=== PATIENT | male | born 1945 | race Hispanic/Latino ===

== ENCOUNTER 2017-01-17 13:43 | Outpatient (CLI) | payer MEDICARE, OTHER ==
--- NOTE | 2017-01-17 16:40 | HP ---
DATE OF SERVICE: 01/17/2017 HISTORY OF PRESENT ILLNESS: Mr. Tab Burdick is a very pleasant 71-year-old gentleman accomp anied by his daughter who presents to the [facility] Center for evaluation of a coccygeal pressure ulcerat ion. The patient's daughter states that the coccygeal wound was noted at the end of September of this y ear, but has decreased in its dimensions with dressing changes. The patient also has ulcerations of the right lateral foot and of the right great toe. The patient's daughter states that the ulceration of the right lateral foot was noted at the beginning of October of this year. She states that the wound of the right great toe was first noted in early December of this year. The patient's daughter states that Mr. Burdick suffered a hemorrhagic stroke in 08/2016. She states that the patient was di scharged from [facility] to [facility] and eventually to [facility]. e states that after admission to [facility], the coccygeal wound developed. She states that the patient was noted to have an infectious process associated with a coccygeal wound and was seen at [facility]. She states that the patient was discharged to [facility] after his evaluatio n. She states that the following day, the patient was noted to have fever and elevated blood glucose s. The patient was seen in the Emergency Department at [facility] and [facility] for treatment of a Staphylococcal infection associated with the coccygeal wound. The patient's poonam ghter states that Mr. Burdick has remained in the hospital for 4 days before discharge to [facility]. The patient's daughter states that Mr. Burdick has received dressing changes for his c occygeal wound consisting of various dressings containing silver. He has also received a trial of Nm dihoney. PAST MEDICAL HISTORY: 1. Diabetes mellitus. 2. Hypertension. 3. Coronary artery disease. 4. Chronic obstructive pulmonary disease. 5. Obstructive sleep apnea. 6. History of transient ischemic attack. 7. Hemorrhagic cerebrovascular accident. PAST SURGICAL HISTORY: 1. Back surgery. 2. Coronary artery bypass grafting. 3. ORIF for femur fracture. 4. Laparoscopic cholecystectomy. 5. Redo coronary artery bypass grafting x3. MEDICATIONS: 1. Omeprazole. 2. Thera-M. 3. Vitamin C. 4. Zinc. 5. Arginaid. 6. Flomax. 7. Humalog. 8. Claritin. 9. Norvasc. 10. Simvastatin. 11. Aricept. 12. Coreg. 13. Levemir. 14. Brovana. 15. Budesonide suspension. 16. Ipratropium bromide solution. ALLERGIES: CODEINE. SOCIAL HISTORY: Significant for tobacco use in the past. The patient's daughter states that Mr. Ronald guzman stopped smoking over 20 years ago. She states that the patient has a history of heavy alcohol us e in the past. FAMILY HISTORY: Significant for diabetes mellitus. The patient's mother and father were both diagno sed with diabetes mellitus. Family history is also significant for coronary artery disease. The pat paty's daughter states that some of the patient's brothers were diagnosed with coronary artery diseas e. PHYSICAL EXAMINATION: VITAL SIGNS: Temperature 97.2, pulse 64, respirations 17, blood pressure 126/54. Accu-Chek 184. GENERAL: A 71-year-old gentleman lying on stretcher in examination room, in no acute distress. HEENT: Normocephalic, atraumatic. NECK: No nuchal rigidity. CHEST: Clear to auscultation. CARDIAC: Regular rate and rhythm. ABDOMEN: Soft. BACK: A coccygeal ulceration is present, which measures approximately 2.4 x 2.9 cm. Granulation tis nic is present within the wound margins. Nonviable tissue present within the wound margins was debri ded with an excisional full-thickness debridement. No purulent drainage is associated with the wound . No cellulitis of the presacral region is appreciated. No maceration of the skin of the periwound is noted. EXTREMITIES: No clubbing or cyanosis. A dorsalis pedis or posterior tibial pulse is not palpable on the right. No edema of the right lower extremity is present on exam today. ASSESSMENT AND PLAN: 1. Coccygeal pressure ulceration as described above. Dressing changes of Santyl and gauze will be i nitiated today. These dressing changes are to be performed on a daily basis after cleansing and irri gation at [facility]. The ulcerations of the right great toe and right lateral foot a re completely covered by dry stable eschar and the present dressing changes of Cavilon will be contin ued. No antibiotics will be prescribed today based upon the appearance of the coccygeal wound. I wi ll see Mr. Burdick again in 2 weeks. Orders will be transmitted to [facility] for albu min and prealbumin levels. Orders will also be transmitted to [facility] for offloadi ng of the coccygeal ulceration with position changes q.2 hours. The patient's daughter understands a nd is in agreement with the preceding treatment plan. 2. Diabetes mellitus. The patient's Accu-Chek in clinic today is 184. The patient's daughter has christopher gutierrez told that for optimal wound healing, the patient's blood glucoses should remain below 150. 2. Hypertension. 3. Coronary artery disease. 4. Chronic obstructive pulmonary disease. 5. Obstructive sleep apnea. 6. History of transient ischemic attack. 7. Hemorrhagic cerebrovascular accident.
[2017-01-17] MEDS ORDERED: Sodium Chloride 0.9% 15 ML NEB ONE (17:29)
[2017-01-17] MEDS ORDERED: Lidocaine 2% Jelly 5 ML TUBE ONE (17:29)
== END 2017-01-17 13:44 | disposition home or self-care (01) ==
LOC: WCC 13:43
PROVIDERS: ATTEND Family Medicine
DX: L89.159 Pressure ulcer of sacral region, unspecified stage (principal); E11.622 Type 2 diabetes mellitus with other skin ulcer; I10 Essential (primary) hypertension; I25.10 Atherosclerotic heart disease of native coronary artery without angina pectoris; J44.9 Chronic obstructive pulmonary disease, unspecified; G47.33 Obstructive sleep apnea (adult) (pediatric)
CPT/HCPCS: 11042; 97139; G0463; 99204; A4218

== ENCOUNTER 2017-01-31 13:57 | Outpatient (CLI) | payer MEDICARE, OTHER ==
--- NOTE | 2017-01-31 16:34 | PRG ---
DATE OF SERVICE: 01/31/2017 HISTORY: Mr. Tab Burdick is a very pleasant 71-year-old gentleman accompanied by his daughter who presents to the Wound Center for evaluation of a coccygeal pressure ulceration. The pa tawana's daughter previously stated that the coccygeal wound was noted at the end of September of this ye ar, but decreased in its dimensions with dressing changes. The patient also has ulcerations of the r ight lateral foot and of the right great toe. The patient's daughter previously stated that the ulce ration of the right lateral foot was noted at the beginning of October of this year. She stated th at the wound of the right great toe was first noted in early December of this year, the patient's poonam ghter stated that Mr. Burdick suffered a hemorrhagic stroke in 08/2016. She stated that the patient w as discharged from [facility] to [facility] and eventually to [facility] . She stated that after admission to [facility] the coccygeal wound developed. She stated jamaal t the patient was noted to have an infectious process associated with the coccygeal wound and was see n at [facility]. She stated that the patient was discharged to [facility] after his ev aluation. She stated that the following day, the patient was noted to have fever and elevated blood glucoses. The patient was seen in the Emergency Department at [facility] and admitted for treatment of Staphylococcal infection associated with the coccygeal wound. The patient' s daughter stated that Mr. Burdick had remained in the hospital for 4 days before discharged to [facility]. The patient's daughter stated that Mr. Burdick had received dressing changes for his coccygeal wound consisting of various dressings containing silver. He had also received a trial of Medihoney. After being seen in the Wound Center, dressing changes of Santyl was initiated. PHYSICAL EXAMINATION: VITAL SIGNS: Temperature 97.9, pulse 67, respirations 18, blood pressure 140/60. Accu-Chek 167. BACK: A coccygeal ulceration is present which measures approximately 2.0 x 2.0 cm. The dimensions o f the wound at the time of the patient's last visit were approximately 2.4 x 2.9 cm. Granulation tis nic is present within the wound margins. Nonviable tissue present within the wound margins was debri ded with an excisional full-thickness debridement. No purulent drainage is associated with the wound . No cellulitis of the presacral region is appreciated. No maceration of the skin of the periwound is noted. ASSESSMENT AND PLAN: 1. Coccygeal pressure ulceration as described above. Dressing changes of Santyl and gauze will be c ontinued on a daily basis after cleansing and irrigation at [facility]. The coccygeal pressure ulceration has improved in its appearance since the patient's last visit. The ulcerations of the right great toe and right lateral foot are healing without complications or any signs of infec tion. I will see Mr. Burdick again in 3-4 weeks. Orders will be transmitted to [facility] for albumin and prealbumin levels. Orders will also be transmitted to [facility] for offloading of the coccygeal ulceration with position changes q.2 hours. The patient's daughter understands and is in agreement with the preceding treatment plan. 2. Diabetes mellitus. The patient's Accu-Chek in clinic today is 167. The patient's daughter has christopher gutierrez told that for optimal wound healing, the patient's blood glucoses should remain below 150. 3. Hypertension. 4. Coronary artery disease. 5. Chronic obstructive pulmonary disease. 6. Obstructive sleep apnea. 7. History of transient ischemic attack. 8. Hemorrhagic cerebrovascular accident.
[2017-01-31] MEDS ORDERED: Sodium Chloride 0.9% 15 ML NEB ONE (17:05)
== END 2017-01-31 13:58 | disposition home or self-care (01) ==
LOC: WCC 13:57
PROVIDERS: ATTEND Family Medicine
DX: L89.159 Pressure ulcer of sacral region, unspecified stage (principal); E11.621 Type 2 diabetes mellitus with foot ulcer; L97.519 Non-pressure chronic ulcer of other part of right foot with unspecified severity; I10 Essential (primary) hypertension; I25.10 Atherosclerotic heart disease of native coronary artery without angina pectoris; G47.33 Obstructive sleep apnea (adult) (pediatric); J44.9 Chronic obstructive pulmonary disease, unspecified; I61.9 Nontraumatic intracerebral hemorrhage, unspecified
CPT/HCPCS: 11042; 36416; A4218

== ENCOUNTER 2017-03-02 13:13 | Outpatient (CLI) | payer MEDICARE, OTHER ==
--- NOTE | 2017-03-02 15:58 | PRG ---
DATE OF SERVICE: 03/02/2017 HISTORY: Mr. Tab Burdick is a very pleasant 71-year-old gentleman accompanied by his daught er who presents to the Wound Center for evaluation of coccygeal pressure ulceration. The patient's d aughter previously stated that the coccygeal wound was noted at the end of 09/2016, but decreased in its dimensions with dressing changes. The patient also has an ulceration of the right lateral foot a nd of the right great toe. The patient's daughter previously stated that the ulceration of the right lateral foot was noted at the beginning of 10/2016. She stated that the wound of the right great to e was first noted in early 12/2016. The patient's daughter stated that the patient was discharged fr [facility] to [facility] and eventually to [facility]. She stated th at after admission to [facility], the coccygeal wound developed. She stated that the patient wa s noted to have an infectious process associated with a coccygeal wound and was seen at [facility]. She stated that the patient was discharged to [facility] after his evaluation. She sta chu that the following day, the patient was noted to have fever and elevated blood glucoses. The pat paty was seen in the Emergency Department at [facility] and admitted for treat ment of a Staphylococcal infection associated with the coccygeal wound. The patient's daughter state d that Mr. Burdick had remained in the hospital for 4 days before discharge to [facility]. The patient's daughter stated that Mr. Burdick had received dressing changes for his coccygeal wo und consisting of various dressings containing silver. He had also received a trial of Medihoney. A fter being seen in the Wound Center, dressing changes of Santyl were initiated. PHYSICAL EXAMINATION: VITAL SIGNS: Temperature 97.6, pulse 68, respirations 16, blood pressure 122/60. Accu-Chek 112. BACK: A coccygeal ulceration is present which measures approximately 2.4 x 1.2 cm. The dimensions o f the wound at the time of the patient's last visit were approximately 2.0 x 2.0 cm. Granulation tis nic was present within the wound margins. Nonviable tissue present within the wound margins was debr ided with an excisional full-thickness debridement. No purulent drainage is associated with the woun d. No cellulitis of the presacral region is appreciated. No maceration of the skin of the periwound is noted. EXTREMITIES: An ulceration of the right lateral foot is present, which measures approximately 1.0 x 1.5 cm. The ulceration of the right great toe has healed completely. Cellulitis of the right second toe is, however, noted on exam today. ASSESSMENT AND PLAN: 1. Coccygeal pressure ulceration as described above. Dressing changes of Santyl will be discontinue d. Dressing changes of Medihoney and gauze will be resumed on a daily basis after cleansing and irri gation at [facility]. The patient is experiencing discomfort with the dressing change s of Santyl. For the ulceration of the right lateral foot, dressing changes of Medihoney and gauze a re to be performed also on a daily basis after cleansing and irrigation. Orders will be transmitted to [facility] for offloading of the coccygeal and right lateral foot ulcerations at al l times. Dorsalis pedis or posterior tibial pulses are not palpable on the right or the left and arr angements will be made for the patient to be seen in consultation by Dr. Les Roblero for right lower ex tremity arterial insufficiency. Orders will again be transmitted to [facility] for al bumin and prealbumin levels. Apparently, the patient has been seen by Nutrition and is now consuming a supplement in liquid form 3 times per day. I will see Mr. Burdick after evaluation by Dr. Roblero and any necessary treatment is complete. The patient's daughter understands and is in agreement with [facility] preceding treatment plan. For cellulitis of the right second toe, the patient has been placed on A ugmentin 875/125, #28, 1 p.o. b.i.d. x14 days. 2. Diabetes mellitus. The patient's Accu-Chek in clinic today is 112. The patient's daughter has b brenda reminded that for optimal wound healing, the patient's blood glucoses should remain below 150. 3. Hypertension. 4. Coronary artery disease. 5. Chronic obstructive pulmonary disease. 6. Obstructive sleep apnea. 7. History of transient ischemic attack. 8. Hemorrhagic cerebrovascular accident.
[2017-03-02] MEDS ORDERED: Lidocaine 2% Jelly 5 ML TUBE ONE (17:08)
[2017-03-02] MEDS ORDERED: Sodium Chloride 0.9% 15 ML NEB ONE (17:08)
== END 2017-03-02 13:14 | disposition home or self-care (01) ==
LOC: WCC 13:13
PROVIDERS: ATTEND Family Medicine
DX: E11.621 Type 2 diabetes mellitus with foot ulcer (principal); E11.622 Type 2 diabetes mellitus with other skin ulcer; L89.159 Pressure ulcer of sacral region, unspecified stage; L98.499 Non-pressure chronic ulcer of skin of other sites with unspecified severity; I10 Essential (primary) hypertension; I25.10 Atherosclerotic heart disease of native coronary artery without angina pectoris; J44.9 Chronic obstructive pulmonary disease, unspecified; G47.33 Obstructive sleep apnea (adult) (pediatric); I62.9 Nontraumatic intracranial hemorrhage, unspecified; Z86.73 Personal history of transient ischemic attack (TIA), and cerebral infarction without residual deficits
CPT/HCPCS: 11042; A4218

== ENCOUNTER 2017-03-07 15:13 | Inpatient (IN) | payer MEDICARE, OTHER ==
[2017-03-07 16:17] LABS: #Eosinphils 0.5 thou/uL (0.0-0.7); #Lymphocytes 1.1 thou/uL (1.20-3.40); #Monocytes 0.5 thou/uL (0.11-0.59); #Neutrophils 4.6 thou/uL (1.40-6.50); %Basophils 0.1 % (0.0-1.0); %Eosinophils 6.8 % (0.0-10.0); %Lymphocytes 17.1 % (21.0-51.0); %Monocytes 7.8 % (0.0-10.0); %Neutrophils 68.2 % (42.0-75.0); Mean Corpuscular HGB CONC 31.3 g/dL (32.0-36.0); Mean Corpuscular Volume 92.6 fl (80.0-94.0); Mean Platelet Volume 7.4 fL (7.4-10.4); Platelet Count 218 thou/uL (130-400); RBC Distribution Width 13.3 % (11.5-14.5); Red Blood Cell (RBC) Count 4.15 mill/uL (4.70-6.10); White Blood Cell (WBC) Count 6.7 thou/uL (4.8-10.8)
[2017-03-07 16:23] LABS: PTT 34.4 SEC (22.9-36.1)
[2017-03-07 16:27] LABS: Prothrombin Time 13.6 SEC (12.0-14.7)
[2017-03-07 16:36] LABS: ALT (SGPT) 27 U/L (8-55); AST (SGOT) 18 U/L (5-34); Albumin 3.3 g/dL (3.4-4.8); Alkaline Phosphatase 103 U/L (40-150); Anion Gap 11 mmol/L (10-20); BUN (Urea Nitrogen) 24 mg/dL (8.4-25.7); Bilirubin, Total 0.2 mg/dL (0.2-1.2); CRP (Inflammatory) 2.24 mg/dL (= or < 0.5); Calc. Creatinine Clearance 0 mL/min (70-130); Calcium 9.2 mg/dL (7.8-10.44); Carbon Dioxide 28 mmol/L (23-31); Chloride 102 mmol/L (98-107); Estimated GFR-MDRD Greater than 90; Globulin 3.4 g/dL (2.4-3.5); Glucose 305 mg/dL (83-110); Potassium 4.7 mmol/L (3.5-5.1); Protein, Total 6.7 g/dL (5.8-8.1); Sodium 136 mmol/L (136-145)
[2017-03-07 16:40] LABS: CKMB 0.9 ng/mL (0-6.6)
--- NOTE | 2017-03-07 16:51 | RAD ---
2 VIEWS RIGHT FOOT: Date: 03/07/17 HISTORY: Right toe infection. Gangrenous right second toe. COMPARISON: 03/03/17. FINDINGS: Limited evaluation due to patient positioning. The second toe could not be adequately assessed. Based on the images provided, no obvious osteomyelitis. Soft tissue swelling of the second digit is suspec chu. Additionally, there may be mild soft tissue swelling involving the first and third digit. Vascul ar calcifications are identified. There is diffuse mild bone demineralization. Degenerative changes in the mid foot are noted. IMPRESSION: 1. Limited evaluation. No radiographic evidence of osteomyelitis. 2. Soft tissue swelling, worrisome for cellulitis involving the second and possibly the first and th ird digits. When compared to the previous radiograph, no change. POS: SCHUYLER
--- NOTE | 2017-03-07 16:53 | ULT ---
ULTRASOUND WITH DOPPLER DUPLEX VENOUS LOWER EXTREMITY RIGHT: HISTORY: 71-year-old male with gangrenous right toe. TECHNIQUE: Color flow Doppler, spectral waveform analysis of pulsed Doppler, and villegas-scale imaging with chayo emily and augmentation, were used to evaluate the right common femoral, femoral, popliteal, posterior tibial, and superficial femoral, veins; and the proximal portions of the profunda femoral and greater saphenous, veins. FINDINGS: There is normal compressibility, demonstration of blood flow by color Doppler and pulsed Doppler, and response to augmentation, in all interrogated veins. There is mild edema in the soft tissues. IMPRESSION: 1. No deep vein thrombosis in the right lower extremity. 2. Mild edema of the soft tissues of the right lower extremity. allyssa staton POS: ОЛЕГ
--- NOTE | 2017-03-07 18:35 | PDOC.EVN ---
Event Note - Event Note Event Note: [id number] H&P Dictated 1. Rt foot/toe cellulitis. 2. Pain 3. HTN 4. DM type 2 plan: see orders
[2017-03-07] MEDS ORDERED: Ondansetron HCl/PF 4 MG/2 ML Vial IVP PRN ×2 (19:15)
[2017-03-07] MEDS ORDERED: Ondansetron ODT 4 MG TAB SL PRN (19:15)
[2017-03-07] MEDS ORDERED: Acetaminophen 325 MG TAB PO PRN (19:15)
[2017-03-07] MEDS ORDERED: Dextrose 5% in Water 1,000 ML IV PRN (19:20)
[2017-03-07] MEDS ORDERED: HumaLOG 300 UNITS/3 ML VIAL SC PRN ×2 (19:20)
[2017-03-07] MEDS ORDERED: Dextrose 50% Abboject 50 ML SYRINGE SLOW IVP PRN (19:20)
[2017-03-07] MEDS: Sodium Chloride 0.9% 1,000 ML IV SCH (20:36)
[2017-03-07] MEDS: Cefepime 2 GM, Syringe 2.5 ML in Sterile Water 10 ML SLOW IVP SCH (20:36)
[2017-03-07] MEDS: Carvedilol 6.25 MG TAB PO SCH (20:43)
[2017-03-07] MEDS: Simvastatin 40 MG TAB PO SCH (20:43)
[2017-03-07] MEDS: Heparin 5,000 UNITS/ML VIAL SC SCH (20:43)
[2017-03-07] MEDS: Tamsulosin HCl 0.4 MG CAP PO SCH (20:44)
[2017-03-07] MEDS: Donepezil HCl 5 MG TAB PO SCH (20:44)
[2017-03-07] MEDS: Famotidine/PF 20 mg/2ml Vial SLOW IVP SCH (20:45)
[2017-03-07] MEDS: Insulin Detemir 100 UNITS/ML 12 UNITS in Pre-Filled Syringe SC SCH (20:56)
[2017-03-07] MEDS ORDERED: Cefepime 2 GM in Sodium Chloride 0.9% 100 ML IVPB SCH (21:00)
[2017-03-08 04:44] LABS: #Eosinphils 0.4 thou/uL (0.0-0.7); #Lymphocytes 1.3 thou/uL (1.20-3.40); #Monocytes 0.6 thou/uL (0.11-0.59); #Neutrophils 4.9 thou/uL (1.40-6.50); %Basophils 0.3 % (0.0-1.0); %Lymphocytes 17.5 % (21.0-51.0); %Monocytes 8.7 % (0.0-10.0); %Neutrophils 68.5 % (42.0-75.0); Hemoglobin 10.9 g/dL (14.0-18.0); Mean Corpuscular HGB CONC 31.3 g/dL (32.0-36.0); Mean Corpuscular Hemoglobin 28.9 pg (27.0-31.0); Mean Corpuscular Volume 92.4 fl (80.0-94.0); Mean Platelet Volume 7.4 fL (7.4-10.4); Platelet Count 215 thou/uL (130-400); RBC Distribution Width 13.4 % (11.5-14.5); Red Blood Cell (RBC) Count 3.78 mill/uL (4.70-6.10); White Blood Cell (WBC) Count 7.2 thou/uL (4.8-10.8)
[2017-03-08 05:08] LABS: Anion Gap 10 mmol/L (10-20); BUN (Urea Nitrogen) 21 mg/dL (8.4-25.7); Calc. Creatinine Clearance 0 mL/min (70-130); Calcium 8.8 mg/dL (7.8-10.44); Carbon Dioxide 24 mmol/L (23-31); Chloride 106 mmol/L (98-107); Estimated GFR-MDRD Greater than 90; Glucose 140 mg/dL (83-110); Sodium 136 mmol/L (136-145)
[2017-03-08] MEDS: Vancomycin HCl 1.5 GM in Sodium Chloride 0.9% 250 ML 300 ML IVPB SCH ×2 (05:58→17:26)
--- NOTE | 2017-03-08 06:10 | HP ---
DATE OF ADMISSION: 03/07/2017 CHIEF COMPLAINT: Right second toe infection. HISTORY OF PRESENT ILLNESS: The patient is a 71 years old male with the past medical history of diab etes type 2, hypertension, COPD, coronary artery disease, dementia, now came to ER for second right t oe swelling and black discoloration. According to the daughter, the patient has started having right toe black discoloration 1 week back since then it persisted associated with some right foot pain. P ain is constant 10/10, initially 5/10, currently none. Denies any radiation. Denies any fever, sunni es any chills, denies any nausea, denies any vomiting, denies any chest pain, denies any trouble natalya thing, denies any dizziness. PAST MEDICAL HISTORY: As per HPI. PAST SURGICAL HISTORY: CABG x2, right hip surgery. SOCIAL HISTORY: Denies smoking, denies alcohol, denies any drugs. MEDICATIONS: Reviewed. FAMILY HISTORY: Denies any heart problems. REVIEW OF SYSTEMS: Constitutional: Denies any fever, denies any chills. Eyes: No vision problems. Ears: Denies any hearing loss. Neck: Denies any neck pain. Cardiovascular system: Denies any c hest pain. Respiratory system: Denies any cough, denies sputum production. Gastrointestinal: Sunni es nausea, vomiting. Integumentary: Denies any rash. Genitourinary: Denies dysuria. Musculoskele dayan: Right second toe pain. Cranial nerve system: Positive for right foot erythema and right secon d toe erythema. Psychiatric: Denies anxiety. All other review of systems are reviewed and are nega tive. PHYSICAL EXAMINATION: CONSTITUTIONAL/VITAL SIGNS: At the time of H and P performed, blood pressure is 115/57, heart rate 6 9, pulse ox 93%. GENERAL: The patient appears comfortable. HEENT: Pupils equal, round, and reactive to light. Anterior nares patent. Nose normal. Ears edwina l. Teeth intact. Tongue is moist. NECK: Supple. No JVD. CARDIOVASCULAR SYSTEM: S1, S2 present. Regular rate and rhythm. No murmurs, no rubs, no gallops. RESPIRATORY SYSTEM: No wheezing, no rhonchi. Breath sounds bilaterally. GASTROINTESTINAL: Abdomen is soft, nontender, no guarding, no organomegaly, no masses felt. MUSCULOSKELETAL: Right second toe swelling present. Erythema present. Black discoloration seen up to the mid of the toe. PSYCHIATRIC: Mood is appropriate at this time. GENITOURINARY: No suprapubic tenderness. LABORATORY DATA: At the time of H and P performed, white count 6.7, hemoglobin 12, platelet count is 218. BMP: Sodium 136, potassium 4.7, chloride 102, CO2 28, BUN of 24, creatinine 0.78, glucose 305 , troponin 0.010. PT 13.6. INR 1. Vascular ultrasound, no DVT, mild edema, and soft tissue. Foot x-ray, limited evaluation of soft tissue swelling, worsening foot cellulitis. ASSESSMENT AND PLAN: The patient is a 71 years old male: 1. Right second toe foot cellulitis plus second toe possible gangrene. Plan to consult Podiatry to evaluate the patient. Plan to start patient on broad-spectrum antibiotics and monitor patient. 2. Hypertension. Monitor blood pressures. Continue home blood pressure meds. 3. History of chronic obstructive pulmonary disease. Continue breathing treatments. 4. History of diabetes type 2, monitor blood sugars. We will do insulin sliding scale. 5. History of coronary artery disease. Continue aspirin. The case was discussed in detail with the patient.
[2017-03-08 06:59] VITALS: BMI 21.5
[2017-03-08] MEDS: Arformoterol 15 MCG/2 ML NEB NEB SCH ×2 (07:49→19:08)
[2017-03-08] MEDS: Budesonide 0.25 MG/2 ML NEB NEB SCH ×2 (07:52→19:09)
[2017-03-08] MEDS ORDERED: FLU VACC TS2017-18 (>65YR) 0.5 ML SYRINGE IM ONE (08:00)
[2017-03-08] MEDS: Sodium Chloride 0.9% 1,000 ML IV SCH ×2 (08:23→20:57)
[2017-03-08] MEDS: Carvedilol 6.25 MG TAB PO SCH ×2 (08:23→21:05)
[2017-03-08] MEDS: Famotidine/PF 20 mg/2ml Vial SLOW IVP SCH ×2 (08:23→20:57)
[2017-03-08] MEDS: Heparin 5,000 UNITS/ML VIAL SC SCH ×3 (08:24→20:52)
[2017-03-08] MEDS: Insulin Detemir 100 UNITS/ML 12 UNITS in Pre-Filled Syringe SC SCH ×2 (08:24→21:49)
[2017-03-08] MEDS: Cefepime 2 GM, Syringe 2.5 ML in Sterile Water 10 ML SLOW IVP SCH ×2 (09:52→20:51)
[2017-03-08] MEDS: Acetaminophen 325 MG TAB PO PRN ×2 (09:56→14:20)
--- NOTE | 2017-03-08 15:10 | PDOC.PN ---
- Subjective Encounter Start Date: 03/08/17 Encounter Start Time: 11:00 Regulot is seen today, alert and oriented. Discussed with , pt has Severe PVD and Will need Arterial Doppler for evalaution. - Objective MAR Reviewed: Yes Vital Signs & Weight: Vital Signs (12 hours) Temp Pulse Resp BP Pulse Ox 03/08/17 12:09 97.9 F 66 16 119/69 94 L 03/08/17 08:00 97.8 F 60 16 97 03/08/17 07:49 60 16 97 03/08/17 07:26 97.8 F 69 16 112/64 94 L 03/08/17 04:00 98.5 F 67 20 123/70 94 L Weight Admit Weight 146 lb Weight 146 lb Result Diagrams: 03/08/17 04:08 03/08/17 04:08 Additional Labs: Accuchecks 03/08/17 03/08/17 03/07/17 12:08 04:52 20:36 POC Glucose 124 H 127 H 233 H Radiology Reviewed by me: Yes Phys Exam - Physical Examination HEENT: PERRLA, moist MMs Neck: no nodes, no JVD Respiratory: no rales, wheezing present Cardiovascular: RRR, no significant murmur Gastrointestinal: soft, non-tender Musculoskeletal: pulses present (reduced on right Lower Extremity Dorsalis pedis , gangrene of the second toe) Neurological: non-focal, normal sensation Dx/Plan (1) Gram-negative bacteremia Code(s): R78.81 - BACTEREMIA Status: Acute Comment: Pt has gram Neg Bacteremia, Will continue with Cefepime and Vancomycin, culture sensitivitis pending., (2) Gangrene of toe of right foot Code(s): I96 - GANGRENE, NOT ELSEWHERE CLASSIFIED Status: Acute Comment: Will cotninue with above Abx, Pending podiatry consult, Will get NILESH to r/o PVD. (3) CAD (coronary artery disease) Code(s): I25.10 - ATHSCL HEART DISEASE OF [place] CORONARY ARTERY W/O ANG PCTRS Status: Chronic Qualifiers: Coronary Disease-Associated Artery/Lesion type: bypass graft [place] vs. transplanted heart: [place] heart Associated angina: without angina Qualified Code(s): I25.810 - Atherosclerosis of coronary artery bypass graft(s) without angina pectoris Comment: H/o CABG, no chest pain, continue Aspirin, BB (4) COPD (chronic obstructive pulmonary disease) Status: Chronic Qualifiers: COPD type: unspecified COPD Qualified Code(s): J44.9 - Chronic obstructive pulmonary disease, unspecified Comment: No exacerbation noted. mild Wheezing, continue PRN NEbs. 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 (6) HTN (hypertension) Code(s): I10 - ESSENTIAL (PRIMARY) HYPERTENSION Status: Chronic Qualifiers: Hypertension type: essential hypertension Qualified Code(s): I10 - Essential (primary) hypertension Comment: BP at Goal, continue Home Meds. - Plan cont current plan of care, plan discussed w/ family, continue antibiotics, PT/OT , DVT proph w/lovenox * . - Discharge Day Encounter end time: 11:45 Review of Systems - Review of Systems Constitutional: fever Eyes: negative: Pain, Vision Change, Conjunctivae Inflammation, Eyelid Inflammation, Redness, Other ENT: negative: Ear Pain, Ear Discharge, Nose Pain, Nose Discharge, Nose Congestion, Mouth Pain, Mouth Swelling, Throat Pain, Throat Swelling, Other Respiratory: negative: Cough, Dry, Shortness of Breath, Hemoptysis, SOB with Excertion, Pleuritic Pain, Sputum, Wheezing Cardiovascular: negative: chest pain, palpitations, orthopnea, paroxysmal nocturnal dyspnea, edema, light headedness, other Gastrointestinal: negative: Nausea, Vomiting, Abdominal Pain, Diarrhea, Constipation, Melena, Hematochezia, Other Genitourinary: negative: Dysuria, Frequency, Incontinence, Hematuria, Retention , Other Musculoskeletal: Foot Pain Skin: Bruising (Erythme and black colored toe), Other Neurological: negative: Weakness, Numbness, Incoordination, Change in Speech, Confusion, Seizures, Other - Medications/Allergies Allergies/Adverse Reactions: Allergies Allergy/AdvReac Type Severity Reaction Status Date / Time codeine Allergy "MAKES ME Verified 03/08/17 07:42 JITTERY" Medications: Current Medications Acetaminophen (Tylenol) 650 mg PO Q4H PRN PRN Reason: Headache/Fever or Pain Last Admin: 03/08/17 14:20 Dose: 650 mg Arformoterol Tartrate (Brovana) 15 mcg NEB BID-RT [facility] Last Admin: 03/08/17 07:49 Dose: 15 mcg Budesonide (Pulmicort Neb Solution) 0.25 mg NEB BID-RT [facility] Last Admin: 03/08/17 07:52 Dose: 0.25 mg Carvedilol (Coreg) 6.25 mg PO BID [facility] Last Admin: 03/08/17 08:23 Dose: 6.25 mg Dextrose/Water (Dextrose 50%) 25 gm SLOW IVP PRN PRN PRN Reason: Hypoglycemia Donepezil HCl (Aricept) 5 mg PO HS [facility] Last Admin: 03/07/17 20:44 Dose: 5 mg Famotidine (Pepcid) 20 mg SLOW IVP Q12HR [facility] Last Admin: 03/08/17 08:23 Dose: 20 mg Glucagon (Glucagon) 1 mg IM PRN PRN PRN Reason: Hypoglycemia Heparin Sodium (Porcine) (Heparin) 5,000 units SC TID [facility] Last Admin: 03/08/17 14:20 Dose: 5,000 units Dextrose/Water (D5w) 1,000 mls @ 0 mls/hr IV .Q0M PRN; As Directed PRN Reason: Hypoglycemia Sodium Chloride (Normal Saline 0.9%) 1,000 mls @ 75 mls/hr IV .[id number] [facility] Last Admin: 03/08/17 08:23 Dose: Not Given Vancomycin HCl 1.5 gm/ Sodium (Chloride) 300 mls @ 200 mls/hr IVPB 0500,1700 [facility] Last Admin: 03/08/17 05:58 Dose: 300 mls Cefepime HCl 2 gm/ Syringe 2.5 (ml/ Sterile Water) 12.5 mls @ 150 mls/hr SLOW IVP 0800,2000 [facility] Last Admin: 03/08/17 09:52 Dose: 12.5 mls Insulin Detemir 12 units/ (Miscellaneous Medication) 0.12 mls @ 0 mls/hr SC BID [facility] Last Admin: 03/08/17 08:24 Dose: 0.12 mls Insulin Human Lispro (Humalog) 0 units SC .MODERATE SLIDING SC PRN PRN Reason: Moderate Correctional Scale Insulin Human Lispro (Humalog) 0 units SC .BEDTIME SLIDING SC PRN PRN Reason: Bedtime Correctional Scale Last Admin: 03/07/17 20:45 Dose: 2 unit Ondansetron HCl (Zofran) 4 mg IVP Q6H PRN PRN Reason: Nausea/Vomiting Simvastatin (Zocor) 40 mg PO HS [facility] Last Admin: 03/07/17 20:43 Dose: 40 mg Tamsulosin HCl (Flomax) 0.4 mg PO [facility] Last Admin: 03/07/17 20:44 Dose: 0.4 mg
[2017-03-08] MEDS: Tamsulosin HCl 0.4 MG CAP PO SCH (20:52)
[2017-03-08] MEDS: Donepezil HCl 5 MG TAB PO SCH (20:52)
[2017-03-08] MEDS: Simvastatin 40 MG TAB PO SCH (20:57)
--- NOTE | 2017-03-08 22:56 | CON ---
DATE OF CONSULTATION: 03/08/2017 INITIAL INPATIENT CONSULT VISIT REASON FOR CONSULTATION: Right second toe gangrene. HISTORY OF PRESENT ILLNESS: This is a 71-year-old male patient whom I was consulted on for a right s econd toe infection. The patient with history of dementia and therefore a poor historian and history was obtained from his daughter over the telephone. She relates that approximately 10 days ago, they noticed some discoloration of the right second toe. It started as a pus pocket at the base of the t oenail, then became bruised in appearance, then red and black. It has been very painful to the touch . He does not let anyone touch the toe itself. He also has a history of a pressure wound on the rig ht fifth metatarsal base, which has been present for several months. He was brought to the hospital and put on IV antibiotics, is currently admitted, on vancomycin and cefepime. PAST MEDICAL HISTORY: 1. Type 2 diabetes. 2. Hypertension. 3. Chronic obstructive pulmonary disease. 4. Coronary artery disease. 5. Dementia. PAST SURGICAL HISTORY: Coronary artery bypass graft x2 and right hip surgery. SOCIAL HISTORY: Denies smoking, denies alcohol, denies any drugs. MEDICATIONS: Reviewed from the admission notes. ALLERGIES: CODEINE. FAMILY HISTORY: Noncontributory. REVIEW OF SYSTEMS: Constitutional: Denies nausea, vomiting, fevers, or chills. Integumentary: Rel ates color changes and pain to the right second toe. PHYSICAL EXAMINATION: VITAL SIGNS: Afebrile for 24 hours. Last temperature 98.4, pulse 61, blood pressure 97/60, respirat ions 16. CONSTITUTIONAL: The patient was seen at bedside. He is in no acute distress. He is sleeping soundl y. VASCULAR: Dorsalis pedis and posterior tibial pulses nonpalpable to the right foot. The cap refill time to toes 1, 3, 4, and 5 is immediate. Second toe has no capillary refill time due to the necroti c changes to the tip of the toe. NEUROLOGIC: Light touch sensation is intact. DERMATOLOGIC: There is blackening and desiccation of the right second toe up to the intermediate pha lanx. There are some erythema on the dorsal aspect of this toe up to the metatarsophalangeal joint. Some localized edema to the right second toe. There is an ulceration to the right lateral aspect of the fifth metatarsal base, measures 1.2 cm in diameter. Granular fibrotic mixed wound base. No per iwound erythema, edema, or warmth. No fluctuance noted anywhere on the foot. No ascending lymphangi tis. DIAGNOSTIC DATA: X-rays reviewed. Two views taken in the ER yesterday showed no acute osseous erosi ons or cortical irregularity. There is no sign of fractures. There is calcification of the vasculat ure in the foot and lower leg. I reviewed noninvasive vascular exams, which showed a decreased ankle brachial index on the right by the posterior tibial artery, although it is normal at the level of the ankle on the dorsalis pedis ar shaun. This could be indicating good blood flow or could be falsely elevated due to the calcification of his vessels. Toe brachial index is severely reduced on the left side and was not done on the rig ht. ASSESSMENT: 1. Dry gangrenous changes to the right second toe up to the intermediate phalanx without signs of un derlying bone infection radiographically. 2. Diabetes with peripheral vascular disease. 3. Pressure ulceration to the right lateral mid foot without signs of bacterial infection. PLAN: 1. I have discussed with the daughter the different treatment options. At this time, I am recommend ing that at the very least, we have further vascular workup to determine the extent of his peripheral vascular disease and whether or not any intervention is possible. 2. I am recommending an amputation of the right second digit at the intermediate phalanx level. I t hink this would help to reduce his pain level as well as reduce the possibility of worsening infectio n. I believe based off the exam and the demarcation of the necrosis that he would be able to heal an amputation at this site, although getting further vascular workup preoperatively would be preferable . 3. Continue with IV antibiotics as ordered. 4. The patient's family wishes to discuss other options. I am going to follow up tomorrow early aft manuel with him and determine our next step in treatment. Thank you to the Hospitalist team for medically managing this patient and thank you for the consultat ion.
[2017-03-09] MEDS: Vancomycin HCl 1.5 GM in Sodium Chloride 0.9% 250 ML 300 ML IVPB SCH ×2 (04:27→16:42)
[2017-03-09] MEDS: Acetaminophen 325 MG TAB PO PRN ×2 (04:30→12:51)
[2017-03-09] MEDS: Arformoterol 15 MCG/2 ML NEB NEB SCH ×2 (06:57→18:58)
[2017-03-09] MEDS: Budesonide 0.25 MG/2 ML NEB NEB SCH ×2 (07:00→18:55)
[2017-03-09] MEDS: Famotidine/PF 20 mg/2ml Vial SLOW IVP SCH (08:58)
[2017-03-09] MEDS: Insulin Detemir 100 UNITS/ML 12 UNITS in Pre-Filled Syringe SC SCH ×2 (08:58→20:19)
[2017-03-09] MEDS: Carvedilol 6.25 MG TAB PO SCH ×2 (08:58→20:17)
[2017-03-09] MEDS: Heparin 5,000 UNITS/ML VIAL SC SCH ×3 (08:58→20:16)
[2017-03-09] MEDS: Cefepime 2 GM, Syringe 2.5 ML in Sterile Water 10 ML SLOW IVP SCH ×2 (08:58→20:17)
--- NOTE | 2017-03-09 13:25 | PDOC.PN ---
- Subjective Encounter Start Date: 03/09/17 Encounter Start Time: 12:00 Patient is seen today, adiscussed with Family, Plan for Evaluation by vascular surgery. Pt is Alert and oriented pain is controlled. - Objective MAR Reviewed: Yes Vital Signs & Weight: Vital Signs (12 hours) Temp Pulse Resp BP Pulse Ox 03/09/17 08:00 98.4 F 63 16 96 03/09/17 07:30 98.4 F 63 16 134/68 96 03/09/17 07:00 65 16 97 03/09/17 06:57 65 16 97 03/09/17 06:42 98.3 F 61 18 114/71 92 L Weight Admit Weight 146 lb Weight 146 lb I&O: 03/08/17 03/09/17 03/10/17 06:59 06:59 06:59 Intake Total 1275 Balance 1275 Result Diagrams: 03/08/17 04:08 03/08/17 04:08 Additional Labs: Accuchecks 03/09/17 03/09/17 03/08/17 11:41 04:14 20:15 POC Glucose 94 126 H 164 H 03/08/17 16:32 POC Glucose 129 H Radiology Reviewed by me: Yes Phys Exam - Physical Examination HEENT: PERRLA, moist MMs Neck: no nodes, no JVD Respiratory: no wheezing, no rales Cardiovascular: RRR, no significant murmur Gastrointestinal: soft, non-tender Musculoskeletal: no edema (Diminished pulses DP and popliteal right leg) Neurological: non-focal, normal sensation Psychiatric: normal affect, A&O x 3 Skin: no rash, normal turgor Dx/Plan (1) Gram-negative bacteremia Code(s): R78.81 - BACTEREMIA Status: Acute Comment: Pt has gram Neg Bacteremia, Will continue with Cefepime and Vancomycin, culture sensitivitis pending., (2) Gangrene of toe of right foot Code(s): I96 - GANGRENE, NOT ELSEWHERE CLASSIFIED Status: Acute Comment: Will cotninue with above Abx, Pending podiatry consulted, planned Amputation, Pt has abnormal NILESH right popliteal, Will consult Vascular surgery/CV for CTA/ stenting if needed. (3) CAD (coronary artery disease) Code(s): I25.10 - ATHSCL HEART DISEASE OF [place] CORONARY ARTERY W/O ANG PCTRS Status: Chronic Qualifiers: Coronary Disease-Associated Artery/Lesion type: bypass graft [place] vs. transplanted heart: [place] heart Associated angina: without angina Qualified Code(s): I25.810 - Atherosclerosis of coronary artery bypass graft(s) without angina pectoris Comment: H/o CABG, no chest pain, continue Aspirin, BB (4) COPD (chronic obstructive pulmonary disease) Status: Chronic Qualifiers: COPD type: unspecified COPD Qualified Code(s): J44.9 - Chronic obstructive pulmonary disease, unspecified Comment: No exacerbation noted. mild Wheezing, continue PRN NEbs. 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 (6) HTN (hypertension) Code(s): I10 - ESSENTIAL (PRIMARY) HYPERTENSION Status: Chronic Qualifiers: Hypertension type: essential hypertension Qualified Code(s): I10 - Essential (primary) hypertension Comment: BP at Goal, continue Home Meds. - Plan cont current plan of care, plan discussed w/ family, continue antibiotics, PT/OT , rn social work, DVT proph w/lovenox * . - Discharge Day Encounter end time: 12:35 Review of Systems - Review of Systems Eyes: negative: Pain, Vision Change, Conjunctivae Inflammation, Eyelid Inflammation, Redness, Other ENT: negative: Ear Pain, Ear Discharge, Nose Pain, Nose Discharge, Nose Congestion, Mouth Pain, Mouth Swelling, Throat Pain, Throat Swelling, Other Respiratory: negative: Cough, Dry, Shortness of Breath, Hemoptysis, SOB with Excertion, Pleuritic Pain, Sputum, Wheezing Cardiovascular: negative: chest pain, palpitations, orthopnea, paroxysmal nocturnal dyspnea, edema, light headedness, other Gastrointestinal: negative: Nausea, Vomiting, Abdominal Pain, Diarrhea, Constipation, Melena, Hematochezia, Other Genitourinary: negative: Dysuria, Frequency, Incontinence, Hematuria, Retention , Other Musculoskeletal: negative: Neck Pain, Shoulder Pain, Arm Pain, Back Pain, Hand Pain, Leg Pain, Foot Pain, Other Skin: Bruising, Other (discoloration of 2nd and 1st toe now.) - Medications/Allergies Allergies/Adverse Reactions: Allergies Allergy/AdvReac Type Severity Reaction Status Date / Time codeine Allergy "MAKES ME Verified 03/08/17 07:42 JITTERY" Medications: Current Medications Acetaminophen (Tylenol) 650 mg PO Q4H PRN PRN Reason: Headache/Fever or Pain Last Admin: 03/09/17 12:51 Dose: 650 mg Arformoterol Tartrate (Brovana) 15 mcg NEB BID-RT [facility] Last Admin: 03/09/17 06:57 Dose: 15 mcg Budesonide (Pulmicort Neb Solution) 0.25 mg NEB BID-RT [facility] Last Admin: 03/09/17 07:00 Dose: 0.25 mg Carvedilol (Coreg) 6.25 mg PO BID [facility] Last Admin: 03/09/17 08:58 Dose: 6.25 mg Dextrose/Water (Dextrose 50%) 25 gm SLOW IVP PRN PRN PRN Reason: Hypoglycemia Donepezil HCl (Aricept) 5 mg PO HS [facility] Last Admin: 03/08/17 20:52 Dose: 5 mg Famotidine (Pepcid) 20 mg SLOW IVP Q12HR [facility] Last Admin: 03/09/17 08:58 Dose: 20 mg Glucagon (Glucagon) 1 mg IM PRN PRN PRN Reason: Hypoglycemia Heparin Sodium (Porcine) (Heparin) 5,000 units SC TID [facility] Last Admin: 03/09/17 08:58 Dose: 5,000 units Dextrose/Water (D5w) 1,000 mls @ 0 mls/hr IV .Q0M PRN; As Directed PRN Reason: Hypoglycemia Sodium Chloride (Normal Saline 0.9%) 1,000 mls @ 75 mls/hr IV .[id number] [facility] Last Admin: 03/08/17 20:57 Dose: 1,000 mls Vancomycin HCl 1.5 gm/ Sodium (Chloride) 300 mls @ 200 mls/hr IVPB 0500,1700 [facility] Last Admin: 03/09/17 04:27 Dose: 300 mls Cefepime HCl 2 gm/ Syringe 2.5 (ml/ Sterile Water) 12.5 mls @ 150 mls/hr SLOW IVP 0800,2000 [facility] Last Admin: 03/09/17 08:58 Dose: 12.5 mls Insulin Detemir 12 units/ (Miscellaneous Medication) 0.12 mls @ 0 mls/hr SC BID [facility] Last Admin: 03/09/17 08:58 Dose: 0.12 mls Insulin Human Lispro (Humalog) 0 units SC .MODERATE SLIDING SC PRN PRN Reason: Moderate Correctional Scale Insulin Human Lispro (Humalog) 0 units SC .BEDTIME SLIDING SC PRN PRN Reason: Bedtime Correctional Scale Last Admin: 03/07/17 20:45 Dose: 2 unit Ondansetron HCl (Zofran) 4 mg IVP Q6H PRN PRN Reason: Nausea/Vomiting Simvastatin (Zocor) 40 mg PO HS [facility] Last Admin: 03/08/17 20:57 Dose: 40 mg Tamsulosin HCl (Flomax) 0.4 mg PO HS [facility] Last Admin: 03/08/17 20:52 Dose: 0.4 mg
--- NOTE | 2017-03-09 14:02 | OP ---
DATE OF PROCEDURE: 03/08/2017 SURGEON: Dr. Zan Kunz PROCEDURE: Arterial Doppler ultrasound Bilateral ultrasound Doppler examination was performed on 03/08/2016 on the right femoral, popliteal, posterior tibial and dorsalis. Femoral and popliteal waveforms are triphasic with good peaks. The posterior tibial and dorsalis pedis waveforms or mildly depressed. They are triphasic. Ankle brachi al index is 1.07. ASSESSMENT: Normal arterial Doppler examination on the right, probable mild tibial disease on the le ft with a normal ankle brachial index bilaterally.
[2017-03-09] MEDS: Sodium Chloride 0.9% 1,000 ML IV SCH (14:25)
--- NOTE | 2017-03-09 14:58 | CON ---
DATE OF CONSULTATION: 03/09/2017 REASON FOR CONSULTATION: Evaluate patient with right toe dry gangrene. HISTORY OF PRESENT ILLNESS: Mr. Burdick is a 69-year-old gentleman, who has an extensive past medical history. He came to the emergency department with right toe gangrene. He has had this for approximately 10 days. He has had some painful episodes in his toe. He has been placed on IV antibiotics since admission. He has had an arterial Doppler examination, which shows on the right triphasic femoral-popliteal waveforms. His dorsalis pedis and posterior tibial waveforms are triphasic, but slightly diminished from the more proximal waveforms. Ankle brachial index is 1.07. I have been asked to see him to see if any further vascular evaluation is in order. PAST MEDICAL HISTORY: 1. Coronary artery disease, status post coronary bypass grafting and redo coronary artery bypass grafting. 2. Type 2 diabetes mellitus. 3. Hypertension. 4. Chronic obstructive pulmonary disease. 5. Dementia. 6. Status post cerebrovascular accident. PAST SURGICAL HISTORY: 1. Prior CABG. 2. Redo CABG. 3. Right hip surgery. SOCIAL HISTORY: He does not use tobacco, alcohol, or other drugs. He currently is not ambulatory. CURRENT MEDICATIONS: Noted. ALLERGIES: CODEINE. REVIEW OF SYSTEMS: Not performed due to the patient's mental status. PHYSICAL EXAMINATION: GENERAL: This is a diminutive, elderly gentleman resting comfortably on the medical floor. VITAL SIGNS: His temperature is 98.4, pulse is 63 and regular, blood pressure is 134/68. NECK: Supple, without bruit. LUNGS: Clear bilaterally. Sternum has healed nicely. ABDOMEN: Soft and nontender. EXTREMITIES: No cyanosis, clubbing, or edema. His right second toe has dry gangrene affecting the dorsal surface of the toe to the first and mid portion of the second phalanx. VASCULAR: He has palpable carotid, radial, femoral, and popliteal pulses bilaterally. On the left, dorsalis pedis pulse is palpable; on the right, there is a triphasic Doppler signal. 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 We would recommend 81 mg aspirin and Plavix chronically. I do not think any further workup is indicated for him. He does not have an urgent need for toe amputation, but Podiatry has been consulted and if they wish to do this, I see no vascular reason keeping them from proceeding as they see fit. MTDD
[2017-03-09 16:26] LABS: Vancomycin, Trough 25.6 ug/mL
[2017-03-09] MEDS: Tamsulosin HCl 0.4 MG CAP PO SCH (20:18)
[2017-03-09] MEDS: Simvastatin 40 MG TAB PO SCH (20:18)
[2017-03-09] MEDS: Famotidine 20 MG TAB PO SCH (20:19)
[2017-03-09] MEDS: Donepezil HCl 5 MG TAB PO SCH (20:19)
[2017-03-10] MEDS: Sodium Chloride 0.9% 1,000 ML IV SCH ×2 (03:30→17:42)
[2017-03-10] MEDS: Vancomycin HCl 1.5 GM in Sodium Chloride 0.9% 250 ML 300 ML IVPB SCH (05:25)
--- NOTE | 2017-03-10 07:00 | PRG ---
DATE OF SERVICE: 03/09/2017 SUBJECTIVE: A 71-year-old man who was seen at bedside today for followup on the right second toe leandro grene with cellulitis and has continued to get IV antibiotics in house. No new complaints at this ti me. PHYSICAL EXAMINATION: VITAL SIGNS: The patient is afebrile. Vital signs are stable. EXTREMITIES: Unchanged appearance of the right second toe, continues to be a black eschar with some cyanosis to the tip of the toe up to the intermediate phalanx. Minimal periwound erythema with no as cending lymphangitis. Continued ulceration on the lateral aspect of the 5th metatarsal base. No sig ns of bacterial infection at this wound. ASSESSMENT: 1. Non-pressure chronic ulceration to the right lateral foot. 2. Dry gangrene of the second digit with cellulitis. 3. Diabetes with peripheral vascular disease. PLAN: 1. Inpatient Hospital team has put in a consultation for Cardiovascular Surgery to evaluate and poss ibly treat to increase blood flow to the right lower extremity. 2. Toe is stable at this moment, we will wait for the cardiovascular consultation once they determin e whether any intervention is warranted and perform that intervention if necessary, we can proceed wi th the amputation of the right second toe. I discussed these options with the patient's family and billie brooks are in agreeance. I will follow up with the patient tomorrow and wait for the results of the vas cular consultation.
[2017-03-10] MEDS: Arformoterol 15 MCG/2 ML NEB NEB SCH ×2 (07:10→18:59)
[2017-03-10] MEDS: Budesonide 0.25 MG/2 ML NEB NEB SCH ×2 (07:11→19:01)
[2017-03-10] MEDS: Clopidogrel Bisulfate 75 MG TAB PO SCH (07:50)
[2017-03-10] MEDS: Heparin 5,000 UNITS/ML VIAL SC SCH ×3 (07:50→21:12)
[2017-03-10] MEDS: Carvedilol 6.25 MG TAB PO SCH ×2 (07:50→21:12)
[2017-03-10] MEDS: Famotidine 20 MG TAB PO SCH ×2 (07:51→21:12)
[2017-03-10] MEDS: Aspirin 81 mg Enteric Coated Tablet PO SCH (07:51)
[2017-03-10] MEDS: Insulin Detemir 100 UNITS/ML 12 UNITS in Pre-Filled Syringe SC SCH ×2 (07:51→21:19)
[2017-03-10] MEDS: Cefepime 2 GM, Syringe 2.5 ML in Sterile Water 10 ML SLOW IVP SCH (07:51)
--- NOTE | 2017-03-10 12:18 | PDOC.PN ---
- Subjective Encounter Start Date: 03/10/17 Encounter Start Time: 11:00 Patient is seen today, alert and oriented. Pt is unable to Communicate well, either it is beacuase of pain or he doesnt talk much, daughter is not in room today. No number on board to call. - Objective MAR Reviewed: Yes Vital Signs & Weight: Vital Signs (12 hours) Temp Pulse Resp BP Pulse Ox 03/10/17 08:00 97.7 F 65 20 150/70 H 97 03/10/17 07:11 62 16 95 03/10/17 07:10 62 16 95 03/10/17 04:28 99.0 F 62 16 138/74 96 Weight Admit Weight 146 lb Weight 146 lb I&O: 03/09/17 03/10/17 03/11/17 06:59 06:59 06:59 Intake Total 1275 1050 Balance 1275 1050 Result Diagrams: 03/08/17 04:08 03/08/17 04:08 Additional Labs: Accuchecks 03/10/17 03/09/17 03/09/17 04:24 20:23 16:41 POC Glucose 73 151 H 159 H 03/09/17 11:41 POC Glucose 94 Radiology Reviewed by me: Yes Phys Exam - Physical Examination HEENT: PERRLA, moist MMs Neck: no nodes, no JVD Respiratory: no wheezing, no rales Cardiovascular: RRR, no significant murmur Gastrointestinal: soft, non-tender Musculoskeletal: no edema, pulses present (Persitant gangrenous changes on right foot and toes.) Dx/Plan (1) Gram-negative bacteremia Code(s): R78.81 - BACTEREMIA Status: Acute Comment: Pt has gram Neg Bacteremia growing a rare bug Sphingomonas Paucibicillus resistant 3rd and 4th generation Cefl, will change to levofloxacin which it is sentive to, D/c vancomcyin to evidence of MRSA. Will repeat blood cultures today. (2) Gangrene of toe of right foot Code(s): I96 - GANGRENE, NOT ELSEWHERE CLASSIFIED Status: Acute Comment: Will cotninue with above Abx, Pending podiatry consulted, planned Amputation, Pt has abnormal NILESH right popliteal, Will consult Vascular surgery/CV for CTA/ stenting if needed. (3) CAD (coronary artery disease) Code(s): I25.10 - ATHSCL HEART DISEASE OF [place] CORONARY ARTERY W/O ANG PCTRS Status: Chronic Qualifiers: Coronary Disease-Associated Artery/Lesion type: bypass graft [place] vs. transplanted heart: [place] heart Associated angina: without angina Qualified Code(s): I25.810 - Atherosclerosis of coronary artery bypass graft(s) without angina pectoris Comment: H/o CABG, no chest pain, continue Aspirin, BB (4) COPD (chronic obstructive pulmonary disease) Status: Chronic Qualifiers: COPD type: unspecified COPD Qualified Code(s): J44.9 - Chronic obstructive pulmonary disease, unspecified Comment: No exacerbation noted. mild Wheezing, continue PRN NEbs. 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 (6) HTN (hypertension) Code(s): I10 - ESSENTIAL (PRIMARY) HYPERTENSION Status: Chronic Qualifiers: Hypertension type: essential hypertension Qualified Code(s): I10 - Essential (primary) hypertension Comment: BP at Goal, continue Home Meds. (7) PVD (peripheral vascular disease) Code(s): I73.9 - PERIPHERAL VASCULAR DISEASE, UNSPECIFIED Status: Acute Comment: No evidnece of Stenosis and with Normal NILESH in right leg, so Dr. Kunz recomemded Aspirin only at this time. - Plan cont current plan of care, continue antibiotics, PT/OT, respiratory therapy, DVT proph w/lovenox * . - Discharge Day Encounter end time: 11:35 Review of Systems - Review of Systems Eyes: negative: Pain, Vision Change, Conjunctivae Inflammation, Eyelid Inflammation, Redness, Other ENT: negative: Ear Pain, Ear Discharge, Nose Pain, Nose Discharge, Nose Congestion, Mouth Pain, Mouth Swelling, Throat Pain, Throat Swelling, Other Respiratory: negative: Cough, Dry, Shortness of Breath, Hemoptysis, SOB with Excertion, Pleuritic Pain, Sputum, Wheezing Cardiovascular: negative: chest pain, palpitations, orthopnea, paroxysmal nocturnal dyspnea, edema, light headedness, other Gastrointestinal: negative: Nausea, Vomiting, Abdominal Pain, Diarrhea, Constipation, Melena, Hematochezia, Other Genitourinary: negative: Dysuria, Frequency, Incontinence, Hematuria, Retention , Other Musculoskeletal: Foot Pain. negative: Neck Pain, Shoulder Pain, Arm Pain, Back Pain, Hand Pain, Leg Pain, Other Skin: negative: Rash, Lesions, Johnny, Bruising, Other - Medications/Allergies Allergies/Adverse Reactions: Allergies Allergy/AdvReac Type Severity Reaction Status Date / Time codeine Allergy "MAKES ME Verified 03/08/17 07:42 JITTERY" Medications: Current Medications Acetaminophen (Tylenol) 650 mg PO Q4H PRN PRN Reason: Headache/Fever or Pain Last Admin: 03/09/17 12:51 Dose: 650 mg Arformoterol Tartrate (Brovana) 15 mcg NEB BID-RT [facility] Last Admin: 03/10/17 07:10 Dose: 15 mcg Aspirin (Ecotrin) 81 mg PO DAILY [facility] Last Admin: 03/10/17 07:51 Dose: 81 mg Budesonide (Pulmicort Neb Solution) 0.25 mg NEB BID-RT [facility] Last Admin: 03/10/17 07:11 Dose: 0.25 mg Carvedilol (Coreg) 6.25 mg PO BID [facility] Last Admin: 03/10/17 07:50 Dose: 6.25 mg Clopidogrel Bisulfate (Plavix) 75 mg PO DAILY [facility] Last Admin: 03/10/17 07:50 Dose: 75 mg Dextrose/Water (Dextrose 50%) 25 gm SLOW IVP PRN PRN PRN Reason: Hypoglycemia Donepezil HCl (Aricept) 5 mg PO HS [facility] Last Admin: 03/09/17 20:19 Dose: 5 mg Famotidine (Pepcid) 20 mg PO BID [facility] Last Admin: 03/10/17 07:51 Dose: 20 mg Glucagon (Glucagon) 1 mg IM PRN PRN PRN Reason: Hypoglycemia Heparin Sodium (Porcine) (Heparin) 5,000 units SC TID [facility] Last Admin: 03/10/17 07:50 Dose: 5,000 units Dextrose/Water (D5w) 1,000 mls @ 0 mls/hr IV .Q0M PRN; As Directed PRN Reason: Hypoglycemia Sodium Chloride (Normal Saline 0.9%) 1,000 mls @ 75 mls/hr IV .[id number] [facility] Last Admin: 03/10/17 03:30 Dose: 1,000 mls Insulin Detemir 12 units/ (Miscellaneous Medication) 0.12 mls @ 0 mls/hr SC BID [facility] Last Admin: 03/10/17 07:51 Dose: Not Given Levofloxacin 500 mg/ Device 100 mls @ 100 mls/hr IVPB Q24HR [facility] Last Admin: 03/10/17 10:13 Dose: 100 mls Insulin Human Lispro (Humalog) 0 units SC .MODERATE SLIDING SC PRN PRN Reason: Moderate Correctional Scale Insulin Human Lispro (Humalog) 0 units SC .BEDTIME SLIDING SC PRN PRN Reason: Bedtime Correctional Scale Last Admin: 03/07/17 20:45 Dose: 2 unit Ondansetron HCl (Zofran) 4 mg IVP Q6H PRN PRN Reason: Nausea/Vomiting Simvastatin (Zocor) 40 mg PO [facility] Last Admin: 03/09/17 20:18 Dose: 40 mg Tamsulosin HCl (Flomax) 0.4 mg PO [facility] Last Admin: 03/09/17 20:18 Dose: 0.4 mg
[2017-03-10] MEDS ORDERED: PROPOFOL 200 MG/20 ML VIAL ONE (16:07)
[2017-03-10] MEDS ORDERED: Bupivacaine PF 0.5% 30 ML VIAL ONE (16:23)
[2017-03-10] MEDS ORDERED: Neomycin-Polymyxin 1 ML AMP ONE (16:24)
[2017-03-10] MEDS ORDERED: Fentanyl 100 MCG/2 ML VIAL ONE (16:48)
[2017-03-10] MEDS ORDERED: Promethazine HCl 25 MG/ML VIAL SLOW IVP PRN (17:54)
[2017-03-10] MEDS ORDERED: Promethazine HCl 25 MG/ML VIAL IM PRN (17:54)
[2017-03-10] MEDS ORDERED: Ondansetron HCl/PF 4 MG/2 ML Vial IVP PRN (17:54)
[2017-03-10] MEDS: Acetaminophen 325 MG TAB PO PRN ×2 (18:10→21:19)
--- NOTE | 2017-03-10 20:28 | OP ---
DATE OF PROCEDURE: 03/10/2017 SURGEON: Phillip Watts DPM. PREOPERATIVE DIAGNOSIS: Gangrene to the right second toe. POSTOPERATIVE DIAGNOSIS: Gangrene to the right second toe. PROCEDURE PERFORMED: Amputation, right second toe. ANESTHESIA: Total IV anesthesia with local infiltrative block. HEMOSTASIS: None. ESTIMATED BLOOD LOSS: None. MATERIALS: 1. 4-0 Vicryl. 2. 3-0 nylon. INJECTABLES: 10 mL of 0.5% Marcaine plain preoperatively. COMPLICATIONS: None. SUMMARY OF PROCEDURE: Patient was brought into the operative suite and placed supine on the operativ e table. Time out performed identifying correct patient, procedure and operative site. A well-padde d tourniquet was placed about the right ankle which ultimately was not used. The foot was prepped an d draped in aseptic manner. Attention directed to the second digit, eschar was debrided from the chloe eleni surface of the toe. It was noted that the necrosis to the distal aspect of the toe with full thi ckness down to the bone. Final decision for amputation was made at this time. [place] incision ma de over the proximal interphalangeal joint, amputated toe at the proximal interphalangeal joint. The head of the proximal phalanx was resected with bone cutter. The distal toe was sent to pathology fo r gross and microscopic evaluation. The wound was irrigated with sterile saline mixed with one unit of . Subcutaneous reapproximated with 4-0 Vicryl and the skin with 3-0 nylon. Bandages applied in cluding Xeroform gauze, rolled gauze, and Sebas bandage for compression. The patient tolerated the pro cedure and anesthesia well and was transferred out of the operative suite with vital signs stable and neurovascular status intact to the right lower extremity. He will be kept for a short period of mon itoring, then transferred back to the room once things stable.
[2017-03-10] MEDS: Tamsulosin HCl 0.4 MG CAP PO SCH (21:12)
[2017-03-10] MEDS: Simvastatin 40 MG TAB PO SCH (21:12)
[2017-03-10] MEDS: Donepezil HCl 5 MG TAB PO SCH (21:12)
[2017-03-11 05:27] LABS: Vancomycin, Trough 14.9 ug/mL
[2017-03-11] MEDS: Arformoterol 15 MCG/2 ML NEB NEB SCH ×2 (06:18→18:58)
[2017-03-11] MEDS: Budesonide 0.25 MG/2 ML NEB NEB SCH ×2 (06:18→19:02)
[2017-03-11] MEDS: Sodium Chloride 0.9% 1,000 ML IV SCH ×2 (06:21→17:51)
--- NOTE | 2017-03-11 08:03 | RAD ---
RIGHT FOOT 2 VIEWS: Date: 03/11/17 HISTORY: 71-year-old male with history of prior second toe infection with removal. COMPARISON: 03/07/17. FINDINGS: There has been amputation of the right second toe at the level of the distal aspect of the proximal p halanx. Very heterogeneous bone demineralization. Marked vascular calcifications. IMPRESSION: Amputation changes of the second toe. Atherosclerosis with extensive vascular calcifications. Degener ative changes of the foot with bone demineralization. POS: ОЛЕГ
[2017-03-11] MEDS: Aspirin 81 mg Enteric Coated Tablet PO SCH (09:38)
[2017-03-11] MEDS: Carvedilol 6.25 MG TAB PO SCH ×2 (09:38→20:47)
[2017-03-11] MEDS: Clopidogrel Bisulfate 75 MG TAB PO SCH (09:38)
[2017-03-11] MEDS: Famotidine 20 MG TAB PO SCH ×2 (09:38→20:47)
[2017-03-11] MEDS: Heparin 5,000 UNITS/ML VIAL SC SCH ×3 (09:46→20:49)
[2017-03-11] MEDS: Insulin Detemir 100 UNITS/ML 12 UNITS in Pre-Filled Syringe SC SCH ×2 (09:51→20:48)
--- NOTE | 2017-03-11 15:29 | PDOC.PN ---
- Subjective Encounter Start Date: 03/11/17 Encounter Start Time: 11:00 patient is seen today, alert and oriented. Discussed with Zaid at bedside. No other concerns noted. - Objective MAR Reviewed: Yes Vital Signs & Weight: Vital Signs (12 hours) Temp Pulse Pulse Pulse Resp BP BP 03/11/17 11:33 97.8 F 61 18 03/11/17 09:27 61 61 142/71 H 138/67 03/11/17 08:00 97.8 F 66 16 03/11/17 07:23 97.8 F 66 16 03/11/17 04:00 97.7 F 53 L 18 BP BP Pulse Ox Pulse Ox Pulse Ox 03/11/17 11:33 130/74 94 L 03/11/17 09:27 94 L 96 03/11/17 08:00 95 03/11/17 07:23 135/72 95 03/11/17 04:00 142/74 H 95 Weight Admit Weight 146 lb Weight 146 lb I&O: 03/10/17 03/11/17 03/12/17 06:59 06:59 06:59 Intake Total 1050 1140 Balance 1050 1140 Result Diagrams: 03/08/17 04:08 03/08/17 04:08 Additional Labs: Accuchecks 03/11/17 03/11/17 03/10/17 11:32 04:24 20:13 POC Glucose 135 H 117 H 118 H 03/10/17 03/10/17 15:02 11:46 POC Glucose 117 H 143 H Radiology Reviewed by me: Yes Phys Exam - Physical Examination HEENT: PERRLA, moist MMs Neck: no nodes, no JVD Respiratory: no wheezing, no rales Cardiovascular: RRR, no significant murmur Gastrointestinal: soft, non-tender Musculoskeletal: no edema, pulses present Dx/Plan (1) Gram-negative bacteremia Code(s): R78.81 - BACTEREMIA Status: Acute Comment: Pt has gram Neg Bacteremia growing a rare bug Sphingomonas Paucibicillus resistant 3rd and 4th generation Cefl, will change to levofloxacin which it is sentive to, D/c vancomcyin to evidence of MRSA. Will repeat blood cultures today. (2) Gangrene of toe of right foot Code(s): I96 - GANGRENE, NOT ELSEWHERE CLASSIFIED Status: Acute Comment: s/ p Amputation 2nd toe, pain is well controlled. Wound care by podiatry clinic. (3) CAD (coronary artery disease) Code(s): I25.10 - ATHSCL HEART DISEASE OF [place] CORONARY ARTERY W/O ANG PCTRS Status: Chronic Qualifiers: Coronary Disease-Associated Artery/Lesion type: bypass graft [place] vs. transplanted heart: [place] heart Associated angina: without angina Qualified Code(s): I25.810 - Atherosclerosis of coronary artery bypass graft(s) without angina pectoris Comment: H/o CABG, no chest pain, continue Aspirin, BB (4) COPD (chronic obstructive pulmonary disease) Status: Chronic Qualifiers: COPD type: unspecified COPD Qualified Code(s): J44.9 - Chronic obstructive pulmonary disease, unspecified Comment: No exacerbation noted. mild Wheezing, continue PRN NEbs. (5) DM2 (diabetes mellitus, type 2) Status: Chronic Qualifiers: Diabetes mellitus complication status: with unspecified complications Diabetes mellitus longterm insulin use: with longterm use Qualified Code(s) : E11.8 - Type 2 diabetes mellitus with unspecified complications; Z79.4 - USP (current) use of insulin Comment: Plan to COntrol BG, 140-180, SSI. (6) HTN (hypertension) Code(s): I10 - ESSENTIAL (PRIMARY) HYPERTENSION Status: Chronic Qualifiers: Hypertension type: essential hypertension Qualified Code(s): I10 - Essential (primary) hypertension Comment: BP at Goal, continue Home Meds. (7) PVD (peripheral vascular disease) Code(s): I73.9 - PERIPHERAL VASCULAR DISEASE, UNSPECIFIED Status: Acute Comment: No evidnece of Stenosis and with Normal NILESH in right leg, so Dr. Kunz recomemded Aspirin only at this time. 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 - Discharge Day Encounter end time: 11:35 Review of Systems - Review of Systems Constitutional: negative: fever, chills, sweats, weakness, malaise, other Eyes: negative: Pain, Vision Change, Conjunctivae Inflammation, Eyelid Inflammation, Redness, Other ENT: negative: Ear Pain, Ear Discharge, Nose Pain, Nose Discharge, Nose Congestion, Mouth Pain, Mouth Swelling, Throat Pain, Throat Swelling, Other Respiratory: negative: Cough, Dry, Shortness of Breath, Hemoptysis, SOB with Excertion, Pleuritic Pain, Sputum, Wheezing Cardiovascular: negative: chest pain, palpitations, orthopnea, paroxysmal nocturnal dyspnea, edema, light headedness, other Gastrointestinal: negative: Nausea, Vomiting, Abdominal Pain, Diarrhea, Constipation, Melena, Hematochezia, Other Genitourinary: negative: Dysuria, Frequency, Incontinence, Hematuria, Retention , Other Musculoskeletal: negative: Neck Pain, Shoulder Pain, Arm Pain, Back Pain, Hand Pain, Leg Pain, Foot Pain, Other Skin: negative: Rash, Lesions, Johnny, Bruising, Other - Medications/Allergies Allergies/Adverse Reactions: Allergies Allergy/AdvReac Type Severity Reaction Status Date / Time codeine Allergy "MAKES ME Verified 03/08/17 07:42 JITTERY" Medications: Current Medications Acetaminophen (Tylenol) 650 mg PO Q4H PRN PRN Reason: Headache/Fever or Pain Last Admin: 03/10/17 21:19 Dose: 650 mg Arformoterol Tartrate (Brovana) 15 mcg NEB BID-RT [facility] Last Admin: 03/11/17 06:18 Dose: 15 mcg Aspirin (Ecotrin) 81 mg PO DAILY [facility] Last Admin: 03/11/17 09:38 Dose: 81 mg Budesonide (Pulmicort Neb Solution) 0.25 mg NEB BID-RT [facility] Last Admin: 03/11/17 06:18 Dose: 0.25 mg Carvedilol (Coreg) 6.25 mg PO BID [facility] Last Admin: 03/11/17 09:38 Dose: 6.25 mg Clopidogrel Bisulfate (Plavix) 75 mg PO DAILY [facility] Last Admin: 03/11/17 09:38 Dose: 75 mg Dextrose/Water (Dextrose 50%) 25 gm SLOW IVP PRN PRN PRN Reason: Hypoglycemia Donepezil HCl (Aricept) 5 mg PO HS [facility] Last Admin: 03/10/17 21:12 Dose: 5 mg Famotidine (Pepcid) 20 mg PO BID [facility] Last Admin: 03/11/17 09:38 Dose: 20 mg Glucagon (Glucagon) 1 mg IM PRN PRN PRN Reason: Hypoglycemia Heparin Sodium (Porcine) (Heparin) 5,000 units SC TID [facility] Last Admin: 03/11/17 09:46 Dose: 5,000 units Dextrose/Water (D5w) 1,000 mls @ 0 mls/hr IV .Q0M PRN; As Directed PRN Reason: Hypoglycemia Sodium Chloride (Normal Saline 0.9%) 1,000 mls @ 75 mls/hr IV .[id number] [facility] Last Admin: 03/11/17 06:21 Dose: 1,000 mls Insulin Detemir 12 units/ (Miscellaneous Medication) 0.12 mls @ 0 mls/hr SC BID [facility] Last Admin: 03/11/17 09:51 Dose: 0.12 mls Levofloxacin 500 mg/ Device 100 mls @ 100 mls/hr IVPB Q24HR [facility] Last Admin: 03/11/17 09:42 Dose: 100 mls Insulin Human Lispro (Humalog) 0 units SC .MODERATE SLIDING SC PRN PRN Reason: Moderate Correctional Scale Insulin Human Lispro (Humalog) 0 units SC .BEDTIME SLIDING SC PRN PRN Reason: Bedtime Correctional Scale Last Admin: 03/07/17 20:45 Dose: 2 unit Ondansetron HCl (Zofran) 4 mg IVP Q6H PRN PRN Reason: Nausea/Vomiting Simvastatin (Zocor) 40 mg PO HS [facility] Last Admin: 03/10/17 21:12 Dose: 40 mg Tamsulosin HCl (Flomax) 0.4 mg PO [facility] Last Admin: 03/10/17 21:12 Dose: 0.4 mg
[2017-03-11] MEDS: Simvastatin 40 MG TAB PO SCH (20:47)
[2017-03-11] MEDS: Donepezil HCl 5 MG TAB PO SCH (20:47)
[2017-03-11] MEDS: Acetaminophen 325 MG TAB PO PRN (20:48)
[2017-03-11] MEDS: Tamsulosin HCl 0.4 MG CAP PO SCH (20:48)
[2017-03-12] MEDS: Sodium Chloride 0.9% 1,000 ML IV SCH (05:36)
[2017-03-12] MEDS: Budesonide 0.25 MG/2 ML NEB NEB SCH (07:47)
[2017-03-12] MEDS: Arformoterol 15 MCG/2 ML NEB NEB SCH (07:49)
[2017-03-12] MEDS: Aspirin 81 mg Enteric Coated Tablet PO SCH (08:45)
[2017-03-12] MEDS: Heparin 5,000 UNITS/ML VIAL SC SCH (08:45)
[2017-03-12] MEDS: Carvedilol 6.25 MG TAB PO SCH (08:45)
[2017-03-12] MEDS: Clopidogrel Bisulfate 75 MG TAB PO SCH (08:45)
[2017-03-12] MEDS: Insulin Detemir 100 UNITS/ML 12 UNITS in Pre-Filled Syringe SC SCH (08:45)
[2017-03-12] MEDS: Famotidine 20 MG TAB PO SCH (08:45)
[2017-03-12 11:43] VITALS: BP 125/60; TEMP 98.8
--- NOTE | 2017-03-12 14:11 | DIS ---
DATE OF ADMISSION: 03/07/2017 DATE OF DISCHARGE: 03/12/2017 ADMITTING DIAGNOSIS: Sepsis with acute right foot gangrene, second toe gangrene. DISCHARGE DIAGNOSIS: Sepsis with acute right second toe gangrene with status post amputation. SECONDARY DIAGNOSES: 1. Gram reactive negative bacteremia. 2. Severe dehydration. 3. Protein calorie malnutrition, moderate. 4. Peripheral vascular disease. 5. Hypertension. 6. Hyperlipidemia. CONSULTANTS INVOLVED IN THE CARE: Dr. Kunz from Cardiovascular and Dr. Stefanie Limon from Podiatry . INVESTIGATIONS DONE DURING THIS ADMISSION: 1. NILESH which was normal with narrowing of the popliteal on the right leg. 2. Amputation of the right second toe. HISTORY OF PRESENT ILLNESS AND HOSPITAL COURSE: In brief, this is a 71-year-old white male who is a resident of [facility], came in with a complaint of worsening pain on his right leg associated wi th gangrenous changes and cellulitis. The patient was started on IV antibiotics initially with vanco mycin and Zosyn. The patient had arterial Doppler which showed a normal NILESH, so Dr. Watts has requ ested Dr. Kunz to clear the patient for surgery and Dr. Watts suggested the patient to be started on Plavix after the surgery and reassured the patient that does not need any stent placement. The luther gilliam underwent surgery with second toe amputation and patient had blood cultures positive for gram n egative bacteria, very rare bacteria which was sensitive to levofloxacin only and was resistant to ot her cephalosporins. The patient was continued on levofloxacin. The patient showed good improvement following surgery and patient was advised to follow up with Podiatry. The patient was discharged [facility] in stable condition. PHYSICAL EXAMINATION: VITAL SIGNS: Blood pressure 125/60, heart rate 65, respiratory rate 16, saturation 95%. GENERAL: The patient is moderately built, moderately nourished, does not appears to be in acute dist ress at this time. Alert and oriented x3. HEENT: Atraumatic, normocephalic. PERRLA. Extraocular movements were intact. CARDIOVASCULAR: S1, S2 normal. No murmurs, rubs or gallops. LUNGS: Bilateral air entry was equal. No wheezing, no crackles. Right leg, lower extremity second toe amputation and no evidence of any bleeding was noted at wound site. NEW MEDICATIONS: Plavix and levofloxacin 500 mg, continue for 7 more days. HOME MEDICATIONS: 1. Amlodipine 5 mg p.o. daily. 2. Budesonide 0.25 mg. 3. Calcium carbonate 500 mg p.o. daily. 4. Carvedilol 6.25 mg p.o. daily. 5. Plavix 75 mg p.o. daily. 6. Donepezil 5 mg p.o. at bedtime. 7. Insulin detemir 12 units subcu daily, insulin regular 8. Loratadine 10 mg daily. 9. Methylphenidate 5 mg p.o. b.i.d. 10. Omeprazole 20 mg p.o. daily. 11. Simvastatin 40 mg daily. 12. Tamsulosin 0.4 mg p.o. at bedtime. DISCHARGE INSTRUCTIONS: Continue activity as tolerated. Advised to follow up with primary care phys ician in 1-2 weeks. Advised to follow up with Podiatry as per his recommendations. Advised wound ca re as per Podiatry recommendations. Continue antibiotic to complete the 14-day days of antibiotic [facility] for bacteremia gram negative. I spent 35 minutes of patient on day of discharge.
--- NOTE | 2017-03-19 13:42 | EKG ---
Test Reason : Blood Pressure : / mmHG Vent. Rate : 068 BPM Atrial Rate : 068 BPM P-R Int : 182 ms QRS Dur : 126 ms QT Int : 420 ms P-R-T Axes : 013 004 068 degrees QTc Int : 446 ms Normal sinus rhythm Right bundle branch block Abnormal ECG Confirmed by KANU MORIN ([id number]), telegraph editor DARIUSZ ASKEW ([id number]) on 03/19/2017 1:42:08 PM Referred By: Confirmed By:KANU MORIN
== END 2017-03-12 13:33 | DRG 854 ==
LOC: ERS 15:13 → T4-A 17:12
PROVIDERS: ADMIT Internal Medicine; ATTEND Internal Medicine
PROC: 0Y6R0Z1 Detachment at Right 2nd Toe, High, Open Approach (ICD-10-PCS; principal; 2017-03-10)
DX: A41.9 Sepsis, unspecified organism (principal); E11.52 Type 2 diabetes mellitus with diabetic peripheral angiopathy with gangrene; E44.0 Moderate protein-calorie malnutrition; I96 Gangrene, not elsewhere classified; L89.152 Pressure ulcer of sacral region, stage 2; L89.612 Pressure ulcer of right heel, stage 2; Z99.81 Dependence on supplemental oxygen; L03.031 Cellulitis of right toe; J44.9 Chronic obstructive pulmonary disease, unspecified; I25.2 Old myocardial infarction; Z86.73 Personal history of transient ischemic attack (TIA), and cerebral infarction without residual deficits; G47.30 Sleep apnea, unspecified; I25.10 Atherosclerotic heart disease of native coronary artery without angina pectoris; E78.5 Hyperlipidemia, unspecified; I10 Essential (primary) hypertension; Z79.4 Long term (current) use of insulin; Z95.1 Presence of aortocoronary bypass graft; Z87.891 Personal history of nicotine dependence; F03.90 Unspecified dementia, unspecified severity, without behavioral disturbance, psychotic disturbance, mood disturbance, and anxiety
CPT/HCPCS: 36415; 36416; 80048; 80053; 80202; 82553; 83605; 84484; 85025; 85610; 85652; 85730; 86140; 87040; 87077; 87149; 87186; 88305; 88311; 93005; 93922; 94640; 96365; 96366; A4216; G8978-GP-CM; G8978-GP-CN; G8979-GP-CK; G8979-GP-CN; G8980-GP-CN; G8987-GO-CM; G8988-GO-CM; G8989-GO-CM; J0692; J1644; J1815; J1956; J2704; J3010; J3370; J7050; J7626; S0020; S0028

== ENCOUNTER 2017-03-28 13:13 | Outpatient (CLI) | payer MEDICARE, OTHER ==
--- NOTE | 2017-03-28 16:44 | PRG ---
DATE OF SERVICE: 03/28/2017 HISTORY: Mr. Tab Burdick is a very pleasant 71-year-old gentleman accompanied by his daught er who presents to the Wound Center for evaluation of coccygeal pressure ulceration. The patient's d aughter previously stated that the coccygeal wound was noted at the end of September of this year, but d ecreased in its dimensions with dressing changes. The patient's daughter previously stated that Mr. Burdick suffered a hemorrhagic stroke in 08/2016. She stated that the patient was discharged from [facility] to [facility] and eventually to [facility]. She stated that aft er admission to [facility], the coccygeal wound developed. She stated that the patient was note d to have an infectious process associated with the coccygeal wound and was seen at [facility]. She stated that the patient was discharged to [facility] after his evaluation. She stated that the following day, the patient was noted to have fever and elevated blood glucoses. The patient was seen in the Emergency Department at [facility] and admitted for treatment of a Staphylococcal infection associated with the coccygeal wound. The patient's daughter stated th at Mr. Burdick had remained in the hospital for 4 days before discharge to [facility]. The patient's daughter stated that Mr. Burdick had received dressing changes for his coccygeal wound consisting of various dressings containing silver. He also received a trial of Medihoney. After alyce ng seen in the Wound Center, dressing changes of Santyl were initiated. The patient, however, was un able to tolerate the application of Santyl to the wound bed and dressing changes of Medihoney and gau ze will be resumed on a daily basis after cleansing and irrigation at [facility]. The patient's prealbumin level on 03/22/2017 returned 14.0. PHYSICAL EXAMINATION: VITAL SIGNS: Temperature 97.4, pulse 72, respirations 17, blood pressure 120/60. Accu-Chek 113. BACK: A coccygeal ulceration is present, which is approximately 2 cm in length. The dimensions of t he wound at the time of the patient's visit on 03/02/2017 were approximately 2.4 x 1.2 cm. At this [facility], the length of the coccygeal ulceration was approximately 2.4 cm. Granulation tissue is present within the wound margins. Nonviable tissue present within the wound margins was debrided with an exc isional full-thickness debridement. No purulent drainage is associated with the wound. No erythema of the skin surrounding the wound is present. No maceration of the skin of the periwound is noted. ASSESSMENT AND PLAN: 1. Coccygeal pressure ulceration as described above. Dressing changes of Medihoney gauze followed b y Mepilex sacral will be continued on a daily basis after cleansing and irrigation at [facility]. Orders will again be transmitted to [facility] for albumin and prealbumin levels. Orders will also be transmitted to [facility] for offloading of the coccygea l ulceration at all times. The patient apparently has been seen by Nutrition and is consuming a supp lement in liquid form 3 times per day. I will see Mr. Burdick again in four weeks. 2. Diabetes mellitus. The patient's Accu-Chek in clinic today is 113. The patient has been reminde d that for optimal wound healing, his blood glucoses should remain below 150. 3. Hypertension. 4. Coronary artery disease. 5. Chronic obstructive pulmonary disease. 6. Obstructive sleep apnea. 7. History of transient ischemic attack. 8. Hemorrhagic cerebrovascular accident.
== END 2017-03-28 13:14 | disposition home or self-care (01) ==
LOC: WCC 13:13
PROVIDERS: ATTEND Family Medicine
DX: E11.622 Type 2 diabetes mellitus with other skin ulcer (principal); L89.159 Pressure ulcer of sacral region, unspecified stage; I10 Essential (primary) hypertension; I25.10 Atherosclerotic heart disease of native coronary artery without angina pectoris; J44.9 Chronic obstructive pulmonary disease, unspecified; G47.33 Obstructive sleep apnea (adult) (pediatric); I61.8 Other nontraumatic intracerebral hemorrhage; Z86.73 Personal history of transient ischemic attack (TIA), and cerebral infarction without residual deficits

== ENCOUNTER 2017-04-15 07:37 | Outpatient (CLI) | payer MEDICARE, OTHER ==
--- NOTE | 2017-04-15 10:26 | RAD ---
THREE VIEWS RIGHT FOOT: Date: 04-15-17 Comparison: Two views right foot, 03-11-17 History: Ulcer at the fifth metatarsal base. FINDINGS: The patient is status post amputation of the second toe at the distal aspect of the proximal phalanx and the third toe at the proximal aspect of the middle phalanx. There is atherosclerotic calcificatio n in the region of the foot and ankle. There is enthesophyte formation at the insertion of the tricep tendon. No displaced fracture or evidence of dislocation. No obvious bone destruction. If there is clinical c oncern for osteomyelitis, MRI is advised. IMPRESSION: Chronic findings as detailed above. POS: [facility]
--- NOTE | 2017-04-15 12:14 | PRG ---
DATE OF SERVICE: 04/15/2017 SUBJECTIVE: This is a 71-year-old male who presents today for followup on right lateral foot ulcerat ion. I have seen him in my main clinic in [place] for this same wound. He also had amputation of t he second digit due to vascular compromise, which has healed without incident. The right lateral marquis t wound continues to be an issue, he has been having wet to dry dressing changes. Continues to be pa inful. PHYSICAL EXAMINATION: Ulcer to the right lateral fifth met base measures 0.6 cm x 0.8 cm x 0.4 cm of depth. On debridement today noted that the wound does probe to the fifth metatarsal base styloid pr ocess. The rest of the wound is approximately 50% granulation tissue, 50% slough. No periwound eryt yamila, edema or warmth. The wound is very tender to the touch. ASSESSMENT: 1. Non-pressure chronic ulceration to the right lateral fifth metatarsal base. There may be some lawrence ne involvement in this wound. 2. Diabetes with peripheral vascular disease. PLAN: 1. Full thickness debridement of the wound down to a bleeding granular wound base, removing all nonv iable tissue and biofilm from the wound base. 2. I am sending for x-rays to further evaluate any bony destruction in the area and see if there is necessity for surgical debridement of the bone and tendon in this area. 3. Going to switch to Santyl dressings to help clean the wound without him having as much significan t pain due to the debridements. This was ordered. They will be able to apply the Santyl and an raheel nd dressing to the fifth metatarsal base. I also order that they stopped wrapping the entire foot as that is not necessary. He will follow up with me in 2 weeks.
[2017-04-15] MEDS ORDERED: Sodium Chloride 0.9% 15 ML NEB ONE (14:31)
== END 2017-04-15 07:38 | disposition home or self-care (01) ==
LOC: WCC 07:37
PROVIDERS: ATTEND Podiatrist Foot & Ankle Surgery
DX: E11.621 Type 2 diabetes mellitus with foot ulcer (principal); L97.519 Non-pressure chronic ulcer of other part of right foot with unspecified severity; E11.51 Type 2 diabetes mellitus with diabetic peripheral angiopathy without gangrene
CPT/HCPCS: 36416; A4218

== ENCOUNTER 2017-04-25 18:13 | Emergency (ER) | payer MEDICARE, OTHER ==
[~2017-04-25 18:13] MED LIST: ISOVUE-370 76%-LOCM 1 ML ONE
[2017-04-25 19:28] LABS: #Basophils 0.1 thou/uL (0.0-0.2); #Lymphocytes 1.1 thou/uL (1.20-3.40); #Monocytes 0.5 thou/uL (0.11-0.59); #Neutrophils 3.4 thou/uL (1.40-6.50); %Basophils 0.9 % (0.0-1.0); %Eosinophils 16.2 % (0.0-10.0); %Lymphocytes 18.7 % (21.0-51.0); %Monocytes 8.6 % (0.0-10.0); %Neutrophils 55.6 % (42.0-75.0); Hemoglobin 12.6 g/dL (14.0-18.0); Mean Corpuscular HGB CONC 32.4 g/dL (32.0-36.0); Mean Corpuscular Hemoglobin 30.5 pg (27.0-31.0); Mean Corpuscular Volume 94.2 fl (80.0-94.0); Mean Platelet Volume 7.6 fL (7.4-10.4); Platelet Count 171 thou/uL (130-400); RBC Distribution Width 13.7 % (11.5-14.5); Red Blood Cell (RBC) Count 4.12 mill/uL (4.70-6.10); White Blood Cell (WBC) Count 6.1 thou/uL (4.8-10.8)
--- NOTE | 2017-04-25 19:47 | RAD ---
PORTABLE CHEST: History: Poor circulation. Chest pain. Comparison: 10-29-16 FINDINGS: Lungs appear clear. No infiltrate or vascular congestion identified. Heart size is within normal rang e. Post op sternotomy change is noted. IMPRESSION: No acute abnormality or interval change. POS: [facility]
[2017-04-25 19:49] LABS: ALT (SGPT) 129 U/L (8-55); AST (SGOT) 91 U/L (5-34); Albumin 3.6 g/dL (3.4-4.8); Alkaline Phosphatase 120 U/L (40-150); Anion Gap 12 mmol/L (10-20); BUN (Urea Nitrogen) 23 mg/dL (8.4-25.7); Bilirubin, Total 0.3 mg/dL (0.2-1.2); Calc. Creatinine Clearance 0 mL/min (70-130); Calcium 9.3 mg/dL (7.8-10.44); Carbon Dioxide 26 mmol/L (23-31); Chloride 104 mmol/L (98-107); Estimated GFR-MDRD Greater than 90; Globulin 3.2 g/dL (2.4-3.5); Glucose 196 mg/dL (83-110); Potassium 4.2 mmol/L (3.5-5.1); Protein, Total 6.8 g/dL (5.8-8.1); Sodium 138 mmol/L (136-145)
--- NOTE | 2017-04-25 19:49 | RAD ---
RIGHT FOOT THREE VIEWS: History: Foot pain. Comparison: Right foot films, 04-15-17. FINDINGS: A portion of the second phalanx has been removed. Bones are very osteopenia and exhibits a mottled de nsity throughout the visualized bones, unchanged from the recent exam. Degenerative changes. No focal acute fracture. No significant change from the recent study of 04-15-17. POS: [facility]
--- NOTE | 2017-04-25 23:49 | CT ---
CT ANGIO ABDOMEN AND PELVIS AND BILATERAL LOWER EXTREMITIES: Technique: Multiple axial tomograms were obtained through the abdomen and pelvis and lower extremitie s following angio protocol with multiplanar reconstruction and 3D post processing. History: Peripheral vascular disease. Right foot ulcer. FINDINGS: Abdominal aorta shows moderate atherosclerotic changes. Aorta is mildly ectatic measuring 2.0 cm dist ally. There is peripheral thrombus and peripheral calcification in the distal abdominal aorta. There is plaque at the bifurcation and plaque in both common iliac arteries. Irregular lumen of the left co mmon iliac due to this plaque. There is evidence of significant stenosis in the distal left common il iac at its bifurcation. Osseous at the origin of the left internal and external iliacs. Stenosis at b oth of these locations appear significant, greater than 50% diameter. Review of the aortic vessels reveals atherosclerotic change at the origin of the celiac artery with m ild stenosis. There is calcification at the origin of the superior mesenteric and this appears to res ult in significant stenosis of probable 50% diameter. There are sclerotic calcifications at the origin of both renal arteries and this appears to result in significant stenosis of at least 50% diameter in both proximal renal arteries. Right lower extremity: Diffuse disease in the right internal iliac. The right external iliac and right common femoral show n o significant stenosis. There is diffuse disease in the profunda. The right superficial femoral arter y shows diffuse disease throughout its course with multiple areas of mild stenosis. A focal area of s ignificant stenosis at the Boyd's canal appears to result in loss of 50% diameter stenosis. There is diffuse disease in the right popliteal with at least one focal area of significant stenosis of greater than 50% diameter. Popliteal trifurcates below the knee space. Diffuse disease is seen below the knee. The anterior tibi al and posterior tibial arteries to occlude midcalf. Peroneal is patent to the foot. Dorsal pedis rec onstitutes. Posterior tibia appears to reconstitute at the ankle. Left lower extremity: The left internal and external iliacs beyond the bifurcation show mild disease without stenosis. The left common femoral are unremarkable. Profunda is patent. The left superficial femoral shows diff use disease with moderate stenosis at Boyd's canal. Moderate disease in the left popliteal with moderate stenosis. Popliteal trifurcates below the knee. Diffuse disease throughout all three vessels below the knee. An terior tibial artery occludes midcalf. Multiple area of high grade stenosis in the posterior tibial a rtery and the peroneal although both are patent to the ankle. Soft tissues: Liver, spleen, pancreas unremarkable. Kidneys unremarkable. Bowel loops unremarkable. A large amount of stool in the rectum suggests fecal impaction. The rectum is measured at up to 10 cm diameter. IMPRESSION: 1. Moderate disease throughout the abdominal aorta with stenosis at the origin of the superior mesent jeremiah artery and both renal arteries. 2. Stenosis at the origin of the left internal and external iliacs as described above. 3. Diffuse disease throughout the right superficial femoral artery with focal stenosis at Boyd's ca nal and there is stenosis in the right popliteal. 4. Diffuse disease below the knees bilaterally as described. 5. A large amount of stool in the rectum suggests fecal impaction with rectum measuring up to 10 cm. POS: [facility]
== END 2017-04-25 23:06 | disposition home or self-care (01) ==
LOC: ERS 18:13
DX: I70.202 Unspecified atherosclerosis of native arteries of extremities, left leg (principal); I70.201 Unspecified atherosclerosis of native arteries of extremities, right leg; G47.30 Sleep apnea, unspecified; E78.5 Hyperlipidemia, unspecified; I10 Essential (primary) hypertension; F03.90 Unspecified dementia, unspecified severity, without behavioral disturbance, psychotic disturbance, mood disturbance, and anxiety; J44.9 Chronic obstructive pulmonary disease, unspecified; K21.9 Gastro-esophageal reflux disease without esophagitis; E11.9 Type 2 diabetes mellitus without complications; Z79.4 Long term (current) use of insulin; Z86.73 Personal history of transient ischemic attack (TIA), and cerebral infarction without residual deficits; Z87.891 Personal history of nicotine dependence; Z79.899 Other long term (current) drug therapy
CPT/HCPCS: 36415; 36416; 71045; 75635; 80053; 83605; 85025; 87040

== ENCOUNTER 2017-04-29 10:19 | Outpatient (CLI) | payer MEDICARE, OTHER ==
--- NOTE | 2017-04-29 12:20 | PRG ---
DATE OF SERVICE: 04/29/2017 SUBJECTIVE: This is a 71-year-old male returns today for follow up of right lateral fifth metatarsal base ulceration. He did have some new concern over the right great toe and went to the emergency de partment a few days ago to have this evaluated. They said there was no concern of infection. He was discharged from the emergency department without admission. He continues to have pain in that right lower extremity. He did have a CTA while in the emergency room, which again showed diffuse peripher al vascular disease in the right lower extremity. Denies any nausea, vomiting, fevers or chills. PHYSICAL EXAMINATION: Ulceration, right lateral fifth metatarsal base measuring 0.5 cm x 0.7 cm x 0. 2 cm. There is a 95% granulation tissue still bone present within the wound base. No periwound eryt yamila, edema or warmth. The wound is extremely tender to the touch. X-rays which were ordered at la st visit and also again 2 days ago in the emergency department reviewed. Three views of the right fo ot which showed no acute osseous destruction, cortical irregularities or signs of osteomyelitis to th e fifth metatarsal base. ASSESSMENT: 1. Non-pressure chronic ulceration to the right lateral midfoot. 2. Moderate peripheral vascular disease, diffuse in nature. PLAN: The right lateral foot wound will be continued to be dressed with Santyl on a daily basis. char orders will be clarified with the senior living. The other areas of concern on the great toe is n ot an open wound. There is new epithelium and no dressing is necessary as well as a stable eschar on the second toe amputation site, no dressing necessary. The patient will follow up with me in 3 week s.
== END 2017-04-29 10:20 | disposition home or self-care (01) ==
LOC: WCC 10:19
PROVIDERS: ATTEND Podiatrist Foot & Ankle Surgery
DX: L97.519 Non-pressure chronic ulcer of other part of right foot with unspecified severity (principal); I73.9 Peripheral vascular disease, unspecified
CPT/HCPCS: 36416

== ENCOUNTER 2017-05-12 10:18 | Outpatient (CLI) | payer MEDICARE, OTHER ==
--- NOTE | 2017-05-12 12:47 | PRG ---
DATE OF SERVICE: 05/12/2017 HISTORY: Mr. Tab Burdick is a very pleasant 71-year-old gentleman, accompanied by his daughter, who presents to the [facility] for evaluation of a coccygeal pressure ulceration. The patient has been receiving dressing changes for the coccygeal wound at [facility]. Mr. Burdick has no complaints today. The patient's daughter reports no concerns. She reports no fever or chills. PHYSICAL EXAMINATION: VITAL SIGNS: Temperature 98.2, pulse 70, respirations 18, blood pressure 105/ 69. Accu-Chek 149. BACK: A coccygeal ulceration is present, which measures approximately 1.5 x 0.8 cm. Granulation tissue is present within the wound margins. No purulent drainage is associated with the wound. No erythema of the skin surrounding the wound is present. No maceration of the skin of the periwound is noted. ASSESSMENT AND PLAN: 1. Coccygeal pressure ulceration as described above. The ulceration is healing without complications or any signs of infection. The present dressing changes at [facility] will be continued. Orders will be transmitted to [facility] for offloading of the coccygeal ulceration at all times. I will see Mr. Burdick again in 6 weeks. 2. Diabetes mellitus. The patient's Accu-Chek in clinic today is 149. The patient has been reminded that for optimal wound healing, his blood glucoses should remain below 150. 3. Hypertension. 4. Coronary artery disease. 5. Chronic obstructive pulmonary disease. 6. Obstructive sleep apnea. 7. History of transient ischemic attack. 8. Hemorrhagic cerebrovascular accident. [facility]
[2017-05-12] MEDS ORDERED: Sodium Chloride 0.9% 15 ML NEB ONE (17:15)
== END 2017-05-12 10:19 | disposition home or self-care (01) ==
LOC: WCC 10:18
PROVIDERS: ATTEND Family Medicine
DX: L89.159 Pressure ulcer of sacral region, unspecified stage (principal); E11.9 Type 2 diabetes mellitus without complications; I10 Essential (primary) hypertension; I25.10 Atherosclerotic heart disease of native coronary artery without angina pectoris; G47.33 Obstructive sleep apnea (adult) (pediatric); J44.9 Chronic obstructive pulmonary disease, unspecified; I62.9 Nontraumatic intracranial hemorrhage, unspecified; Z86.73 Personal history of transient ischemic attack (TIA), and cerebral infarction without residual deficits
CPT/HCPCS: 36416; 97602; A4218

== ENCOUNTER 2017-05-20 09:56 | Outpatient (CLI) | payer MEDICARE, OTHER ==
--- NOTE | 2017-05-20 12:23 | PRG ---
DATE OF SERVICE: 05/20/2017 SUBJECTIVE: A 71-year-old male, returns today for followup right foot ulcerations. We received a ca ll last week that the second toe amputation site had reopened. The patient states today he is feelin g well with no pain. They have been doing Santyl on the right lateral foot wound with a MediPort Plu s Pad and leaving the second digit open to air. Denies nausea, vomiting, fevers, or chills. PHYSICAL EXAMINATION: Ulcer to the right lateral fifth metatarsal base has healed over. There is no wound or hyperkeratotic buildup nor preulcerative lesion noted. The right second digit, although it may have been open at this point in time and it is covered in a dry stable eschar measuring 0.5 x 1 cm. No periwound erythema, edema, or warmth. No tenderness to palpation. No fluctuance or noted de eper lesions. ASSESSMENT: 1. Status post right second toe amputation with some dehiscence, but it is now a dry stable eschar. 2. The patient with severe peripheral vascular disease to the right lower extremity. PLAN: No debridement was necessary at this time. We are going to keep the eschar dry and stable and hopefully he will heal from the inside out. The Betadine to the periwound area with gauze covering. No dressing necessary for the lateral fifth metatarsal base, as this has healed. Continue to use o ffloading techniques such as heel cushions and alike to prevent further ulceration. He will follow u p with me in 3 weeks.
[2017-05-23] MEDS ORDERED: Sodium Chloride 0.9% 15 ML NEB ONE (18:53)
== END 2017-05-20 09:57 | disposition home or self-care (01) ==
LOC: WCC 09:56
PROVIDERS: ATTEND Podiatrist Foot & Ankle Surgery
DX: T81.89XD Other complications of procedures, not elsewhere classified, subsequent encounter (principal); I73.9 Peripheral vascular disease, unspecified; Z89.421 Acquired absence of other right toe(s)
CPT/HCPCS: 36416; 97602

== ENCOUNTER 2017-06-10 09:56 | Outpatient (CLI) | payer MEDICARE, OTHER ==
--- NOTE | 2017-06-10 12:22 | PRG ---
DATE OF SERVICE: 06/10/2017 SUBJECTIVE: A 71-year-old male returns today for followup right foot wounds. Last visit, these had stable eschar on the second toe and great toe. He is status post amputation on the right second toe and he has poor circulation, which has prevented complete healing of this wound. Denies nausea, vomi ting, fevers, or chills. Does have minimal pain to the area. OBJECTIVE: Eschar covered wound measuring 1 cm x 1 cm on the right second toe amputation site. This eschar stable. There is no periwound erythema, edema, or warmth. On the hallux distal tip, there i s a 0.7 x 0.9 cm Eschar, which is stable and no periwound erythema, edema, or warmth, or signs of inf ection. ASSESSMENT: 1. Patient status post second digit amputation with two ischemic wounds to the amputation site on th e right great toe, stable in nature. 2. Severe peripheral vascular disease. PLAN: 1. Going to continue to keep these areas stable with daily Betadine paint and dressing that can be l eft open to the air. 2. Patient's nails were trimmed as a courtesy today. 3. The patient will follow up with me in 3 weeks for close monitoring or sooner should he have any p roblems before that time.
== END 2017-06-10 09:57 | disposition home or self-care (01) ==
LOC: WCC 09:56
PROVIDERS: ATTEND Podiatrist Foot & Ankle Surgery
DX: L97.519 Non-pressure chronic ulcer of other part of right foot with unspecified severity (principal); I73.9 Peripheral vascular disease, unspecified; Z89.411 Acquired absence of right great toe; Z89.421 Acquired absence of other right toe(s)
CPT/HCPCS: 36416

== ENCOUNTER 2017-06-23 10:33 | Outpatient (CLI) | payer MEDICARE, OTHER ==
--- NOTE | 2017-06-23 12:30 | PRG ---
DATE OF SERVICE: 06/23/2017 HISTORY: Mr. Tab Burdick is a very pleasant 71-year-old gentleman accompanied by his daught er who presents to the Wound Center for evaluation of a coccygeal pressure ulceration. The patient h as been receiving dressing changes for the coccygeal wound at [facility]. The patient has no complaints today. The patient's daughter reports no concerns. She also reports no fever or chills. PHYSICAL EXAMINATION: VITAL SIGNS: Temperature 97.7, pulse 89, respirations 16, blood pressure 125/71, Accu-Chek 96. BACK: A coccygeal ulceration is present which measures approximately 0.5 x 0.5 cm. Granulation tiss ue is present within the wound margins. No purulent drainage is associated with the wound. No eryth esthela of the skin surrounding the wound is present. No maceration of the skin of the periwound is note d. ASSESSMENT AND PLAN: 1. Coccygeal pressure ulceration as described above. The ulceration is healing without complication s or any signs of infection. Again, the present dressing changes at [facility] will b e continued. Orders will be transmitted to [facility] for offloading of the coccygeal ulceration at all times. The patient, however, may be up in a chair for meals. I will see Mr. Landen koch again in 6 weeks. 2. Diabetes mellitus. The patient's Accu-Chek in clinic today is 96. The patient has been reminded that for optimal wound healing, his blood glucoses should remain below 150. 3. Hypertension. 4. Coronary artery disease. 5. Chronic obstructive pulmonary disease. 6. Obstructive sleep apnea. 7. History of transient ischemic attack. 8. Hemorrhagic cerebrovascular accident.
== END 2017-06-23 10:34 | disposition home or self-care (01) ==
LOC: WCC 10:33
PROVIDERS: ATTEND Family Medicine
DX: L89.159 Pressure ulcer of sacral region, unspecified stage (principal); E11.9 Type 2 diabetes mellitus without complications; I25.10 Atherosclerotic heart disease of native coronary artery without angina pectoris; J44.9 Chronic obstructive pulmonary disease, unspecified; G47.33 Obstructive sleep apnea (adult) (pediatric); I10 Essential (primary) hypertension; I62.9 Nontraumatic intracranial hemorrhage, unspecified; Z86.73 Personal history of transient ischemic attack (TIA), and cerebral infarction without residual deficits
CPT/HCPCS: 36416; 97602

== ENCOUNTER 2017-07-01 17:14 | Emergency (ER) | payer MEDICARE, OTHER ==
[2017-07-01 18:19] LABS: #Eosinphils 1.6 thou/uL (0.0-0.7); #Lymphocytes 1.3 thou/uL (1.20-3.40); #Monocytes 0.5 thou/uL (0.11-0.59); #Neutrophils 3.4 thou/uL (1.40-6.50); %Basophils 0.4 % (0.0-1.0); %Eosinophils 23.6 % (0.0-10.0); %Lymphocytes 19.4 % (21.0-51.0); %Monocytes 6.8 % (0.0-10.0); %Neutrophils 49.8 % (42.0-75.0); Hemoglobin 13.5 g/dL (14.0-18.0); Mean Corpuscular HGB CONC 31.9 g/dL (32.0-36.0); Mean Corpuscular Hemoglobin 29.5 pg (27.0-31.0); Mean Corpuscular Volume 92.3 fl (80.0-94.0); Mean Platelet Volume 7.6 fL (7.4-10.4); Platelet Count 229 thou/uL (130-400); RBC Distribution Width 13.1 % (11.5-14.5); Red Blood Cell (RBC) Count 4.56 mill/uL (4.70-6.10); White Blood Cell (WBC) Count 6.7 thou/uL (4.8-10.8)
[2017-07-01 18:42] LABS: ALT (SGPT) 71 U/L (8-55); AST (SGOT) 76 U/L (5-34); Albumin 3.5 g/dL (3.4-4.8); Alkaline Phosphatase 107 U/L (40-150); Anion Gap 7 mmol/L (10-20); BUN (Urea Nitrogen) 39 mg/dL (8.4-25.7); Bilirubin, Total 0.3 mg/dL (0.2-1.2); CRP (Inflammatory) Less than 0.50 mg/dL (= or < 0.5); Calc. Creatinine Clearance 0 mL/min (70-130); Calcium 9.1 mg/dL (7.8-10.44); Carbon Dioxide 30 mmol/L (23-31); Chloride 108 mmol/L (98-107); Estimated GFR-MDRD Greater than 90; Globulin 3.5 g/dL (2.4-3.5); Glucose 154 mg/dL (83-110); Potassium 4.2 mmol/L (3.5-5.1); Sodium 141 mmol/L (136-145)
--- NOTE | 2017-07-01 21:34 | RAD ---
THREE VIEWS RIGHT FOOT 07/01/17 HISTORY: Patient with previous chronic wound infections. History of previous toe amputation. AP, lateral and oblique views right foot is obtained. Comparison made to a previous exam from 04/14/17. Images demonstrate amputation of the distal aspect second digit right foot. Vascular calcifications seen. There is an area of lucency in the proximal shaft of the fifth right metatarsal possibly due to old h ealed injury or hardware. No acute right foot abnormality seen. There does appear to be some heteroge neous mineralization of the right foot. This may be due to some disuse osteoporosis. Overall, radiographic appearance of the right foot is stable. IMPRESSION: Stable three views right foot. POS: [facility]
== END 2017-07-01 20:16 | disposition home or self-care (01) ==
LOC: EEVIPCON 17:14 → ERS 17:14
DX: E11.621 Type 2 diabetes mellitus with foot ulcer (principal); L97.516 Non-pressure chronic ulcer of other part of right foot with bone involvement without evidence of necrosis; F03.90 Unspecified dementia, unspecified severity, without behavioral disturbance, psychotic disturbance, mood disturbance, and anxiety; Z86.73 Personal history of transient ischemic attack (TIA), and cerebral infarction without residual deficits; G47.30 Sleep apnea, unspecified; E78.5 Hyperlipidemia, unspecified; J44.9 Chronic obstructive pulmonary disease, unspecified; Z87.891 Personal history of nicotine dependence; I10 Essential (primary) hypertension; K21.9 Gastro-esophageal reflux disease without esophagitis; Z79.899 Other long term (current) drug therapy; Z79.4 Long term (current) use of insulin
CPT/HCPCS: 36415; 36416; 80053; 85025; 86140

== ENCOUNTER 2017-07-08 09:49 | Outpatient (CLI) | payer MEDICARE, OTHER ==
--- NOTE | 2017-07-08 17:02 | PRG ---
DATE OF SERVICE: 07/08/2017 SUBJECTIVE: A 71-year-old male returns today for followup of multiple ischemic wounds to the right f oot and status post right second toe amputation he states last Tuesday. He went to the emergency depa rtment just to have the wound checked, it was x-rayed, did not notice any signs of continuing bone in fection. Patient denies nausea, vomiting, fevers or chills and presents with his daughter today, who is answering most of the questions. He does relate still having significant pain with the wound. PHYSICAL EXAMINATION: Multiple ischemic eschar sites on the great toe, third toe, and fourth toe. T he second toe amputation site also has a scab covering. There is a hard substance within the central portion of the wound which appears to be bone. Portion of it was debrided and a small amount of pur ulence came from underneath which was cultured difficult to ascertain exactly what this tissue was, i t could also just be hard and scabbed. No periwound erythema, edema, or warmth or other signs of inf ection. ASSESSMENT: 1. Status post left second toe amputation with failure to fully heal and multiple ischemic wounds ab out the right foot. 2. Severe peripheral vascular disease. PLAN: 1. Culture was sent of one drop of purulence that was noted underneath the hard material on the righ t second toe amputation site. 2. We are going to continue with keeping these eschar stable with Betadine paint on a daily basis. 3. Discussed with patient and his daughter. Other possibilities of bleed with peripheral vascular d isease, he continues to have pain and it is debilitating more than likely the next option would be a below knee amputation. At this time, we can continue to keep these wounds stable, though he is not acutely infected and he will follow up with me in 3 weeks or sooner should they are any problems arise before that time. 4. Because of the small amount of purulence, I also put him on one week's worth of Augmentin 875 mg 1 by mouth twice a day.
== END 2017-07-08 09:50 | disposition home or self-care (01) ==
LOC: WCC 09:49
PROVIDERS: ATTEND Podiatrist Foot & Ankle Surgery
DX: T81.89XD Other complications of procedures, not elsewhere classified, subsequent encounter (principal); I73.9 Peripheral vascular disease, unspecified
CPT/HCPCS: 36416; 87070; 87077; 87186; 87205

== ENCOUNTER 2017-07-16 20:48 | Inpatient (IN) | payer MEDICARE, OTHER ==
[2017-07-16] MEDS ORDERED: Albuterol Sulfate 2.5 mg/3 ml Neb ONE ×2 (21:06)
[2017-07-16] MEDS ORDERED: Magnesium Sulfate 2 GM/100 ML BAG ONE (21:07)
[2017-07-16] MEDS ORDERED: Dexamethasone 4 mg/ml Vial ONE (21:07)
[2017-07-16 21:13] LABS: Bilirubin Negative (Negative); Blood, Urine Negative (Negative); Clarity CLEAR (Clear); Glucose, Urine (Dipstick) Negative (Negative); Leukocyte Negative (Negative); Nitrite Negative (Negative); Protein, Urine (Dipstick) Negative (Neg-Trace); Specific Gravity, Urine 1.028 (1.002-1.036)
--- NOTE | 2017-07-16 21:22 | RAD ---
PORTABLE CHEST: 07/16/17 HISTORY: Dyspnea. COMPARISON: 04/25/17. Lung quinn show no evidence of focal infiltrate or vascular congestion. Heart size within normal range. Postop sternotomy changes noted. IMPRESSION: No acute process. POS: [facility]
[2017-07-16 21:23] LABS: pH, Arterial 7.43 (7.35-7.45)
[2017-07-16 21:24] LABS: Actual Bicarbonate (HCO3a) 27.9 mEq/L (22-26); Base Excess (BEa) 3.1 mEq/L (0 (+/-) 2.5); CO2 Tension 43.1 mmHg (35.0-45.0); Hematocrit-ABG 40.9 % (42.0-52.0); Hemoglobin (Hb) 12.6 g/dL (14.0-18.0); O2 Tension (PaO2) 81.3 mmHg (80.0-100.0)
[2017-07-16 21:25] LABS: ALV-art Gradient 264.105 (0-20); Analyzer IN Cardio ER; Calcium, Ionized 1.2 mmol/L (1.12-1.30); Puncture Site RRA
[2017-07-16 21:41] LABS: #Eosinphils 1.3 thou/uL (0.0-0.7); #Monocytes 0.4 thou/uL (0.11-0.59); #Neutrophils 3.5 thou/uL (1.40-6.50); %Basophils 0.4 % (0.0-1.0); %Lymphocytes 27.6 % (21.0-51.0); %Monocytes 5.6 % (0.0-10.0); %Neutrophils 48.4 % (42.0-75.0); Mean Corpuscular HGB CONC 31.8 g/dL (32.0-36.0); Mean Corpuscular Hemoglobin 28.9 pg (27.0-31.0); Mean Platelet Volume 7.9 fL (7.4-10.4); Platelet Count 175 thou/uL (130-400); RBC Distribution Width 12.9 % (11.5-14.5); Red Blood Cell (RBC) Count 4.49 mill/uL (4.70-6.10); White Blood Cell (WBC) Count 7.3 thou/uL (4.8-10.8)
[2017-07-16 21:54] LABS: ALT (SGPT) 40 U/L (8-55); AST (SGOT) 29 U/L (5-34); Albumin 3.5 g/dL (3.4-4.8); Alkaline Phosphatase 105 U/L (40-150); Anion Gap 12 mmol/L (10-20); BUN (Urea Nitrogen) 31 mg/dL (8.4-25.7); Bilirubin, Total 0.3 mg/dL (0.2-1.2); CK (CPK) 28 U/L (30-200); Calc. Creatinine Clearance 0 mL/min (70-130); Calcium 9.2 mg/dL (7.8-10.44); Carbon Dioxide 27 mmol/L (23-31); Chloride 105 mmol/L (98-107); Estimated GFR-MDRD Greater than 90; Globulin 3.7 g/dL (2.4-3.5); Glucose 271 mg/dL (83-110); Lipase 20 U/L (8-78); Potassium 4.6 mmol/L (3.5-5.1); Protein, Total 7.2 g/dL (5.8-8.1); Sodium 139 mmol/L (136-145)
[2017-07-16 21:59] LABS: CKMB 0.6 ng/mL (0-6.6); Troponin I Less than 0.010 ng/mL (< 0.028)
--- NOTE | 2017-07-16 23:37 | ULT ---
RIGHT LOWER EXTREMITY VENOUS DUPLEX EXAM: 07/16/17 Deep veins of the right lower extremity evaluated with color doppler and spectral analysis and compre ssion. INDICATIONS; Right lower extremity pain and edema. Assess for DVT. Deep veins of the right lower extremity show normal blood flow and compression. No evidence of DVT. IMPRESSION: No evidence of right lower extremity DVT. POS: [facility]
[2017-07-17] MEDS ORDERED: Dextrose 5% in Water 1,000 ML IV PRN (00:03)
[2017-07-17] MEDS ORDERED: Dextrose 50% Abboject 50 ML SYRINGE SLOW IVP PRN (00:03)
--- NOTE | 2017-07-17 00:36 | HP ---
PRIMARY CARE PROVIDER: Ja Mendoza MD CHIEF COMPLAINT: Shortness of breath. HISTORY OF PRESENT ILLNESS: Mr. Burdick is a pleasant 71-year-old gentleman who was seen at [facility] on 07/16/2017. He is a resident at [facility]. He is able to provide some history. His daughter, Jaja, is by the bedside and is able to provide collateral history. Additional history was obtained from review of medical records as well as discussion with the emergency room physician. Mr. Burdick has reportedly had a cough for the last 1 month. Over the last 4 days, he had increase in the cough. He has been feeling short of breath and wheezing over the last one week. Today morning, his cough was productive of light-green sputum. He denies any chest pain. He denies any fevers or chills. He denies any nausea, vomiting, diarrhea, or abdominal pain. Shortness of breath appears to be mainly exertional. He was reportedly saturating in the 70s on room air and was therefore sent to the emergency room. He also had a swab done on the right second toe recently and swab is growing MRSA. REVIEW OF SYSTEMS: All other systems reviewed and found to be negative. PAST MEDICAL HISTORY: Significant for diabetes mellitus type 2, hypertension, COPD, coronary artery disease, dementia, right second toe infection, chronic obstructive pulmonary disease, obstructive sleep apnea syndrome, TIA, and hemorrhagic cerebrovascular accident. PAST SURGICAL HISTORY: Significant for right second toe amputation, cholecystectomy, coronary artery bypass graft surgery 3 times, right femoral surgery and lumbar fusion. SOCIAL HISTORY: The patient is a former smoker. No history of current tobacco use, alcohol use, or recreational drug use. ALLERGIES: CODEINE. FAMILY HISTORY: No family history of premature coronary artery disease. CODE STATUS: I discussed his code status. He is FULL CODE. His daughter, Jaja, is the surrogate decision maker. CURRENT MEDICATIONS: Include Arginaid one packet 2 times a day, albuterol p.r.n., Aricept 5 mg at bedtime, Plavix 75 mg daily, Diabetic Tussin 10 mL every 8 hours as needed, Levemir 12 units in the morning and 7 units in the evening, NovoLog mix 70/30 by sliding scale, omeprazole 20 mg daily, loperamide p.r.n., Flomax 0.4 mg daily, vitamin C 500 mg daily, zinc 50 mg daily, Thera-M once daily, Norvasc 5 mg daily, Claritin 10 mg daily, simvastatin 40 mg daily, Coreg 6.25 mg 2 times a day, Brovana inhalation 2 times a day, budesonide inhalation 2 times a day, ipratropium inhalation 2 times a day, milk of magnesia p.r.n., and Augmentin 875/125 mg 2 times a day. PHYSICAL EXAMINATION: GENERAL: Mr. Burdick is sleepy, but arousable, not in acute distress. VITAL SIGNS: Blood pressure is 134/88, pulse is 81, his breathing at rate of 23 , and saturating 96% on 3 liters of oxygen. He is afebrile. EYES: Puffiness of eyelids: No scleral icterus. No conjunctival pallor. ENT: Moist mucosal membranes. No oropharyngeal erythema or exudates. NECK: Supple, nontender, trachea is midline. RESPIRATORY: Accessory muscles of breathing are mildly active. Chest wall movements symmetric bilaterally. He has expiratory wheezes, overall the lung zones. CARDIOVASCULAR: S1 and S2 are heard, regular. Peripheral pulses feeble in the lower extremities. No pericardial rub, no carotid bruit. ABDOMEN: Soft, nontender, bowel sounds are heard. No hepatomegaly, no splenomegaly. LYMPHATIC: No cervical lymphadenopathy. NEUROLOGIC: The patient is moving all four extremities. No facial droop. Full neurologic examination was not possible secondary to the patient's noncooperation. MUSCULOSKELETAL: The patient is moving all four extremities. He is status post partial amputation of the right second toe. SKIN: Discoloration over all toes suspicious for ischemia. Skin is shiny and devoid of hair over the shins. He also has a sacral wound VAC. He has ulcers over the toes. PSYCHIATRIC: The patient is sleepy, but arousable, has normal mood and normal affect, knows that he is at [place], [place], oriented to person, but not to time. LABORATORY AND DIAGNOSTIC DATA: Mr. Burdick's labs and investigations were reviewed. I reviewed his electrocardiogram, which shows normal sinus rhythm, no ST changes to suggest an acute coronary syndrome. I also reviewed his chest x-ray, which does not show any pulmonary infiltrates. He also had ultrasound of right lower extremity, which did not show any DVT. He has normal white count , normocytic anemia with hemoglobin 13, normal platelet count, normal ESR, normal electrolytes, elevated blood urea nitrogen of 31, normal creatinine, unremarkable liver profile, normal lipase, normal troponin I, normal C-reactive protein, and negative urinalysis. Arterial blood gases show pH 7.43, pCO2 of 43.1 and pO2 of 81.3. ASSESSMENT AND PLAN: Mr. Burdick is a pleasant 71-year-old gentleman who was seen at [facility] on 07/16/2017. His problem list includes: 1. Acute on chronic respiratory failure: Most likely secondary to chronic obstructive pulmonary disease exacerbation. He has received oxygen, steroids, bronchodilators, and antibiotics in the emergency room, which I will continue. Pulmonology Service will be consulted for opinion and help with management. 2. Methicillin-resistant Staphylococcus aureus infection of skin: He has received vancomycin in the emergency room. I will continue him on vancomycin. Wound care service will also be consulted, given his wounds. 3. Diabetes mellitus type 2. Continue home medications, start patient on Accu- Cheks and insulin sliding scale. 4. Hypertension: Monitor vital signs, titrate antihypertensives as needed, continue home medications. 5. Coronary artery disease: Appears to be stable. Many thanks for allowing me to participate in your patient's care. Please feel free to contact me with any questions or concerns. LEVEL OF RISK: High. LEVEL OF COMPLEXITY: High. MTDD
[2017-07-17 01:24] VITALS: BMI 20.1
[2017-07-17 05:34] LABS: #Lymphocytes 0.6 thou/uL (1.20-3.40); #Monocytes 0.1 thou/uL (0.11-0.59); #Neutrophils 5.2 thou/uL (1.40-6.50); %Basophils 0.3 % (0.0-1.0); %Eosinophils 0.7 % (0.0-10.0); %Lymphocytes 10.1 % (21.0-51.0); Hemoglobin 12.3 g/dL (14.0-18.0); Mean Corpuscular HGB CONC 31.9 g/dL (32.0-36.0); Mean Corpuscular Hemoglobin 29.2 pg (27.0-31.0); Mean Corpuscular Volume 91.6 fl (80.0-94.0); Mean Platelet Volume 8.2 fL (7.4-10.4); Platelet Count 147 thou/uL (130-400); RBC Distribution Width 12.8 % (11.5-14.5); Red Blood Cell (RBC) Count 4.22 mill/uL (4.70-6.10); White Blood Cell (WBC) Count 5.9 thou/uL (4.8-10.8)
[2017-07-17 05:38] LABS: Anion Gap 11 mmol/L (10-20); BUN (Urea Nitrogen) 30 mg/dL (8.4-25.7); Calc. Creatinine Clearance 68 mL/min (70-130); Calcium 8.9 mg/dL (7.8-10.44); Carbon Dioxide 26 mmol/L (23-31); Chloride 104 mmol/L (98-107); Estimated GFR-MDRD 85; Glucose 415 mg/dL (83-110); Potassium 4.8 mmol/L (3.5-5.1); Sodium 136 mmol/L (136-145)
[2017-07-17] MEDS: HumaLOG 300 UNITS/3 ML VIAL SC PRN ×4 (06:49→22:32)
[2017-07-17] MEDS: Enoxaparin Sodium 40 MG/0.4 ML SYRINGE SC SCH (08:37)
[2017-07-17] MEDS: Vancomycin HCl 1 GM in Premix Bag 1 BAG IVPB SCH ×2 (08:37→21:28)
--- NOTE | 2017-07-17 17:20 | CON ---
DATE OF CONSULTATION: 07/17/2017 HISTORY OF PRESENT ILLNESS: Mr. Burdick is a 71-year-old male who is a resident of the [facility] in [place]. His daughter was in the room with him. She provided much of the history. He was told 10 years ago he had COPD by Dr. Lin, but does not see him regularly. He presents with a cough and chest congestion with shortness of breath and subsequently was admitted. PAST MEDICAL HISTORY: Remarkable for diabetes, hypertension, COPD, coronary artery disease, hemorrhagic stroke, which led to his placement in the skilled nursing, sleep apnea. PAST SURGICAL HISTORY: Second toe amputation that is partial on the right, cholecystectomy, coronary bypass grafting and lumbar spinal fusion. SOCIAL HISTORY: He is a former smoker. Not a drinker. Does not use drugs. ALLERGIES: Reports allergies to CODEINE. MEDICATIONS: Extensive and have been reviewed. REVIEW OF SYSTEMS: Ten points otherwise negative. He says he is feeling better. PHYSICAL EXAMINATION: GENERAL: Pleasant 71 y/o male from skilled nursing. VITAL SIGNS: He is afebrile, heart rate 66, respiratory rate 16, oximetry is 95 , blood pressure 112/61. HEENT: Pupils are equal. Sclerae are anicteric. LUNGS: Clear. HEART: Regular rhythm. S1 and S2 are normal. There is a grade 2/6 systolic murmur. ABDOMEN: Soft and nontender. No masses are palpated. He has a sacral decubitus. EXTREMITIES: Without edema. LABORATORY DATA: White count 5.9, hemoglobin 12.3, platelets 147,000. Sodium 136, potassium 4.8, chloride 104, bicarbonate 26, BUN 30, creatinine 0.88 , glucose 415 this morning, 271 yesterday. IMPRESSION: 1. Chronic obstructive pulmonary disease exacerbation. 2. Peripheral vascular disease. 3. History of hemorrhagic cerebrovascular accident. 4. Extreme deconditioning. 5. Sacral decubitus. 6. Status post toe amputation. I examined the wound. It looks like it has been healing by secondary intention. It does not appear to be infected. I do not see anything that would justify treating him with vancomycin at this point. Today I cultured his toe, which has methicillin-resistant staphylococcus aureus in it, but it does not appear to be infected. The treatment for this would be debridement. Given his frail state and history of vascular disease, I would be hesitant to keep him on vancomycin. I would treat his chronic obstructive pulmonary disease and get him back into his care environment. Dr. Ng added doxycycline today. I really do not think he needs 3 antibiotics. I reviewed his chest radiograph and he has no infiltrates. He also can decrease his steroid dosing. This is a 50 minute consult and greater than 50% of the time was spent on the unit coordinating care. EROS
[2017-07-17] MEDS: Doxycycline 100 MG CAP PO SCH (21:28)
[2017-07-18] MEDS: HumaLOG 300 UNITS/3 ML VIAL SC PRN ×3 (06:57→17:14)
--- NOTE | 2017-07-18 07:47 | PDOC.PN ---
- Subjective Encounter Start Date: 07/17/17 Encounter Start Time: 15:25 -: old records requested/rev Pt seen and examined, chart reviewed in its entirety, this is my first visit with this patient follow up for AECOPD, bronchitis Breathing much better, no wheezing, kaila cough, nonproductive. No F/C, no n/V/dC , no CP or SOB all systems reviewed and neg x as above - Objective Resuscitation Status: Resuscitation Status FULL:Full Resuscitation MAR Reviewed: Yes Vital Signs & Weight: Vital Signs (12 hours) Temp Pulse Resp BP Pulse Ox 07/18/17 07:38 98.4 F 64 16 106/43 L 99 07/18/17 06:04 75 14 936 H 07/18/17 00:29 66 18 95 07/18/17 00:09 64 20 94 L 07/17/17 20:07 98.4 F 71 20 133/66 94 L 07/17/17 20:00 98.4 F 71 20 94 L Weight Weight 140 lb 3.2 oz Result Diagrams: 07/17/17 04:16 07/17/17 04:16 Additional Labs: Accuchecks 07/18/17 07/17/17 07/17/17 04:44 20:07 16:55 POC Glucose 277 H 255 H 313 H 07/17/17 11:11 POC Glucose 382 H Radiology Reviewed by me: Yes EKG Reviewed by me: Yes Phys Exam - Physical Examination Constitutional: NAD HEENT: PERRLA, moist MMs, sclera anicteric, oral pharynx no lesions Neck: no nodes, no JVD, supple, full ROM Respiratory: no rales end exp low pitch wheezing, no prolonged exp, occasional rhonchi Cardiovascular: RRR, no significant murmur, no rub Gastrointestinal: soft, non-tender, no distention, positive bowel sounds Musculoskeletal: no edema Neurological: non-focal, normal sensation, moves all 4 limbs Lymphatic: no nodes Psychiatric: normal affect Skin: no rash, cap refill <2 seconds Deviation from normal: left 2nd toe amp open, no bleeding, no pus, no erythema, painted with iodin Dx/Plan (1) Acute bronchitis Code(s): J20.9 - ACUTE BRONCHITIS, UNSPECIFIED Status: Acute Qualifiers: Bronchitis organism: unspecified organism Qualified Code(s): J20.9 - Acute bronchitis, unspecified (2) Acute exacerbation of chronic obstructive pulmonary disease (COPD) Code(s): J44.1 - CHRONIC OBSTRUCTIVE PULMONARY DISEASE W (ACUTE) EXACERBATION Status: Acute (3) H/O: CVA (cerebrovascular accident) Code(s): Z86.73 - PRSNL HX OF TIA (TIA), AND CEREB INFRC W/O RESID DEFICITS Status: Chronic Comment: with left hemiplegia (4) CAD (coronary artery disease) Code(s): I25.10 - ATHSCL HEART DISEASE OF [place] CORONARY ARTERY W/O ANG PCTRS Status: Chronic Qualifiers: Coronary Disease-Associated Artery/Lesion type: bypass graft [place] vs. transplanted heart: [place] heart Associated angina: without angina Qualified Code(s): I25.810 - Atherosclerosis of coronary artery bypass graft(s) without angina pectoris Comment: H/o CABG, no chest pain, continue Aspirin, BB (5) DM2 (diabetes mellitus, type 2) Status: Chronic Qualifiers: Diabetes mellitus intermediate designer insulin use: with intermediate designer use Diabetes mellitus complication status: with unspecified complications Qualified Code(s) : E11.8 - Type 2 diabetes mellitus with unspecified complications; Z79.4 - exterminator termite (current) use of insulin Comment: Plan to COntrol BG, 140-180, SSI. (6) HTN (hypertension) Code(s): I10 - ESSENTIAL (PRIMARY) HYPERTENSION Status: Chronic Qualifiers: Hypertension type: essential hypertension Qualified Code(s): I10 - Essential (primary) hypertension Comment: BP at Goal, continue Home Meds. (7) Swallowing dysfunction Code(s): R13.10 - DYSPHAGIA, UNSPECIFIED Status: Chronic Comment: on modified diet - Plan cont current plan of care, plan discussed w/ family, continue antibiotics, PT/OT , respiratory therapy, incentive spirometry, out of bed/ambulate * .
[2017-07-18] MEDS: Doxycycline 100 MG CAP PO SCH ×2 (08:30→21:06)
[2017-07-18] MEDS: Vancomycin HCl 1 GM in Premix Bag 1 BAG IVPB SCH (08:30)
[2017-07-18] MEDS: Enoxaparin Sodium 40 MG/0.4 ML SYRINGE SC SCH (08:30)
[2017-07-18 08:34] LABS: Vancomycin, Trough 14.2 ug/mL
[2017-07-18] MEDS ORDERED: Ondansetron HCl/PF 4 MG/2 ML Vial IVP PRN (11:17)
--- NOTE | 2017-07-18 11:36 | PRG ---
DATE OF SERVICE: 07/18/2017 SUBJECTIVE: Mr. Burdick feels much better. OBJECTIVE: VITAL SIGNS: He is afebrile, heart rate 64, respiratory rate 16, oximetry is 99, blood pressure 106/ 43. LUNGS: Clear when I examined him this morning. HEART: Regular rhythm. ABDOMEN: Soft. LABORATORY DATA: White count 5.9, hemoglobin 12.3, platelets 147. IMPRESSION: 1. Asthmatic bronchitis with underlying chronic obstructive pulmonary disease. 2. Deconditioning after stroke. 3. Diabetes. 4. Hypertension. 5. History of coronary disease. 6. History of coronary artery bypass grafting. 7. CODEINE allergy. PLAN: Convert him to p.o. steroids, probably a candidate to go back to his care environment 24-48 ho urs. We will sign off.
[2017-07-18] MEDS: Budesonide 0.5 MG/2 ML NEB INH SCH (19:43)
[2017-07-19] MEDS: Budesonide 0.5 MG/2 ML NEB INH SCH (06:50)
[2017-07-19] MEDS ORDERED: predniSONE 20 MG TAB PO SCH (08:00)
[2017-07-19] MEDS: Doxycycline 100 MG CAP PO SCH (08:03)
[2017-07-19] MEDS: Enoxaparin Sodium 40 MG/0.4 ML SYRINGE SC SCH (08:03)
[2017-07-19 09:00] LABS: #Eosinphils 0.1 thou/uL (0.0-0.7); #Lymphocytes 1.5 thou/uL (1.20-3.40); #Monocytes 0.6 thou/uL (0.11-0.59); #Neutrophils 5.1 thou/uL (1.40-6.50); %Basophils 0.1 % (0.0-1.0); %Eosinophils 0.9 % (0.0-10.0); %Lymphocytes 20.3 % (21.0-51.0); %Monocytes 7.9 % (0.0-10.0); %Neutrophils 70.8 % (42.0-75.0); Hemoglobin 13.2 g/dL (14.0-18.0); Mean Corpuscular HGB CONC 32.6 g/dL (32.0-36.0); Mean Corpuscular Hemoglobin 29.7 pg (27.0-31.0); Mean Corpuscular Volume 91.1 fl (80.0-94.0); Platelet Count 148 thou/uL (130-400); Red Blood Cell (RBC) Count 4.45 mill/uL (4.70-6.10); White Blood Cell (WBC) Count 7.2 thou/uL (4.8-10.8)
[2017-07-19 09:21] LABS: Anion Gap 9 mmol/L (10-20); BUN (Urea Nitrogen) 21 mg/dL (8.4-25.7); Calc. Creatinine Clearance 75 mL/min (70-130); Calcium 8.9 mg/dL (7.8-10.44); Carbon Dioxide 28 mmol/L (23-31); Chloride 102 mmol/L (98-107); Estimated GFR-MDRD Greater than 90; Glucose 284 mg/dL (83-110); Magnesium 1.7 mg/dL (1.6-2.6); Potassium 3.7 mmol/L (3.5-5.1); Sodium 135 mmol/L (136-145)
[2017-07-19] MEDS: HumaLOG 300 UNITS/3 ML VIAL SC PRN ×2 (12:12→17:16)
--- NOTE | 2017-07-19 15:04 | PDOC.PN ---
- Subjective Encounter Start Date: 07/18/17 Encounter Start Time: 11:30 Pt look better, more awake and alert, breathing better. didnt eat breakfast - doesn tlike eggs No f/C, less cough, no F/C, no N/V/D/C, no new complaints all systems reviewed and neg x as per HPI - Objective Resuscitation Status: Resuscitation Status FULL:Full Resuscitation MAR Reviewed: Yes Vital Signs & Weight: Vital Signs (12 hours) Temp Pulse Resp BP BP Pulse Ox 07/19/17 11:30 64 14 95 07/19/17 11:19 98.1 F 61 20 130/64 10 L 07/19/17 08:00 97.5 F L 59 L 16 97 07/19/17 07:41 97.5 F L 59 L 16 127/63 97 07/19/17 06:50 52 L 14 96 07/19/17 05:00 97.6 F 52 L 18 109/67 95 Weight Admit Weight 140 lb 3.2 oz Weight 140 lb 3.2 oz I&O: 07/18/17 07/19/17 07/20/17 06:59 06:59 06:59 Intake Total 1070 Output Total 2 Balance 1068 Result Diagrams: 07/19/17 08:52 07/19/17 08:52 Additional Labs: Accuchecks 07/19/17 07/19/17 07/19/17 14:26 11:22 04:59 POC Glucose 317 H 380 H 218 H 07/18/17 07/18/17 20:20 16:42 POC Glucose 225 H 282 H Phys Exam - Physical Examination Constitutional: NAD HEENT: PERRLA, moist MMs, sclera anicteric, oral pharynx no lesions Neck: no nodes, no JVD, supple, full ROM Respiratory: no wheezing, no rales, no rhonchi, clear to auscultation bilateral still on 3L NC Cardiovascular: RRR, no significant murmur, no rub Gastrointestinal: soft, non-tender, no distention, positive bowel sounds Musculoskeletal: no edema cool. L second toe open to air global weakness, no focal deficits Lymphatic: no nodes Psychiatric: normal affect, A&O x 3 Skin: no rash, normal turgor, cap refill <2 seconds Dx/Plan (1) Acute bronchitis Code(s): J20.9 - ACUTE BRONCHITIS, UNSPECIFIED Status: Acute Qualifiers: Bronchitis organism: unspecified organism Qualified Code(s): J20.9 - Acute bronchitis, unspecified Comment: levoflox (2) Acute exacerbation of chronic obstructive pulmonary disease (COPD) Code(s): J44.1 - CHRONIC OBSTRUCTIVE PULMONARY DISEASE W (ACUTE) EXACERBATION Status: Acute Comment: prednisone, nebs, abx. wean o2 as tolerated (3) H/O: CVA (cerebrovascular accident) Code(s): Z86.73 - PRSNL HX OF TIA (TIA), AND CEREB INFRC W/O RESID DEFICITS Status: Chronic Comment: with left hemiplegia (4) CAD (coronary artery disease) Code(s): I25.10 - ATHSCL HEART DISEASE OF [place] CORONARY ARTERY W/O ANG PCTRS Status: Chronic Qualifiers: Coronary Disease-Associated Artery/Lesion type: bypass graft [place] vs. transplanted heart: [place] heart Associated angina: without angina Qualified Code(s): I25.810 - Atherosclerosis of coronary artery bypass graft(s) without angina pectoris Comment: H/o CABG, no chest pain, continue Aspirin, BB (5) DM2 (diabetes mellitus, type 2) Status: Chronic Qualifiers: Diabetes mellitus correction insulin use: with supervisor engraving use Diabetes mellitus complication status: with unspecified complications Qualified Code(s) : E11.8 - Type 2 diabetes mellitus with unspecified complications; Z79.4 - awning hanger (current) use of insulin Comment: Plan to COntrol BG, 140-180, SSI. (6) HTN (hypertension) Code(s): I10 - ESSENTIAL (PRIMARY) HYPERTENSION Status: Chronic Qualifiers: Hypertension type: essential hypertension Qualified Code(s): I10 - Essential (primary) hypertension Comment: BP at Goal, continue Home Meds. (7) Swallowing dysfunction Code(s): R13.10 - DYSPHAGIA, UNSPECIFIED Status: Chronic Comment: on modified diet - Plan cont current plan of care, plan discussed w/ family, continue antibiotics, PT/OT , social worker assistant, respiratory therapy * .
--- NOTE | 2017-07-19 15:35 | DIS ---
PRIMARY CARE PHYSICIAN: Dr. Ja Mendoza. PRIMARY INSIDE SALES ACCOUNT MANAGER: Dr. Joe Lin. DATE OF ADMISSION: 07/16/2017 DATE OF DISCHARGE: 07/19/2017 DISCHARGE DIAGNOSES: 1. Acute exacerbation of chronic obstructive pulmonary disease. 2. Acute bronchitis. 3. Acute hypoxemic respiratory failure. 4. Peripheral vascular disease. 5. Methicillin-resistant Staphylococcus aureus cellulitis of the left second toe probable osteomyeli tis. 6. Dementia. 7. Metabolic encephalopathy, resolved. 8. Essential hypertension. 9. Diabetes mellitus type 2. 10. Coronary artery disease, without angina. 11. History of cerebrovascular accident. 12. History of oropharyngeal dysphagia after stroke. CONSULTATIONS: None. PROCEDURES: None. HISTORY AND PHYSICAL: Mr. Burdick is a 71-year-old [place] male who is a resident of [facility] who was seen and evaluated in the Emergency Department with shortness of breath. His daughter provided the initial history because he was fairly confused and basically had a cough for about a mon . Four days prior to admission, he started having increasing cough and the morning of admission wa s found to have some production light green sputum. He denied any other complaints. He was satting in the 70s on room air, was sent to the emergency department. Of note, the patient also had a recent amputation of his toe for peripheral arterial disease and gang heide. Subsequent eschar was removed in wound care and culture of a small amount of purulence grew MR PEÑA. He was seen and evaluated in the ER there and transferred to our emergency department for further rosey luation. On arrival here, initial findings were confirmed and we were called for admission. HOSPITAL COURSE: The patient was seen and examined by Dr. Vignesh Fuchs. The patient was placed on In patient Service for acute on chronic respiratory failure. He was started on nebs, steroids, bronchod ilators and continued on antibiotics. Pulmonary was consulted. Patient received vancomycin in the emergency department for the MRSA into the eschar, he was continue d on vancomycin by Dr. Fuchs. Overnight 07/16 to 07/17, the patient improved. He was awake and alert and talking to me, answering questions appropriately. He was requiring 3 liters nasal cannula. He had some low pitched and expir atory rhonchi. Wounds were examined. The patient's antibiotics were adjusted and he continued to im prove. Labs were normal. On 07/18, he was almost back to his baseline mental status and breathing. He is being weaned off oxy gen as tolerated and continued on neb treatments. He is tolerating the Solu-Medrol well. He was not eating well as he did not like his breakfast, so we did not start his Lantus right away. Today 07/19, he was eating extremely well. His liaison engineer, Dr. Lin, and I spoke and he will s ee the patient in followup. The patient was weaned off oxygen fairly quickly and was satting 96% on room air, was stable for discharge with outpatient followup. PHYSICAL EXAMINATION: The patient was seen and examined on the day of discharge. Discharge plan and disposition was discussed with the patient face to face at the bedside. DISCHARGE MEDICATIONS: 1. DuoNeb 3 mL q.6 hours scheduled and q.2 hours p.r.n. 2. Albuterol ProAir HFA 2 puffs inhaled q.6 hours p.r.n. shortness of breath. 3. Tylenol 500 mg p.o. q.4 hours p.r.n. 4. Norvasc 5 mg daily. 5. Brovana 15 mcg inhaled b.i.d. 6. Doxycycline 100 mg p.o. b.i.d. 7. Levofloxacin 750 mg p.o. daily for 5 more days. 8. Prednisone 40 mg p.o. q.a.m., to decrease by 10 mg every third day until tapered off. 9. Albuterol sulfate 2.5 mg nebulized every 2 hours p.r.n. 10. Arginaid powder 1 packet b.i.d. 11. Budesonide 0.25 mg nebulized b.i.d. 12. Calcium carbonate 500 mg p.o. q.6 hours p.r.n. indigestion. 13. Artificial tear drops 1-2 each eye as needed. 14. Carvedilol 6.25 mg p.o. b.i.d. 15. Plavix 75 mg daily. 16. Diabetic Tussin DM 10 mL p.o. q.8 hours p.r.n. cough. 17. Diclofenac 100 gram gel topical application q.12 hours. 18. Aricept 5 mg p.o. at bedtime, which we are discontinuing. 19. Guaifenesin 600 mg p.o. q.12 hours. 20. NovoLog as preadmission. 21. Levemir 12 units subcu q.a.m. and 7 units subcu at bedtime. 22. Omeprazole 20 mg daily. 23. Polyethylene glycol 17 grams p.o. daily. 24. Multivitamin with minerals daily. 25. Magnesium hydroxide 30 mL p.o. daily p.r.n. constipation. 26. Claritin 10 mg daily. 27. Imodium as needed. 28. Zocor 40 mg p.o. at bedtime. 29. Flomax 0.4 mg p.o. at bedtime. 30. Zinc 50 mg p.o. daily. FOLLOWUP APPOINTMENTS: 1. Primary care physician within a week. 2. Dr. Lin as scheduled. DISCHARGE CONDITION: Stable to guarded. DISPOSITION: The patient will be discharged back to [facility] in [place]. He will be getting physical therapy and occupational therapy on arrival. DISCHARGE CONDITION: Stable, but poor prognosis.
[2017-07-19 16:46] VITALS: BP 112/65; TEMP 97.8
== END 2017-07-19 17:35 | DRG 189 ==
LOC: ERS 20:48 → EEVIPCON 20:48 → T4-A 22:36
PROVIDERS: ADMIT Internal Medicine; ATTEND Internal Medicine
DX: J96.21 Acute and chronic respiratory failure with hypoxia (principal); L89.153 Pressure ulcer of sacral region, stage 3; G93.41 Metabolic encephalopathy; J44.0 Chronic obstructive pulmonary disease with (acute) lower respiratory infection; M86.9 Osteomyelitis, unspecified; J44.1 Chronic obstructive pulmonary disease with (acute) exacerbation; J20.9 Acute bronchitis, unspecified; I10 Essential (primary) hypertension; J44.9 Chronic obstructive pulmonary disease, unspecified; I25.10 Atherosclerotic heart disease of native coronary artery without angina pectoris; F03.90 Unspecified dementia, unspecified severity, without behavioral disturbance, psychotic disturbance, mood disturbance, and anxiety; L08.9 Local infection of the skin and subcutaneous tissue, unspecified; B95.7 Other staphylococcus as the cause of diseases classified elsewhere; G47.33 Obstructive sleep apnea (adult) (pediatric); Z95.1 Presence of aortocoronary bypass graft; Z98.1 Arthrodesis status; Z89.421 Acquired absence of other right toe(s); Z87.891 Personal history of nicotine dependence; Z79.4 Long term (current) use of insulin; Z79.01 Long term (current) use of anticoagulants; Z88.5 Allergy status to narcotic agent; E11.42 Type 2 diabetes mellitus with diabetic polyneuropathy; R13.12 Dysphagia, oropharyngeal phase; I69.191 Dysphagia following nontraumatic intracerebral hemorrhage
CPT/HCPCS: 36415; 36416; 51701; 71045; 80048; 80053; 80202; 81003; 82550; 82553; 82805; 83605; 83690; 83735; 83880; 84484; 85025; 85652; 86140; 87040; 87086; 93005; 94640; 94660; 96365; 96366; 96367; 96368; 96375; A4216; G8996-GN-CI; G8997-GN-CH; J1100; J1650; J1956; J2405; J2920; J3370; J3475; J7506; J7611; J7620; J7626

== ENCOUNTER 2017-07-29 09:47 | Outpatient (CLI) | payer MEDICARE, OTHER ==
--- NOTE | 2017-07-29 11:26 | PRG ---
DATE OF SERVICE: 07/29/2017 SUBJECTIVE: A 71-year-old male returns today for followup right foot ischemic wound secondary to rig ht second toe amputation. Patient just got out of the hospital for a bout of bronchitis, has had no issues with the foot. He relates that he is not having any pain currently with the sores on the foot . PHYSICAL EXAMINATION: Right second toe wound has 100% eschar at this point, measures 1 cm x 1 cm wit h no depth. No drainage, no periwound erythema, edema, or warmth noted. He has 2 other areas of the right great toe and right third toe of eschar covered with wounds as well. No signs of acute infect ion in any of these wounds. ASSESSMENT: 1. Status post right second toe amputation with continued stable eschar covering. 2. Peripheral vascular disease. PLAN: 1. We are going to continue to keep these wounds stable with Betadine and gauze covering. 2. We did have a culture, which showed MRSA. There is no acute infection at this time. More than robert chamberlain, it is just a colonization and can direct future treatment if he does develop any infection. 3. The patient will follow up with me in 1 month.
[2017-07-29] MEDS ORDERED: Sodium Chloride 0.9% 15 ML NEB ONE (14:47)
== END 2017-07-29 09:48 | disposition home or self-care (01) ==
LOC: WCC 09:47
PROVIDERS: ATTEND Podiatrist Foot & Ankle Surgery
DX: T81.89XD Other complications of procedures, not elsewhere classified, subsequent encounter (principal); I73.9 Peripheral vascular disease, unspecified; Z89.421 Acquired absence of other right toe(s)
CPT/HCPCS: A4218

== ENCOUNTER 2017-08-03 10:24 | Outpatient (CLI) | payer MEDICARE, OTHER ==
[2017-08-03 12:35] LABS: Glucose Accucheck Confirmation 58 mg/dl (83-110)
--- NOTE | 2017-08-03 13:14 | PRG ---
DATE OF SERVICE: 08/03/2017 HISTORY: Mr. Tab Burdick is a very pleasant 71-year-old gentleman accompanied by his daught er who presents to the [facility] for evaluation of coccygeal pressure ulceration. The patient has been receiving dressing changes for the coccygeal wound of [place] followed by bordered gauze at [facility]. The patient's daughter states that Mr. Burdick was recently placed on hospice and placed on a new bed. PHYSICAL EXAMINATION: VITAL SIGNS: Temperature 97.7, pulse 59, respirations 15, blood pressure 126/66. BACK: A coccygeal ulceration is present which measures approximately 0.5 x 0.9 cm. The dimensions o f the wound at the time of the patient's visit on 06/23/2017 were approximately 0.5 x 0.5 cm. Granul ation tissue is present within the wound margins. No purulent drainage is associated with the wound. No erythema of the skin surrounding the wound is present. No maceration of the skin of the periwou nd is noted. ASSESSMENT AND PLAN: 1. Coccygeal pressure ulceration as described above. Dressing changes of Fibracol and bordered gauz e will be initiated today. These dressing changes are to be performed on a daily basis after cleansi ng and irrigation at [facility]. Orders will again be transmitted to [facility] for offloading of the coccygeal ulceration with position changes q.2 hours. Orders will al so be transmitted to [facility] for the patient to be up in a chair for meals, not to exceed 2 hours at mealtime. I will see Mr. Burdick again in 4-6 weeks. The patient is receiving Pro- Stat at [facility]. 2. Diabetes mellitus. Accu-Cheks will be obtained at the time of the patient's clinic visits. The patient has been reminded that for optimal wound healing, his blood glucoses should remain below 150. 3. Hypertension. 4. Coronary artery disease. 5. Chronic obstructive pulmonary disease. 6. Obstructive sleep apnea. 7. History of transient ischemic attack. 8. Hemorrhagic cerebrovascular accident.
[2017-08-04] MEDS ORDERED: Sodium Chloride 0.9% 15 ML NEB ONE (18:50)
== END 2017-08-03 10:25 | disposition home or self-care (01) ==
LOC: WCC 10:24
PROVIDERS: ATTEND Family Medicine
DX: L89.159 Pressure ulcer of sacral region, unspecified stage (principal); E11.9 Type 2 diabetes mellitus without complications; I10 Essential (primary) hypertension; I25.10 Atherosclerotic heart disease of native coronary artery without angina pectoris; J44.9 Chronic obstructive pulmonary disease, unspecified; G47.33 Obstructive sleep apnea (adult) (pediatric); Z86.73 Personal history of transient ischemic attack (TIA), and cerebral infarction without residual deficits
CPT/HCPCS: 36416; 82947; A4218

== ENCOUNTER 2017-08-26 10:29 | Outpatient (CLI) | payer MEDICARE, OTHER ==
--- NOTE | 2017-08-26 11:45 | PRG ---
DATE OF SERVICE: 08/26/2017 SUBJECTIVE: A 71-year-old male returns today with followup multiple eschars to the right foot with h istory of severe PVD which is inoperable. The patient states his pain level has been decreased. The y have been starting to get him out of the chair and start some physical therapy. They did notice a little drainage from the second toe amputation site last week when they started this. They have been applying Triple Antibiotic ointment. They have also noticed some patchy red discoloration to bilate ral feet on the dorsal aspect of the feet in a moccasin distribution. Denies any itching. PHYSICAL EXAMINATION: DERMATOLOGICAL EXAM: There is a dry stable eschars to the right great toe, right second amputation s ite and right third toe. Right great toe measures 0.8 cm x 1.2 cm. A second amputation site measure s 2 cm x 2 cm and third toe measures 0.8 cm x 0.7 cm. They are 100% eschar which is stable and dry a t this time. There is erythematous scaling plaques on the bilateral feet in a moccasin distribution. No ascending lymphangitis. This is nonblanchable erythema. ASSESSMENT: 1. Non-pressure chronic ulcerations to the right foot, eschar covered, stable in nature. 2. Severe peripheral vascular disease. 3. Tinea pedis. PLAN: 1. I wrote a prescription for ciclopirox 0.77% cream to be applied to both feet twice a day for 1 mo nth. 2. Going to continue with Betadine paint to the wounds and left open to the air, although if there i s any drainage, they can cover with a dry gauze. 3. Okay for patient to continue with his physical therapy. 4. The patient will follow up with me in my [facility] in 2 months or sooner should he have con cerns before that time.
== END 2017-08-26 10:30 | disposition home or self-care (01) ==
LOC: WCC 10:29
PROVIDERS: ATTEND Podiatrist Foot & Ankle Surgery
DX: L97.519 Non-pressure chronic ulcer of other part of right foot with unspecified severity (principal); I73.9 Peripheral vascular disease, unspecified; B35.3 Tinea pedis
CPT/HCPCS: 36416; 97602

== ENCOUNTER 2017-09-07 13:30 | Outpatient (CLI) | payer MEDICARE, OTHER ==
--- NOTE | 2017-09-07 17:02 | PRG ---
DATE OF SERVICE: 09/07/2017 HISTORY: Mr. Tab Burdick is a very pleasant 71-year-old gentleman accompanied by his daught er who presents to the Wound Center for evaluation of a coccygeal pressure ulceration. Since the pat ient's visit on 08/03/2017 Mr. Burdick has been receiving dressing changes of Promogran for his coccyg eal wound. PHYSICAL EXAMINATION: VITAL SIGNS: Temperature 97.4, pulse 78, respirations 16, blood pressure 141/72. Accu-Chek 324. BACK: A coccygeal ulceration is present which measures approximately 0.5 x 0.3 cm. The dimensions o f the wound at the time of the patient's visit on 08/03/2017 were approximately 0.5 x 0.9 cm. Granul ation tissue is present within the wound margins. No purulent drainage is associated with the wound. No erythema of the skin surrounding the wound is present. No maceration of the skin of the periwou nd is noted. ASSESSMENT AND PLAN: 1. Coccygeal pressure ulceration as described above. Dressing changes of Promogran and Mepilex bord er will be initiated today. These dressing changes are to be performed on a daily basis after cleans ing and irrigation at [facility]. Orders will be transmitted to [facility] for offloading of the coccygeal ulceration with position changes q.2 hours while the patient is supine. Orders will also be transmitted to [facility] for the patient to be up in a c hair as tolerated. I will see Mr. Burdick again in 4 weeks. 2. Diabetes mellitus. The patient's Accu-Chek in clinic today is 324 mg. The patient has been remin ded that for optimal wound healing, his blood glucoses should remain below 150. 3. Hypertension. 4. Coronary artery disease. 5. Chronic obstructive pulmonary disease. 6. Obstructive sleep apnea. 7. History of transient ischemic attack. 8. Hemorrhagic cerebrovascular accident.
== END 2017-09-07 13:31 | disposition home or self-care (01) ==
LOC: WCC 13:30
PROVIDERS: ATTEND Family Medicine
DX: L89.159 Pressure ulcer of sacral region, unspecified stage (principal); E11.9 Type 2 diabetes mellitus without complications; G47.33 Obstructive sleep apnea (adult) (pediatric); J44.9 Chronic obstructive pulmonary disease, unspecified; I25.10 Atherosclerotic heart disease of native coronary artery without angina pectoris; I62.9 Nontraumatic intracranial hemorrhage, unspecified; I10 Essential (primary) hypertension; Z86.73 Personal history of transient ischemic attack (TIA), and cerebral infarction without residual deficits
CPT/HCPCS: 97602

== ENCOUNTER 2017-10-10 13:57 | Outpatient (CLI) | payer MEDICARE, OTHER ==
--- NOTE | 2017-10-10 15:59 | PRG ---
DATE OF SERVICE: 10/10/2017 HISTORY: Mr. Tab Burdick is a very pleasant 71-year-old gentleman, accompanied by his daughter, who presents to the Wound Center for evaluation of a coccygeal pressure ulceration. Since the patie nt's last visit, Mr. Burdick has been receiving dressing changes of Promogran followed by Mepilex bord er 3 times per week after cleansing and irrigation at [facility]. The patient has no complaints today. He denies any fever or chills. PHYSICAL EXAMINATION: VITAL SIGNS: Temperature 98.1, pulse 68, respirations 22, blood pressure 140/63. Accu-Chek 98. BACK: A coccygeal ulceration is present, which measures approximately 0.7 x 0.4 cm. The dimensions of the wound at the time of the patient's visit on 09/07/2017 were approximately 0.5 x 0.3 cm. Very little granulation tissue is present within the wound margins. No purulent drainage is associated wi th the wound. No erythema of the skin surrounding the wound is present. No maceration of the skin o f the periwound is noted. ASSESSMENT AND PLAN: 1. Coccygeal pressure ulceration as described above. Dressing changes of Promogran and Mepilex bord er will be discontinued. Dressing changes of Hydrofera Blue and Mepilex border will be initiated tod ay. These dressing changes are to be performed 3 times per week after cleansing and irrigation at [facility]. I will see Mr. Burdick again in 6 weeks. 2. Diabetes mellitus. The patient's Accu-Chek in clinic today is 98. The patient has been reminded that, for optimal wound healing, his blood glucoses should remain below 150. 3. Hypertension. 4. Coronary artery disease. 5. Chronic obstructive pulmonary disease. 6. Obstructive sleep apnea. 7. History of transient ischemic attack. 8. Hemorrhagic cerebrovascular accident.
== END 2017-10-10 13:58 | disposition home or self-care (01) ==
LOC: WCC 13:57
PROVIDERS: ATTEND Family Medicine
DX: E11.622 Type 2 diabetes mellitus with other skin ulcer (principal); L89.159 Pressure ulcer of sacral region, unspecified stage; J44.9 Chronic obstructive pulmonary disease, unspecified; I10 Essential (primary) hypertension; I25.10 Atherosclerotic heart disease of native coronary artery without angina pectoris; G47.33 Obstructive sleep apnea (adult) (pediatric); I62.9 Nontraumatic intracranial hemorrhage, unspecified; Z86.73 Personal history of transient ischemic attack (TIA), and cerebral infarction without residual deficits

== ENCOUNTER 2017-11-30 13:34 | Outpatient (CLI) | payer MEDICARE, OTHER ==
[~2017-11-30 13:34] MED LIST changes: -ISOVUE-370 76%-LOCM 1 ML ONE; +Sodium Chloride 0.9% 15 ML NEB ONE
--- NOTE | 2017-11-30 15:12 | PRG ---
DATE OF SERVICE: 11/30/2017 HISTORY: Mr. Tab Burdick is a very pleasant 72-year-old gentleman accompanied by his daughter wh mary presents to the Wound Center for evaluation of a coccygeal pressure ulceration. Since the patient' s last visit, Mr. Burdick has been receiving dressing changes of Hydrofera Blue followed by Mepilex lawrence rder 3 times per week after cleansing and irrigation at [facility]. The patient has n o complaints today. He denies any fever or chills. PHYSICAL EXAMINATION: VITAL SIGNS: Temperature 97.9, pulse 68, respirations 17, blood pressure 119/60. Accu-Chek 197. BACK: A coccygeal ulceration is present which measures approximately 0.5 x 0.5 cm. The dimensions o f the wound at the time of the patient's visit on 10/10/2017 were approximately 0.7 x 0.4 cm. Granul ation tissue is present within the wound margins. No purulent drainage is associated with the wound. No erythema of the skin surrounding the wound is present. No maceration of the skin of the periwou nd is noted. ASSESSMENT AND PLAN: 1. Coccygeal pressure ulceration as described above. Dressing changes of Hydrofera Blue and Mepilex border will be continued 3 times per week after cleansing and irrigation at [facility]. The patient and his daughter have been told that the dimensions of the wound have decreased since the patient's last visit. I will see Mr. Burdick again in 6 weeks. 2. Diabetes mellitus. The patient's Accu-Chek in clinic today is 197. The patient has been reminde d that for optimal wound healing, his blood glucoses should remain below 150. 3. Hypertension. 4. Coronary artery disease. 5. Chronic obstructive pulmonary disease. 6. Obstructive sleep apnea. 7. History of transient ischemic attack. 8. Hemorrhagic cerebrovascular accident.
== END 2017-11-30 13:35 | disposition home or self-care (01) ==
LOC: WCC 13:34
PROVIDERS: ATTEND Family Medicine
DX: L89.159 Pressure ulcer of sacral region, unspecified stage (principal); E11.9 Type 2 diabetes mellitus without complications; I10 Essential (primary) hypertension; I25.10 Atherosclerotic heart disease of native coronary artery without angina pectoris; J44.9 Chronic obstructive pulmonary disease, unspecified; G47.33 Obstructive sleep apnea (adult) (pediatric); Z86.73 Personal history of transient ischemic attack (TIA), and cerebral infarction without residual deficits
CPT/HCPCS: 36416; A4218

== ENCOUNTER 2017-12-08 10:22 | Emergency (ER) | payer MEDICARE, OTHER ==
[2017-12-08] MEDS ORDERED: Magnesium 2 GM/50 ML BAG (IN WATER) ONE (10:53)
[2017-12-08 11:24] LABS: #Eosinphils 1.3 thou/uL (0.0-0.7); #Lymphocytes 1.3 thou/uL (1.20-3.40); #Monocytes 0.3 thou/uL (0.11-0.59); #Neutrophils 4.5 thou/uL (1.40-6.50); %Eosinophils 17.4 % (0.0-10.0); %Lymphocytes 17.3 % (21.0-51.0); %Monocytes 4.5 % (0.0-10.0); %Neutrophils 60.8 % (42.0-75.0); Hemoglobin 12.7 g/dL (14.0-18.0); Mean Corpuscular HGB CONC 30.5 g/dL (32.0-36.0); Mean Corpuscular Hemoglobin 28.2 pg (27.0-31.0); Mean Corpuscular Volume 92.6 fL (78.0-98.0); Mean Platelet Volume 8.5 fL (7.4-10.4); Platelet Count 151 thou/uL (130-400); RBC Distribution Width 14.1 % (11.5-14.5); White Blood Cell (WBC) Count 7.4 thou/uL (4.8-10.8)
[2017-12-08 11:44] LABS: ALT (SGPT) 21 U/L (8-55); AST (SGOT) 18 U/L (5-34); Albumin 3.6 g/dL (3.4-4.8); Alkaline Phosphatase 99 U/L (40-150); Anion Gap 10 mmol/L (10-20); BUN (Urea Nitrogen) 34 mg/dL (8.4-25.7); Bilirubin, Total 0.5 mg/dL (0.2-1.2); CK (CPK) 54 U/L (30-200); Calc. Creatinine Clearance 0 mL/min (70-130); Calcium 9.1 mg/dL (7.8-10.44); Carbon Dioxide 25 mmol/L (23-31); Chloride 110 mmol/L (98-107); Estimated GFR-MDRD 88; Glucose 206 mg/dL (83-110); Potassium 4.2 mmol/L (3.5-5.1); Protein, Total 6.6 g/dL (5.8-8.1); Sodium 141 mmol/L (136-145)
[2017-12-08 11:47] LABS: CKMB 1.5 ng/mL (0-6.6); Troponin I Less than 0.010 ng/mL (< 0.028)
--- NOTE | 2017-12-08 12:18 | RAD ---
UPRIGHT PORTABLE CHEST ONE VIEW: History: 72-year-old male with history of dyspnea and shortness of breath. Comparison: 07-17-17 FINDINGS: Monitor leads overlie the chest. Post underlying sternotomy. Minimal stable increased linear and inte rstitial markings bilaterally without confluent pneumonia, overt edema, or pleural effusion. IMPRESSION: Stable increased markings. No pneumonia, edema, or other acute process. POS: [facility]
== END 2017-12-08 14:40 | disposition home or self-care (01) ==
LOC: ERS 10:22
DX: J44.1 Chronic obstructive pulmonary disease with (acute) exacerbation (principal); Z86.73 Personal history of transient ischemic attack (TIA), and cerebral infarction without residual deficits; I25.2 Old myocardial infarction; I25.10 Atherosclerotic heart disease of native coronary artery without angina pectoris; E11.9 Type 2 diabetes mellitus without complications; Z79.4 Long term (current) use of insulin; E78.5 Hyperlipidemia, unspecified; I10 Essential (primary) hypertension; K21.9 Gastro-esophageal reflux disease without esophagitis; F03.90 Unspecified dementia, unspecified severity, without behavioral disturbance, psychotic disturbance, mood disturbance, and anxiety; Z87.891 Personal history of nicotine dependence; Z79.899 Other long term (current) drug therapy
CPT/HCPCS: 36415; 71045; 80053; 82550; 82553; 83880; 84484; 85025; 93005; 96365

== ENCOUNTER 2018-01-11 13:32 | Outpatient (CLI) | payer MEDICARE, OTHER ==
--- NOTE | 2018-01-11 15:47 | PRG ---
DATE OF SERVICE: 01/11/2018 HISTORY: Mr. Tab Burdick is a very pleasant 72-year-old gentleman accompanied by his daughter, who presents to the Wound Center for evaluation of coccygeal pressure ulceration. Most recently, the patient received a trial of dressing changes of Hydrofera blue. The patient continues to reside at [facility]. The patient has no complaints today. He denies any fever or chills. OBJECTIVE: VITAL SIGNS: Temperature 97.6, pulse 67, respirations 18, and blood pressure 132/60. Accu-Chek 170. BACK: A coccygeal ulceration is present, which measures approximately 1.0 x 1.0 cm. The dimensions of the wound at that time of the patient's last visit were approximately 0.5 x 0.5 cm. Granulation tissue is visible within the wound margins. No purulent drainage is associated with the wound. No erythema of the skin surrounding the wound is present. No laceration of the skin of the periwound is noted. After copious irrigation of the wound bed, Hyalomatrix was applied to the wound bed with the silicone layer facing outwards. The Hyalomatrix was secured with the use of Steri-Strips and Mastisol. The wound was then dressed with Adaptic and Mepilex Border. ASSESSMENT AND PLAN: 1. Coccygeal pressure ulceration as described above. Dressing changes of Adaptic and Mepilex Border will be performed as needed until the patient's followup visit in 2 weeks. Orders will be transmitted to [facility] for the Hyalomatrix secured with Steri-Strips and Mastisol to be left in place at that time of dressing changes. At that time of the patient's followup visit, consideration will be given to another placement of Hyalomatrix. The patient's daughter states that she will accompany her father to his visit to the Wound Center in 2 weeks. 2. Diabetes mellitus. The patient's Accu-Chek in clinic today is 170. The patient has been reminded that for optimal wound healing, his blood glucoses should remain below 150. 3. Hypertension. 4. Coronary artery disease. 5. Chronic obstructive pulmonary disease. 6. Obstructive sleep apnea. 7. History of transient ischemic attack. 8. Hemorrhagic cerebrovascular accident. Job ID: [id number]
[2018-01-11] MEDS ORDERED: Sodium Chloride 0.9% 15 ML NEB ONE (18:00)
== END 2018-01-11 13:33 | disposition home or self-care (01) ==
LOC: WCC 13:32
PROVIDERS: ATTEND Family Medicine
DX: E11.622 Type 2 diabetes mellitus with other skin ulcer (principal); L89.159 Pressure ulcer of sacral region, unspecified stage; I10 Essential (primary) hypertension; I25.10 Atherosclerotic heart disease of native coronary artery without angina pectoris; J44.9 Chronic obstructive pulmonary disease, unspecified; G47.33 Obstructive sleep apnea (adult) (pediatric); I62.9 Nontraumatic intracranial hemorrhage, unspecified; Z86.73 Personal history of transient ischemic attack (TIA), and cerebral infarction without residual deficits
CPT/HCPCS: 36416; A4218; Q4117

== ENCOUNTER 2018-01-25 13:48 | Outpatient (CLI) | payer MEDICARE, OTHER ==
--- NOTE | 2018-01-25 16:10 | PRG ---
DATE OF SERVICE: 01/25/2018 SUBJECTIVE: Mr. Tab Burdick is a very pleasant 72-year-old gentleman accompanied by his daughter, who presents to the Wound Center for evaluation of a coccygeal pressure ulceration. At the time of the patient's last visit, Hyalomatrix was applied to the wound bed of the ulceration. The patient continues to reside at [facility]. The patient has no complaints today. He denies any fever or chills. OBJECTIVE: VITAL SIGNS: Temperature 98.8, pulse 77, respirations 28, and blood pressure 116/66. BACK: A coccygeal ulceration is present, which measures approximately 1.0 x 0.7 cm. The dimensions of the wound at the time of the patient's last visit were approximately 1.0 x 1.0 cm. Granulation tissue was visible within the wound margins. No purulent drainage is associated with the wound. No erythema of the skin surrounding the wound is present. No maceration of the skin of the periwound is noted. ASSESSMENT AND PLAN: 1. Coccygeal pressure ulceration as described above. 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 Arrangements will be made for evaluation by Infectious Diseases. I will see Mr. Burdick again after evaluation by Infectious Diseases and the initiation of any necessary treatment. The patient's daughter understands and is in agreement with the preceding treatment and plan. In the meantime, dressing changes of iodoform gauze and Mepilex border are to be performed three times per week after cleansing and irrigation at [facility]. 2. Diabetes mellitus. Accu-Cheks will be obtained at the time of the patient's clinic visits. The patient's daughter has been reminded that for optimal wound healing, the patient's blood glucoses should remain below 150. 3. Hypertension. 4. Coronary artery disease. 5. Chronic obstructive pulmonary disease. 6. Obstructive sleep apnea. 7. History of transient ischemic attack. 8. Hemorrhagic cerebrovascular accident. Job ID: [id number]
== END 2018-01-25 13:49 | disposition home or self-care (01) ==
LOC: WCC 13:48
PROVIDERS: ATTEND Family Medicine
DX: L89.159 Pressure ulcer of sacral region, unspecified stage (principal); E11.9 Type 2 diabetes mellitus without complications; I10 Essential (primary) hypertension; I25.10 Atherosclerotic heart disease of native coronary artery without angina pectoris; J44.9 Chronic obstructive pulmonary disease, unspecified; G47.33 Obstructive sleep apnea (adult) (pediatric); I62.9 Nontraumatic intracranial hemorrhage, unspecified; Z86.73 Personal history of transient ischemic attack (TIA), and cerebral infarction without residual deficits
CPT/HCPCS: 36416; 97602; A4218

== ENCOUNTER 2018-01-29 20:41 | Inpatient (IN) | payer MEDICARE, OTHER ==
[~2018-01-29 20:41] MED LIST changes: +Iopamidol-370 76% 500 ML 1 ML ONE; -Sodium Chloride 0.9% 15 ML NEB ONE
[2018-01-29 21:20] LABS: #Basophils 0.1 thou/uL (0.0-0.2); #Eosinphils 0.6 thou/uL (0.0-0.7); #Lymphocytes 1.3 thou/uL (1.20-3.40); #Monocytes 0.6 thou/uL (0.11-0.59); #Neutrophils 5.9 thou/uL (1.40-6.50); %Eosinophils 7.5 % (0.0-10.0); %Lymphocytes 15.1 % (21.0-51.0); %Monocytes 7.1 % (0.0-10.0); %Neutrophils 69.3 % (42.0-75.0); Hemoglobin 12.7 g/dL (14.0-18.0); Mean Corpuscular HGB CONC 30.4 g/dL (32.0-36.0); Mean Corpuscular Hemoglobin 27.4 pg (27.0-31.0); Mean Corpuscular Volume 90.1 fL (78.0-98.0); Mean Platelet Volume 8.5 fL (7.4-10.4); Platelet Count 190 thou/uL (130-400); RBC Distribution Width 13.3 % (11.5-14.5); Red Blood Cell (RBC) Count 4.64 mill/uL (4.70-6.10); White Blood Cell (WBC) Count 8.6 thou/uL (4.8-10.8)
[2018-01-29 21:35] LABS: ALT (SGPT) 13 U/L (8-55); AST (SGOT) 16 U/L (5-34); Albumin 3.4 g/dL (3.4-4.8); Alkaline Phosphatase 106 U/L (40-150); Anion Gap 14 mmol/L (10-20); BUN (Urea Nitrogen) 40 mg/dL (8.4-25.7); Bilirubin, Total 0.4 mg/dL (0.2-1.2); Calc. Creatinine Clearance 0 mL/min (70-130); Carbon Dioxide 24 mmol/L (23-31); Chloride 113 mmol/L (98-107); Estimated GFR-MDRD 83; Globulin 3.7 g/dL (2.4-3.5); Glucose 243 mg/dL (83-110); Potassium 4.1 mmol/L (3.5-5.1); Protein, Total 7.1 g/dL (5.8-8.1); Sodium 147 mmol/L (136-145)
--- NOTE | 2018-01-29 22:23 | CT ---
CT BRAIN NONCONTRAST: DATE: 01-29-18 TIME: 9:15 p.m. HISTORY: 72-year-old male with acute left facial droop. Dementia. This acute stroke alert protocol report was called STAT to Dr. South of the Emergency Department at 9: 27 p.m. on 01-29-18. COMPARISON: 10-28-16 FINDINGS: There is a new finding of extensive partial opacification of paranasal sinuses, including severe part ial opacification of bilateral ethmoids, left maxillary sinus, and left sphenoid air cell. There is a new airfluid level in the right maxillary sinus. Severe opacification of left frontal sinus. The previously demonstrated subacute lacunar infarction in the left thalamus is now old, and has invo luted, currently small. Again noted is the small old lacunar infarction of the contralateral right th alamus. There are severe chronic ischemic white matter changes of the cerebrum. There is ventriculomegaly inv olving the lateral and third ventricles on an ex vacuo basis due to diffuse brain atrophy. No acute i ntraaxial or extraaxial hemorrhage. No mass effect, midline shift, extraaxial fluid collection or acu te calvarial fracture. IMPRESSION: 1. Severe chronic ischemic white matter changes. 2. Advanced involutional changes of the brain. 3. Old lacunar infarctions in the bilateral thalami. 4. No acute intracranial findings. 5. Severe mucosal disease of the paranasal sinuses. SANG Thomas POS: [facility]
--- NOTE | 2018-01-29 23:08 | CT ---
CTA HEAD WITH CONTRAST: Technique: Multiple axial tomograms were obtained through the head following an angio protocol with m ultiplanar reconstructions and 3D post processing. Indications: Stroke protocol. Left side weakness. FINDINGS: The intracranial internal carotid arteries are patent. There is atherosclerotic calcification in both cavernous portions of the central and carotid arteries. However, no significant stenosis identified. Both middle cerebral arteries are patent and show no evidence of stenosis or occlusion. M2 and M3 branches appear symmetric. AC arteries are patent and symmetric. Basilar artery is patent. Posterior cerebral arteries appear pa tent. IMPRESSION: 1. No evidence of proximal cerebral artery stenosis or occlusion. CTA NECK WITH CONTRAST: Technique: Multiple contiguous axial images were obtained through the neck with IV enhancement follow ing angio protocol with multiplanar reconstruction and 3D post processing. FINDINGS: Mild atherosclerotic changes at the arch. No stenosis seen at the origin of the arch vessels. Both common carotid arteries are patent and symmetric. There is atherosclerotic plaque in both bulbs and proximal ICAs. No evidence of hemodynamically signi ficant stenosis identified. Vertebral arteries appear patent and symmetric. There diffuse mucosal opacification of the paranasal sinuses with an air fluid level in the right max illary sinus. IMPRESSION: Atherosclerotic plaque seen in both bulbs and proximal ICAs. No evidence of hemodynamically significa nt stenosis identified. POS: [facility]
[2018-01-29 23:46] LABS: Bilirubin Negative (Negative); Blood, Urine Negative (Negative); Clarity CLEAR (Clear); Glucose, Urine (Dipstick) 100 mg/dL (Negative); Leukocyte Negative (Negative); Nitrite Negative (Negative); Protein, Urine (Dipstick) Negative (Neg-Trace)
[2018-01-29 23:54] LABS: Specific Gravity, Urine Greater than 1.060 (1.002-1.036)
[2018-01-30] MEDS ORDERED: Aspirin 300 MG Suppository ONE ×2 (01:08→01:14)
[2018-01-30 02:03] VITALS: BMI 21.5
[2018-01-30] MEDS ORDERED: Senokot S 8.6-50 MG TAB PO PRN (04:25)
[2018-01-30] MEDS ORDERED: Zolpidem Tartrate 5 MG TAB PO PRN (04:25)
[2018-01-30] MEDS ORDERED: Labetalol HCl 100 MG/20 ML VIAL SLOW IVP PRN (04:25)
[2018-01-30] MEDS ORDERED: hydrALAZINE 20 MG/ML VIAL SLOW IVP PRN (04:25)
[2018-01-30] MEDS ORDERED: Acetaminophen 650 MG Suppository PR PRN (04:25)
[2018-01-30] MEDS ORDERED: Guaifenesin DM 100-10/5 ML UDCUP PO PRN ×2 (04:25→04:31)
[2018-01-30] MEDS ORDERED: Acetaminophen 325 MG TAB PO PRN (04:25)
[2018-01-30] MEDS ORDERED: Ondansetron PF 4 MG/2 ML Vial IVP PRN (04:25)
[2018-01-30] MEDS ORDERED: Bisacodyl 5 MG TAB PO PRN (04:25)
[2018-01-30] MEDS ORDERED: Ondansetron ODT 4 MG TAB PO PRN (04:25)
[2018-01-30] MEDS ORDERED: Dextrose 50% Abboject 50 ML SYRINGE SLOW IVP PRN (04:29)
[2018-01-30] MEDS ORDERED: HumaLOG 300 UNITS/3 ML VIAL SC PRN (04:29)
[2018-01-30] MEDS ORDERED: Dextrose 5% in Water 1,000 ML IV PRN (04:29)
[2018-01-30] MEDS ORDERED: guaiFENesin ER 600 MG TAB PO PRN (04:31)
[2018-01-30] MEDS ORDERED: Calcium Carbonate 500 MG ChewTAB PO PRN (04:31)
[2018-01-30] MEDS: Sodium Chloride 0.9% 1,000 ML IV SCH ×2 (06:21→20:03)
[2018-01-30] MEDS: Budesonide 0.25 MG/2 ML NEB NEB SCH ×2 (08:22→19:27)
[2018-01-30] MEDS ORDERED: DICLOFENAC SODIUM TOP SCH (09:00)
[2018-01-30] MEDS ORDERED: ASCORBATE SOD PO SCH (09:00)
[2018-01-30] MEDS ORDERED: ARGININE PO SCH (09:00)
[2018-01-30] MEDS ORDERED: VITE AC PO SCH (09:00)
[2018-01-30] MEDS ORDERED: INSULIN DETEMIR SQ SCH (09:00)
[2018-01-30] MEDS ORDERED: PROVENTIL INHALER 6.7 G (200 INHALATIONS) INH PRN (09:36)
[2018-01-30] MEDS: Amlodipine 5 MG TAB PO SCH (10:11)
[2018-01-30] MEDS: Enoxaparin Sodium 40 MG/0.4 ML SYRINGE SC SCH (10:12)
[2018-01-30] MEDS: Clopidogrel Bisulfate 75 MG TAB PO SCH (10:12)
[2018-01-30] MEDS: Aspirin 81 mg Enteric Coated Tablet PO SCH (10:12)
[2018-01-30] MEDS: Carvedilol 6.25 MG TAB PO SCH ×2 (10:12→21:14)
[2018-01-30] MEDS: Famotidine 20 MG TAB PO SCH ×2 (10:12→10:13)
[2018-01-30] MEDS: Loratadine 10 MG TAB PO SCH (10:13)
[2018-01-30] MEDS: Insulin Glargine 12 UNITS in Pre-Filled Syringe 1 EACH SC SCH (10:14)
[2018-01-30] MEDS: Famotidine/PF 20 mg/2ml Vial SLOW IVP SCH ×2 (10:14→21:17)
[2018-01-30] MEDS ORDERED: Ipratropium Bromide 2.5 ml Neb ONE (10:24)
[2018-01-30 10:58] LABS: Base Excess-Venous 5.7 mmol/L (0 (+/- 2.5)); Bicarbonate (HCO3v) 28.9 mmol/L (22.0-29.0); CO2 Tension (PvCO2) 36.6 mmHg (41.0-51.0); Calcium, Ionized 1.16 mmol/L (1.12-1.32); Hemoglobin - Calc 14.6 g/dL (12.0-18.0); O2 Tension (PvO2) 53.4 mmHg (35.0-45.0); Potassium 3.9 mmol/L (3.4-4.7); pH (Venous) 7.506 (7.35-7.45); vO2 Saturation-calc 90.3 % (94-98)
--- NOTE | 2018-01-30 11:08 | RAD ---
CHEST 1 VIEW: HISTORY: Worsening cough. COMPARISON: Radiograph 12/08/2017. FINDINGS: Lungs are without focal confluent airspace consolidation, pneumothorax, or effusion. The exam was pe rformed in a lordotic view. No acute osseous abnormality. Severe degenerative change of the shoulders. IMPRESSION: No acute intrathoracic abnormality. POS: [facility]
--- NOTE | 2018-01-30 13:11 | HP ---
PRIMARY CARE PHYSICIAN: Ja Mendoza MD. CHIEF COMPLAINT: Left-sided facial droop. HISTORY OF PRESENT ILLNESS: The patient was taken to the emergency room last night, 01/29/2018, by EMS after family noticed that left side of his face was drooping. The patient is a patient at [facility]. He was last seen normal last night by the [facility] nurse. The patient yesterday said that he was not acting correctly. She reports that, instead of swallowing his food, he was placing it in his left cheek and then eventually spit it out. She also reports that he has had a productive cough, in which the sputum has become green over the last several days. Reports a temperature at the [place] of 99. Denied any chills. Denied any other deficits other than the facial droop. Daughter reports it lasted an hour and then resolved. Past medical history does include dementia and 3 previous MIs. He has had a hemorrhagic stroke, sleep apnea, coronary artery disease, type 2 diabetes, hyperlipidemia, high cholesterol, hypertension, and COPD. The patient does have a left-sided hemiplegia and a stage III to IV sacral pressure ulcer that has been managed by Wound Care for the last year. Daughter reports that he recently had an MRI of the sacrum. Dr. Wood of Wound Care was going to consult Dr. Howe because it looked like the sacral wound had gone to the bone. The patient also has some dusky right foot second digit and has previously been amputated, and then digits 1, 3, 4, and the forefoot are also dusky. Those have also been managed by Dr. Horner, and he has seen him 2 weeks ago, and he was placed on antibiotics within the last month and reports that the infection has gone. The patient had a brain CT in the emergency room, which showed: 1. [id number] chronic ischemic white matter changes. 2. Advanced involutional changes of the brain. 3. Small old lacunar infarction in the bilateral thalami. No acute intracranial findings. Severe mucosal disease of the paranasal sinuses. The patient also had a CTA of the neck and head, which showed no evidence of proximal cerebral artery stenosis or occlusion. Mild atherosclerotic changes of the arch. No stenosis at the origin of the arch vessels. Atherosclerotic plaque seen in both falx and proximal ICAs. No evidence of hemodynamically significant stenosis identified. The patient was admitted to stroke observation for further evaluation. REVIEW OF SYSTEMS: The patient reports productive cough. Denied any fever or chills. Denies any current pain. All other systems are reviewed and are negative unless mentioned in the HPI. PAST MEDICAL HISTORY: Significant for diabetes, type 2; hypertension; COPD; coronary artery disease; dementia; right second toe infection; obstructive sleep apnea; TIA; and a previous hemorrhagic CVA. Also, has sacral decubiti, that they believe are causing some osteomyelitis. PAST SURGICAL HISTORY: Right second toe amputation, cholecystectomy, CABG x3, right femoral surgery, and lumbar fusion. SOCIAL HISTORY: He is a former smoker. Denies any alcohol or drug use. Does live at the [facility]. PHYSICAL EXAMINATION: VITAL SIGNS: Blood pressure 135/74, pulse 67, respirations 26, temperature 99.4, O2 of 94% on 3 L of oxygen. GENERAL: He is in no acute distress. Appears nontoxic. HEAD: Atraumatic and normocephalic. EYES: Eyelids are normal to inspection. Extraocular muscles are intact. Pupils are equally round and reactive to light. ENT: Mouth exam appears normal. Mucous membranes are moist. NECK: No meningeal signs. Normal range of motion. Trachea is midline. RESPIRATORY/CHEST: No respiratory distress. Breath sounds with rhonchi and occasional wheezes. ABDOMEN: Male. Nontender on palpation. Bowel sounds are heard. There is distention. No masses. BACK: Normal inspection. Normal range of motion. No tenderness. EXTREMITIES: Upper extremities; motor strength 3/5 on the left, 4/5 on the right. Sensation is intact. Radial pulses are normal bilaterally. Lower extremities; posterior tibial pulses are normal bilaterally. Amputated second digit on right foot. Digits 1, 3, and 4 are dusky along with the forefoot. NEUROLOGIC: The patient does respond to simple yes/no questions. Daughter reports mentation is at baseline. SKIN: Warm, dry, and intact. Sacral wound is bandaged and not evaluated. Right forefoot and toes are dusky. LABORATORY DATA: White blood cell count is 8.6, hemoglobin 12.7, hematocrit 41.8. Chemistry; sodium 147, potassium 4.1, chloride 113, gap is 14, BUN is 40, creatinine is 0.9, estimated GFR is 83, glucose 243, calcium 9. Troponin x1 is undetectable. Globulin 3.7. Other liver enzymes are unremarkable. Urine with a specific gravity of greater than 1.060, glucose are 100, otherwise negative. Chest x-ray shows no acute intrathoracic abnormality. EKG in the emergency room showed a normal sinus rhythm, 75 beats per minute, unifocal PVC conduction, complete right bundle-branch block. ST segments and T waves are normal. Cantil is normal. Impression was a nonspecific EKG. ASSESSMENT AND PLAN: 1. For transient ischemic attack, the patient will benefit from a Neurology consult and a brain MRI with no contrast. An echocardiogram has also been ordered. 2. Sacral wound and dusky forefoot and toes on the right. We will ask Dr. Howe to consult as a consultation from the Wound Care is pending. We will get his evaluation and recommendations if any further treatment needs to be done inhouse. 3. Hypertension. We will continue his home medications and monitor vital signs. 4. Chronic obstructive pulmonary disease. We will restart his home nebulizer treatment medications. A chest x-ray was ordered. 5. Diabetes. We will continue his home medications and add a moderate sliding scale as needed. 6. Dementia. We will continue his home medications. 7. Deep venous thrombosis prophylaxis with Lovenox and sequential compression devices. 8. Chronic wound on sacrum and toes. We will ask Wound Care to evaluate and treat. 9. Hospital course will depend on clinical findings. Job ID: [id number]
[2018-01-30 16:02] LABS: Lactate 1.09 mmol/L (0.50-2.20)
--- NOTE | 2018-01-30 17:27 | MRI ---
MRI BRAIN NONCONTRAST: 01/30/2018 HISTORY: A 72-year-old male with a TIA, altered mental status, and a left-sided facial droop. Dementia. COMPARISON: MRI of 08/27/2015. FINDINGS: All the images are degraded by patient motion and some of them were repeated. The ventricles are normal in size and configuration. There is no restricted diffusion, midline shift or any other mass effect, recent intraaxial hemorrhage, or extraaxial fluid collection. There are e xtensive, confluent T2-hyperintensities throughout the cerebral white matter consistent with severe c hronic ischemic white matter changes due to microvascular atherosclerosis. There is diffuse brain pa renchymal volume loss. Again noted is the patchy small-moderate sized region of hemosiderin stain in the anterior medial asp ect of the right frontal lobe, indicating a site of previous parenchymal hemorrhage. There is focal parenchymal volume loss and a moderate sized patchy hemosiderin stain in the left thal amus, indicating remote left thalamic hemorrhage (either primary hemorrhage or hemorrhagic conversion of an infarction) that was not present on 08/27/2015; it occurred some time after that prior MRI. The gradient echo axial image also demonstrates multiple tiny, punctate, round foci of remote hemorrh ages in the bilateral cerebral hemispheres. This is consistent with cerebral amyloid angiopathy. The severity of the chronic ischemic white matter changes and the brain atrophy have both worsened si nce 08/27/2015. There was paranasal sinus mucosal thickening on the prior MRI, but this is much wors e on the current MRI, throughout the bilateral ethmoid air cells, left sphenoid air cell, left maxill luly sinus, and left frontal sinus. There is an air-fluid level in the right maxillary sinus and mild mucosal thickening there. IMPRESSION: 1. Involutional changes and severe chronic ischemic white matter changes. This has worsened since t he previous MRI of 08/27/2015. 2. No acute intracranial findings. 3. Two small-moderate sized regions of prior hemorrhages: in the right frontal lobe and the left jamaal lamus. 4. Multiple tiny, punctate foci of remote intraaxial hemorrhages: evidence for cerebral amyloid raimundo opathy. 5. Severe mucosal disease of the paranasal sinuses. jn[] POS: [facility]
[2018-01-30] MEDS: HumaLOG 300 UNITS/3 ML VIAL SC PRN (18:06)
[2018-01-30] MEDS: Ipratropium Bromide 2.5 ml Neb NEB SCH (19:28)
[2018-01-30] MEDS: Arformoterol 15 MCG/2 ML NEB NEB SCH (19:28)
[2018-01-30] MEDS ORDERED: INSULIN DETEMIR SC SCH (21:00)
[2018-01-30] MEDS: Atorvastatin Calcium 40 MG TAB PO SCH (21:14)
[2018-01-30] MEDS: Donepezil HCl 5 MG TAB PO SCH (21:15)
[2018-01-30] MEDS: Insulin Glargine 7 UNITS in Pre-Filled Syringe 1 EACH SC SCH (21:16)
[2018-01-30] MEDS ORDERED: Famotidine 20 MG TAB PO SCH (21:30)
--- NOTE | 2018-01-30 23:41 | CON ---
DATE OF CONSULTATION: REASON FOR CONSULTATION: Decubitus ulcer. HISTORY OF PRESENT ILLNESS: This is a 72-year-old patient, who has a history of left-sided thalamic hemorrhage with extension in the left lateral ventricle, initially admitted in 2015 with pneumonia, transferred to inpatient rehabilitation and then he was admitted in October 2016 with a decubitus ulcer in the presacral area, associated with fever. He did have bacteremia at that time secondary to group B Streptococcus. At this time, the patient presents with changes in the facial appearance, which were concerning for developing CVA. At the [facility], there was a concern with altered mental status and inability to swallow his food. He had some cough associated with it and a low-grade temperature elevation. On arrival , the patient had a brain CT, which showed ischemic white matter changes, involutional changes in the brain, and an old infarction in bilateral thalami. CT angio of the neck and head showed no areas of stenosis or occlusion. He was then admitted to Stroke Unit. His initial findings include a BP of 130/70, pulse 67, respirations 26, and temperature 99.4, and he did not appear in distress and the lung exam showed a few rhonchi and wheezes noted. Heart exam was not remarkable. Weakness in the motor strength in the left side compared with the right. His mentation was considered to be at his baseline and the skin areas described in my section of the physical examination. PAST MEDICAL HISTORY: Type 2 diabetes, hypertension, COPD, coronary artery disease, dementia which is most likely vascular dementia, prior hemorrhagic CVA in the subcortical areas with severe neurological impairment. Sacral decubitus with recent MRI, which showed evidence of osteomyelitis in the coccygeal area. PAST SURGICAL HISTORY: Also includes cholecystectomy and bypass graft surgery x3. SOCIAL HISTORY: Former smoker. PHYSICAL EXAMINATION: VITAL SIGNS: T-max 99.3, blood pressure 120/60, pulse 73, respirations 16, and O2 saturation 96%. SKIN: Remarkable for areas of desiccation of the skin and scabbing of the first , third, and fourth toes, right foot. The second toe has been amputated and there is an area of shallow pressure damaged to the right heel area and there is a deep round shaped about 2 cm x 1.5 cm at the tip of the presacral region, coccygeal area which is packed and seems to be a stage IV lesion. HEENT: The patient keeps his eyes open, but he does not interact with the examiner. He seems to be able to chew and is eating intermittently a piece of hamburger that is sitting in front of him, but he has difficulty in following commands. The ocular movements appear conjugate and the pupils are reactive. The oral cavity with food debris inside and somewhat dry. NECK: Appears supple. No jugular vein distention. LUNGS: With somewhat coarse breath sounds, but no crackles or wheezing. HEART: S1 and S2. Regular rate without murmurs. No S3. ABDOMEN: Soft. No ascites or organomegaly. : No bladder distention. The patient is urinating in the diaper. His balance has been slightly positive. EXTREMITIES: The pulses are diminished in dorsalis pedis, they are faintly palpable in popliteals. He has quite severe weakness in the left side and the right side is a bit stronger. NEUROLOGIC: He is awake, but does not interact with the examiner. Does not answer questions or follow commands. LABORATORY DATA: White cell count 8.6, hemoglobin 12.7, MCV 90, platelets 190 with 69% neutrophils. PH 7.5 and pCO2 of 36. Sodium is 147, creatinine 0.9, glucose of 243 with normal liver profile. Albumin 3.4. Urinalysis with negative leukocyte esterase. Previous cultures include a toe swab from June with MRSA and there was a blood culture from July, which was no growth in 5 days. There was a pelvis MRI, which was ordered by Dr. Wood, and this showed soft tissue findings compatible with sacral decubitus ulcer and signal alteration at the tip of the coccyx compatible with osteomyelitis. In the note from Dr. Wood, she had referred the patient to me. The base of the wound, according to Dr. Wood's notes, is covered with granulation tissue. ASSESSMENT: 1. Previous thalamic cerebrovascular accident, hemorrhagic, with severe neurological impairment. 2. Coccygeal pressure ulceration staged at least stage III, probably stage IV, with MRI findings that are concerning for possible early coccygeal osteitis or osteomyelitis. I was not able to palpate the exposed bone and we could possibly manage this with antimicrobial therapy alone, although surgical debridement might be required to allow healing of the area. While he is here, I would probably consult with General Surgery to see if they feel it is worthwhile to remove the tip of the coccyx or not. If they prefer not to intervene, then we would place a PICC line and treat for protracted period of time with a combination of vancomycin and either cefepime or Rocephin. Job ID: [id number] [facility]
[2018-01-31] MEDS: Sodium Chloride 0.9% 1,000 ML IV SCH (00:11)
[2018-01-31 05:47] LABS: #Eosinphils 0.7 thou/uL (0.0-0.7); #Lymphocytes 1.6 thou/uL (1.20-3.40); #Monocytes 0.7 thou/uL (0.11-0.59); #Neutrophils 5.3 thou/uL (1.40-6.50); %Basophils 0.3 % (0.0-1.0); %Eosinophils 8.5 % (0.0-10.0); %Lymphocytes 19.1 % (21.0-51.0); Hemoglobin 11.9 g/dL (14.0-18.0); Mean Corpuscular HGB CONC 31.3 g/dL (32.0-36.0); Mean Corpuscular Hemoglobin 28.6 pg (27.0-31.0); Mean Corpuscular Volume 91.4 fL (78.0-98.0); Mean Platelet Volume 8.6 fL (7.4-10.4); Platelet Count 167 thou/uL (130-400); RBC Distribution Width 13.2 % (11.5-14.5); Red Blood Cell (RBC) Count 4.17 mill/uL (4.70-6.10); White Blood Cell (WBC) Count 8.3 thou/uL (4.8-10.8)
[2018-01-31 06:13] LABS: Anion Gap 12 mmol/L (10-20); BUN (Urea Nitrogen) 30 mg/dL (8.4-25.7); Calc. Creatinine Clearance 76 mL/min (70-130); Calcium 8.9 mg/dL (7.8-10.44); Carbon Dioxide 28 mmol/L (23-31); Cardiac Risk 3.8 (Less than 4.5); Chloride 115 mmol/L (98-107); Cholesterol 103 mg/dl (< 200 Desired); Estimated GFR-MDRD Greater than 90; Glucose 145 mg/dL (83-110); HDL Cholesterol 27 mg/dL (>60 Neg Risk); LDL Cholesterol, Calculated 65 mg/dL; Potassium 3.9 mmol/L (3.5-5.1); Sodium 151 mmol/L (136-145); Triglycerides 54 mg/dL (Less than 150)
[2018-01-31] MEDS: Arformoterol 15 MCG/2 ML NEB NEB SCH ×2 (06:47→19:07)
[2018-01-31] MEDS: Ipratropium Bromide 2.5 ml Neb NEB SCH ×2 (06:52→19:07)
[2018-01-31] MEDS: Budesonide 0.25 MG/2 ML NEB NEB SCH ×2 (06:55→19:07)
[2018-01-31] MEDS: Insulin Glargine 12 UNITS in Pre-Filled Syringe 1 EACH SC SCH (09:48)
[2018-01-31] MEDS: Enoxaparin Sodium 40 MG/0.4 ML SYRINGE SC SCH (09:48)
[2018-01-31] MEDS: Aspirin 81 mg Enteric Coated Tablet PO SCH (09:49)
[2018-01-31] MEDS: Clopidogrel Bisulfate 75 MG TAB PO SCH (09:49)
[2018-01-31] MEDS: Carvedilol 6.25 MG TAB PO SCH ×2 (09:50→21:21)
[2018-01-31] MEDS: Amlodipine 5 MG TAB PO SCH (09:50)
[2018-01-31] MEDS: Loratadine 10 MG TAB PO SCH (09:51)
[2018-01-31] MEDS: Famotidine/PF 20 mg/2ml Vial SLOW IVP SCH (09:51)
[2018-01-31] MEDS: Famotidine 20 MG TAB PO SCH ×2 (09:51→21:22)
--- NOTE | 2018-01-31 11:39 | PDOC.PN ---
- Subjective Encounter Start Date: 01/31/18 Encounter Start Time: 09:00 Subjective: Patient sitting up in bed eating breakfast -: Denies complaints today - Objective Resuscitation Status - Order Detail: 01/30/18 04:25 Resuscitation Status Routine Resuscitation Status: FULL: Full Resuscitation Vital Signs & Weight: Vital Signs (12 hours) Temp Pulse Pulse Pulse Resp BP BP 01/31/18 10:18 70 70 147/65 H 01/31/18 09:50 70 140/70 01/31/18 08:00 99.6 F 70 18 01/31/18 06:55 69 18 01/31/18 06:52 69 18 01/31/18 06:47 69 18 01/31/18 04:00 97.5 F L 60 18 01/31/18 00:00 98.3 F 61 18 BP BP Pulse Ox 01/31/18 10:18 132/60 01/31/18 09:50 01/31/18 08:00 140/70 92 L 01/31/18 06:55 96 01/31/18 06:52 96 01/31/18 06:47 96 01/31/18 04:00 125/57 L 95 01/31/18 00:00 133/60 98 Weight Admit Weight 66.134 kg Weight 66.134 kg I&O: 01/30/18 01/31/18 02/01/18 06:59 06:59 06:59 Intake Total 120 1795 Balance 120 1795 Result Diagrams: 01/31/18 04:46 01/31/18 04:46 Additional Labs: Accuchecks 01/31/18 01/31/18 01/30/18 05:41 00:15 20:22 POC Glucose 142 H 110 177 H 01/30/18 16:43 POC Glucose 266 H Phys Exam - Physical Examination HEENT: PERRLA, moist MMs Neck: no nodes, no JVD Respiratory: clear to auscultation bilateral Cardiovascular: RRR, no significant murmur Gastrointestinal: soft, non-tender Neurological: non-focal Lymphatic: no nodes Psychiatric: normal affect Deviation from normal: Answers simple questions Skin: no rash Deviation from normal: stage 3-4 sacrum decubitus, right toes, forefoot dusky in appearance Dx/Plan (1) Decubitus ulcer Code(s): L89.90 - PRESSURE ULCER OF UNSPECIFIED SITE, UNSPECIFIED STAGE Status : Chronic Comment: multiple, see wound pictures, present on admission (2) Osteomyelitis Code(s): M86.9 - OSTEOMYELITIS, UNSPECIFIED Status: Acute Qualifiers: Osteomyelitis type: unspecified type Laterality: right Comment: sacrum with decubitus (3) CAD (coronary artery disease) Code(s): I25.10 - ATHSCL HEART DISEASE OF [place] CORONARY ARTERY W/O ANG PCTRS Status: Chronic Qualifiers: Coronary Disease-Associated Artery/Lesion type: bypass graft [place] vs. transplanted heart: [place] heart Associated angina: without angina Qualified Code(s): I25.810 - Atherosclerosis of coronary artery bypass graft(s) without angina pectoris Comment: H/o CABG, no chest pain, continue Aspirin, BB (4) COPD (chronic obstructive pulmonary disease) Status: Chronic Qualifiers: COPD type: unspecified COPD Qualified Code(s): J44.9 - Chronic obstructive pulmonary disease, unspecified Comment: No exacerbation noted. mild Wheezing, continue PRN NEbs. (5) DM2 (diabetes mellitus, type 2) Status: Chronic Qualifiers: Diabetes mellitus intermission coordinator insulin use: with intermission coordinator use Diabetes mellitus complication status: with unspecified complications Qualified Code(s) : E11.8 - Type 2 diabetes mellitus with unspecified complications; Z79.4 - correction (current) use of insulin Comment: Plan to COntrol BG, 140-180, SSI. (6) HTN (hypertension) Code(s): I10 - ESSENTIAL (PRIMARY) HYPERTENSION Status: Chronic Qualifiers: Hypertension type: essential hypertension Qualified Code(s): I10 - Essential (primary) hypertension Comment: BP at Goal, continue Home Meds. - Plan cont current plan of care Consulting Dr. López per Dr. Howe for evaluation of sacral decubitus -: If not a surgical candidate, will order a PICC and start ABX -: Patient changed to INP status -: Will continue monitor * .
[2018-01-31] MEDS: Sodium Chloride 0.45% 1,000 ML IV SCH (13:16)
--- NOTE | 2018-01-31 14:56 | HP ---
HISTORY OF PRESENT ILLNESS: Tab Burdick has suffered a stroke. He is nonambulatory. He lives in a fdc. He has had an MRI of his pelvis noting a possibility of osteomyelitis of the coccyx. He has sacral decubitus. This decubitus is granulating. On exam, I cannot palpate any bony structures. Dr. Howe has seen him and I agree with Dr. Howe' plan that he should probably have a PICC line, treat this with antibiotics without surgical intervention. I do not think surgery is necessary for this situation. SOCIAL HISTORY: Tobacco, none. Alcohol, none. PAST SURGICAL HISTORY: Right second toe amputation, cholecystectomy, CABG, femoral surgery, lumbar fusion. He has been followed by production assembly supervisor for foot problems. 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 PAST MEDICAL HISTORY: Diabetes mellitus type 2, hypertension, COPD, dementia, EDWIN, TIA, previous stroke, and sacral decubitus. PHYSICAL EXAMINATION: VITAL SIGNS: 5 feet 9 inches, 145 pounds, 21 BMI, 97.8, 66, 141/60. HEAD, EARS, EYES, NOSE, AND THROAT: Unremarkable. LUNGS: Clear to auscultation. CARDIAC: Regular rate and rhythm without murmur or gallop. ABDOMEN: Soft and nontender. EXTREMITIES: He has bilateral knee contractures and heel protectors on both feet. He has previous amputations in right second toe. 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 I did not feel pedal pulses. Sacral decubitus is healthy, granulating about 4 x 3.5 cm. Tip of the coccyx is well granulated. I do not feel any bony irregularities. ASSESSMENT AND PLAN: Sacral decubitus that is healing and granulating. I do not think surgical intervention is warranted. Based on MRI findings, placement of a PICC line and antibiotics per Dr. Howe is appropriate. I will see him as needed. Please call if necessary. Job ID: [id number]
[2018-01-31] MEDS: HumaLOG 300 UNITS/3 ML VIAL SC PRN (16:04)
[2018-01-31] MEDS: Donepezil HCl 5 MG TAB PO SCH (21:22)
[2018-01-31] MEDS: Atorvastatin Calcium 40 MG TAB PO SCH (21:22)
[2018-01-31] MEDS: Insulin Glargine 7 UNITS in Pre-Filled Syringe 1 EACH SC SCH (21:22)
[2018-02-01] MEDS: Famotidine/PF 20 mg/2ml Vial SLOW IVP SCH ×3 (02:25→21:01)
[2018-02-01] MEDS: Sodium Chloride 0.45% 1,000 ML IV SCH ×2 (03:08→14:14)
[2018-02-01] MEDS: Arformoterol 15 MCG/2 ML NEB NEB SCH ×2 (06:37→18:55)
[2018-02-01] MEDS: Ipratropium Bromide 2.5 ml Neb NEB SCH ×2 (06:40→18:58)
[2018-02-01] MEDS: Budesonide 0.25 MG/2 ML NEB NEB SCH ×2 (06:40→19:01)
[2018-02-01] MEDS: Enoxaparin Sodium 40 MG/0.4 ML SYRINGE SC SCH (09:13)
[2018-02-01] MEDS: Carvedilol 6.25 MG TAB PO SCH ×2 (09:14→20:41)
[2018-02-01] MEDS: Amlodipine 5 MG TAB PO SCH (09:14)
[2018-02-01] MEDS: Famotidine 20 MG TAB PO SCH ×2 (09:14→20:40)
[2018-02-01] MEDS: Insulin Glargine 12 UNITS in Pre-Filled Syringe 1 EACH SC SCH (09:15)
[2018-02-01 09:20] LABS: #Eosinphils 0.7 thou/uL (0.0-0.7); #Lymphocytes 1.2 thou/uL (1.20-3.40); #Monocytes 0.5 thou/uL (0.11-0.59); #Neutrophils 4.8 thou/uL (1.40-6.50); %Basophils 0.2 % (0.0-1.0); %Eosinophils 9.4 % (0.0-10.0); %Lymphocytes 16.8 % (21.0-51.0); %Monocytes 6.5 % (0.0-10.0); %Neutrophils 67.2 % (42.0-75.0); Hemoglobin 12.4 g/dL (14.0-18.0); Mean Corpuscular HGB CONC 31.1 g/dL (32.0-36.0); Mean Corpuscular Hemoglobin 28.2 pg (27.0-31.0); Mean Corpuscular Volume 90.6 fL (78.0-98.0); Mean Platelet Volume 8.4 fL (7.4-10.4); Platelet Count 179 thou/uL (130-400); Red Blood Cell (RBC) Count 4.39 mill/uL (4.70-6.10); White Blood Cell (WBC) Count 7.2 thou/uL (4.8-10.8)
[2018-02-01 09:39] LABS: ALT (SGPT) 9 U/L (8-55); AST (SGOT) 10 U/L (5-34); Albumin 3.1 g/dL (3.4-4.8); Alkaline Phosphatase 96 U/L (40-150); Anion Gap 11 mmol/L (10-20); BUN (Urea Nitrogen) 21 mg/dL (8.4-25.7); Bilirubin, Total 0.7 mg/dL (0.2-1.2); Calc. Creatinine Clearance 81 mL/min (70-130); Calcium 8.9 mg/dL (7.8-10.44); Carbon Dioxide 28 mmol/L (23-31); Chloride 108 mmol/L (98-107); Estimated GFR-MDRD Greater than 90; Globulin 3.7 g/dL (2.4-3.5); Glucose 140 mg/dL (83-110); Potassium 3.7 mmol/L (3.5-5.1); Protein, Total 6.8 g/dL (5.8-8.1); Sodium 143 mmol/L (136-145)
[2018-02-01] MEDS: Loratadine 10 MG TAB PO SCH (09:43)
[2018-02-01] MEDS ORDERED: Tamsulosin HCl 0.4 MG CAP PO SCH ×2 (14:00→21:00)
[2018-02-01] MEDS ORDERED: Sodium Chloride 0.45% 500 ML IV SCH (14:30)
--- NOTE | 2018-02-01 15:06 | SPC ---
ULTRASOUND GUIDED LEFT UPPER EXTREMITY PICC LINE PLACEMENT: Date: 02-01-18 History: Toe infection. Patient needs long-term IV antibiotics. Technique: After informed consent was obtained, the patient was placed on the angiography table in the supine po sition. The left upper extremity was meticulously prepped and draped in the usual sterile fashion. An appropriate access site was determined with ultrasound guidance. Skin and subcutaneous tissues were infiltrated with buffered 1% Lidocaine for local anesthesia. Left basilic vein was accessed utilizing micropuncture technique and concurrent real-time ultrasound ramona nce. 5 [place] peel-away sheath was placed. The catheter was measured and cut to the appropriate length. The catheter was placed over the guidewi re with the tip positioned in the distal SVC. Guidewire was advanced into the IVC to confirm placemen t in the venous system. The guidewire and peel-away sheath were removed. Each port on the double lume n PICC line was accessed and aspirated/flushed easily. Dry sterile dressing was placed. Patient tolerated the procedure without immediate complication. Fluoroscopy: Total fluoroscopy time is 0 minutes, total dose 148 mGy*cm^2. FINDINGS: Technically successful placement of a dual-lumen 5 [place] 42 cm PICC line via the left basilic vein. Tip of the catheter overlies the distal SVC. Final spot fluoroscopic image of catheter placement was obtained. IMPRESSION: Technically successful left upper extremity PICC line placement. POS: [facility]
--- NOTE | 2018-02-01 16:02 | PDOC.PN ---
- Subjective Encounter Start Date: 02/01/18 Encounter Start Time: 09:30 Subjective: Patient sitting in a chair today, denies complaints -: Day nurse mentioned shift lab technician was unsure about output -: PICC line scheduled to be placed today - Objective Resuscitation Status - Order Detail: 01/30/18 04:25 Resuscitation Status Routine Resuscitation Status: FULL: Full Resuscitation Vital Signs & Weight: Vital Signs (12 hours) Temp Pulse Pulse Pulse Resp BP BP 02/01/18 15:47 97.6 F 69 16 02/01/18 13:45 111 H 18 02/01/18 11:57 98.2 F 64 16 02/01/18 09:14 63 02/01/18 08:15 63 60 149/65 H 148/69 H 02/01/18 08:00 99.1 F 60 16 02/01/18 06:41 02/01/18 06:40 66 18 02/01/18 06:37 66 18 BP Pulse Ox 02/01/18 15:47 143/68 H 96 02/01/18 13:45 94 L 02/01/18 11:57 135/63 97 02/01/18 09:14 02/01/18 08:15 02/01/18 08:00 135/68 96 02/01/18 06:41 95 02/01/18 06:40 95 02/01/18 06:37 95 Weight Admit Weight 66.134 kg Weight 66.134 kg I&O: 01/31/18 02/01/18 02/02/18 06:59 06:59 06:59 Intake Total 1795 482 825 Balance 1795 482 825 Result Diagrams: 02/01/18 08:50 02/01/18 08:50 Additional Labs: Accuchecks 02/01/18 02/01/18 02/01/18 14:07 10:49 06:10 POC Glucose 151 H 266 H 142 H 02/01/18 01/31/18 01/31/18 00:40 21:26 17:51 POC Glucose 158 H 161 H 141 H Phys Exam - Physical Examination HEENT: PERRLA, moist MMs Neck: no nodes, no JVD Respiratory: clear to auscultation bilateral occasional rhonchi, clears with cough Cardiovascular: RRR, no significant murmur Gastrointestinal: soft, non-tender Musculoskeletal: no edema, pulses present Neurological: non-focal, normal sensation Lymphatic: no nodes Deviation from normal: At baseline, answers simple questions Deviation from normal: sacrum decubitus, toes to right foot dusky Dx/Plan (1) Decubitus ulcer Code(s): L89.90 - PRESSURE ULCER OF UNSPECIFIED SITE, UNSPECIFIED STAGE Status : Chronic Comment: multiple, see wound pictures, present on admission (2) Osteomyelitis Code(s): M86.9 - OSTEOMYELITIS, UNSPECIFIED Status: Acute Qualifiers: Osteomyelitis type: unspecified type Laterality: right Comment: sacrum with decubitus (3) CAD (coronary artery disease) Code(s): I25.10 - ATHSCL HEART DISEASE OF [place] CORONARY ARTERY W/O ANG PCTRS Status: Chronic Qualifiers: Coronary Disease-Associated Artery/Lesion type: bypass graft [place] vs. transplanted heart: [place] heart Associated angina: without angina Qualified Code(s): I25.810 - Atherosclerosis of coronary artery bypass graft(s) without angina pectoris Comment: H/o CABG, no chest pain, continue Aspirin, BB (4) COPD (chronic obstructive pulmonary disease) Status: Chronic Qualifiers: COPD type: unspecified COPD Qualified Code(s): J44.9 - Chronic obstructive pulmonary disease, unspecified Comment: No exacerbation noted. mild Wheezing, continue PRN NEbs. (5) DM2 (diabetes mellitus, type 2) Status: Chronic Qualifiers: Diabetes mellitus longterm insulin use: with termite treater use Diabetes mellitus complication status: with unspecified complications Qualified Code(s) : E11.8 - Type 2 diabetes mellitus with unspecified complications; Z79.4 - predatory animal exterminator (current) use of insulin Comment: Plan to COntrol BG, 140-180, SSI. (6) HTN (hypertension) Code(s): I10 - ESSENTIAL (PRIMARY) HYPERTENSION Status: Chronic Qualifiers: Hypertension type: essential hypertension Qualified Code(s): I10 - Essential (primary) hypertension Comment: BP at Goal, continue Home Meds. - Plan cont current plan of care Patient scheduled for PICC today, will go back to [place] w/ ABX for -: sacral decubitus -: Limited output today, added flomax and IV bolus this afternoon -: Bladder scan with only 100mls, will increase fluids and monitor I/O -: Will monitor VS, labs, await ABX recommendations from Dr. Howe * .
[2018-02-01] MEDS ORDERED: Sodium Chloride 0.45% 1,000 ML IV SCH (16:15)
[2018-02-01] MEDS: HumaLOG 300 UNITS/3 ML VIAL SC PRN (17:25)
--- NOTE | 2018-02-01 18:55 | PDOC.EVN ---
Event Note - Event Note Event Note: Nurse came to get me as daughter concerned because patient would not open his eyes. Upon entering the room, patient alert although not as talkative as he was he was this morning. Appears mildly edematous, has a productive cough, scattered rhonchi. Will DC fluids, order lasix 20mg and order a repeat CXR. Daughter less concerned as patient was opening eyes and back to baseline. Patient had PICC line placed today.
[2018-02-01] MEDS ORDERED: Furosemide 20 MG/2 ML VIAL SLOW IVP SCH (19:00)
[2018-02-01] MEDS: Atorvastatin Calcium 40 MG TAB PO SCH (20:40)
[2018-02-01] MEDS: Donepezil HCl 5 MG TAB PO SCH (20:41)
--- NOTE | 2018-02-01 21:32 | RAD ---
PORTABLE CHEST: 02/01/18 PROVIDED CLINICAL HISTORY: Cough. FINDINGS: Comparison 01/30/18. Cardiac and mediastinal silhouette is unchanged in appearance. Patchy air space disease is suspected within the left upper and mid lung zones. Bibasilar subsegmental atelectatic changes are seen. No ple ural fluid or pneumothorax apparent. IMPRESSION: Left upper and mid lung zone air space disease is suspected. Correlate with concerns for pneumonia. POS: [facility]
[2018-02-01] MEDS: Insulin Glargine 7 UNITS in Pre-Filled Syringe 1 EACH SC SCH (22:32)
[2018-02-02 06:13] LABS: #Eosinphils 0.8 thou/uL (0.0-0.7); #Lymphocytes 1.3 thou/uL (1.20-3.40); #Monocytes 0.9 thou/uL (0.11-0.59); #Neutrophils 5.6 thou/uL (1.40-6.50); %Basophils 0.5 % (0.0-1.0); %Eosinophils 9.5 % (0.0-10.0); %Lymphocytes 14.9 % (21.0-51.0); %Monocytes 9.8 % (0.0-10.0); %Neutrophils 65.4 % (42.0-75.0); Hemoglobin 11.6 g/dL (14.0-18.0); Mean Corpuscular HGB CONC 31.9 g/dL (32.0-36.0); Mean Corpuscular Hemoglobin 28.2 pg (27.0-31.0); Mean Corpuscular Volume 88.4 fL (78.0-98.0); Mean Platelet Volume 8.5 fL (7.4-10.4); Platelet Count 170 thou/uL (130-400); RBC Distribution Width 12.8 % (11.5-14.5); Red Blood Cell (RBC) Count 4.11 mill/uL (4.70-6.10); White Blood Cell (WBC) Count 8.6 thou/uL (4.8-10.8)
[2018-02-02 06:34] LABS: ALT (SGPT) 8 U/L (8-55); AST (SGOT) 12 U/L (5-34); Albumin 2.9 g/dL (3.4-4.8); Alkaline Phosphatase 83 U/L (40-150); Anion Gap 10 mmol/L (10-20); BUN (Urea Nitrogen) 14 mg/dL (8.4-25.7); Bilirubin, Total 0.5 mg/dL (0.2-1.2); Calc. Creatinine Clearance 89 mL/min (70-130); Calcium 8.6 mg/dL (7.8-10.44); Carbon Dioxide 27 mmol/L (23-31); Chloride 105 mmol/L (98-107); Estimated GFR-MDRD Greater than 90; Globulin 3.5 g/dL (2.4-3.5); Glucose 95 mg/dL (83-110); Potassium 3.2 mmol/L (3.5-5.1); Protein, Total 6.4 g/dL (5.8-8.1); Sodium 139 mmol/L (136-145)
[2018-02-02] MEDS: Arformoterol 15 MCG/2 ML NEB NEB SCH ×2 (06:58→19:01)
[2018-02-02] MEDS: Ipratropium Bromide 2.5 ml Neb NEB SCH ×2 (06:58→19:02)
[2018-02-02] MEDS: Budesonide 0.25 MG/2 ML NEB NEB SCH ×2 (06:58→19:02)
[2018-02-02] MEDS: cefTRIAXone\\ROCEPHIN 1 GM in Sodium Chloride 0.9% 100 ML IVPB SCH (09:31)
[2018-02-02] MEDS: Insulin Glargine 12 UNITS in Pre-Filled Syringe 1 EACH SC SCH (09:32)
[2018-02-02] MEDS: Enoxaparin Sodium 40 MG/0.4 ML SYRINGE SC SCH (09:32)
[2018-02-02] MEDS: Azithromycin 500 MG in Sodium Chloride 0.9% 250 ML 250 ML IVPB SCH (09:46)
[2018-02-02 10:30] LABS: INR-International Normal Ratio 1.1; PTT 42.8 SEC (22.9-36.1); Prothrombin Time 14.4 SEC (12.0-14.7)
[2018-02-02] MEDS: Carvedilol 6.25 MG TAB PO SCH ×2 (10:40→20:16)
[2018-02-02] MEDS: Amlodipine 5 MG TAB PO SCH (10:40)
[2018-02-02] MEDS: Famotidine 20 MG TAB PO SCH ×2 (10:40→20:17)
[2018-02-02] MEDS: Potassium Chloride 20 MEQ TAB PO SCH (10:40)
[2018-02-02] MEDS: Loratadine 10 MG TAB PO SCH (10:40)
--- NOTE | 2018-02-02 12:07 | CT ---
CT BRAIN WITHOUT CONTRAST: Date: 02/02/18 HISTORY: Stroke alert, decreased mental status. FINDINGS: Comparison made with exam of 01/29/18. Changes of cortical atrophy, chronic small vessel ischemic disease, old lacunar infarctions in the bi lateral thalami, and mucosal disease in the paranasal sinuses are again noted. The ventricular size i s stable and the basilar cisterns are patent. No evidence of acute infarct, hemorrhage, midline shift , or abnormal extra-axial fluid collections are seen. IMPRESSION: Stable exam. No CT evidence of acute intracranial process. Report called over the telephone to Mary Kuo at [phone] hours. CODE CR. POS: [facility]
[2018-02-02] MEDS ORDERED: Clopidogrel Bisulfate 75 MG TAB PO SCH (12:15)
[2018-02-02] MEDS ORDERED: Potassium Chloride 20 MEQ in Premix Bag 1 BAG IVPB SCH (12:15)
--- NOTE | 2018-02-02 12:32 | PDOC.PN ---
- Subjective Encounter Start Date: 02/02/18 Encounter Start Time: 09:40 Subjective: Patient more lethargic than he was at the change of shift -: Will wake up but drowsy, Code [place] called, Sent down for repeat head ct -: After he came back from CT, he was more alert, back to baseline - Objective Resuscitation Status - Order Detail: 01/30/18 04:25 Resuscitation Status Routine Resuscitation Status: FULL: Full Resuscitation Vital Signs & Weight: Vital Signs (12 hours) Temp Pulse Resp BP BP Pulse Ox 02/02/18 12:00 98.7 F 70 16 132/66 94 L 02/02/18 10:40 73 146/65 H 02/02/18 08:00 98.6 F 73 18 131/67 94 L 02/02/18 03:27 99.6 F 70 18 133/61 93 L Weight Admit Weight 66.134 kg Weight 66.134 kg I&O: 02/01/18 02/02/18 02/03/18 06:59 06:59 06:59 Intake Total 482 2820 Balance 482 2820 Result Diagrams: 02/02/18 05:47 02/02/18 05:47 Additional Labs: Accuchecks 02/02/18 02/02/18 02/01/18 09:46 01:38 18:29 POC Glucose 104 132 H 200 H 02/01/18 02/01/18 17:10 14:07 POC Glucose 207 H 151 H Phys Exam - Physical Examination HEENT: PERRLA, moist MMs Neck: no nodes, no JVD Respiratory: no wheezing, no rales productive cough, rhonchi scattered Cardiovascular: RRR, no significant murmur Gastrointestinal: soft, non-tender Musculoskeletal: no edema, pulses present Neurological: non-focal, normal sensation Lymphatic: no nodes Psychiatric: normal affect, A&O x 3 Skin: no rash, normal turgor Dx/Plan (1) Decubitus ulcer Code(s): L89.90 - PRESSURE ULCER OF UNSPECIFIED SITE, UNSPECIFIED STAGE Status : Chronic Comment: multiple, see wound pictures, present on admission (2) Osteomyelitis Code(s): M86.9 - OSTEOMYELITIS, UNSPECIFIED Status: Acute Qualifiers: Osteomyelitis type: unspecified type Laterality: right Comment: sacrum with decubitus (3) CAD (coronary artery disease) Code(s): I25.10 - ATHSCL HEART DISEASE OF [place] CORONARY ARTERY W/O ANG PCTRS Status: Chronic Qualifiers: Coronary Disease-Associated Artery/Lesion type: bypass graft [place] vs. transplanted heart: [place] heart Associated angina: without angina Qualified Code(s): I25.810 - Atherosclerosis of coronary artery bypass graft(s) without angina pectoris Comment: H/o CABG, no chest pain, continue Aspirin, BB (4) COPD (chronic obstructive pulmonary disease) Status: Chronic Qualifiers: COPD type: unspecified COPD Qualified Code(s): J44.9 - Chronic obstructive pulmonary disease, unspecified Comment: No exacerbation noted. mild Wheezing, continue PRN NEbs. (5) DM2 (diabetes mellitus, type 2) Status: Chronic Qualifiers: Diabetes mellitus care home insulin use: with long wall shear operator use Diabetes mellitus complication status: with unspecified complications Qualified Code(s) : E11.8 - Type 2 diabetes mellitus with unspecified complications; Z79.4 - care home (current) use of insulin Comment: Plan to COntrol BG, 140-180, SSI. (6) HTN (hypertension) Code(s): I10 - ESSENTIAL (PRIMARY) HYPERTENSION Status: Chronic Qualifiers: Hypertension type: essential hypertension Qualified Code(s): I10 - Essential (primary) hypertension Comment: BP at Goal, continue Home Meds. (7) Pneumonia Code(s): J18.9 - PNEUMONIA, UNSPECIFIED ORGANISM Status: Acute - Plan cont current plan of care, continue antibiotics Rocephin/Vanc ordered for outpatient, CM arranging -: Added Roceph/Azith for potential TREV, LML pneumonia -: K+ 3.2, added Potassium IVPB -: Reviewed PA meds -: Will continue to monitor pt/vs/labs * .
[2018-02-02] MEDS: Atorvastatin Calcium 20 MG TAB PO SCH (20:16)
[2018-02-02] MEDS: Donepezil HCl 5 MG TAB PO SCH (20:16)
[2018-02-02] MEDS: Tamsulosin HCl 0.4 MG CAP PO SCH (20:16)
[2018-02-02] MEDS: Insulin Glargine 7 UNITS in Pre-Filled Syringe 1 EACH SC SCH (21:22)
[2018-02-03 06:10] LABS: #Eosinphils 0.9 thou/uL (0.0-0.7); #Lymphocytes 1.6 thou/uL (1.20-3.40); #Monocytes 0.8 thou/uL (0.11-0.59); #Neutrophils 4.7 thou/uL (1.40-6.50); %Basophils 0.1 % (0.0-1.0); %Eosinophils 10.8 % (0.0-10.0); %Lymphocytes 20.2 % (21.0-51.0); %Monocytes 10.2 % (0.0-10.0); %Neutrophils 58.7 % (42.0-75.0); Hemoglobin 11.5 g/dL (14.0-18.0); Mean Corpuscular HGB CONC 31.9 g/dL (32.0-36.0); Mean Corpuscular Volume 87.8 fL (78.0-98.0); Mean Platelet Volume 8.2 fL (7.4-10.4); Platelet Count 179 thou/uL (130-400); RBC Distribution Width 12.8 % (11.5-14.5); White Blood Cell (WBC) Count 8.1 thou/uL (4.8-10.8)
[2018-02-03 06:33] LABS: ALT (SGPT) 10 U/L (8-55); AST (SGOT) 15 U/L (5-34); Albumin 2.7 g/dL (3.4-4.8); Alkaline Phosphatase 78 U/L (40-150); Anion Gap 10 mmol/L (10-20); BUN (Urea Nitrogen) 12 mg/dL (8.4-25.7); Bilirubin, Total 0.4 mg/dL (0.2-1.2); Calc. Creatinine Clearance 81 mL/min (70-130); Calcium 8.7 mg/dL (7.8-10.44); Carbon Dioxide 28 mmol/L (23-31); Chloride 104 mmol/L (98-107); Estimated GFR-MDRD Greater than 90; Globulin 3.4 g/dL (2.4-3.5); Glucose 90 mg/dL (83-110); Potassium 3.4 mmol/L (3.5-5.1); Protein, Total 6.1 g/dL (5.8-8.1); Sodium 139 mmol/L (136-145)
[2018-02-03] MEDS: Budesonide 0.25 MG/2 ML NEB NEB SCH ×2 (06:45→19:18)
[2018-02-03] MEDS: Ipratropium Bromide 2.5 ml Neb NEB SCH ×2 (06:45→19:10)
[2018-02-03] MEDS: Arformoterol 15 MCG/2 ML NEB NEB SCH ×2 (06:59→19:17)
[2018-02-03] MEDS: Azithromycin 500 MG in Sodium Chloride 0.9% 250 ML 250 ML IVPB SCH (09:24)
[2018-02-03] MEDS: Aspirin 81 mg Enteric Coated Tablet PO SCH (09:33)
[2018-02-03] MEDS: Carvedilol 6.25 MG TAB PO SCH ×2 (09:33→20:04)
[2018-02-03] MEDS: Clopidogrel Bisulfate 75 MG TAB PO SCH (09:33)
[2018-02-03] MEDS: Loratadine 10 MG TAB PO SCH (09:33)
[2018-02-03] MEDS: Potassium Chloride 20 MEQ TAB PO SCH (09:33)
[2018-02-03] MEDS: Amlodipine 5 MG TAB PO SCH (09:34)
[2018-02-03] MEDS: Famotidine 20 MG TAB PO SCH ×2 (09:34→20:06)
[2018-02-03] MEDS: Enoxaparin Sodium 40 MG/0.4 ML SYRINGE SC SCH (11:11)
[2018-02-03] MEDS: Insulin Glargine 12 UNITS in Pre-Filled Syringe 1 EACH SC SCH (11:11)
[2018-02-03] MEDS: cefTRIAXone\\ROCEPHIN 1 GM in Sodium Chloride 0.9% 100 ML IVPB SCH (11:14)
--- NOTE | 2018-02-03 12:45 | PDOC.PN ---
- Subjective Encounter Start Date: 02/03/18 Encounter Start Time: 09:45 Subjective: More alert today, answering questions -: Still has productive cough -: Denies complaints, long talk with daughter re: placement Daughter reports short episode of mumbling speech which resolved spontaneously after a short duration. Patient has had 2 brain CTs and a brain MRI on this stay , we will continue to monitor. - Objective Resuscitation Status - Order Detail: 01/30/18 04:25 Resuscitation Status Routine Resuscitation Status: FULL: Full Resuscitation Vital Signs & Weight: Vital Signs (12 hours) Temp Pulse Resp BP BP Pulse Ox 02/03/18 11:48 98.5 F 62 16 127/60 97 02/03/18 09:34 66 115/58 L 02/03/18 09:33 115/58 L 02/03/18 08:00 97.5 F L 66 14 115/58 L 96 02/03/18 06:59 71 20 98 02/03/18 06:45 71 20 98 02/03/18 04:00 98.4 F 71 16 117/56 L 95 Weight Admit Weight 66.134 kg Weight 66.134 kg I&O: 02/02/18 02/03/18 02/04/18 06:59 06:59 06:59 Intake Total 2820 650 Balance 2820 650 Result Diagrams: 02/03/18 05:45 02/03/18 05:45 Additional Labs: Accuchecks 02/03/18 02/03/18 02/02/18 05:45 00:42 21:16 POC Glucose 87 134 H 207 H 02/02/18 02/02/18 16:50 05:56 POC Glucose 55 L* 98 Phys Exam - Physical Examination HEENT: PERRLA, moist MMs Neck: no nodes, no JVD scattered rhonchi, productive cough Cardiovascular: RRR, no significant murmur Gastrointestinal: soft, non-tender Musculoskeletal: no edema, pulses present Neurological: non-focal, normal sensation Lymphatic: no nodes Psychiatric: normal affect, A&O x 3 Skin: no rash, normal turgor Deviation from normal: sacral decubitus, right toes, forefoot dusky in color Dx/Plan (1) Decubitus ulcer Code(s): L89.90 - PRESSURE ULCER OF UNSPECIFIED SITE, UNSPECIFIED STAGE Status : Chronic Comment: multiple, see wound pictures, present on admission (2) Osteomyelitis Code(s): M86.9 - OSTEOMYELITIS, UNSPECIFIED Status: Acute Qualifiers: Osteomyelitis type: unspecified type Laterality: right Comment: sacrum with decubitus (3) CAD (coronary artery disease) Code(s): I25.10 - ATHSCL HEART DISEASE OF [place] CORONARY ARTERY W/O ANG PCTRS Status: Chronic Qualifiers: Coronary Disease-Associated Artery/Lesion type: bypass graft [place] vs. transplanted heart: [place] heart Associated angina: without angina Qualified Code(s): I25.810 - Atherosclerosis of coronary artery bypass graft(s) without angina pectoris Comment: H/o CABG, no chest pain, continue Aspirin, BB (4) COPD (chronic obstructive pulmonary disease) Status: Chronic Qualifiers: COPD type: unspecified COPD Qualified Code(s): J44.9 - Chronic obstructive pulmonary disease, unspecified Comment: No exacerbation noted. mild Wheezing, continue PRN NEbs. (5) DM2 (diabetes mellitus, type 2) Status: Chronic Qualifiers: Diabetes mellitus correction insulin use: with correction use Diabetes mellitus complication status: with unspecified complications Qualified Code(s) : E11.8 - Type 2 diabetes mellitus with unspecified complications; Z79.4 - terminal operations manager (current) use of insulin Comment: Plan to COntrol BG, 140-180, SSI. (6) HTN (hypertension) Code(s): I10 - ESSENTIAL (PRIMARY) HYPERTENSION Status: Chronic Qualifiers: Hypertension type: essential hypertension Qualified Code(s): I10 - Essential (primary) hypertension Comment: BP at Goal, continue Home Meds. (7) Pneumonia Code(s): J18.9 - PNEUMONIA, UNSPECIFIED ORGANISM Status: Acute - Plan cont current plan of care, continue antibiotics Continue ABX -: Discussion w/ daughter re placement to [place] vs LTAC -: Will continue to monitor labs/VS -: Will ask Dr. West for recommendations re: recurrent TIA symptoms * .
[2018-02-03] MEDS ORDERED: Heparin 1,000 UNITS/ML VIAL ONE (14:02)
[2018-02-03] MEDS: HumaLOG 300 UNITS/3 ML VIAL SC PRN (15:35)
[2018-02-03] MEDS: Tamsulosin HCl 0.4 MG CAP PO SCH (20:06)
[2018-02-03] MEDS: Donepezil HCl 5 MG TAB PO SCH (20:06)
[2018-02-03] MEDS: Atorvastatin Calcium 20 MG TAB PO SCH (20:11)
[2018-02-04 05:16] LABS: #Lymphocytes 1.3 thou/uL (1.20-3.40); #Monocytes 0.6 thou/uL (0.11-0.59); %Basophils 0.2 % (0.0-1.0); %Eosinophils 12.6 % (0.0-10.0); %Lymphocytes 16.4 % (21.0-51.0); %Monocytes 7.9 % (0.0-10.0); %Neutrophils 62.9 % (42.0-75.0); Hemoglobin 11.4 g/dL (14.0-18.0); Mean Corpuscular Hemoglobin 28.3 pg (27.0-31.0); Mean Corpuscular Volume 88.2 fL (78.0-98.0); Mean Platelet Volume 8.1 fL (7.4-10.4); Platelet Count 176 thou/uL (130-400); RBC Distribution Width 12.9 % (11.5-14.5); Red Blood Cell (RBC) Count 4.03 mill/uL (4.70-6.10)
[2018-02-04 05:33] LABS: ALT (SGPT) 9 U/L (8-55); AST (SGOT) 15 U/L (5-34); Albumin 2.8 g/dL (3.4-4.8); Alkaline Phosphatase 78 U/L (40-150); Anion Gap 11 mmol/L (10-20); BUN (Urea Nitrogen) 11 mg/dL (8.4-25.7); Bilirubin, Total 0.3 mg/dL (0.2-1.2); Calc. Creatinine Clearance 95 mL/min (70-130); Calcium 8.7 mg/dL (7.8-10.44); Carbon Dioxide 24 mmol/L (23-31); Chloride 104 mmol/L (98-107); Estimated GFR-MDRD Greater than 90; Globulin 3.5 g/dL (2.4-3.5); Glucose 175 mg/dL (83-110); Potassium 4.1 mmol/L (3.5-5.1); Protein, Total 6.3 g/dL (5.8-8.1); Sodium 135 mmol/L (136-145)
[2018-02-04] MEDS: HumaLOG 300 UNITS/3 ML VIAL SC PRN ×3 (06:33→19:27)
[2018-02-04] MEDS: Budesonide 0.25 MG/2 ML NEB NEB SCH ×2 (06:35→18:28)
[2018-02-04] MEDS: Arformoterol 15 MCG/2 ML NEB NEB SCH ×2 (06:38→18:25)
[2018-02-04] MEDS: Ipratropium Bromide 2.5 ml Neb NEB SCH ×3 (06:38→18:27)
[2018-02-04] MEDS: Azithromycin 500 MG in Sodium Chloride 0.9% 250 ML 250 ML IVPB SCH (08:33)
[2018-02-04] MEDS: Aspirin 81 mg Enteric Coated Tablet PO SCH (08:42)
[2018-02-04] MEDS: Famotidine 20 MG TAB PO SCH ×2 (08:42→22:00)
[2018-02-04] MEDS: Loratadine 10 MG TAB PO SCH (08:42)
[2018-02-04] MEDS: Potassium Chloride 20 MEQ TAB PO SCH (08:42)
[2018-02-04] MEDS: Clopidogrel Bisulfate 75 MG TAB PO SCH (08:42)
[2018-02-04] MEDS: Amlodipine 5 MG TAB PO SCH (08:43)
[2018-02-04] MEDS: Carvedilol 6.25 MG TAB PO SCH ×2 (08:43→22:01)
[2018-02-04] MEDS: cefTRIAXone\\ROCEPHIN 1 GM in Sodium Chloride 0.9% 100 ML IVPB SCH (10:16)
[2018-02-04] MEDS: Insulin Glargine 12 UNITS in Pre-Filled Syringe 1 EACH SC SCH (10:17)
--- NOTE | 2018-02-04 10:59 | PDOC.PN ---
- Subjective Encounter Start Date: 02/04/18 Encounter Start Time: 10:00 Subjective: awake, mostly nonverbal, not in distress -: ate pancakes well this morning - Objective Resuscitation Status - Order Detail: 01/30/18 04:25 Resuscitation Status Routine Resuscitation Status: FULL: Full Resuscitation MAR Reviewed: Yes Vital Signs & Weight: Vital Signs (12 hours) Temp Pulse Resp BP BP Pulse Ox 02/04/18 09:08 92 L 02/04/18 08:43 72 147/72 H 02/04/18 08:21 92 L 02/04/18 07:48 98.1 F 74 20 147/72 H 93 L 02/04/18 06:38 70 18 92 L 02/04/18 06:35 70 18 92 L 02/04/18 04:00 98.7 F 70 18 138/67 95 02/04/18 00:00 98.3 F 66 18 133/60 96 Weight Admit Weight 145 lb 12.8 oz Weight 145 lb 12.8 oz I&O: 02/03/18 02/04/18 02/05/18 06:59 06:59 06:59 Intake Total 650 250 Balance 650 250 Result Diagrams: 02/04/18 05:00 02/04/18 05:00 Additional Labs: Accuchecks 02/04/18 02/04/18 02/03/18 06:03 00:03 18:12 POC Glucose 166 H 239 H 132 H 02/03/18 02/03/18 13:54 12:16 POC Glucose 199 H 190 H Phys Exam - Physical Examination HEENT: PERRLA, moist MMs Neck: no JVD, supple Respiratory: no wheezing, no rales Cardiovascular: RRR, no significant murmur Gastrointestinal: soft, non-tender, positive bowel sounds Musculoskeletal: pulses present sacral decub+ likely has flexion contractures of UE Dx/Plan (1) Pneumonia Code(s): J18.9 - PNEUMONIA, UNSPECIFIED ORGANISM Status: Acute Qualifiers: Pneumonia type: due to unspecified organism Laterality: left (2) PVD (peripheral vascular disease) Code(s): I73.9 - PERIPHERAL VASCULAR DISEASE, UNSPECIFIED Status: Chronic (3) TIA (transient ischemic attack) Status: Resolved Qualifiers: Transient cerebral ischemia type: unspecified Qualified Code(s): G45.9 - Transient cerebral ischemic attack, unspecified (4) CAD (coronary artery disease) Code(s): I25.10 - ATHSCL HEART DISEASE OF [place] CORONARY ARTERY W/O ANG PCTRS Status: Chronic Qualifiers: Coronary Disease-Associated Artery/Lesion type: bypass graft [place] vs. transplanted heart: [place] heart Associated angina: without angina Qualified Code(s): I25.810 - Atherosclerosis of coronary artery bypass graft(s) without angina pectoris Comment: H/o CABG, no chest pain, continue Aspirin, BB (5) COPD (chronic obstructive pulmonary disease) Status: Chronic Qualifiers: COPD type: unspecified COPD Qualified Code(s): J44.9 - Chronic obstructive pulmonary disease, unspecified Comment: No exacerbation noted, continue PRN NEbs. (6) DM2 (diabetes mellitus, type 2) Status: Chronic Qualifiers: Diabetes mellitus fdc insulin use: with fdc use Diabetes mellitus complication status: with unspecified complications Qualified Code(s) : E11.8 - Type 2 diabetes mellitus with unspecified complications; Z79.4 - manager intermediate (current) use of insulin Comment: Plan to COntrol BG, 140-180, SSI. 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, severe white matter isch changes, suspected amyloid angiopathy on imaging criteria (9) HTN (hypertension) Code(s): I10 - ESSENTIAL (PRIMARY) HYPERTENSION Status: Chronic Qualifiers: Hypertension type: essential hypertension Qualified Code(s): I10 - Essential (primary) hypertension - Plan wound cultures from sacral wound if not taken so far -: is on azithromycin and ceftriaxone, has picc line -: poor functional status, has not ambulated from the time he had cva -: old right frontal and left thalamic cva with severe white matter isch celis -: continue nebs, asp, plavix, lipitor, norvasc and coreg * . outpt f/u with ([facility]) for possible intervention if his dorsal toe ulcers get worse. d/w daughter over phone. Review of Systems - Medications/Allergies Allergies/Adverse Reactions: Allergies Allergy/AdvReac Type Severity Reaction Status Date / Time codeine Allergy "MAKES ME Verified 07/17/17 01:33 JITTERY" Medications: Current Medications Acetaminophen (Tylenol) 650 mg PO Q4H PRN PRN Reason: Headache/Fever/Mild Pain (1-3) Last Admin: 02/03/18 01:36 Dose: 650 mg Acetaminophen (Tylenol) [address] Q4H PRN PRN Reason: Headache/Fever/Mild Pain (1-3) Albuterol Sulfate (Proventil Hfa) 2 puff INH Q6H PRN PRN Reason: Wheezing Last Admin: 02/01/18 13:45 Dose: 2 puff Albuterol/Ipratropium (Duoneb) 3 ml NEB [id number] PRN PRN Reason: SOB &/or Wheezing Last Admin: 02/03/18 01:47 Dose: 3 ml Amlodipine Besylate (Norvasc) 5 mg PO DAILY [facility] Last Admin: 02/04/18 08:43 Dose: 5 mg Arformoterol Tartrate (Brovana) 15 mcg NEB BID-RT [facility] Last Admin: 02/04/18 06:38 Dose: 15 mcg Aspirin (Ecotrin) 81 mg PO DAILY [facility] Last Admin: 02/04/18 08:42 Dose: 81 mg Atorvastatin Calcium (Lipitor) 20 mg PO HS [facility] Last Admin: 02/03/18 20:11 Dose: 20 mg Bisacodyl (Dulcolax) 10 mg PO DAILYPRN PRN PRN Reason: Constipation Budesonide (Pulmicort Neb Solution) 0.25 mg NEB BID-RT [facility] Last Admin: 02/04/18 06:35 Dose: 0.25 mg Calcium Carbonate (Tums) 500 mg PO Q6H PRN PRN Reason: Indigestion Carvedilol (Coreg) 6.25 mg PO BID [facility] Last Admin: 02/04/18 08:43 Dose: 6.25 mg Clopidogrel Bisulfate (Plavix) 75 mg PO DAILY [facility] Last Admin: 02/04/18 08:42 Dose: 75 mg Dextrose/Water (Dextrose 50%) 25 gm SLOW IVP PRN PRN PRN Reason: Hypoglycemia Donepezil HCl (Aricept) 5 mg PO HS [facility] Last Admin: 02/03/18 20:06 Dose: 5 mg Famotidine (Pepcid) 20 mg PO BID [facility] Last Admin: 02/04/18 08:42 Dose: 20 mg Glucagon (Glucagon) 1 mg IM PRN PRN PRN Reason: Hypoglycemia Guaifenesin (Mucinex) 600 mg PO Q12H PRN PRN Reason: Congestion Last Admin: 02/01/18 14:22 Dose: 600 mg Guaifenesin/Dextromethorphan (Robitussin Dm) 10 ml PO Q8H PRN PRN Reason: Cough Hydralazine HCl (Apresoline) 10 mg SLOW IVP Q4H PRN PRN Reason: BP > 220/110 Dextrose/Water (D5w) 1,000 mls @ 0 mls/hr IV .Q0M PRN PRN Reason: Hypoglycemia Insulin Glargine 12 units/ (Miscellaneous Medication) 0.12 mls @ 0 mls/hr SC QAM [facility] Last Admin: 02/04/18 10:17 Dose: 0.12 mls Azithromycin 500 mg/ Sodium (Chloride) 250 mls @ 250 mls/hr IVPB Q24HR [facility] Last Admin: 02/04/18 08:33 Dose: 250 mls Ceftriaxone Sodium 1 gm/ (Sodium Chloride) 100 mls @ 200 mls/hr IVPB Q24HR [facility] Last Admin: 02/04/18 10:16 Dose: 100 mls Insulin Human Lispro (Humalog) 0 units SC .MODERATE SLIDING SC PRN PRN Reason: Moderate Correctional Scale Last Admin: 02/04/18 06:33 Dose: 2 unit Insulin Human Lispro (Humalog) 0 units SC .BEDTIME SLIDING SC PRN PRN Reason: Bedtime Correctional Scale Last Admin: 02/04/18 00:11 Dose: 2 unit Ipratropium [place] (Atrovent) 2.5 ml NEB BID-RT [facility] Last Admin: 02/04/18 06:38 Dose: 2.5 ml Labetalol HCl (Normodyne) 20 mg SLOW IVP Q1H PRN PRN Reason: BP > 220/110 Loratadine (Claritin) 10 mg PO DAILY [facility] Last Admin: 02/04/18 08:42 Dose: 10 mg Ondansetron HCl (Zofran Odt) 4 mg PO Q6H PRN PRN Reason: Nausea/Vomiting Ondansetron HCl (Zofran) 4 mg IVP Q6H PRN PRN Reason: Nausea/Vomiting Potassium Chloride (K-Dur) 40 meq PO QAM-WM [facility] Last Admin: 02/04/18 08:42 Dose: 40 meq Senna/Docusate Sodium (Senokot S) 2 tab PO BIDPRN PRN PRN Reason: Constipation Last Admin: 01/31/18 10:05 Dose: 2 tab Sodium Chloride (Flush - Normal Saline) 10 ml IVF Q12HR [facility] Last Admin: 02/04/18 08:44 Dose: 10 ml Sodium Chloride (Flush - Normal Saline) 10 ml IVF PRN PRN PRN Reason: Saline Flush Sodium Chloride (Flush - Normal Saline) 10 ml IVF PRN PRN PRN Reason: Saline Flush Tamsulosin HCl (Flomax) 0.4 mg PO HS [facility] Last Admin: 02/03/18 20:06 Dose: 0.4 mg Zolpidem Tartrate (Ambien) 5 mg PO HSPRN PRN PRN Reason: Insomnia
[2018-02-04] MEDS ORDERED: Sterile Water 10 ML VIAL IVP SCH (12:25)
[2018-02-04] MEDS ORDERED: Activase 2 MG VIAL CATH SCH (12:25)
--- NOTE | 2018-02-04 16:54 | CT ---
CT OF PELVIS PERFORMED WITHOUT CONTRAST ENHANCEMENT: 02/04/18 HISTORY: Decubitus ulcer in sacral region. Evaluation for osteomyelitis. Postoperative changes of the pelvis are seen. There is a plate and screws extending across the symphy sis region. There are also postoperative changes of the right iliac bone. There is a sacral decubitus ulcer just slightly to the right of midline. I do not see any underlying CT evidence for osteomyelitis. No soft tissue abscess is identified. Moderate fecal impaction is incidentally seen. IMPRESSION: 1. No evidence for sacral osteomyelitis. 2. Findings suggestive of fecal impaction. 3. Postoperative changes of the pelvis. POS: [facility]
[2018-02-04] MEDS: Donepezil HCl 5 MG TAB PO SCH (22:00)
[2018-02-04] MEDS: Aggrenox 200-25mg CAP PO SCH (22:00)
[2018-02-04] MEDS: Tamsulosin HCl 0.4 MG CAP PO SCH (22:00)
[2018-02-04] MEDS: Atorvastatin Calcium 20 MG TAB PO SCH (22:02)
[2018-02-05] MEDS: HumaLOG 300 UNITS/3 ML VIAL SC PRN ×2 (06:35→13:08)
[2018-02-05] MEDS: Ipratropium Bromide 2.5 ml Neb NEB SCH (07:36)
[2018-02-05] MEDS: Budesonide 0.25 MG/2 ML NEB NEB SCH (07:37)
[2018-02-05] MEDS: Arformoterol 15 MCG/2 ML NEB NEB SCH (07:37)
[2018-02-05] MEDS: Potassium Chloride 20 MEQ TAB PO SCH (08:27)
[2018-02-05] MEDS: Amlodipine 5 MG TAB PO SCH (08:27)
[2018-02-05] MEDS: Famotidine 20 MG TAB PO SCH (08:27)
[2018-02-05] MEDS: Aggrenox 200-25mg CAP PO SCH (08:27)
[2018-02-05] MEDS: Loratadine 10 MG TAB PO SCH (08:28)
[2018-02-05] MEDS: Insulin Glargine 12 UNITS in Pre-Filled Syringe 1 EACH SC SCH (08:28)
[2018-02-05] MEDS: Carvedilol 6.25 MG TAB PO SCH (08:28)
[2018-02-05] MEDS ORDERED: metroNIDAZOLE 250 MG TAB PO SCH (09:00)
--- NOTE | 2018-02-05 12:27 | PDOC.PN ---
- Subjective Encounter Start Date: 02/05/18 Encounter Start Time: 09:00 Subjective: awake, no new complaints, not in distress - Objective Resuscitation Status - Order Detail: 01/30/18 04:25 Resuscitation Status Routine Resuscitation Status: FULL: Full Resuscitation MAR Reviewed: Yes Vital Signs & Weight: Vital Signs (12 hours) Temp Pulse Resp BP BP Pulse Ox 02/05/18 08:28 118/56 L 02/05/18 08:27 66 118/56 L 94 L 02/05/18 07:56 98.7 F 66 20 118/56 L 94 L 02/05/18 07:40 94 L 02/05/18 07:36 66 16 94 L 02/05/18 03:22 98.5 F 70 16 123/78 92 L Weight Admit Weight 145 lb 12.8 oz Weight 145 lb 12.8 oz I&O: 02/04/18 02/05/18 02/06/18 06:59 06:59 06:59 Intake Total 250 Balance 250 Result Diagrams: 02/04/18 05:00 02/04/18 05:00 Additional Labs: Accuchecks 02/05/18 02/05/18 02/04/18 05:17 00:10 18:01 POC Glucose 182 H 193 H 187 H 02/04/18 12:18 POC Glucose 227 H Phys Exam - Physical Examination HEENT: PERRLA, moist MMs Neck: no JVD, supple Respiratory: no wheezing, no rales Cardiovascular: RRR, no significant murmur Gastrointestinal: soft, non-tender, positive bowel sounds Musculoskeletal: pulses present Neurological: non-focal, moves all 4 limbs Dx/Plan (1) Pneumonia Code(s): J18.9 - PNEUMONIA, UNSPECIFIED ORGANISM Status: Acute Qualifiers: Pneumonia type: due to unspecified organism Laterality: left (2) PVD (peripheral vascular disease) Code(s): I73.9 - PERIPHERAL VASCULAR DISEASE, UNSPECIFIED Status: Chronic (3) TIA (transient ischemic attack) Status: Resolved Qualifiers: Transient cerebral ischemia type: unspecified Qualified Code(s): G45.9 - Transient cerebral ischemic attack, unspecified (4) CAD (coronary artery disease) Code(s): I25.10 - ATHSCL HEART DISEASE OF [place] CORONARY ARTERY W/O ANG PCTRS Status: Chronic Qualifiers: Coronary Disease-Associated Artery/Lesion type: bypass graft [place] vs. transplanted heart: [place] heart Associated angina: without angina Qualified Code(s): I25.810 - Atherosclerosis of coronary artery bypass graft(s) without angina pectoris Comment: H/o CABG, no chest pain, continue Aspirin, BB (5) COPD (chronic obstructive pulmonary disease) Status: Chronic Qualifiers: COPD type: unspecified COPD Qualified Code(s): J44.9 - Chronic obstructive pulmonary disease, unspecified Comment: No exacerbation noted, continue PRN NEbs. (6) DM2 (diabetes mellitus, type 2) Status: Chronic Qualifiers: Diabetes mellitus assisted insulin use: with assisted use Diabetes mellitus complication status: with unspecified complications Qualified Code(s) : E11.8 - Type 2 diabetes mellitus with unspecified complications; Z79.4 - bed bug exterminator (current) use of insulin Comment: Plan to COntrol BG, 140-180, SSI. 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
[2018-02-05 12:31] VITALS: BP 102/53; TEMP 98.8
--- NOTE | 2018-02-05 15:53 | DIS ---
DATE OF ADMISSION: 01/31/2018 DATE OF DISCHARGE: 02/05/2018 DISCHARGE DISPOSITION: To [facility] in [place]. PRIMARY DISCHARGE DIAGNOSES: 1. Pneumonia, left lung, resolving. 2. Initial transient ischemic attack, resolved. 3. Peripheral vascular disease, to follow up with Dr. Kunz as outpatient. SECONDARY DISCHARGE DIAGNOSES: 1. Stage IV sacral/coccygeal decubitus ulcer, present on admission for outpatient wound care. 2. Coronary artery disease. 3. Chronic obstructive pulmonary disease. 4. Diabetes mellitus, type 2. 5. History of prior cerebrovascular accident including old right frontal and left thalamic cerebrovascular accident with severe white matter ischemic changes, is also suspected to have amyloid angiopathy by imaging criteria. 6. Hypertension. 7. Poor functional status with the patient being on the bed for the most part. PROCEDURES DONE DURING HOSPITALIZATION: Echo with 2D Doppler showed an EF of 50% to 55%. MRI brain showed involutional changes and severe chronic ischemic white matter changes. No acute infarct was seen. Two small moderate-sized regions of prior hemorrhages in the right frontal lobe and the left thalamus. Multiple tiny punctate foci of remote intra-axial hemorrhage. Evidence for cerebral amyloid angiopathy. CT brain with contrast showed atherosclerotic plaque seen in both bulbs and proximal ACS. No evidence of hemodynamically significant stenosis. No evidence of proximal cerebral artery stenosis or occlusion seen. Pelvic CT done showed no evidence for sacral osteomyelitis. Findings suggestive of fecal impaction. DISCHARGE MEDICATIONS: 1. Albuterol inhaler/nebulizer q.6 hourly p.r.n. 2. Vitamin C 500 mg p.o. daily. 3. Brovana 15 mcg inhaler twice daily. 4. Coreg 6.25 mg p.o. twice daily. 5. Donepezil 5 mg p.o. at bedtime. 6. Vascepa 2 capsules p.o. twice daily. 7. NovoLog sliding scale. 8. Levemir 12 units subcu q.a.m. and 7 units subcu at bedtime. 9. Simvastatin 40 mg p.o. at bedtime. 10. Plavix 75 mg p.o. daily. 11. Norvasc 5 mg p.o. daily. 12. Zinc sulfate 220 mg p.o. daily. 13. Flomax 0.4 mg p.o. at bedtime. ALLERGIES: ALLERGIC TO CODEINE. INPATIENT CONSULT: 1. Dr. Singh for General Surgery. 2. Dr. Howe for Infectious Disease. DISCHARGE PLAN: The patient to follow up with Dr. Hoew in 2 weeks and he also needs follow up with Dr. Wood, [facility] traffic [facility] specialist center as before. BRIEF COURSE DURING HOSPITALIZATION: [facility] droop. He was also not acting himself and had trouble eating as well. He also had cough with expectoration of greenish sputum as well. In view of this history, he was admitted to Stroke Unit. The patient has had prior history of multiple CVAs. He likely had hemorrhagic CVA in the past based on the MRI findings. No acute stroke was seen on imaging. He had a complete stroke workup done during his stay here. The patient also had a stage IV decubitus in the sacral/coccygeal area, which was present on admission. The patient was on IV antibiotics all through his stay and has been discontinued at the time of discharge for pneumonia. His sacral decubitus was evaluated by Dr. Singh and was found to have had granulation tissue and was healing. In view of this, he was taken off all antibiotics. He needs to have his regular followups with Dr. Wood, air traffic control specialist center, and he also needs to see Dr. Howe in 2 weeks. The patient has known history of peripheral vascular disease in the past and he needs to follow up with Dr. Kunz in 4 weeks for Vascular Surgery. A total of 35 minutes was spent on discharge plan. Please see a [id number] documentation on [employer] for the day of discharge. Job ID: [id number]
== END 2018-02-05 14:18 | DRG 299 ==
LOC: ERS 20:41 → 2SW 01-30 01:29 → 2SE 01-30 11:39 → OBSVTOIN 01-31 10:03
PROVIDERS: ADMIT Internal Medicine; ATTEND Internal Medicine
PROC: B24BZZZ Ultrasonography of Heart with Aorta (ICD-10-PCS; 2018-01-31)
PROC: 02HV33Z Insertion of Infusion Device into Superior Vena Cava, Percutaneous Approach (ICD-10-PCS; principal; 2018-02-01)
PROC: B548ZZA Ultrasonography of Superior Vena Cava, Guidance (ICD-10-PCS; 2018-02-01)
DX: E11.52 Type 2 diabetes mellitus with diabetic peripheral angiopathy with gangrene (principal); L89.154 Pressure ulcer of sacral region, stage 4; J18.9 Pneumonia, unspecified organism; G45.9 Transient cerebral ischemic attack, unspecified; Z89.421 Acquired absence of other right toe(s); Z95.1 Presence of aortocoronary bypass graft; I10 Essential (primary) hypertension; Z98.1 Arthrodesis status; J44.9 Chronic obstructive pulmonary disease, unspecified; I25.10 Atherosclerotic heart disease of native coronary artery without angina pectoris; Z79.4 Long term (current) use of insulin; I73.9 Peripheral vascular disease, unspecified; Z86.73 Personal history of transient ischemic attack (TIA), and cerebral infarction without residual deficits; I99.8 Other disorder of circulatory system; Z79.51 Long term (current) use of inhaled steroids; F03.90 Unspecified dementia, unspecified severity, without behavioral disturbance, psychotic disturbance, mood disturbance, and anxiety; I25.2 Old myocardial infarction; Z99.81 Dependence on supplemental oxygen; Z87.891 Personal history of nicotine dependence
CPT/HCPCS: 36415; 36416; 36569; 51701; 70450; 70496; 70498; 70551; 71045; 72192; 80048; 80053; 80061; 81003; 82330; 82435; 82565; 82803; 82947; 83605; 84132; 84295; 84484; 85014; 85025; 85610; 85730; 93005; 93306; 94640; A4216; C1751; G8981-GP-CN; G8982-GP-CL; G8987-GO-CM; G8988-GO-CM; G8989-GO-CM; G8996-GN-CJ; G8997-GN-CJ; J0456; J0696; J1644; J1650; J1940; J2997; J3480; J7050; J7620; J7626; Q9967; S0028

== ENCOUNTER 2018-02-27 09:46 | Outpatient (CLI) | payer MEDICARE, OTHER ==
--- NOTE | 2018-02-27 13:31 | PRG ---
DATE OF SERVICE: 02/27/2018 HISTORY: Mr. Tab Burdick is a very pleasant 72-year-old gentleman accompanied by his daughter who presents to the Wound Center for evaluation of a coccygeal pressure ulceration. Since the patient's last visit to the Wound Center, the patient was admitted to [facility] for a transient ischemic attack. During the patient's hospital stay, Mr. Burdick was also treated for pneumonia. The patient's daughter states that a PICC line was placed for the administration of long-term IV antibiotics, but was discontinued prior to the patient's discharge. The patient continues to receive dressing changes at [facility]. OBJECTIVE: VITAL SIGNS: Temperature 97.5, pulse 63, blood pressure 127/59. Accu-Chek 204. BACK: A coccygeal ulceration is present which measures approximately 2.2 x 1.2 cm. Granulation tissue is visible within the wound margins. No purulent drainage is associated with the wound. No erythema of the skin surrounding the wound is present. No maceration of the skin of the periwound is noted. ASSESSMENT AND PLAN: 1. Coccygeal pressure ulceration as described above. Dressing changes of iodoform gauze and Mepilex Border will be continued 3 times per week after cleansing and irrigation at [facility]. I will discuss the treatment plan with Dr. Armani Howe of Infectious Diseases specifically whether treatment with IV antibiotics for osteomyelitis is warranted. The patient's daughter understands and is in agreement with the preceding treatment plan. 2. Diabetes mellitus. The patient's Accu-Chek in clinic today is 204. The patient's daughter has been reminded for optimal wound healing, the patient's blood glucoses should remain below 150. 3. Hypertension. 4. Coronary artery disease. 5. Chronic obstructive pulmonary disease. 6. Obstructive sleep apnea. 7. History of transient ischemic attack. 8. Hemorrhagic cerebrovascular accident. Job ID: [id number]
[2018-02-27] MEDS ORDERED: Sodium Chloride 0.9% 15 ML NEB ONE (13:57)
== END 2018-02-27 09:47 | disposition home or self-care (01) ==
LOC: WCC 09:46
PROVIDERS: ATTEND Family Medicine
DX: E11.622 Type 2 diabetes mellitus with other skin ulcer (principal); L89.159 Pressure ulcer of sacral region, unspecified stage; I10 Essential (primary) hypertension; I25.10 Atherosclerotic heart disease of native coronary artery without angina pectoris; J44.9 Chronic obstructive pulmonary disease, unspecified; G47.33 Obstructive sleep apnea (adult) (pediatric); I62.9 Nontraumatic intracranial hemorrhage, unspecified; Z86.73 Personal history of transient ischemic attack (TIA), and cerebral infarction without residual deficits
CPT/HCPCS: 97602; A4218

== ENCOUNTER 2018-03-16 07:33 | Observation (INO) | payer MEDICARE, OTHER ==
[2018-03-16] MEDS ORDERED: Vancomycin HCl 1 GM in Premix Bag 1 BAG IVPB SCH (08:30)
--- NOTE | 2018-03-16 08:45 | RAD ---
RADIOGRAPH CHEST 1 VIEW: HISTORY: 72-year-old male with dyspnea. FINDINGS: There are no air space densities, pulmonary edema, pneumothorax, or cardiomegaly. The lateral costop hrenic angles are sharp. There is a right-sided PICC with distal tip overlying the SVC. There are st ernotomy wires. IMPRESSION: 1. No acute cardiopulmonary findings. 2. Right-sided peripherally inserted central catheter. allyssa [] POS: [id number]
[2018-03-16 08:53] LABS: Bilirubin Negative (Negative); Blood, Urine Negative (Negative); Clarity CLOUDY (Clear); Glucose, Urine (Dipstick) Negative (Negative); Leukocyte Negative (Negative); Nitrite Negative (Negative); Protein, Urine (Dipstick) Trace mg/dL (Neg-Trace); Specific Gravity, Urine 1.018 (1.002-1.036); Urobilinogen 0.2 mg/dL (0.2-1.0)
[2018-03-16 08:56] LABS: #Eosinphils 0.9 thou/uL (0.0-0.7); #Monocytes 0.3 thou/uL (0.11-0.59); #Neutrophils 5.3 thou/uL (1.40-6.50); %Eosinophils 12.4 % (0.0-10.0); %Lymphocytes 13.6 % (21.0-51.0); %Monocytes 3.8 % (0.0-10.0); %Neutrophils 70.2 % (42.0-75.0); Mean Corpuscular HGB CONC 30.2 g/dL (32.0-36.0); Mean Corpuscular Volume 89.4 fL (78.0-98.0); Mean Platelet Volume 8.6 fL (7.4-10.4); Platelet Count 169 thou/uL (130-400); RBC Distribution Width 14.1 % (11.5-14.5); Red Blood Cell (RBC) Count 4.46 mill/uL (4.70-6.10); White Blood Cell (WBC) Count 7.5 thou/uL (4.8-10.8)
[2018-03-16 09:09] LABS: Lactic Acid 1.4 mmol/L (0.5-2.2)
[2018-03-16 09:13] LABS: ALT (SGPT) 12 U/L (8-55); AST (SGOT) 20 U/L (5-34); Albumin 3.4 g/dL (3.4-4.8); Alkaline Phosphatase 80 U/L (40-150); Anion Gap 14 mmol/L (10-20); BUN (Urea Nitrogen) 24 mg/dL (8.4-25.7); Bilirubin, Total 0.4 mg/dL (0.2-1.2); CK (CPK) 48 U/L (30-200); Calc. Creatinine Clearance 0 mL/min (70-130); Calcium 9.2 mg/dL (7.8-10.44); Carbon Dioxide 24 mmol/L (23-31); Chloride 106 mmol/L (98-107); Estimated GFR-MDRD Greater than 90; Globulin 3.8 g/dL (2.4-3.5); Glucose 180 mg/dL (83-110); Magnesium 1.9 mg/dL (1.6-2.6); Potassium 4.1 mmol/L (3.5-5.1); Protein, Total 7.2 g/dL (5.8-8.1); Sodium 140 mmol/L (136-145)
[2018-03-16 09:32] LABS: CKMB 2.2 ng/mL (0-6.6)
[2018-03-16] MEDS ORDERED: Cepastat Lozenges 1 LOZ PO PRN (13:29)
[2018-03-16] MEDS ORDERED: Eucerin (Mineral Oil/Petrolatum,White) 30 gm Jar TOP PRN (13:29)
[2018-03-16] MEDS ORDERED: Ondansetron ODT 4 MG TAB PO PRN (13:29)
[2018-03-16] MEDS ORDERED: Ondansetron PF 4 MG/2 ML Vial IVP PRN (13:29)
[2018-03-16] MEDS ORDERED: Acetaminophen 325 MG TAB PO PRN (13:29)
[2018-03-16] MEDS ORDERED: Bisacodyl 5 MG TAB PO PRN (13:29)
[2018-03-16] MEDS ORDERED: Nitroglycerin 0.4 MG TAB (25 Tab Bottle) SL PRN (13:29)
[2018-03-16] MEDS ORDERED: Diabetic Tussin 200 MG/10 ML UDCUP PO PRN (13:29)
[2018-03-16] MEDS ORDERED: HumaLOG 300 UNITS/3 ML VIAL SC PRN (13:29)
[2018-03-16] MEDS ORDERED: Dextrose 50% Abboject 50 ML SYRINGE SLOW IVP PRN (13:29)
[2018-03-16] MEDS ORDERED: Calcium Carbonate 500 MG ChewTAB PO PRN (13:29)
[2018-03-16] MEDS ORDERED: Dextrose 5% in Water 1,000 ML IV PRN (13:29)
[2018-03-16] MEDS ORDERED: Bisacodyl 10 MG SUPP PR PRN (13:29)
[2018-03-16] MEDS ORDERED: hydrALAZINE 20 MG/ML VIAL SLOW IVP PRN (13:29)
[2018-03-16] MEDS ORDERED: Artificial Tears 18 DROP/0.9 ML EA EYE PRN (13:29)
[2018-03-16] MEDS ORDERED: Sodium Chloride 0.65% Nasal 44 ML BOT EA NARE PRN (13:29)
[2018-03-16] MEDS ORDERED: VANCOMYCIN IVPB PRN ×2 (13:29→17:31)
[2018-03-16] MEDS ORDERED: Senokot S 8.6-50 MG TAB PO PRN (13:29)
--- NOTE | 2018-03-16 14:06 | HP ---
PRIMARY CARE PHYSICIAN: Dr. Kelly Peres. REASON FOR ADMISSION: Dyspnea. HISTORY OF PRESENT ILLNESS: A 72-year-old male who has multiple medical problems including dementia, severe peripheral vascular disease, chronic wound, overdose, COPD, coronary artery disease, who was short of breath at [facility] where patient lives. He was also having reportedly fever at [facility]. His oxygen saturation was low to 70s. He was given DuoNeb therapy, and after that, oxygen saturation improved. He was having bilateral wheezing and rhonchi in all lung quinn. Initially, he was using his accessory muscles of respiration. He was given Solu-Medrol, and after DuoNeb therapy, he was completely comfortable in the emergency room. Initially, sepsis alert was initiated. The patient is receiving IV vancomycin and Rocephin for his chronic wound under Dr. Howe' guidance. As per the patient's daughter, the patient will finish the IV antibiotic therapy in end of March. The patient does have chronic wound secondary to peripheral vascular disease, and the patient is not able to be revascularized conservatively, and General Surgery as well as torts law professor as well as cardiovascular surgeon pretty much are all in agreement that the patient will need a below-knee amputation, but the patient's family member is trying to preserve leg as much as possible. When I saw this patient at that time, the patient was on room air. He was comfortable. He did not have any wheezing. The ER physician offered to let him go back to [facility] but family member requested to stay overnight. At this point, given the patient's fever at [facility] and initially hypoxia which has rapidly improved with treatment, we will observe him overnight in the hospital. He also has elevated troponin, but the patient does not have any chest pain. The patient had a PICC line placed on March 03, 2018, and he is getting antibiotic therapy since then. PAST MEDICAL HISTORY: Severe peripheral vascular disease; diabetes type 2; coronary artery disease, required CABG x3, 1st time and then 2nd time in 2001 and then in 2013; COPD; obstructive sleep apnea, on CPAP; hypertension; dyslipidemia; obesity; gastroesophageal reflux disease; history of tobacco abuse in the past. PAST SURGICAL HISTORY: CABG x3; femur fracture surgery, status post open reduction and internal fixation; lumbar fusion surgery; PICC line placement. PAST PSYCHIATRIC HISTORY: Reviewed and negative. ALLERGIES: KEFLEX, CEPHALOSPORINS ALLERGY, BUT THE PATIENT IS TOLERATING ROCEPHIN WITHOUT ANY PROBLEM. SO, PATIENT IS NO LONGER ALLERGIC TO KEFLEX OR CEPHALOSPORIN, GABAPENTIN, AZTREONAM. FAMILY HISTORY: No family history of coronary artery disease, stroke, or cancer , but hypertension and diabetes run among several family members. CURRENT HOME MEDICATIONS: At [facility], the patient is on following medications, 1. Aricept 5 mg p.o. at bedtime. 2. Levemir 12 units in the morning and 7 units in the evening. 3. Flomax 0.4 mg p.o. daily. 4. Claritin 10 mg daily. 5. Coreg 6.25 mg b.i.d. 6. Brovana nebulization twice daily. 7. Pulmicort nebulization twice daily. 8. DuoNeb q.6 hourly. 9. Plavix 75 mg daily. 10. Zocor 40 mg p.o. at bedtime. 11. Rocephin 2 g IV daily. 12. Vancomycin as per pharmacy adjusted dose. 13. Omeprazole 20 mg p.o. daily. EMERGENCY ROOM COURSE: The paramedics gave him 3 times Jennifer Palomares. REVIEW OF SYSTEMS: As dictated course in short review of systems. Please see my HPI for pertinent positive and negative. All other review of systems reviewed and negative except as mentioned in HPI. SOCIAL HISTORY: Lives at [facility], no smoking, alcohol or drug abuse. PHYSICAL EXAMINATION: VITAL SIGNS: On arrival, blood pressure 107/63, pulse 105, respiratory rate 28, temperature 99.6, saturation 100% on non-rebreather, currently he is on room air. Vitals stable. Weight 70.8 kg. GENERAL: The patient is currently alert, awake, no obvious acute distress. HEENT: Head; normocephalic and atraumatic. Eyes; pupils are round, reactive to light. Extraocular muscle intact. ENT, oropharynx within normal limits. Moist mucous membranes. No oral lesion. No pharyngeal erythema. No exudate. NECK: Supple. No JVD. No thyromegaly. No carotid bruit. LUNGS: Currently clear, but on admission, he had wheezing. No rales. CARDIAC: S1 and S2 regular. Systolic murmur present parasternally. No gallop. No rub. ABDOMEN: Soft. Bowel sounds present. The patient does have mild tenderness in the right lower quadrant, but no peritoneal sign. No guarding. No rigidity. No suprapubic tenderness. BACK: Unremarkable. SKIN: The patient does have stage IV decubitus ulcer, 2 x 3 cm, which is present on admission. EXTREMITIES: Lower extremity, the patient does have amputation of second toe on the right foot. All other digits show eschar with no purulence or induration. Pulse, unable to palpate on both sides. NEUROLOGIC: Grossly nonfocal examination. He has underlying dementia. He has underlying diffuse muscle atrophy in both lower extremity and he is baseline demented, though he is arousable. He is not completely providing detailed neurologic examination. EKG showing sinus rhythm, nonspecific ST-T changes. Chest x-ray showing no acute cardiopulmonary process. CBC; WBC 7.5, hemoglobin 12.0, platelets 169. BMP; sodium 140, potassium 4.1, chloride 106, carbon dioxide 24, anion gap 14, BUN 24, creatinine 0.79, glucose 180, calcium 9.2. LFT; AST 20, ALT 12, alkaline phosphatase 80, albumin 3.4, CK-MB 2.2, troponin 0.080. BNP 287.5. Lactic acid 1.4. Urinalysis unremarkable. Influenza A and B negative. ASSESSMENT AND PLAN: 1. Acute exacerbation of chronic obstructive pulmonary disease, currently improved. Influenza is negative. We will continue with DuoNeb q.4 hourly, Brovana twice daily, Pulmicort twice daily, empiric antibiotic therapy. We will continue which he is taking at [facility] including Rocephin and vancomycin. 2. Acute respiratory failure. He was hypoxic at [facility], but currently he is on room air and saturating 94%, so he has acute hypoxic respiratory failure completely resolved in the emergency room. 3. Sepsis. The patient had fever, but currently he does not have any lactic acidosis, does not have any leukocytosis. Source of infection may be related with lung versus he has chronic wound infection including decubitus ulcer. At this point, the patient is already on vancomycin and Rocephin. Nothing else can be done at this point. We will monitor for any recurrent fever while in hospital. 4. Elevated troponin. We will do serial cardiac enzyme x3. We are suspecting this is from demand ischemia. The patient is already on medical treatment. 5. Severe peripheral vascular disease, not able to be treated. Currently, we will try medical therapy with aspirin, Plavix, Coreg, and statin therapy. 6. Chronic wound infection, decubitus plus toe ulcer. The patient is on Rocephin and vancomycin under Dr. Howe' guidance. We will continue those antibiotic while in hospital and he will finish as directed by Dr. Howe' therapy. 7. Alzheimer dementia. Continue Aricept 5 mg daily. 8. Benign enlargement of prostate. Continue Flomax 0.4 mg daily. 9. Diabetes type 2, insulin as per sliding scale protocol and continue Levemir 12 units subcu in morning and 7 units in the evening. 10. Gastroesophageal reflux disease. Continue Protonix 40 mg p.o. daily. 11. Dyslipidemia. Continue Zocor 40 mg p.o. at bedtime. 12. Physical deconditioning. The patient is bed-bound status. 13. DVT prophylaxis not needed, because we are expecting discharge in 24 hours. 14. Gastrointestinal prophylaxis, on Protonix 40 mg p.o. daily. CODE STATUS: The patient is full code. The patient's daughter is surrogate decision maker. Failure of care will be consulted. DISPOSITION PLAN: Based on clinical course, we are expecting the patient's stay in hospital 24 to 48 hours. Plan of care discussed with the patient's family member at bedside. His long-term prognosis is extremely poor. Job ID: [id number] [facility]
[2018-03-16 14:35] LABS: CKMB 5.1 ng/mL (0-6.6)
[2018-03-16] MEDS: cefTRIAXone\\ROCEPHIN 2 GM in Sodium Chloride 0.9% 100 ML IVPB SCH (17:42)
[2018-03-16] MEDS: Arformoterol 15 MCG/2 ML NEB NEB SCH (18:16)
[2018-03-16] MEDS: Budesonide 0.5 MG/2 ML NEB INH SCH (18:21)
[2018-03-16 18:30] VITALS: BMI 21.2
[2018-03-16] MEDS: Carvedilol 6.25 MG TAB PO SCH (19:43)
[2018-03-16] MEDS: Simvastatin 40 MG TAB PO SCH (21:31)
[2018-03-16] MEDS: Donepezil HCl 5 MG TAB PO SCH (21:31)
[2018-03-16] MEDS: Insulin Glargine 7 UNITS in Pre-Filled Syringe 1 EACH SC SCH (21:41)
[2018-03-16] MEDS: Vancomycin HCl 1 GM in Premix Bag 1 BAG IVPB SCH (21:59)
[2018-03-17 05:53] LABS: #Lymphocytes 0.8 thou/uL (1.20-3.40); #Monocytes 0.4 thou/uL (0.11-0.59); #Neutrophils 3.8 thou/uL (1.40-6.50); %Basophils 0.3 % (0.0-1.0); %Eosinophils 0.1 % (0.0-10.0); %Lymphocytes 16.6 % (21.0-51.0); %Monocytes 8.7 % (0.0-10.0); %Neutrophils 74.2 % (42.0-75.0); Mean Corpuscular HGB CONC 30.7 g/dL (32.0-36.0); Mean Corpuscular Hemoglobin 27.2 pg (27.0-31.0); Mean Corpuscular Volume 88.7 fL (78.0-98.0); Mean Platelet Volume 8.4 fL (7.4-10.4); Platelet Count 142 thou/uL (130-400); Red Blood Cell (RBC) Count 4.04 mill/uL (4.70-6.10); White Blood Cell (WBC) Count 5.1 thou/uL (4.8-10.8)
[2018-03-17 06:09] LABS: Anion Gap 13 mmol/L (10-20); BUN (Urea Nitrogen) 32 mg/dL (8.4-25.7); CRP (Inflammatory) Less than 0.50 mg/dL (= or < 0.5); Calc. Creatinine Clearance 75 mL/min (70-130); Calcium 8.8 mg/dL (7.8-10.44); Carbon Dioxide 24 mmol/L (23-31); Chloride 108 mmol/L (98-107); Estimated GFR-MDRD 90; Glucose 281 mg/dL (83-110); Potassium 4.1 mmol/L (3.5-5.1); Sodium 141 mmol/L (136-145)
[2018-03-17] MEDS: Budesonide 0.5 MG/2 ML NEB INH SCH ×2 (06:39→18:24)
[2018-03-17] MEDS: Arformoterol 15 MCG/2 ML NEB NEB SCH ×2 (06:51→18:23)
[2018-03-17] MEDS: Carvedilol 6.25 MG TAB PO SCH ×2 (08:42→16:11)
[2018-03-17] MEDS: Tamsulosin HCl 0.4 MG CAP PO SCH (08:46)
[2018-03-17] MEDS: Insulin Glargine 12 UNITS in Pre-Filled Syringe 1 EACH SC SCH (08:46)
[2018-03-17] MEDS: Clopidogrel Bisulfate 75 MG TAB PO SCH (08:46)
[2018-03-17] MEDS: Saccharomyces boulardii 250 MG CAP PO SCH (08:48)
[2018-03-17] MEDS: HumaLOG 300 UNITS/3 ML VIAL SC PRN (08:48)
--- NOTE | 2018-03-17 10:53 | PDOC.PN ---
- Subjective Encounter Start Date: 03/17/18 Encounter Start Time: 07:50 -: old records requested/rev Patient seen and examined. No new complaints. No overnight events - Objective Resuscitation Status - Order Detail: 03/16/18 13:12 Resuscitation Status Routine Resuscitation Status: FULL: Full Resuscitation MAR Reviewed: Yes Vital Signs & Weight: Vital Signs (12 hours) Temp Pulse Resp BP Pulse Ox 03/17/18 08:41 96.7 F L 74 18 115/65 98 03/17/18 06:51 62 16 03/17/18 06:39 62 16 03/17/18 03:50 97.6 F 62 14 130/68 97 03/17/18 00:27 85 18 98 Weight Weight 148 lb 6 oz I&O: 03/16/18 03/17/18 03/18/18 06:59 06:59 06:59 Intake Total 300 Balance 300 Result Diagrams: 03/17/18 05:24 03/17/18 05:24 Additional Labs: Accuchecks 03/17/18 03/16/18 03/16/18 05:27 20:19 13:23 POC Glucose 272 H 366 H 237 H EKG Reviewed by me: Yes (nsr) Phys Exam - Physical Examination Constitutional: NAD HEENT: PERRLA, moist MMs, sclera anicteric Neck: no JVD, supple Respiratory: no wheezing, no rales, no rhonchi Cardiovascular: RRR, no significant murmur, no rub Gastrointestinal: soft, non-tender, no distention, positive bowel sounds Musculoskeletal: no edema, pulses present toe gangrene noted Neurological: non-focal, normal sensation Lymphatic: no nodes Psychiatric: normal affect Skin: no rash, normal turgor Dx/Plan (1) Acute respiratory failure with hypoxemia Code(s): J96.01 - ACUTE RESPIRATORY FAILURE WITH HYPOXIA Status: Resolved (2) COPD exacerbation Code(s): J44.1 - CHRONIC OBSTRUCTIVE PULMONARY DISEASE W (ACUTE) EXACERBATION Status: Acute (3) Elevated troponin Code(s): R74.8 - ABNORMAL LEVELS OF OTHER SERUM ENZYMES Status: Acute (4) CAD (coronary artery disease) Code(s): I25.10 - ATHSCL HEART DISEASE OF [place] CORONARY ARTERY W/O ANG PCTRS Status: Chronic Qualifiers: Comment: (5) COPD (chronic obstructive pulmonary disease) Status: Chronic Qualifiers: Comment: (6) DM2 (diabetes mellitus, type 2) Status: Chronic Qualifiers: Comment: (7) Decubitus ulcer Code(s): L89.90 - PRESSURE ULCER OF UNSPECIFIED SITE, UNSPECIFIED STAGE Status : Chronic Qualifiers: Pressure injury location: sacral region Pressure injury stage: stage 3 Qualified Code(s): L89.153 - Pressure ulcer of sacral region, stage 3 Comment: present on admission (8) H/O: CVA (cerebrovascular accident) Code(s): Z86.73 - PRSNL HX OF TIA (TIA), AND CEREB INFRC W/O RESID DEFICITS Status: Chronic Comment: (9) HTN (hypertension) Code(s): I10 - ESSENTIAL (PRIMARY) HYPERTENSION Status: Chronic Qualifiers: (10) PVD (peripheral vascular disease) Code(s): I73.9 - PERIPHERAL VASCULAR DISEASE, UNSPECIFIED Status: Chronic - Plan cont current plan of care * cardiology consulted for abnormal troponin * if cardiology ok, will consider discharge * continue his antibiotics at longterm * continue wound care * prognosis is poor * medication reviewed as below * symptomatic treatment. Review of Systems - Review of Systems ENT: negative: Ear Pain, Ear Discharge, Nose Pain, Nose Discharge, Nose Congestion, Mouth Pain, Mouth Swelling, Throat Pain, Throat Swelling, Other Respiratory: negative: Cough, Dry, Shortness of Breath, Hemoptysis, SOB with Excertion, Pleuritic Pain, Sputum, Wheezing Cardiovascular: negative: chest pain, palpitations, orthopnea, paroxysmal nocturnal dyspnea, edema, light headedness, other Gastrointestinal: negative: Nausea, Vomiting, Abdominal Pain, Diarrhea, Constipation, Melena, Hematochezia, Other Genitourinary: negative: Dysuria, Frequency, Incontinence, Hematuria, Retention , Other Musculoskeletal: negative: Neck Pain, Shoulder Pain, Arm Pain, Back Pain, Hand Pain, Leg Pain, Foot Pain, Other - Medications/Allergies Allergies/Adverse Reactions: Allergies Allergy/AdvReac Type Severity Reaction Status Date / Time codeine Allergy "MAKES ME Verified 03/16/18 17:23 JITTERY" Medications: Current Medications Acetaminophen (Tylenol) 650 mg PO Q4H PRN PRN Reason: Headache/Fever/Mild Pain (1-3) Albuterol/Ipratropium (Duoneb) 3 ml NEB [id number] [facility] Last Admin: 03/17/18 06:39 Dose: 3 ml Arformoterol Tartrate (Brovana) 15 mcg NEB BID-RT [facility] Last Admin: 03/17/18 06:51 Dose: 15 mcg Artificial Tears (Tears Naturale) 2 drop EA EYE PRN PRN PRN Reason: Dry Eyes Bisacodyl (Dulcolax) 10 mg [place] DAILYPRN PRN PRN Reason: Constipation Bisacodyl (Dulcolax) 10 mg PO DAILYPRN PRN PRN Reason: Constipation Budesonide (Pulmicort Neb Solution) 0.5 mg INH BID-RT [facility] Last Admin: 03/17/18 06:39 Dose: 0.5 mg Calcium Carbonate (Tums) 1,000 mg PO Q4H PRN PRN Reason: Heartburn or Indigestion Carvedilol (Coreg) 6.25 mg PO BID-WM [facility] Last Admin: 03/17/18 08:42 Dose: 6.25 mg Clopidogrel Bisulfate (Plavix) 75 mg PO DAILY [facility] Last Admin: 03/17/18 08:46 Dose: 75 mg Dextrose/Water (Dextrose 50%) 25 gm SLOW IVP PRN PRN PRN Reason: Hypoglycemia Donepezil HCl (Aricept) 5 mg PO HS [facility] Last Admin: 03/16/18 21:31 Dose: 5 mg Glucagon (Glucagon) 1 mg IM PRN PRN PRN Reason: Hypoglycemia Guaifenesin (Robitussin Sf) 200 mg PO Q4H PRN PRN Reason: Cough Hydralazine HCl (Apresoline) 10 mg SLOW IVP Q4H PRN PRN Reason: SBP > 180 and HR < 70 Ceftriaxone Sodium 2 gm/ (Sodium Chloride) 100 mls @ 200 mls/hr IVPB Q24HR [facility] Last Admin: 03/16/18 17:42 Dose: 100 mls Insulin Glargine 7 units/ (Miscellaneous Medication) 0.07 mls @ 0 mls/hr SC HS [facility] Last Admin: 03/16/18 21:41 Dose: 0.07 mls Insulin Glargine 12 units/ (Miscellaneous Medication) 0.12 mls @ 0 mls/hr SC QAM [facility] Last Admin: 03/17/18 08:46 Dose: 0.12 mls Dextrose/Water (D5w) 1,000 mls @ 0 mls/hr IV .Q0M PRN PRN Reason: Hypoglycemia Vancomycin HCl 1 gm/ Device 200 mls @ 200 mls/hr IVPB 1000,2200 [facility] Last Admin: 03/16/18 21:59 Dose: 200 mls Insulin Human Lispro (Humalog) 0 units SC .MODERATE SLIDING SC PRN PRN Reason: Moderate Correctional Scale Last Admin: 03/17/18 08:48 Dose: 6 unit Insulin Human Lispro (Humalog) 0 units SC .BEDTIME SLIDING SC PRN PRN Reason: Bedtime Correctional Scale Last Admin: 03/16/18 21:30 Dose: 5 unit Mineral Oil/White Petrolatum (Eucerin Cream) 0 gm TOP BIDPRN PRN PRN Reason: Dry Skin Miscellaneous Medication (Pharmacy To Dose) 1 each IVPB PRN PRN PRN Reason: Pharmacy to dose:VANCOMYCIN Nitroglycerin (Nitrostat) 0.4 mg SL Q5MIN PRN PRN Reason: Chest Pain Ondansetron HCl (Zofran Odt) 4 mg PO Q6H PRN PRN Reason: Nausea/Vomiting Ondansetron HCl (Zofran) 4 mg IVP Q6H PRN PRN Reason: Nausea/Vomiting Pantoprazole Sodium (Protonix) 40 mg PO DAILY [facility] Last Admin: 03/17/18 08:47 Dose: 40 mg Saccharomyces Boulardii (Florastor) 250 mg PO DAILY [facility] Last Admin: 03/17/18 08:48 Dose: 250 mg Senna/Docusate Sodium (Senokot S) 2 tab PO BIDPRN PRN PRN Reason: Constipation Simvastatin (Zocor) 40 mg PO HS [facility] Last Admin: 03/16/18 21:31 Dose: 40 mg Sodium Chloride ([place] Nasal [place] 0.65%) 0 ml EA NARE QIDPRN PRN PRN Reason: Nasal Congestion Tamsulosin HCl (Flomax) 0.4 mg PO DAILY [facility] Last Admin: 03/17/18 08:46 Dose: 0.4 mg Throat Lozenges (Cepastat Lozenges) 1 lindsay PO Q2H PRN PRN Reason: Sore Throat
[2018-03-17] MEDS: Vancomycin HCl 1 GM in Premix Bag 1 BAG IVPB SCH ×2 (11:00→21:36)
[2018-03-17] MEDS: cefTRIAXone\\ROCEPHIN 2 GM in Sodium Chloride 0.9% 100 ML IVPB SCH (15:37)
[2018-03-17 21:16] LABS: Vancomycin, Trough 23.7 ug/mL
[2018-03-17] MEDS: Simvastatin 40 MG TAB PO SCH (21:35)
[2018-03-17] MEDS: Donepezil HCl 5 MG TAB PO SCH (21:35)
[2018-03-17] MEDS: Insulin Glargine 7 UNITS in Pre-Filled Syringe 1 EACH SC SCH (21:35)
[2018-03-18] MEDS: Budesonide 0.5 MG/2 ML NEB INH SCH ×2 (07:33→15:12)
[2018-03-18] MEDS: Arformoterol 15 MCG/2 ML NEB NEB SCH ×2 (07:47→15:28)
[2018-03-18] MEDS: Clopidogrel Bisulfate 75 MG TAB PO SCH (08:55)
[2018-03-18] MEDS: Carvedilol 6.25 MG TAB PO SCH (08:55)
[2018-03-18] MEDS: Tamsulosin HCl 0.4 MG CAP PO SCH (08:55)
[2018-03-18] MEDS: Saccharomyces boulardii 250 MG CAP PO SCH (08:55)
[2018-03-18] MEDS: Insulin Glargine 12 UNITS in Pre-Filled Syringe 1 EACH SC SCH (08:56)
[2018-03-18] MEDS ORDERED: Vancomycin HCl 750 MG in Sodium Chloride 0.9% 250 ML 250 ML IVPB SCH (10:00)
--- NOTE | 2018-03-18 11:38 | PDOC.PN ---
- Subjective Encounter Start Date: 03/18/18 Encounter Start Time: 07:15 Patient seen and examined. No new complaints. No overnight events - Objective Resuscitation Status - Order Detail: 03/16/18 13:12 Resuscitation Status Routine Resuscitation Status: FULL: Full Resuscitation MAR Reviewed: Yes Vital Signs & Weight: Vital Signs (12 hours) Temp Pulse Resp BP BP Pulse Ox 03/18/18 08:46 98.8 F 61 18 134/88 100 03/18/18 07:50 98.8 F 61 18 134/88 03/18/18 07:47 63 16 03/18/18 07:33 63 16 03/18/18 04:00 97.5 F L 63 18 129/70 94 L 03/18/18 00:18 72 20 92 L Weight Admit Weight 148 lb 6 oz Weight 148 lb 6 oz I&O: 03/17/18 03/18/18 03/19/18 06:59 06:59 06:59 Intake Total 300 1840 300 Balance 300 1840 300 Result Diagrams: 03/17/18 05:24 03/17/18 05:24 Additional Labs: Accuchecks 03/18/18 03/18/18 03/17/18 11:04 05:54 20:31 POC Glucose 194 H 116 H 168 H 03/17/18 16:55 POC Glucose 152 H EKG Reviewed by me: Yes Phys Exam - Physical Examination Constitutional: NAD HEENT: PERRLA, moist MMs, sclera anicteric Neck: no JVD, supple Respiratory: no wheezing, no rales, no rhonchi Cardiovascular: RRR, no significant murmur, no rub Gastrointestinal: soft, non-tender, no distention, positive bowel sounds Musculoskeletal: no edema, pulses present Lymphatic: no nodes Psychiatric: normal affect Skin: no rash, normal turgor Dx/Plan (1) Acute respiratory failure with hypoxemia Code(s): J96.01 - ACUTE RESPIRATORY FAILURE WITH HYPOXIA Status: Resolved (2) COPD exacerbation Code(s): J44.1 - CHRONIC OBSTRUCTIVE PULMONARY DISEASE W (ACUTE) EXACERBATION Status: Acute (3) Elevated troponin Code(s): R74.8 - ABNORMAL LEVELS OF OTHER SERUM ENZYMES Status: Acute (4) CAD (coronary artery disease) Code(s): I25.10 - ATHSCL HEART DISEASE OF [place] CORONARY ARTERY W/O ANG PCTRS Status: Chronic Qualifiers: Comment: (5) COPD (chronic obstructive pulmonary disease) Status: Chronic Qualifiers: Comment: (6) DM2 (diabetes mellitus, type 2) Status: Chronic Qualifiers: Comment: (7) Decubitus ulcer Code(s): L89.90 - PRESSURE ULCER OF UNSPECIFIED SITE, UNSPECIFIED STAGE Status : Chronic Qualifiers: Pressure injury location: sacral region Pressure injury stage: stage 3 Qualified Code(s): L89.153 - Pressure ulcer of sacral region, stage 3 Comment: present on admission (8) H/O: CVA (cerebrovascular accident) Code(s): Z86.73 - PRSNL HX OF TIA (TIA), AND CEREB INFRC W/O RESID DEFICITS Status: Chronic Comment: (9) HTN (hypertension) Code(s): I10 - ESSENTIAL (PRIMARY) HYPERTENSION Status: Chronic Qualifiers: (10) PVD (peripheral vascular disease) Code(s): I73.9 - PERIPHERAL VASCULAR DISEASE, UNSPECIFIED Status: Chronic - Plan cont current plan of care * continue current treatment * cardiology to see * medication reviewed as below * symptomatic treatment. Review of Systems - Review of Systems ENT: negative: Ear Pain, Ear Discharge, Nose Pain, Nose Discharge, Nose Congestion, Mouth Pain, Mouth Swelling, Throat Pain, Throat Swelling, Other Respiratory: negative: Cough, Dry, Shortness of Breath, Hemoptysis, SOB with Excertion, Pleuritic Pain, Sputum, Wheezing Cardiovascular: negative: chest pain, palpitations, orthopnea, paroxysmal nocturnal dyspnea, edema, light headedness, other Gastrointestinal: negative: Nausea, Vomiting, Abdominal Pain, Diarrhea, Constipation, Melena, Hematochezia, Other Genitourinary: negative: Dysuria, Frequency, Incontinence, Hematuria, Retention , Other Musculoskeletal: negative: Neck Pain, Shoulder Pain, Arm Pain, Back Pain, Hand Pain, Leg Pain, Foot Pain, Other Skin: negative: Rash, Lesions, Johnny, Bruising, Other Other: not reliable - Medications/Allergies Allergies/Adverse Reactions: Allergies Allergy/AdvReac Type Severity Reaction Status Date / Time codeine Allergy "MAKES ME Verified 03/16/18 17:23 JITTERY" Medications: Current Medications Acetaminophen (Tylenol) 650 mg PO Q4H PRN PRN Reason: Headache/Fever/Mild Pain (1-3) Albuterol/Ipratropium (Duoneb) 3 ml NEB [id number] [facility] Last Admin: 03/18/18 07:33 Dose: 3 ml Arformoterol Tartrate (Brovana) 15 mcg NEB BID-RT [facility] Last Admin: 03/18/18 07:47 Dose: 15 mcg Artificial Tears (Tears Naturale) 2 drop EA EYE PRN PRN PRN Reason: Dry Eyes Bisacodyl (Dulcolax) 10 mg [place] DAILYPRN PRN PRN Reason: Constipation Bisacodyl (Dulcolax) 10 mg PO DAILYPRN PRN PRN Reason: Constipation Budesonide (Pulmicort Neb Solution) 0.5 mg INH BID-RT [facility] Last Admin: 03/18/18 07:33 Dose: 0.5 mg Calcium Carbonate (Tums) 1,000 mg PO Q4H PRN PRN Reason: Heartburn or Indigestion Carvedilol (Coreg) 6.25 mg PO BID-WM [facility] Last Admin: 03/18/18 08:55 Dose: 6.25 mg Clopidogrel Bisulfate (Plavix) 75 mg PO DAILY [facility] Last Admin: 03/18/18 08:55 Dose: 75 mg Dextrose/Water (Dextrose 50%) 25 gm SLOW IVP PRN PRN PRN Reason: Hypoglycemia Donepezil HCl (Aricept) 5 mg PO [facility] Last Admin: 03/17/18 21:35 Dose: 5 mg Glucagon (Glucagon) 1 mg IM PRN PRN PRN Reason: Hypoglycemia Guaifenesin (Robitussin Sf) 200 mg PO Q4H PRN PRN Reason: Cough Last Admin: 03/17/18 14:00 Dose: 200 mg Hydralazine HCl (Apresoline) 10 mg SLOW IVP Q4H PRN PRN Reason: SBP > 180 and HR < 70 Ceftriaxone Sodium 2 gm/ (Sodium Chloride) 100 mls @ 200 mls/hr IVPB Q24HR [facility] Last Admin: 03/17/18 15:37 Dose: 100 mls Insulin Glargine 7 units/ (Miscellaneous Medication) 0.07 mls @ 0 mls/hr SC HS [facility] Last Admin: 03/17/18 21:35 Dose: 0.07 mls Insulin Glargine 12 units/ (Miscellaneous Medication) 0.12 mls @ 0 mls/hr SC QAM [facility] Last Admin: 03/18/18 08:56 Dose: 0.12 mls Dextrose/Water (D5w) 1,000 mls @ 0 mls/hr IV .Q0M PRN PRN Reason: Hypoglycemia Vancomycin HCl 750 mg/ Sodium (Chloride) 250 mls @ 250 mls/hr IVPB 1000,2200 [facility] Insulin Human Lispro (Humalog) 0 units SC .MODERATE SLIDING SC PRN PRN Reason: Moderate Correctional Scale Last Admin: 03/17/18 08:48 Dose: 6 unit Insulin Human Lispro (Humalog) 0 units SC .BEDTIME SLIDING SC PRN PRN Reason: Bedtime Correctional Scale Last Admin: 03/16/18 21:30 Dose: 5 unit Mineral Oil/White Petrolatum (Eucerin Cream) 0 gm TOP BIDPRN PRN PRN Reason: Dry Skin Miscellaneous Medication (Pharmacy To Dose) 1 each IVPB PRN PRN PRN Reason: Pharmacy to dose:VANCOMYCIN Nitroglycerin (Nitrostat) 0.4 mg SL Q5MIN PRN PRN Reason: Chest Pain Ondansetron HCl (Zofran Odt) 4 mg PO Q6H PRN PRN Reason: Nausea/Vomiting Ondansetron HCl (Zofran) 4 mg IVP Q6H PRN PRN Reason: Nausea/Vomiting Pantoprazole Sodium (Protonix) 40 mg PO DAILY [facility] Last Admin: 03/18/18 09:18 Dose: Not Given Saccharomyces Boulardii (Florastor) 250 mg PO DAILY [facility] Last Admin: 03/18/18 08:55 Dose: 250 mg Senna/Docusate Sodium (Senokot S) 2 tab PO BIDPRN PRN PRN Reason: Constipation Simvastatin (Zocor) 40 mg PO HS [facility] Last Admin: 03/17/18 21:35 Dose: 40 mg Sodium Chloride ([place] Nasal [place] 0.65%) 0 ml EA NARE QIDPRN PRN PRN Reason: Nasal Congestion Tamsulosin HCl (Flomax) 0.4 mg PO DAILY [facility] Last Admin: 03/18/18 08:55 Dose: 0.4 mg Throat Lozenges (Cepastat Lozenges) 1 lindsay PO Q2H PRN PRN Reason: Sore Throat
--- NOTE | 2018-03-18 11:47 | PDOC.CTH ---
Cardiology Progress Note - Subjective Patient lying in bed. Daughter at bedside. States he's more confused today. Patient denies CP. Denies new SOB. - Objective Vital Signs Temp Pulse Resp BP BP Pulse Ox 03/18/18 08:46 98.8 F 61 18 134/88 100 03/18/18 07:50 98.8 F 61 18 134/88 03/18/18 07:47 63 16 03/18/18 07:33 63 16 03/18/18 04:00 97.5 F L 63 18 129/70 94 L 03/18/18 00:18 72 20 92 L Admit Weight 148 lb 6 oz Weight 148 lb 6 oz 03/17/18 03/18/18 03/19/18 06:59 06:59 06:59 Intake Total 300 1840 300 Balance 300 1840 300 - Physical Examination General/Neuro: alert & oriented x3 Neck: no JVD present Lungs: other: (Bilateral wheeze) Heart: RRR, other: Abdomen: NT/ND Extremities: other: (no edema) - Telemetry Telemetry Rhythm: SR - Labs Result Diagrams: 03/17/18 05:24 03/17/18 05:24 Troponin/CKMB CK-MB (CK-2) 5.1 ng/mL (0-6.6) 03/16/18 13:39 Troponin I 0.596 ng/mL (< 0.028) H* 03/16/18 15:36 - Assessment/Plan 1. Elevated Trop 2. COPD exacerbation 3. History of CAD s/p CABG 4. History of severe PAD 5. Dementia 6. Decubitus Ulcer 7. Hx CVA Patient without complaints, but demented. Discussed cardiac care with daughter. Given advanced age, dementia and multiple comorbidities, with acute EKG changes or emergency would suggest observation only at this time. Treat infection per primary team. She states patient more confused today. I am unsure of baseline status. 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 Pt seen and examined. Agree with above. Pt awaiting placement. Will be going today. They would like to discuss other options on revascularization with Dr. Kunz and Dr. Roblero
[2018-03-18] MEDS: HumaLOG 300 UNITS/3 ML VIAL SC PRN (12:07)
--- NOTE | 2018-03-18 12:32 | DIS ---
DATE OF ADMISSION: 03/16/2018 DATE OF DISCHARGE: 03/18/2018 PRIMARY CARE PHYSICIAN: Ja Mendoza MD DISCHARGE DISPOSITION: alf home. PRIMARY DISCHARGE DIAGNOSES: Chronic obstructive pulmonary disease exacerbation; elevated troponin due to demand ischemia; acute respiratory failure on admission, resolved. SECONDARY DISCHARGE DIAGNOSES: Peripheral vascular disease, dry gangrene of toe, hypertension, history of cerebrovascular accident, diabetes type 2; decubitus ulcer, stage 3; chronic obstructive pulmonary disease, coronary artery disease, physical deconditioning, dementia. PRIMARY PROCEDURE/OPERATION: None. RADIOLOGICAL INVESTIGATION: Chest x-ray normal. SIGNIFICANT LABORATORY DATA: Hemoglobin 11.0, creatinine 0.84. Troponin 0.596. BNP 287. CRP less than 0.5. Urinalysis normal. Blood culture negative. Influenza negative. DISCHARGE MEDICATIONS: 1. Brovana 15 mcg nebulization b.i.d. 2. Vitamin C 500 mg p.o. daily. 3. DuoNeb q.6 hourly. 4. Budesonide 0.25 mg b.i.d. 5. Coreg 6.25 mg b.i.d. 6. Rocephin 2 g IV daily. 7. Aricept 5 mg p.o. at bedtime. 8. Mucinex 600 mg b.i.d. 9. capsule b.i.d. 10. Levemir 12 units subcu daily. 11. DuoNeb q.6 hourly. 12. Levemir 7 units subcu bedtime. 13. Claritin 10 mg daily. 14. Flagyl 500 mg t.i.d. 15. Multivitamin 1 tablet daily. 16. Omeprazole 20 mg daily. 17. MiraLAX 17 g p.o. daily. 18. Zocor 40 mg p.o. at bedtime. 19. Flomax 0.4 mg p.o. at bedtime. 20. Vancomycin q.12 hourly. 21. Zinc sulfate 220 mg p.o. daily. 22. Amlodipine 5 mg daily. 23. Plavix 75 mg daily. 24. Aspirin 81 mg daily. 25. Tylenol 500 mg q.4 hourly p.r.n. 26. Tums 500 mg p.o. q.6 hourly p.r.n. 27. Mucinex 10 mL p.o. q.8 hourly p.r.n. 28. Voltaren topical application p.r.n. 29. Albuterol nebulization q.6 hourly. 30. NovoLog insulin as per sliding scale. CONTRAINDICATION: None. CODE STATUS: Full code. INPATIENT PIGMENT PROCESSOR: Cardiology. TEST RESULT PENDING ON DISCHARGE: None. ALLERGIES: CODEINE. DISCHARGE PLAN: Posthospital, the patient is discharged back to [facility]. HOSPITAL COURSE: A 72-year-old male, who has severe peripheral vascular disease. He has bedsore stage 4 on sacrum as well as dry gangrene on toe secondary to peripheral vascular disease. He is getting IV Rocephin and vancomycin as per Dr. Howe' guidance. Over there at [facility], he had acute hypoxia and shortness of breath. He was transferred to hospital. He was treated with Solu-Medrol and DuoNeb therapy with the significant and rapid improvement. His troponin was elevated, that is why Cardiology was consulted. While in hospital, we treated him with respiratory therapy with clinical improvement. Wound Care team was following while in hospital. Cardiology did not have any new recommendation for him. I spoke with the family member, and we decided that the patient should go back to [facility] to finish the antibiotic therapy and wound care. Paperwork for discharge done. Discharge medication reconciliation done. Job ID: [id number]
[2018-03-18 13:56] VITALS: BP 123/66
[2018-03-18] MEDS: cefTRIAXone\\ROCEPHIN 2 GM in Sodium Chloride 0.9% 100 ML IVPB SCH (16:00)
[2018-03-18 16:14] VITALS: TEMP 99.9
--- NOTE | 2018-03-20 01:39 | CON ---
DATE OF CONSULTATION: PRIMARY CARE DOCTOR: Ja Mendoza MD. PRIMARY URBAN PLANNING PROFESSOR: Cinthya Roblero MD. REASON FOR CARDIOLOGY CONSULT: Elevated troponin. HISTORY OF PRESENT ILLNESS: Mr. Burdick is a very pleasant 72-year-old male with a significant history of hemorrhagic CVA and TIA in August 2015; coronary artery disease with status post CABG x1 in 2001 and redo CABG x3 in 2013; diabetes; and peripheral vascular disease with wound to the coccyx area and right lower extremity. Right now, he is a resident at the long-term in [place]. The patient was found to have worsening shortness of breath with wheezing and O2 saturation was in the 70s to 90s with room air and temperature 100.3, and the patient was also lethargic and slow to respond. Due to those symptoms, the staff member at the long-term called the ambulance and the patient was transferred to the emergency department for further evaluation and treatment. After the patient received the breathing treatment at the ER, the patient's breathing status has improved. He is no longer on the BiPAP. He is on nasal cannula at this moment. The patient's family member reports that his primary care doctor started Vascepa a few weeks ago which possibly made the patient's decrease at the long-term, so the medication was stopped since then a couple of days ago. The patient was in the hospital in January due to aspiration pneumonia. He is on thickened liquids at this moment. At this moment, the patient's information was obtained from the patient's family member at the bedside and the patient's medical record due to the dementia. However, at this time the patient denied any chest pain or discomfort or any other cardiac complaints. The patient had an echocardiogram done in January 2018, which showed an EF of 50% to 55%, mild , trace mitral valve regurgitation, mild aortic valve regurgitation, mild tricuspid regurgitation, and [id number] pulmonic valve regurgitation. The patient underwent CABG x1 with REYES to LAD in March 2001. The patient also underwent redo CABG x3 in September 2013 with SV to PDA, SV to PL branch, and SV to OM1. The patient had a significant history of PAD with status post right second toe amputation in February [address] Watts. He has been on Plavix and aspirin. The patient has seen Dr. Kunz a couple of weeks ago as an outpatient for seeking an opinion about amputation or continuous medical treatment to his right lower extremity wounds. The patient was told by Dr. Kunz that the patient can have amputation to eliminate the infection site at this time. PAST MEDICAL HISTORY: 1. Coronary artery disease. 2. Diabetes. 3. Hypertension. 4. Hyperlipidemia. 5. Peripheral artery disease with wound. 6. COPD. 7. Hemorrhagic CVA and TIA in 2016 and pressure ulcer at the coccyx area and wound to the right lower extremity. PAST SURGICAL HISTORY: CABG x1 in 2001, redo CABG x3 in 2013, right second toe amputation in 2017, back surgery, cholecystectomy, and right femoral fracture repair in 1989. FAMILY HISTORY: The patient's both parents had a history of heart problem. The patient's son has a history of diabetes. SOCIAL HISTORY: The patient is living in a long-term in [place]. He is an ex-smoker who quit a long time ago. Family member denied that he has any EtOH or illicit drug abuse. Due to the history of CVA, he is struggling speaking. Right now, he drinks thickened liquid diet due to the history of aspiration pneumonia in January 2018. ALLERGIES: HE IS ALLERGIC TO CODEINE AND CEPHALOSPORIN. REVIEW OF SYSTEMS: Due to dementia, the patient cannot give all good review of systems at this moment. However, the family member reports that she has not heard anything about blood in the stool or urine or any abnormality from the staff from long-term. He is on a protein shake and thickened liquid diet at this moment and he is not ambulatory, he uses a wheelchair. PHYSICAL EXAMINATION: VITAL SIGNS: Blood pressure 127/58, temperature 97.6, pulse is 60, sinus rhythm, respiratory rate 18, and O2 saturation 95% with 2 L nasal cannula. GENERAL: The patient is alert, eating well the lunch, but right after he finished his lunch, he is really lethargic, he did fall asleep. He is confused. HEENT: Head, normocephalic and atraumatic. Eyes, extraocular muscle movement intact. He wears glasses. ENT and mouth, oral and nasal mucosa moist without lesion. NECK: Supple. Normal range of motion. No JVD. RESPIRATORY: Really coarse to upper chest, but no wheezing, rale, or rhonchi noted in the bases, but diminished. CARDIOVASCULAR: Regular rate and rhythm. Normal S1, S2. There are no S3 or S4. No significant murmur, heaves, or thrill noted. 2+ pulses in bilateral upper extremities and 1+ pulses in the left lower extremity. Unable to palpate pulses to the right popliteal area. ABDOMEN: Soft, nontender. No mass to palpate. SKIN: Warm and dry at the upper extremities. There are wounds to the right lower, around the toes; however, it is unable to visualize due to the dressing, which was changed today. The patient supposed to have a coccyx ulcer, however, the patient refused, at this moment, they were not visualized well. MUSCULOSKELETAL: The patient is able to move upper extremities; the patient able to wiggle his toes, but limited range of motion. NEUROLOGIC: The patient is awake and alert, but confused about the date, situation, nonfocal, but very lethargic. He did fall asleep during the interview. PSYCHIATRIC: The patient's mood is appropriate. DIAGNOSTIC STUDIES: A 12-lead EKG at the ER showed sinus rhythm with heart rate 97, no ST-segment change. T-wave inversion to V1 through V3. Chest x-ray shows no acute cardiopulmonary finding. LABORATORY DATA: WBC is 5.1, hemoglobin 11.0, hematocrit 35.8, and platelets 142. Sodium 141, potassium 4.1, BUN 32, creatinine 0.84, and glucose 281. Troponin 0.080, 0.486, and 0.596. BNP 287. CK-MB 2.2. ASSESSMENT AND PLAN: 1. Elevated troponin, indeterminate troponin level. The patient's 12-lead EKG did not show any abnormalities and the patient denied any cardiac complaints at this moment. He is coughing very very hard at this moment. The patient's echocardiogram in January 2018 showed EF of 50% to 55% with mild regurgitations of the valve. The patient's elevated troponin level was possibly due to the demand ischemia. We would like to continue to monitor the patient's condition at this moment. 2. Coronary artery disease with a history of CABG and a redo CABG in 2013. The patient's condition is stable at this moment. We would like to monitor on the telemetry. He is on beta blockers, Zocor, and Plavix 75 mg once a day. 3. Acute respiratory failure, possibly secondary to chronic obstructive pulmonary disease exacerbation. The patient's condition is stable at this moment, except the patient still has the strong cough at this moment. We would like to continue to monitor. 4. Chronic wound infection to right toes and coccygeal ulcer. He is on antibiotic at this moment. His WBC is stable. He does not have any temperature at this moment. We would like to defer his management to the primary care doctor and Dr. Howe. 5. Peripheral artery disease. The patient's family is considering a second opinion whether the patient is going to need to have amputation or continued medical treatment. 6. Hypertension. Blood pressure is stable at this moment. We would like to continue current medication. 7. Diabetes, type 2, managed by the primary care doctor. 8. History of hemorrhagic cerebrovascular accident and transient ischemic attack in August 2015, unchanged from the last office visit at Dr. Roblero' office. 9. Alzheimer dementia. The patient is on Aricept, which is managed by primary care doctor. Thank you for allowing the Cardiology Service to participate in the care of this patient. We will follow along the patient's care team and make further evaluation as appropriate. Job ID: [id number]
--- NOTE | 2018-03-20 08:46 | CON ---
DATE OF CONSULTATION: 03/17/2018 ADDENDUM: CARDIOLOGY CONSULT NOTE INDICATION FOR CONSULTATION/HISTORY OF PRESENT ILLNESS: A 72-year-old with a long history of coronary artery disease, peripheral vascular disease, status post CVA with severe peripheral vascular disease and diabetes. He was admitted due to fever and apparently some shortness of breath. He [facility]. He was given some DuoNeb treatments and beta-blockers and appears to be doing much better now. He has been on antibiotics for quite some time due to a nonhealing ulcerations of the right lower extremity. On the feet, he has also had some amputations previously to the toe area and has nonhealing ulcerations of the toes on the right foot and has been advised that he undergo an amputation. However, the family has not been agreeable with this and the patient does reside either in a wheelchair or in a bed and is unable to ambulate either due to overall generalized weakness, dementia, and also due to the peripheral vascular disease and the ulcerations on the feet. At this time, we were asked to see him due to his history of shortness of breath and his coronary artery disease. At this time, the coronary artery disease appears to be stable. He did have slight increase in his cardiac enzymes, which most likely is demand ischemia. He is not a very good candidate to undergo any further intervention or cardiac catheterization. He has dementia and has been relatively comfortable. His cardiac enzymes showed a troponin I of 0.08, which is increased up to 0.59. This may be demand ischemia associated with increased shortness of breath. He appears to have some pneumonia or bronchitis. He does have coarse expiratory wheezing and some coarse rhonchi, but otherwise appears to be very comfortable at this time. As far as his past medical history, social history, family history, review of systems, medications, and allergies, please refer to the notes already dictated by my nurse practitioner. PHYSICAL EXAMINATION: GENERAL: Reveals a well-developed, well-nourished, elderly gentleman, who is in no acute distress at this time. He is alert. He seems to know who I am. VITAL SIGNS: Stable. His blood pressure is 127/58, heart rate is 60 and shows a sinus rhythm, he is afebrile, respiratory rate 16, and O2 saturations 94%. HEENT: Shows head to be normocephalic and atraumatic. NECK: Carotid pulses are present. LUNGS: I did not hear any gross bruits at this time, but he does have upper airway noise. His chest has bilateral expiratory wheezing. He did have some slight rales and rhonchi at this time. He has occasional cough. CARDIOVASCULAR: Reveals a regular rate and rhythm. He has a very soft systolic murmur at the upper sternal border also at the apex. ABDOMEN: Soft and nontender. Positive bowel sounds are present and did not elicit any significant masses. EXTREMITIES: Show no clubbing or cyanosis. He does not have any edema. He does have a wrap on the right foot with decubitus ulcers. He also has a coccyx ulcer noted on the lower extremities, probably on the back area at the coccyx area, which has been placed. DuoDERM has been placed there. Also, he has the feet wrapped in a wrap due to the ulcerations. IMAGING DATA: His EKG shows a normal sinus rhythm. Chest x-ray is relatively unremarkable. LABORATORY DATA: Shows a WBC of 5.1, hemoglobin of 11. His BUN was 32, creatinine of 0.84. Blood sugar has gone from 368 down to 92, potassium is 4.1. IMPRESSION: 1. Chronic obstructive pulmonary disease exacerbation. I believe he has been negative for influenza. He has been given therapy with antibiotics as well as DuoNeb and it seems to have improved. He still has some expiratory wheezing and some rhonchi. He is already taking antibiotics and we will defer this to the primary care physicians. 2. History of coronary artery disease. This appears to be stable at this time despite having a slight increase in the cardiac enzymes. I suspect this is demand ischemia. He is not a candidate to undergo cardiac catheterization. There will be medical management. 3. History of severe peripheral vascular disease and chronic ulcerations of lower extremity. Most likely, eventually he will need to undergo amputation of the right lower extremity below the knee perhaps even above-knee amputation. I have explained this to the family, but otherwise he may eventually become septic from the areas or develop gangrene. He does not appear to have any significant discomfort at this time unless it is manipulated. 4. Diabetes, will be dealt with the Primary Care Service. 5. Dementia. This also plays a role in this patient, but otherwise he appears to be comfortable and is very pleasant. We are more than happy to continue to follow the patient with you, but overall cardiac status at this time appears to be stable for this patient. Job ID: [id number]
== END 2018-03-18 17:10 ==
LOC: ERS 07:33 → ERHOLD 13:45 → 2NO 16:40
PROVIDERS: ADMIT Internal Medicine; ATTEND Internal Medicine
DX: J44.1 Chronic obstructive pulmonary disease with (acute) exacerbation (principal); J96.01 Acute respiratory failure with hypoxia; E11.52 Type 2 diabetes mellitus with diabetic peripheral angiopathy with gangrene; I96 Gangrene, not elsewhere classified; L89.153 Pressure ulcer of sacral region, stage 3; I25.10 Atherosclerotic heart disease of native coronary artery without angina pectoris; I24.8 Other forms of acute ischemic heart disease; G30.9 Alzheimer's disease, unspecified; F02.80 Dementia in other diseases classified elsewhere, unspecified severity, without behavioral disturbance, psychotic disturbance, mood disturbance, and anxiety; I10 Essential (primary) hypertension; E78.5 Hyperlipidemia, unspecified; K21.9 Gastro-esophageal reflux disease without esophagitis; A41.9 Sepsis, unspecified organism; E66.9 Obesity, unspecified; Z68.21 Body mass index [BMI] 21.0-21.9, adult; G47.33 Obstructive sleep apnea (adult) (pediatric); Z99.89 Dependence on other enabling machines and devices; N40.0 Benign prostatic hyperplasia without lower urinary tract symptoms; Z95.1 Presence of aortocoronary bypass graft; Z87.891 Personal history of nicotine dependence; Z98.1 Arthrodesis status; Z88.1 Allergy status to other antibiotic agents; Z88.8 Allergy status to other drugs, medicaments and biological substances; Z86.73 Personal history of transient ischemic attack (TIA), and cerebral infarction without residual deficits; Z89.421 Acquired absence of other right toe(s); Z90.49 Acquired absence of other specified parts of digestive tract; Z79.4 Long term (current) use of insulin; Z79.2 Long term (current) use of antibiotics; Z79.02 Long term (current) use of antithrombotics/antiplatelets; Z79.82 Long term (current) use of aspirin; Z79.899 Other long term (current) drug therapy; Z98.890 Other specified postprocedural states
CPT/HCPCS: 51701; 71045; 80048; 80053; 80202; 81003; 82550; 82553; 82962 ×3; 83605; 83735; 83880; 84484 ×2; 85025 ×2; 86140; 87040; 87081; 87804 ×2; 93005; 94640 ×4; 96365; 96366 ×3; 96367; 97139 ×2; 99285; G0378 ×2; 36415; 36416; J0696; J1825; J1956; J3370; J7050; J7620; J7626

== ENCOUNTER 2018-04-03 09:25 | Outpatient (CLI) | payer MEDICARE, OTHER ==
--- NOTE | 2018-04-05 16:35 | RAD ---
MODIFIED BARIUM SWALLOW IN THE PRESENCE OF THE SPEECH PATHOLOGIST: HISTORY: Dysphagia following cerebral infarction. COMPARISON: None. FINDINGS: In the presence of a speech pathologist, the patient was administered puree, nectar-thick, thin liqui d, mechanical soft consistency. There is evidence of free spillage. There is residue in the vallecu la. No definite penetration or aspiration. IMPRESSION: Premature spillage. No definite penetration or aspiration. CODE T POS: ОЛЕГ
== END 2018-04-03 09:26 | disposition home or self-care (01) ==
PROVIDERS: ATTEND Family Medicine
DX: I69.391 Dysphagia following cerebral infarction (principal)
CPT/HCPCS: 74230

== ENCOUNTER 2018-04-09 06:54 | Emergency (ER) | payer MEDICARE, OTHER ==
--- NOTE | 2018-04-09 12:26 | SPC ---
LEFT UPPER EXTREMITY PICC LINE WITH ULTRASOUND GUIDANCE: HISTORY: Foot infection. COMPARISON: None. EXPOSURE: 0.3 minutes. 2238 mGy*^cm2. FINDINGS: Successful left upper extremity PICC line placement. Distal tip is in the superior vena cava. Trim length is 39 cm. Both lumen flush and aspirate without difficulty. TECHNIQUE: Consent was obtained to perform a left upper extremity PICC line with ultrasound guidance. Basilic v ein was identified. The skin was prepped and draped in a sterile fashion. 1% Lidocaine, buffered wi th sodium bicarbonate, was used for local anesthesia. Under ultrasound guidance, a micropuncture nee dle was used to cannulate the basilic vein. A 0.018 guidewire was advanced through the needle to the level of the superior vena cava. Under fluoroscopy, the wire was advanced into the inferior vena ca va to document venous access. The wire was subsequently pulled back to the superior vena cava. The tract was dilated. Dual-lumen 5 Tongan catheter was advanced over the wire. The wire is removed. B oth lumen flush and aspirate without difficulty. Trim length is 39 cm. IMPRESSION: Successful left upper extremity PICC line placement with ultrasound guidance. POS: [facility]
== END 2018-04-09 11:20 | disposition home or self-care (01) ==
LOC: ERS 06:54
DX: T82.529A Displacement of unspecified cardiac and vascular devices and implants, initial encounter (principal); F03.90 Unspecified dementia, unspecified severity, without behavioral disturbance, psychotic disturbance, mood disturbance, and anxiety; I25.2 Old myocardial infarction; Z86.73 Personal history of transient ischemic attack (TIA), and cerebral infarction without residual deficits; G47.30 Sleep apnea, unspecified; I25.10 Atherosclerotic heart disease of native coronary artery without angina pectoris; E11.9 Type 2 diabetes mellitus without complications; E78.5 Hyperlipidemia, unspecified; J44.9 Chronic obstructive pulmonary disease, unspecified; I10 Essential (primary) hypertension; K21.9 Gastro-esophageal reflux disease without esophagitis; Z87.891 Personal history of nicotine dependence; Z79.899 Other long term (current) drug therapy; Z79.4 Long term (current) use of insulin
CPT/HCPCS: 36569; C1751

== ENCOUNTER 2018-05-08 13:46 | Outpatient (CLI) | payer MEDICARE, OTHER ==
--- NOTE | 2018-05-08 16:15 | PRG ---
DATE OF SERVICE: 05/08/2018 SUBJECTIVE: Mr. Tab Burdick is a very pleasant 72-year-old gentleman, accompanied by his daughter, who presents to the [facility]ound Center for evaluation of a coccygeal wound. The patient has received IV antibiotics for coccygeal osteomyelitis as per Dr. Armani Howe of Infectious Diseases. The patient's daughter states that Mr. Burdick recently completed the prescribed course of IV antibiotics. She states, however that the wound has failed to improve in its appearance. OBJECTIVE: VITAL SIGNS: Pulse 75, respirations 20, blood pressure 125/70, Accu-Chek 267. BACK: A coccygeal wound is present, which measures approximately 2.0 x 0.5 centimeter, undermining at the 12 o'clock position, is present and is approximately 1.7 cm in length. Granulation tissue is present within the wound margins. No purulent drainage is associated with the wound. No bone is palpable within the wound margins. ASSESSMENT AND PLAN: Coccygeal ulceration as described above. Dressing changes of Medihoney gauze and Allevyn will be continued on a daily basis after cleansing and irrigation until negative pressure therapy can be initiated. Once the wound VAC becomes available, dressing changes of Medihoney will be discontinued and the patient is to receive wound VAC dressing changes three times per week after cleansing and irrigation. I will also discuss the treatment plan with Dr. Armani Howe of Infectious Diseases. The patient's daughter understands and is in agreement with the preceding treatment plan. Job ID: [id number]
[2018-05-08] MEDS ORDERED: Sodium Chloride 0.9% 15 ML NEB ONE (18:00)
== END 2018-05-08 13:47 | disposition home or self-care (01) ==
LOC: WCC 13:46
PROVIDERS: ATTEND Family Medicine
DX: L98.419 Non-pressure chronic ulcer of buttock with unspecified severity (principal)
CPT/HCPCS: A4218

== ENCOUNTER 2018-05-24 14:49 | Outpatient (CLI) | payer MEDICARE, OTHER ==
--- NOTE | 2018-05-24 16:48 | PRG ---
DATE OF SERVICE: 05/24/2018 HISTORY: Mr. Tab Burdick is a very pleasant 72-year-old gentleman, accompanied by his daughter who presents to the Wound Center for evaluation of a coccygeal wound. The patient has received IV antibiotics for coccygeal osteomyelitis as per Dr. Armani Howe of Infectious Diseases. At the time of the patient's last visit, the patient's daughter stated that although Mr. Burdick had completed the prescribed course of IV antibiotics the wound had failed to improve in its appearance. Today, the patient's daughter states that the wound has markedly worsened in its appearance. PHYSICAL EXAMINATION: VITAL SIGNS: Temperature 100.1, pulse 72, blood pressure 104/51. Accu-Chek 336. BACK: A coccygeal wound is present which measures approximately 3.7 x 4.0 cm. The dimensions of the wound at the time of the patient's last visit were approximately 2.0 x 0.5 cm. Undermining at the 12 o'clock position is approximately 2.6 cm in length. Undermining at the 12 o'clock position at the time of the patient's last visit was approximately 1.7 cm in length. Granulation tissue was present within the wound margins. No grossly purulent drainage is associated with the wound. A fluctuant mass is also palpable over the left medial buttock. ASSESSMENT AND PLAN: Coccygeal ulceration as described above. The patient also has a fluctuant mass of the left medial buttock. In view of the patient's fever and marked worsening in the appearance of the wound, I have recommended admission to the patient and his daughter. The treatment plan was previously discussed with Dr. Armani Howe of Infectious Diseases and the patient was to have MRI of the pelvis with and without contrast as an outpatient. I have explained to the patient and his daughter that imaging will need to be accomplished as an inpatient due to the patient's condition. I have explained to the patient and his daughter, once the patient is admitted, Dr. Howe will be able to evaluate the patient as an inpatient as opposed to as an outpatient as was planned. I have also explained to the patient and his daughter that since the patient has chronic refractory osteomyelitis, he may now be a candidate for hyperbaric oxygen therapy once he is discharged from [facility]. The patient's daughter understands and is in agreement with the preceding treatment plan. I have also discussed the treatment plan with both Dr. Howe and Dr. Robertson in the [facility]. Job ID: [id number]
[2018-05-24] MEDS ORDERED: Sodium Chloride 0.9% 15 ML NEB ONE (19:46)
== END 2018-05-24 14:50 | disposition home or self-care (01) ==
LOC: WCC 14:49
PROVIDERS: ATTEND Family Medicine
DX: L98.429 Non-pressure chronic ulcer of back with unspecified severity (principal); R22.2 Localized swelling, mass and lump, trunk
CPT/HCPCS: A4218

== ENCOUNTER 2018-05-24 15:31 | Inpatient (IN) | payer MEDICARE, OTHER ==
[2018-05-24] MEDS ORDERED: Piperacillin/Tazobactam 4.5 GM VIAL ONE (16:15)
[2018-05-24 16:21] LABS: %Lymphocytes 12.1 % (21.0-51.0); %Monocytes 8.7 % (0.0-10.0); %Neutrophils 75.9 % (42.0-75.0); Hemoglobin 11.8 g/dL (14.0-18.0); Mean Corpuscular HGB CONC 31.5 g/dL (32.0-36.0); Mean Corpuscular Hemoglobin 27.1 pg (27.0-31.0); Mean Corpuscular Volume 86.3 fL (78.0-98.0); Mean Platelet Volume 8.3 fL (7.4-10.4); Platelet Count 189 thou/uL (130-400); RBC Distribution Width 14.1 % (11.5-14.5); Red Blood Cell (RBC) Count 4.33 mill/uL (4.70-6.10); White Blood Cell (WBC) Count 7.7 thou/uL (4.8-10.8)
[2018-05-24 16:22] LABS: #Eosinphils 0.2 thou/uL (0.0-0.7); #Lymphocytes 0.9 thou/uL (1.20-3.40); #Monocytes 0.7 thou/uL (0.11-0.59); #Neutrophils 5.9 thou/uL (1.40-6.50); %Basophils 0.1 % (0.0-1.0); %Eosinophils 3.2 % (0.0-10.0)
[2018-05-24 16:44] LABS: ALT (SGPT) 13 U/L (8-55); AST (SGOT) 19 U/L (5-34); Albumin 3.2 g/dL (3.4-4.8); Alkaline Phosphatase 103 U/L (40-150); Anion Gap 13 mmol/L (10-20); BUN (Urea Nitrogen) 26 mg/dL (8.4-25.7); Bilirubin, Total 0.2 mg/dL (0.2-1.2); Calc. Creatinine Clearance 0 mL/min (70-130); Calcium 9.1 mg/dL (7.8-10.44); Carbon Dioxide 26 mmol/L (23-31); Chloride 99 mmol/L (98-107); Estimated GFR-MDRD 76; Glucose 280 mg/dL (83-110); Potassium 5.1 mmol/L (3.5-5.1); Protein, Total 7.2 g/dL (5.8-8.1); Sodium 133 mmol/L (136-145)
[2018-05-24 16:55] LABS: Bilirubin Negative (Negative); Blood, Urine Negative (Negative); Clarity CLEAR (Clear); Glucose, Urine (Dipstick) 500 mg/dL (Negative); Leukocyte Negative (Negative); Nitrite Negative (Negative); Protein, Urine (Dipstick) Negative (Neg-Trace); Specific Gravity, Urine 1.023 (1.002-1.036); pH, Urine 6.5 (5.0-9.0)
--- NOTE | 2018-05-24 17:20 | RAD ---
XR CHEST ONE VIEW PORTABLE HISTORY: Sacral ulcer. Infection COMPARISON: 03/16/2018 FINDINGS: Changes of median sternotomy are again seen. The right upper extremity PICC line has been r emoved in the interim. The heart size is normal. The lungs are well expanded without focal areas of c onsolidation, pneumothoraces or pleural effusions. IMPRESSION: No acute process.
--- NOTE | 2018-05-24 17:21 | RAD ---
XR Lumbar Spine 2 Or 3 View HISTORY: Sacral ulcer, infection COMPARISON: None FINDINGS: Multilevel degenerative changes are present in the lumbar spine. Postop changes and metalli c hardware are seen in the pelvis and right proximal femur. No fracture, subluxation or bony destruct ion is identified. IMPRESSION: No acute process.
--- NOTE | 2018-05-24 17:25 | RAD ---
XR Foot Rt 3 View STANDARD HISTORY: Right foot ulcer COMPARISON: 07/01/2017 FINDINGS: There are postoperative changes of amputation at the level of the shaft of the proximal pha lanx of the second toe. There is bony erosion and destruction involving the base of the distal phalanx of the great toe which is suspicious for osteomyelitis; similar erosive changes also seen in the lateral aspect of the head of the middle phalanx of the third toe. There is a fracture involving the distal phalanx of the saeed le toe..
--- NOTE | 2018-05-24 17:28 | RAD ---
LEFT FOOT THREE VIEWS: 05/24/18 HISTORY: Left foot ulcer. FINDINGS/IMPRESSION: There are on previous exams for comparison. Vascular calcifications are present. No fracture, dislocation, or bony destruction or periosteal reac tion seen. If there is concern for osteomyelitis, further evaluation with MRI would be helpful. POS: ОЛЕГ
[2018-05-24 17:36] LABS: Base Excess-Venous 3.4 mmol/L (-2.0 to 3.0); Bicarbonate (HCO3v) 28.6 mmol/L (22.0-28.0); CO2 Tension (PvCO2) 45.3 mmHg (40.0-50.0); Calcium, Ionized 1.15 mmol/L (See Comments:); Chloride 99 mmol/L (98-107); Potassium 4.9 mmol/L (3.5-5.1); Sodium 134 mmol/L (138-145); pH (Venous) 7.409 (7.320-7.430); vO2 Saturation-calc 67.2 % (60.0-85.0)
[2018-05-24] MEDS ORDERED: Senokot S 8.6-50 MG TAB PO PRN (18:11)
[2018-05-24] MEDS ORDERED: Bisacodyl 5 MG TAB PO PRN (18:11)
[2018-05-24] MEDS ORDERED: Dextrose 5% in Water 1,000 ML IV PRN (18:21)
[2018-05-24] MEDS ORDERED: Dextrose 50% Abboject 50 ML SYRINGE SLOW IVP PRN (18:21)
[2018-05-24] MEDS ORDERED: Ipratropium Oral Inhaler (200 INHALATIONS) INH PRN (18:24)
[2018-05-24] MEDS ORDERED: Famotidine 20 MG TAB PO SCH (21:00)
[2018-05-24] MEDS ORDERED: Budesonide 0.25 MG/2 ML NEB ONE (22:37)
[2018-05-24] MEDS: Arformoterol 15 MCG/2 ML NEB NEB SCH (22:42)
[2018-05-24] MEDS: Budesonide 0.25 MG/2 ML NEB INH SCH (22:45)
[2018-05-24 23:03] VITALS: BMI 20.8
[2018-05-24] MEDS: Sodium Chloride 0.9% 1,000 ML IV SCH (23:32)
[2018-05-24] MEDS: Donepezil HCl 5 MG TAB PO SCH (23:32)
[2018-05-24] MEDS: Simvastatin 40 MG TAB PO SCH (23:32)
[2018-05-24] MEDS: Piperacillin/Tazobactam 3.375 GM in Sodium Chloride 0.9% 100 ML IVPB SCH (23:33)
[2018-05-25] MEDS: Insulin Glargine 12 UNITS in Pre-Filled Syringe SC SCH ×3 (00:29→20:49)
--- NOTE | 2018-05-25 01:15 | HP ---
CHIEF COMPLAINT: Progressive coccygeal decubitus with fever. HISTORY OF PRESENT ILLNESS: This patient is a 72-year-old male with a history of CVA which has left him largely nonambulatory. The patient is able to sit up in a wheelchair much of the day. He has a history complicated by diabetes mellitus and hyperlipidemia, and severe peripheral vascular disease. The patient has a sacral decubitus ulcer which has waxed and waned for a good period of time. He also has some osteomyelitis which is chronic in his right toes. The patient has previously been followed by Dr. Howe and had a long course of antibiotics including vancomycin and Rocephin apparently for the coccygeal decubitus infection. The patient is currently followed in outpatient [facility] by Dr. Wood. Apparently, the coccygeal lesion has recently substantially progressed, in fact basically doubled in size and become much worse today. He also was noted to have fever and therefore the recommendation was made that the patient come for inpatient care. The patient's daughter is with him today and gives most of the history as the patient is not very verbal today. She reports that his toes are actually looking better than they have in the past, although the coccygeal lesion is worse. She does report at one point the coccygeal lesion was much improved and very close to being healed, but regressed, and they attempted to use a wound VAC which apparently only made it worse. The theory being that he was having some sort of reaction to the adhesive. Also of note today, the patient had a fluctuant area noted on the left buttock near the gluteal cleft. The patient's daughter states that he tends to be a little more lethargic and become more red in the face when he is experiencing fever or infection and she believes that started yesterday. REVIEW OF SYSTEMS: Essentially otherwise unattainable given the patient's chronic dementia. PAST MEDICAL HISTORY: Severe peripheral vascular disease, diabetes mellitus type 2, coronary artery disease, COPD, obstructive sleep apnea, hypertension, dyslipidemia, gastroesophageal reflux, history of tobacco abuse. PAST SURGICAL HISTORY: Coronary artery bypass graft apparently in 2001 and 2013. He has had a history of a femur fracture with open reduction and internal fixation, lumbar fusion surgery, PICC line placement. FAMILY HISTORY: No coronary artery disease, stroke, or cancer. Hypertension and diabetes are prevalent among several family members. SOCIAL HISTORY: The patient lives in a long-term at [facility]. He is a nonsmoker, nondrinker, and nondrug user presently. His daughter is unsure of his code status and will talk to other family members, but she is his [id number] and surrogate decision maker. ALLERGIES: CODEINE. CURRENT MEDICATIONS: 1. Aricept 5 mg daily. 2. Levemir 12 units subcu in a.m. and 7 units in the p.m. 3. Flomax 0.4 mg daily. 4. Coreg 6.25 mg b.i.d. 5. Budesonide nebs 0.25 inhaled b.i.d. 6. Ipratropium bromide 2.5 mL inhaled b.i.d. 7. Plavix 75 daily. 8. Simvastatin 40 daily. 9. Bactrim DS one p.o. b.i.d. 10. NovoLog sliding scale. 11. Omeprazole 20 mg daily. 12. Thera-M one p.o. daily. 13. Brovana 15 mcg inhaled b.i.d. PHYSICAL EXAMINATION: VITAL SIGNS: BP 119/71, pulse 74, respirations 18, temp 100, O2 saturation 97% on room air. GENERAL APPEARANCE: Age-appropriate male, he is in no distress. He is lying supine. He makes eye contact, but does not really verbally interact. HEENT: Pupils are equal and reactive, although he is not very cooperative with letting me to shine a light in his eyes, tends to close them. HEART: Regular rate and rhythm without murmurs, gallops, or rubs. LUNGS: Clear to auscultation bilaterally. ABDOMEN: Soft, nontender, and nondistended. Positive bowel sounds. EXTREMITIES: The patient has amputation of the right 2nd to mid toe. He has no palpable pulses of the feet or ankles. SKIN: There is a 4-cm sacral/coccygeal ulcer with undermining of the borders. There are no cellulitic changes. The sacrum is easily palpable. There is also an area of elliptical, somewhat linear induration on the left mid buttock along the gluteal cleft with a stage II ulcer about a cm and half at the upper half of that indurated area and the area below that which looks like possible fluctuant area. There is some chronic ulceration of the right great toe, which does not appear to be too bad and actually improved from the patient's daughter's pictures that she presented. NEUROLOGIC: The patient again is awake and alert. Makes eye contact. Nonverbal. Has significant atrophy of the musculature of the lower extremities from lack of use. IMAGING: X-rays; left foot show vascular calcifications, but no other abnormalities. Right foot shows bony erosion and destruction involving the base of the distal phalanx of the great toe suspicious for osteomyelitis with similar erosive changes also seen at the lateral aspect of the head of the middle phalanx of the 3rd toe and a fracture involving the distal phalanx of the little toe. L-spine x-ray shows no acute processes, some degenerative spine changes. Chest x-ray shows no acute processes. LABORATORY DATA: White count 7.7, hemoglobin is 11.8, platelets 189. Sodium 133, potassium 5.1, chloride 99, CO2 of 26, BUN is 26, creatinine 0.97, glucose 280, lactic acid 1.9, calcium 9.1. LFTs normal. Albumin 3.2. UA negative. Influenza negative. IMPRESSION AND PLAN: 1. Infected coccygeal decubitus ulcer, now with fever and worsening in spite of outpatient management. The patient is admitted to the hospital, started on IV vancomycin and Zosyn. He has previously been followed by Dr. Howe, we will involve him in the care again. We will also consult Surgery. 2. Osteomyelitis of the toes of the right foot. I talked to the patient's daughter. She indicates that no one has ever discussed surgical intervention previously. We will again get input from Surgery and ID. 3. Severe peripheral vascular disease with calcification noted extensively in the peripheral vasculature on plain films. The patient would likely not tolerate anything less than a below-knee amputation if that type of surgery would be indicated. 4. Chronic dementia, stable. Continue with his usual Aricept. 5. Diabetes mellitus. Accu-Cheks, diabetic diet. Continue with his home Levemir regimen along with sliding scale insulin. 6. Apparent history of some chronic obstructive pulmonary disease. Continue the budesonide, Brovana and ipratropium. 7. History of coronary artery disease continue with Plavix. 8. Hyperlipidemia. Continue with simvastatin. 9. Very mild hyponatremia. We will continue to monitor and gently hydrate. Job ID: [id number]
[2018-05-25] MEDS: Vancomycin HCl 1 GM in Premix Bag 1 BAG IVPB SCH ×2 (04:46→16:48)
[2018-05-25] MEDS: Piperacillin/Tazobactam 3.375 GM in Sodium Chloride 0.9% 100 ML IVPB SCH ×3 (05:44→19:20)
[2018-05-25] MEDS: HumaLOG 300 UNITS/3 ML VIAL SC PRN (05:48)
[2018-05-25] MEDS: Budesonide 0.25 MG/2 ML NEB INH SCH ×2 (07:02→19:32)
[2018-05-25] MEDS: Arformoterol 15 MCG/2 ML NEB NEB SCH ×2 (07:02→19:31)
[2018-05-25] MEDS ORDERED: Diabetic Tussin DM 5 ML UDCUP PO PRN (07:40)
[2018-05-25] MEDS ORDERED: Artificial Tear Sol 15 ML BOT EA EYE PRN (07:40)
[2018-05-25] MEDS ORDERED: Calcium Carbonate 500 MG ChewTAB PO PRN (07:40)
[2018-05-25] MEDS ORDERED: Loperamide HCl 2 MG CAP PO PRN (07:40)
[2018-05-25] MEDS ORDERED: Nystatin Powder 15 GM BOT TOP PRN (07:40)
[2018-05-25] MEDS ORDERED: guaiFENesin ER 600 MG TAB PO PRN (07:40)
[2018-05-25] MEDS ORDERED: Diclofenac Sodium [Voltaren] 4 GM TOP PRN (08:00)
[2018-05-25 08:44] LABS: #Eosinphils 0.3 thou/uL (0.0-0.7); #Lymphocytes 0.7 thou/uL (1.20-3.40); #Monocytes 0.6 thou/uL (0.11-0.59); #Neutrophils 4.7 thou/uL (1.40-6.50); %Basophils 0.2 % (0.0-1.0); %Eosinophils 4.6 % (0.0-10.0); %Lymphocytes 11.3 % (21.0-51.0); %Monocytes 9.5 % (0.0-10.0); %Neutrophils 74.4 % (42.0-75.0); Hemoglobin 10.6 g/dL (14.0-18.0); Mean Corpuscular HGB CONC 31.7 g/dL (32.0-36.0); Mean Corpuscular Hemoglobin 27.4 pg (27.0-31.0); Mean Corpuscular Volume 86.3 fL (78.0-98.0); Mean Platelet Volume 8.4 fL (7.4-10.4); Platelet Count 166 thou/uL (130-400); RBC Distribution Width 14.1 % (11.5-14.5); Red Blood Cell (RBC) Count 3.88 mill/uL (4.70-6.10); White Blood Cell (WBC) Count 6.3 thou/uL (4.8-10.8)
[2018-05-25 09:04] LABS: Anion Gap 12 mmol/L (10-20); BUN (Urea Nitrogen) 21 mg/dL (8.4-25.7); Calc. Creatinine Clearance 67 mL/min (70-130); Calcium 8.8 mg/dL (7.8-10.44); Carbon Dioxide 26 mmol/L (23-31); Chloride 101 mmol/L (98-107); Estimated GFR-MDRD 84; Glucose 140 mg/dL (83-110); Potassium 4.2 mmol/L (3.5-5.1); Sodium 135 mmol/L (136-145)
[2018-05-25] MEDS: Multivitamin W/ Minerals 1 TAB PO SCH (10:09)
[2018-05-25] MEDS: Carvedilol 6.25 MG TAB PO SCH ×2 (10:09→16:48)
[2018-05-25] MEDS: Nystatin Powder 15 GM BOT TOP SCH ×2 (10:09→20:50)
[2018-05-25] MEDS: Saccharomyces boulardii 250 MG CAP PO SCH (10:10)
[2018-05-25] MEDS: Zinc Sulfate 220 MG CAP PO SCH (10:11)
[2018-05-25] MEDS: Enoxaparin Sodium 40 MG/0.4 ML SYRINGE SC SCH (10:11)
[2018-05-25] MEDS: Polyethylene Glycol 3350 17 GM Packet PO SCH (10:11)
[2018-05-25] MEDS: Ascorbic Acid 500 mg Chewable Tablet PO SCH (10:11)
[2018-05-25] MEDS: Loratadine 10 MG TAB PO SCH (10:11)
[2018-05-25] MEDS: Tamsulosin HCl 0.4 MG CAP PO SCH (10:19)
[2018-05-25] MEDS: Amlodipine 5 MG TAB PO SCH (10:20)
[2018-05-25] MEDS: Clopidogrel Bisulfate 75 MG TAB PO SCH (10:20)
--- NOTE | 2018-05-25 12:04 | HP ---
HISTORY OF PRESENT ILLNESS: Tab Burdick is a 72-year-old male patient, residential resident, nonambulatory, knee contractures, PAD, previously amputated right second toe with ischemic changes in right great toe, third toe, and fourth toe. The daughter states these are improving. I have been asked to see him regarding sacral decubitus with necrotic skin and slough and exposed sacrum, right scrotal abscess and left buttock abscess. I have discussed with the family, their wishes regarding DNR status, and informed them that should they desire DNR that this would be suspended during the operation, I have given them options for palliative hospice, nonoperative treatment, but they desired debridement. The patient is a residential resident and nonambulatory. He has had a previous stroke. He has history of tobacco abuse. ALLERGIES: CODEINE. MEDICATIONS: 1. Bactrim DS. 2. Nystatin. 3. Insulin. 4. Zinc sulfate. 5. Albuterol inhalers. 6. Coreg 6.25 mg b.i.d. 7. Claritin daily. 8. Voltaren patch. 9. Plavix 75 a day. 10. p.r.n. 11. Flomax daily. 12. Simvastatin 40 mg at bedtime. 13. Amlodipine 5 mg daily. 14. Aricept 5 mg at bedtime. 15. Brovana nebs b.i.d. PAST SURGICAL HISTORY: Laparoscopic cholecystectomy. On 09/19/2013, Dr. Zan Kunz, redo coronary artery bypass grafting, 3 vessels. On March 09, 2017, Dr. Kunz, arterial Doppler ultrasound, revealing mid tibial disease on the left with normal NILESH. Dr. Watts, on 03/10/2017, amputation of right second toe to the proximal phalanx. Femur fracture ORIF, lumbar fusion, PICC lines in the past. PAST MEDICAL HISTORY: Insulin-depended diabetes mellitus, PAD, coronary artery disease, two coronary artery bypass graftings, COPD, sleep apnea, hypertension, dyslipidemia, GERD, history of tobacco abuse. PHYSICAL EXAMINATION: VITAL SIGNS: Height 5 feet and 9 inches, weight 141 pounds, BMI 20. Temperature 98.1, blood pressure 105/55, and respiratory rate 20. HEAD, EYES, EARS, NOSE, THROAT: murmur or gallop. ABDOMEN: Soft. EXTREMITIES: Palpable femoral pulses bilaterally. Contracted knees. Prior amputation of the right second toe. Ischemic changes in right great toe, third toe, and fourth toe. Mild pressure sores, lateral right foot and medial left foot. Heel protectors in place. Knee contractures. Palpable femoral pulses, nonpalpable distal pulses. Buttock has an abscess, multi-focal. This looks more buttock and not perianal. He has a sacral decubitus with undermining, necrotic skin and irregular sacrum indicative of osteomyelitis. He has a scrotal abscess on the right. The patient is demented, noncommunicative. ASSESSMENT AND PLAN: 1. Sacral decubitus. Plan debridement of skin, subcutaneous tissue, and sacrum. Given the family, options of palliative management, but they desire operative debridement. 2. Scrotal abscess, incision and drainage. 3. Buttock abscesses, incision and drainage. 4. Diabetes mellitus. 5. Coronary artery disease. Two coronary artery bypass grafts in the past. 6. PAD with amputation of right second toe, and ischemic change to the 1st, 3rd and 4th toes. The daughter reports that these wounds are better. 7. Heel protectors in place due to knee contractures. Job ID: [id number]
--- NOTE | 2018-05-25 13:13 | PDOC.PN ---
- Subjective Encounter Start Date: 05/25/18 Encounter Start Time: 08:00 -: old records requested/rev Patient seen and examined. No new complaints. No overnight events - Objective Resuscitation Status - Order Detail: 05/24/18 18:11 Resuscitation Status Routine Resuscitation Status: FULL: Full Resuscitation MAR Reviewed: Yes Vital Signs & Weight: Vital Signs (12 hours) Temp Pulse Resp BP BP Pulse Ox 05/25/18 11:28 98.8 F 64 16 121/66 97 05/25/18 10:20 105/55 L 05/25/18 10:09 105/55 L 05/25/18 08:00 98.1 F 67 20 105/55 L 97 05/25/18 07:02 64 16 97 05/25/18 04:00 98.2 F 67 16 117/65 96 Weight Admit Weight 141 lb 6 oz Weight 141 lb 6 oz I&O: 05/24/18 05/25/18 05/26/18 06:59 06:59 06:59 Intake Total 720 Output Total 275 Balance 445 Result Diagrams: 05/25/18 08:31 05/25/18 08:31 Additional Labs: Accuchecks 05/25/18 05/25/18 05/25/18 11:33 04:52 01:35 POC Glucose 131 H 161 H 160 H 05/24/18 21:36 POC Glucose 221 H Phys Exam - Physical Examination Constitutional: NAD HEENT: PERRLA, moist MMs, sclera anicteric Neck: no JVD, supple Respiratory: no wheezing, no rales, no rhonchi Cardiovascular: RRR, no significant murmur, no rub Gastrointestinal: soft, non-tender, no distention, positive bowel sounds Musculoskeletal: no edema, pulses present Neurological: moves all 4 limbs Lymphatic: no nodes Psychiatric: normal affect Skin: normal turgor Deviation from normal: see wound care photo for wound Dx/Plan (1) Osteomyelitis of toe of right foot Code(s): M86.9 - OSTEOMYELITIS, UNSPECIFIED Status: Acute (2) CAD (coronary artery disease) Code(s): I25.10 - ATHSCL HEART DISEASE OF [place] CORONARY ARTERY W/O ANG PCTRS Status: Chronic Qualifiers: Comment: (3) COPD (chronic obstructive pulmonary disease) Status: Chronic Qualifiers: Comment: (4) DM2 (diabetes mellitus, type 2) Status: Chronic Qualifiers: Comment: (5) Decubitus ulcer Code(s): L89.90 - PRESSURE ULCER OF UNSPECIFIED SITE, UNSPECIFIED STAGE Status : Chronic Qualifiers: Comment: present on admission (6) H/O: CVA (cerebrovascular accident) Code(s): Z86.73 - PRSNL HX OF TIA (TIA), AND CEREB INFRC W/O RESID DEFICITS Status: Chronic Comment: (7) HTN (hypertension) Code(s): I10 - ESSENTIAL (PRIMARY) HYPERTENSION Status: Chronic Qualifiers: (8) PVD (peripheral vascular disease) Code(s): I73.9 - PERIPHERAL VASCULAR DISEASE, UNSPECIFIED Status: Chronic - Plan cont current plan of care, continue antibiotics * general surgery consulted for I & D * Dr dominguez consulted for IV antibiotics * continue vancomycin and zosyn * wound care * nutritional support * palliative care consult * medication reviewed as below * symptomatic treatment. Review of Systems - Review of Systems Other: not reliable with pt due to his level of cognitive status - Medications/Allergies Allergies/Adverse Reactions: Allergies Allergy/AdvReac Type Severity Reaction Status Date / Time codeine Allergy "MAKES ME Verified 03/16/18 17:23 JITTERY" Medications: Current Medications Acetaminophen (Tylenol) 650 mg PO Q4H PRN PRN Reason: Headache/Fever/Mild Pain (1-3) Amlodipine Besylate (Norvasc) 5 mg PO DAILY [facility] Last Admin: 05/25/18 10:20 Dose: Not Given Arformoterol Tartrate (Brovana) 15 mcg NEB BID-RT [facility] Last Admin: 05/25/18 07:02 Dose: 15 mcg Artificial Tears (Liquitears 15ml Bottle) 1 drop EA EYE TID PRN PRN Reason: Dry Eyes Ascorbic Acid (Vitamin C) 500 mg PO DAILY [facility] Last Admin: 05/25/18 10:11 Dose: 500 mg Bisacodyl (Dulcolax) 10 mg PO DAILYPRN PRN PRN Reason: Constipation Budesonide (Pulmicort Neb Solution) 0.25 mg INH BID-RT MARGARITA Last Admin: 05/25/18 07:02 Dose: 0.25 mg Calcium Carbonate (Tums) 500 mg PO QID PRN PRN Reason: Heartburn or Indigestion Carvedilol (Coreg) 6.25 mg PO BID-WM [facility] Last Admin: 05/25/18 10:09 Dose: 6.25 mg Clopidogrel Bisulfate (Plavix) 75 mg PO DAILY [facility] Last Admin: 05/25/18 10:20 Dose: 75 mg Dextrose/Water (Dextrose 50%) 25 gm SLOW IVP PRN PRN PRN Reason: Hypoglycemia Donepezil HCl (Aricept) 5 mg PO HS [facility] Last Admin: 05/24/18 23:32 Dose: 5 mg Enoxaparin Sodium (Lovenox) 40 mg SC 0900 [facility] Last Admin: 05/25/18 10:11 Dose: 40 mg Glucagon (Glucagon) 1 mg IM PRN PRN PRN Reason: Hypoglycemia Guaifenesin (Mucinex) 600 mg PO Q12HR PRN PRN Reason: Congestion Guaifenesin/Dextromethorphan (Diabetic Tussin Dm) 10 ml PO Q8HR PRN PRN Reason: Cough Sodium Chloride (Normal Saline 0.9%) 1,000 mls @ 50 mls/hr IV .Q20H [facility] Last Admin: 05/24/18 23:32 Dose: 1,000 mls Insulin Glargine 12 units/ (Miscellaneous Medication) 0.12 mls @ 0 mls/hr SC BID [facility] Last Admin: 05/25/18 12:28 Dose: Not Given Dextrose/Water (D5w) 1,000 mls @ 0 mls/hr IV .Q0M PRN PRN Reason: Hypoglycemia Piperacillin Sod/Tazobactam (Sod 3.375 gm/ Sodium Chloride) 100 mls @ 200 mls/ hr IVPB Q6HR [facility] Last Admin: 05/25/18 05:44 Dose: 100 mls Vancomycin HCl 1 gm/ Device 200 mls @ 200 mls/hr IVPB 0500,1700 [facility] Last Admin: 05/25/18 04:46 Dose: 200 mls Insulin Human Lispro (Humalog) 0 units SC .MILD SLIDING SCALE PRN PRN Reason: Mild Correctional Scale Last Admin: 05/25/18 05:48 Dose: 2 unit Ipratropium [place] (Atrovent Hfa) 1 puff INH QID-RT PRN PRN Reason: Wheezing or Cough Iron/Minerals/Multivitamins (Theragran M) 1 tab PO DAILY [facility] Last Admin: 04/11/19 10:09 Dose: 1 tab Loperamide HCl (Imodium) 2 mg PO ASDIR PRN PRN Reason: Diarrhea/Loose Stools Loratadine (Claritin) 10 mg PO DAILY [facility] Last Admin: 05/25/18 10:11 Dose: 10 mg Miscellaneous Medication (Pharmacy To Dose) 1 each IVPB PRN PRN PRN Reason: . Nystatin (Mycostatin Powder) 0 gm TOP BID [facility] Last Admin: 05/25/18 10:09 Dose: 1 applic Nystatin (Mycostatin Powder) 0 gm TOP BID PRN PRN Reason: Rash/Topical Irritation Pantoprazole Sodium (Protonix) 40 mg PO DAILY [facility] Last Admin: 05/25/18 10:11 Dose: 40 mg Diclofenac Sodium [ (Voltaren] 4 Gm) 0 each TOP Q12H PRN PRN Reason: Pain Polyethylene Glycol (Miralax) 17 gm PO DAILY [facility] Last Admin: 05/25/18 10:11 Dose: 17 gm Saccharomyces Boulardii (Florastor) 250 mg PO DAILY [facility] Last Admin: 05/25/18 10:10 Dose: 250 mg Senna/Docusate Sodium (Senokot S) 2 tab PO BID PRN PRN Reason: Constipation Simvastatin (Zocor) 40 mg PO HS [facility] Last Admin: 05/24/18 23:32 Dose: 40 mg Tamsulosin HCl (Flomax) 0.4 mg PO DAILY [facility] Last Admin: 05/25/18 10:19 Dose: 0.4 mg Zinc Sulfate (Zinc Sulfate) 220 mg PO DAILY [facility] Last Admin: 05/25/18 10:11 Dose: 220 mg
[2018-05-25] MEDS ORDERED: Fentanyl 100 MCG/2 ML VIAL ONE (14:15)
[2018-05-25] MEDS: Sodium Chloride 0.9% 1,000 ML IV SCH ×2 (15:15→16:54)
[2018-05-25] MEDS ORDERED: PHENYLEPHRINE-NS 100 MCG/ML 10 ML SYRINGE ONE (15:25)
[2018-05-25] MEDS ORDERED: ePHEDrine 50 MG/ML VIAL ONE (15:25)
[2018-05-25] MEDS ORDERED: Lidocaine 1% PF 5 ML VIAL ONE (15:25)
[2018-05-25] MEDS ORDERED: PROPOFOL 200 MG/20 ML VIAL ONE (15:25)
[2018-05-25] MEDS ORDERED: Morphine Sulfate 2 MG/ML SYRINGE SLOW IVP PRN (15:56)
[2018-05-25] MEDS ORDERED: Promethazine HCl 25 MG/ML VIAL SLOW IVP PRN (15:56)
[2018-05-25] MEDS ORDERED: HYDROmorphone 2 MG/ML VIAL SLOW IVP PRN (15:56)
[2018-05-25] MEDS ORDERED: Promethazine HCl 25 MG/ML VIAL IM PRN (15:56)
[2018-05-25] MEDS ORDERED: Ondansetron HCl/PF 4 MG/2 ML Vial IVP PRN (15:56)
--- NOTE | 2018-05-25 18:51 | OP ---
DATE OF PROCEDURE: 05/25/2018 PREOPERATIVE DIAGNOSES: 1. Sacral decubitus with necrotic skin, subcutaneous tissue, and osteomyelitis of the sacrum. 2. Right buttock abscess, medial. 3. Left hemiscrotal posterior cyst, infected. PROCEDURES PERFORMED: 1. Debridement of skin, subcutaneous tissue, and bone, sacral decubitus. 2. Debridement and excision of infected skin, subcutaneous tissue, left medial buttock abscess. 3. Excision of infected cyst, right hemiscrotum posteriorly. All left open for healing by secondary intention. Wound Care arrived to provide wound care, wound VAC to the sacral wound. ANESTHESIA: General. DESCRIPTION OF PROCEDURE: The patient was taken to the operating room, where under general anesthesia in the left lateral decubitus position and in a proper position and padding, the areas were prepared with Betadine and draped in routine fashion. Skin and subcutaneous tissue were incised sharply. Sacrum debrided with a rongeur back to healthy tissue bone, submitted for culture. Hemostasis gained with the cautery. Right buttock medial abscess, multiple loculated drains by excising skin and subcutaneous tissue, draining the abscess, gaining hemostasis with cautery, wound irrigated. Left posterior hemiscrotum cyst excised. It was infected, 1 cm defect remained. Wound cauterized for hemostasis. Wound care applied a VAC dressing to the sacrum and non-VAC wound care to the left buttock and right hemiscrotum posteriorly. Job ID: [id number]
--- NOTE | 2018-05-25 19:57 | CON ---
DATE OF CONSULTATION: 05/25/2018 REASON FOR CONSULTATION: Presacral decubitus ulcer and other inflammatory changes in the pelvic area. 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 Subsequently, he had pneumonia in 2016 and in 2017, he developed decubitus ulcer, which he has been dealing with since 2017. He has had debridement. He has had antimicrobial therapy. Bacteremia has resulted from this ulcer. Ulcer due to group B Strep. I last treated him at the end of 2018, when he was given IV and antimicrobials for a protracted period of time. He got somewhat better and then he now more recently has experienced deterioration in the ulcer, and he was admitted for management. He has been taken to the operating room by nya Howard. He is awake, but he denies any headaches. No change in visual symptoms, sore throat, odynophagia, or dysphagia. No vomiting. No aspiration. No dyspnea or chest pain. There is no abdominal pain. Alanis catheter was inserted when he came into the hospital. He has mild to moderate pain in the sacral area from the inflammatory process. PAST MEDICAL HISTORY: Type 2 diabetes, hypertension, COPD, coronary artery disease, dementia, presacral decubitus with osteomyelitis. The osteomyelitis in the last MRI was restricted to the coccygeal area. PAST SURGICAL HISTORY: Includes cholecystectomy and bypass graft surgery x3. SOCIAL HISTORY: Former smoker. ALLERGIES: CODEINE. CURRENT MEDICATIONS: 1. Tylenol. 2. Norvasc. 3. Brovana. 4. Vitamin C. 5. Dulcolax. 6. Pulmicort. 7. Tums. 8. Coreg. 9. Plavix. 10. Aricept. 11. Lovenox. 12. Insulin. 13. Ipratropium. 14. Zosyn. 15. Vancomycin. PHYSICAL EXAMINATION: VITAL SIGNS: T-max 98.8, blood pressure 120/60, pulse 64, respirations 16, and O2 saturation 97. SKIN: Shows the area of ulceration in the presacral region. The margins of this area are dusky red. There is a lot of undermining, particularly toward the scrotum, and there is what appears to be extension of inflammatory process toward the perineal region, toward the posterior aspect of the left side of the scrotum. This area of inflammation in the perineal area shows erythema, swelling, and some fluctuance with what appears to be early abscess openings coming through the skin. At the base of the sacral ulcer, there is palpable bone with raggedy edges. The rest is covered by periosteum. HEENT: The patient has a peripheral IV access and he is able to move the right side. The left side is paralyzed. There is no lymphadenopathy. Ocular movements conjugate. Oral cavity, still with moist mucosa with no lesions. Still quite a few teeth in place. NECK: Supple. No jugular vein distention. LUNGS: Symmetric. Clear breath sounds. HEART: S1 and S2, regular rate. No S3 or S4. ABDOMEN: Soft, not distended or tender. No evidence of ascites or bladder distention. Alanis catheter in place with clear urine drainage. EXTREMITIES: Pulses are 1+ in dorsalis pedis. Plantar responses, extensor on the left side, flexor on the right with some clonus on the left side. NEUROLOGIC: He is awake. He answers questions. He knows his name and knows where he is. LABORATORY DATA: White cell count 7.7 and now 6.3, hemoglobin 10.6, platelets 166, 75% neutrophils and now 74%. Sodium is 135, creatinine 0.89, and lactic acid is 1.9. Transaminases are normal. Alkaline phosphatase normal. Albumin was 3.2. Urinalysis was normal. The previous microbiology showed gram-negative rods and group B strep from the coccyx in 05/23. We have no pathology from that area. IMAGING STUDIES: Include a foot x-ray with vascular calcifications, no fracture or bony destructive changes. There is a lumbar spine x-ray with no acute process identified. There was a pelvis CT from February 04 with no evidence of sacral osteomyelitis, some fecal impaction, and the pelvis MRI from January with signal alteration at the tip of the coccyx. ASSESSMENT: 1. Previous hemorrhagic cerebrovascular accident in the brainstem with severe neurological impairment. 2. retirement resident status. 3. Chronic with somewhat refractory sacral decubitus ulcer with initial some improvement and then now recrudescence. The patient has been treated with antimicrobial therapy in the past. 4. Extension of the inflammatory process toward the left perineal area and posterior scrotal tissue. DISCUSSION: The patient is scheduled for surgical debridement. A biopsy will be helpful to confirm the diagnosis of osteomyelitis since MRI findings sometimes can demonstrate changes that are more likely to represent a bone remodeling than true infection. In his case, he does have raggedy bone exposure, and so I believe it is more likely to represent a true infection. He will need debridement of the area of bone and then some form of cover. Probably in his case will be another vacuum devices to granulate the area quickly. The area in the perineum will have to be debrided, and I am not sure that he is obtaining proper offloading at the [facility], and I believe this is probably the most likely reason for the refractoriness of his process. Cultures will be taken depending on the biopsy findings and the surgical findings, then we will determine the duration of antimicrobial therapy and the type according to culture results. Job ID: [id number]
[2018-05-25] MEDS: Simvastatin 40 MG TAB PO SCH (20:49)
[2018-05-25] MEDS: Donepezil HCl 5 MG TAB PO SCH (20:49)
[2018-05-26] MEDS: Piperacillin/Tazobactam 3.375 GM in Sodium Chloride 0.9% 100 ML IVPB SCH ×4 (00:33→16:05)
[2018-05-26 05:25] LABS: #Eosinphils 0.4 thou/uL (0.0-0.7); #Lymphocytes 0.8 thou/uL (1.20-3.40); #Monocytes 0.6 thou/uL (0.11-0.59); #Neutrophils 3.6 thou/uL (1.40-6.50); %Basophils 0.5 % (0.0-1.0); %Eosinophils 7.5 % (0.0-10.0); %Lymphocytes 15.3 % (21.0-51.0); %Monocytes 10.5 % (0.0-10.0); %Neutrophils 66.2 % (42.0-75.0); Hemoglobin 9.3 g/dL (14.0-18.0); Mean Corpuscular HGB CONC 32.3 g/dL (32.0-36.0); Mean Corpuscular Hemoglobin 28.1 pg (27.0-31.0); Mean Corpuscular Volume 87.2 fL (78.0-98.0); Mean Platelet Volume 8.2 fL (7.4-10.4); Platelet Count 159 thou/uL (130-400); RBC Distribution Width 13.8 % (11.5-14.5); White Blood Cell (WBC) Count 5.5 thou/uL (4.8-10.8)
[2018-05-26 05:37] LABS: Anion Gap 10 mmol/L (10-20); BUN (Urea Nitrogen) 16 mg/dL (8.4-25.7); Calc. Creatinine Clearance 71 mL/min (70-130); Calcium 8.4 mg/dL (7.8-10.44); Carbon Dioxide 26 mmol/L (23-31); Chloride 102 mmol/L (98-107); Estimated GFR-MDRD 90; Glucose 169 mg/dL (83-110); Potassium 4.5 mmol/L (3.5-5.1); Sodium 133 mmol/L (136-145)
[2018-05-26 05:48] LABS: Vancomycin, Trough 28.5 ug/mL
[2018-05-26] MEDS: Vancomycin HCl 1 GM in Premix Bag 1 BAG IVPB SCH (07:06)
[2018-05-26] MEDS: Budesonide 0.25 MG/2 ML NEB INH SCH ×2 (07:43→19:16)
[2018-05-26] MEDS: Arformoterol 15 MCG/2 ML NEB NEB SCH ×2 (07:43→19:15)
[2018-05-26] MEDS: Insulin Glargine 12 UNITS in Pre-Filled Syringe SC SCH ×2 (08:22→20:55)
[2018-05-26] MEDS: Saccharomyces boulardii 250 MG CAP PO SCH (08:22)
[2018-05-26] MEDS: Zinc Sulfate 220 MG CAP PO SCH (08:22)
[2018-05-26] MEDS: Carvedilol 6.25 MG TAB PO SCH ×2 (08:22→16:02)
[2018-05-26] MEDS: Loratadine 10 MG TAB PO SCH (08:23)
[2018-05-26] MEDS: Tamsulosin HCl 0.4 MG CAP PO SCH (08:23)
[2018-05-26] MEDS: Clopidogrel Bisulfate 75 MG TAB PO SCH (08:23)
[2018-05-26] MEDS: Multivitamin W/ Minerals 1 TAB PO SCH (08:23)
[2018-05-26] MEDS: Ascorbic Acid 500 mg Chewable Tablet PO SCH (08:23)
[2018-05-26] MEDS: Amlodipine 5 MG TAB PO SCH (08:24)
[2018-05-26] MEDS: Triple Antibiotic Oint 1 GM Packet TOP SCH (08:25)
[2018-05-26] MEDS: Enoxaparin Sodium 40 MG/0.4 ML SYRINGE SC SCH (08:25)
[2018-05-26] MEDS: Nystatin Powder 15 GM BOT TOP SCH ×2 (08:30→20:56)
[2018-05-26] MEDS: Polyethylene Glycol 3350 17 GM Packet PO SCH (08:30)
--- NOTE | 2018-05-26 12:47 | PDOC.PN ---
- Subjective Encounter Start Date: 05/26/18 Encounter Start Time: 08:45 Patient seen and examined. No new complaints. No overnight events - Objective Resuscitation Status - Order Detail: 05/24/18 18:11 Resuscitation Status Routine Resuscitation Status: FULL: Full Resuscitation MAR Reviewed: Yes Vital Signs & Weight: Vital Signs (12 hours) Temp Pulse Resp BP BP Pulse Ox 05/26/18 12:26 98.8 F 64 18 107/55 L 95 05/26/18 08:24 63 05/26/18 08:22 118/62 05/26/18 07:50 98.4 F 63 20 118/62 94 L 05/26/18 07:43 63 16 05/26/18 04:00 98.4 F 63 18 121/64 94 L Weight Admit Weight 141 lb 6 oz Weight 141 lb 6 oz I&O: 05/25/18 05/26/18 05/27/18 06:59 06:59 06:59 Intake Total 720 120 Output Total 275 Balance 445 120 Result Diagrams: 05/26/18 05:07 05/26/18 05:07 Additional Labs: Accuchecks 05/26/18 05/26/18 05/25/18 11:53 05:30 19:50 POC Glucose 185 H 173 H 291 H 05/25/18 05/25/18 17:07 14:15 POC Glucose 143 H 137 H Phys Exam - Physical Examination Constitutional: NAD HEENT: PERRLA, moist MMs, sclera anicteric Neck: no JVD, supple Respiratory: no wheezing, no rales, no rhonchi Cardiovascular: RRR, no significant murmur, no rub Gastrointestinal: soft, non-tender, no distention, positive bowel sounds Musculoskeletal: no edema, pulses present Neurological: non-focal Lymphatic: no nodes Psychiatric: normal affect Skin: no rash, normal turgor Dx/Plan (1) Osteomyelitis of toe of right foot Code(s): M86.9 - OSTEOMYELITIS, UNSPECIFIED Status: Acute (2) CAD (coronary artery disease) Code(s): I25.10 - ATHSCL HEART DISEASE OF [place] CORONARY ARTERY W/O ANG PCTRS Status: Chronic Qualifiers: Comment: (3) COPD (chronic obstructive pulmonary disease) Status: Chronic Qualifiers: Comment: (4) DM2 (diabetes mellitus, type 2) Status: Chronic Qualifiers: Comment: (5) Decubitus ulcer Code(s): L89.90 - PRESSURE ULCER OF UNSPECIFIED SITE, UNSPECIFIED STAGE Status : Chronic Qualifiers: Comment: present on admission (6) H/O: CVA (cerebrovascular accident) Code(s): Z86.73 - PRSNL HX OF TIA (TIA), AND CEREB INFRC W/O RESID DEFICITS Status: Chronic Comment: (7) HTN (hypertension) Code(s): I10 - ESSENTIAL (PRIMARY) HYPERTENSION Status: Chronic Qualifiers: (8) PVD (peripheral vascular disease) Code(s): I73.9 - PERIPHERAL VASCULAR DISEASE, UNSPECIFIED Status: Chronic - Plan cont current plan of care, continue antibiotics * medication reviewed as below * symptomatic treatment * continue wound care * continue antibiotics * follow culture. Review of Systems - Review of Systems ENT: negative: Ear Pain, Ear Discharge, Nose Pain, Nose Discharge, Nose Congestion, Mouth Pain, Mouth Swelling, Throat Pain, Throat Swelling, Other Respiratory: negative: Cough, Dry, Shortness of Breath, Hemoptysis, SOB with Excertion, Pleuritic Pain, Sputum, Wheezing Cardiovascular: negative: chest pain, palpitations, orthopnea, paroxysmal nocturnal dyspnea, edema, light headedness, other Gastrointestinal: negative: Nausea, Vomiting, Abdominal Pain, Diarrhea, Constipation, Melena, Hematochezia, Other Genitourinary: negative: Dysuria, Frequency, Incontinence, Hematuria, Retention , Other Musculoskeletal: negative: Neck Pain, Shoulder Pain, Arm Pain, Back Pain, Hand Pain, Leg Pain, Foot Pain, Other - Medications/Allergies Allergies/Adverse Reactions: Allergies Allergy/AdvReac Type Severity Reaction Status Date / Time codeine Allergy "MAKES ME Verified 03/16/18 17:23 JITTERY" Medications: Current Medications Acetaminophen (Tylenol) 650 mg PO Q4H PRN PRN Reason: Headache/Fever/Mild Pain (1-3) Amlodipine Besylate (Norvasc) 5 mg PO DAILY [facility] Last Admin: 05/26/18 08:24 Dose: 5 mg Arformoterol Tartrate (Brovana) 15 mcg NEB BID-RT [facility] Last Admin: 05/26/18 07:43 Dose: 15 mcg Artificial Tears (Liquitears 15ml Bottle) 1 drop EA EYE TID PRN PRN Reason: Dry Eyes Ascorbic Acid (Vitamin C) 500 mg PO DAILY [facility] Last Admin: 05/26/18 08:23 Dose: 500 mg Bisacodyl (Dulcolax) 10 mg PO DAILYPRN PRN PRN Reason: Constipation Budesonide (Pulmicort Neb Solution) 0.25 mg INH BID-RT [facility] Last Admin: 05/26/18 07:43 Dose: 0.25 mg Calcium Carbonate (Tums) 500 mg PO QID PRN PRN Reason: Heartburn or Indigestion Carvedilol (Coreg) 6.25 mg PO BID-WM [facility] Last Admin: 05/26/18 08:22 Dose: 6.25 mg Clopidogrel Bisulfate (Plavix) 75 mg PO DAILY [facility] Last Admin: 05/26/18 08:23 Dose: 75 mg Dextrose/Water (Dextrose 50%) 25 gm SLOW IVP PRN PRN PRN Reason: Hypoglycemia Donepezil HCl (Aricept) 5 mg PO HS [facility] Last Admin: 05/25/18 20:49 Dose: 5 mg Enoxaparin Sodium (Lovenox) 40 mg SC 0900 [facility] Last Admin: 05/26/18 08:25 Dose: Not Given Glucagon (Glucagon) 1 mg IM PRN PRN PRN Reason: Hypoglycemia Guaifenesin (Mucinex) 600 mg PO Q12HR PRN PRN Reason: Congestion Guaifenesin/Dextromethorphan (Diabetic Tussin Dm) 10 ml PO Q8HR PRN PRN Reason: Cough Sodium Chloride (Normal Saline 0.9%) 1,000 mls @ 50 mls/hr IV .Q20H [facility] Last Admin: 05/25/18 16:54 Dose: 1,000 mls Insulin Glargine 12 units/ (Miscellaneous Medication) 0.12 mls @ 0 mls/hr SC BID [facility] Last Admin: 05/26/18 08:22 Dose: 0.12 mls Dextrose/Water (D5w) 1,000 mls @ 0 mls/hr IV .Q0M PRN PRN Reason: Hypoglycemia Piperacillin Sod/Tazobactam (Sod 3.375 gm/ Sodium Chloride) 100 mls @ 200 mls/ hr IVPB Q6HR [facility] Last Admin: 05/26/18 11:00 Dose: 100 mls Vancomycin HCl 1.25 gm/ Sodium (Chloride) 250 mls @ 166.667 mls/hr IVPB 1700 [facility] Insulin Human Lispro (Humalog) 0 units SC .MILD SLIDING SCALE PRN PRN Reason: Mild Correctional Scale Last Admin: 05/25/18 05:48 Dose: 2 unit Ipratropium [place] (Atrovent Hfa) 1 puff INH QID-RT PRN PRN Reason: Wheezing or Cough Iron/Minerals/Multivitamins (Theragran M) 1 tab PO DAILY [facility] Last Admin: 05/26/18 08:23 Dose: 1 tab Loperamide HCl (Imodium) 2 mg PO ASDIR PRN PRN Reason: Diarrhea/Loose Stools Loratadine (Claritin) 10 mg PO DAILY [facility] Last Admin: 05/26/18 08:23 Dose: 10 mg Miscellaneous Medication (Pharmacy To Dose) 1 each IVPB PRN PRN PRN Reason: . Neomycin/Polymyxin/Bacitracin (Triple Antibiotic) 0 gm TOP DAILY [facility] Last Admin: 05/26/18 08:25 Dose: 1 gm Nystatin (Mycostatin Powder) 0 gm TOP BID [facility] Last Admin: 05/26/18 08:30 Dose: 1 applic Nystatin (Mycostatin Powder) 0 gm TOP BID PRN PRN Reason: Rash/Topical Irritation Pantoprazole Sodium (Protonix) 40 mg PO DAILY [facility] Last Admin: 05/26/18 08:24 Dose: 40 mg Diclofenac Sodium [ (Voltaren] 4 Gm) 0 each TOP Q12H PRN PRN Reason: Pain Polyethylene Glycol (Miralax) 17 gm PO DAILY [facility] Last Admin: 05/26/18 08:30 Dose: 17 gm Saccharomyces Boulardii (Florastor) 250 mg PO DAILY [facility] Last Admin: 05/26/18 08:22 Dose: 250 mg Senna/Docusate Sodium (Senokot S) 2 tab PO BID PRN PRN Reason: Constipation Simvastatin (Zocor) 40 mg PO HS [facility] Last Admin: 05/25/18 20:49 Dose: 40 mg Tamsulosin HCl (Flomax) 0.4 mg PO DAILY [facility] Last Admin: 05/26/18 08:23 Dose: 0.4 mg Zinc Sulfate (Zinc Sulfate) 220 mg PO DAILY [facility] Last Admin: 05/26/18 08:22 Dose: 220 mg
--- NOTE | 2018-05-26 14:57 | PRG ---
DATE OF SERVICE: 05/26/2018 SUBJECTIVE: Mr. Burdick is in no acute distress. No dyspnea or abdominal pain. No diarrhea. He had surgical debridement done by Dr. Singh yesterday. OBJECTIVE: VITAL SIGNS: Stable. He is afebrile. GENERAL: Appears in no distress. Awake. LUNGS: Symmetric, clear breath sounds. HEART: S1 and S2, regular rate. ABDOMEN: Soft, not distended. : He has an indwelling Alanis catheter. LABORATORY DATA: White cell count 5.5, hemoglobin 9.3, platelets 159. Creatinine 0.84. The sacral tissue Gram stain showed polymicrobial adry. Cultures are pending. The surgical report was reviewed, and the area was prepared with Betadine. The skin and subcutaneous tissues were incised sharply. Sacrum debrided with a rongeur back to healthy tissue bone, submitted for culture. There is a medial abscess in the right gluteal area with multiple loculated drains, which were excised and washed out. The left posterior hemiscrotum was excised and the abscess was washed out as well. 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 The patient has had surgical debridement, bone was debrided. We will await on culture results and he will need protracted antimicrobial therapy administration and negative pressure dressing. The area of exposure is quite extensive, and without procedure to cover the exposed area, the healing of the tissue will be difficult to predict. Job ID: [id number]
[2018-05-26] MEDS: Vancomycin HCl 1.25 GM in Sodium Chloride 0.9% 250 ML 250 ML IVPB SCH (15:44)
[2018-05-26] MEDS: Sodium Chloride 0.9% 1,000 ML IV SCH (16:06)
[2018-05-26] MEDS: HumaLOG 300 UNITS/3 ML VIAL SC PRN (20:55)
[2018-05-26] MEDS: Simvastatin 40 MG TAB PO SCH (20:56)
[2018-05-26] MEDS: Donepezil HCl 5 MG TAB PO SCH (20:56)
[2018-05-27] MEDS: Piperacillin/Tazobactam 3.375 GM in Sodium Chloride 0.9% 100 ML IVPB SCH ×5 (05:28→23:10)
[2018-05-27] MEDS: Arformoterol 15 MCG/2 ML NEB NEB SCH ×2 (07:04→19:22)
[2018-05-27] MEDS: Budesonide 0.25 MG/2 ML NEB INH SCH ×2 (07:05→19:22)
[2018-05-27] MEDS: Saccharomyces boulardii 250 MG CAP PO SCH (08:24)
[2018-05-27] MEDS: Carvedilol 6.25 MG TAB PO SCH ×2 (08:25→16:04)
[2018-05-27] MEDS: Loratadine 10 MG TAB PO SCH (08:25)
[2018-05-27] MEDS: Ascorbic Acid 500 mg Chewable Tablet PO SCH (08:26)
[2018-05-27] MEDS: Multivitamin W/ Minerals 1 TAB PO SCH (08:26)
[2018-05-27] MEDS: Clopidogrel Bisulfate 75 MG TAB PO SCH (08:26)
[2018-05-27] MEDS: Tamsulosin HCl 0.4 MG CAP PO SCH (08:27)
[2018-05-27] MEDS: Amlodipine 5 MG TAB PO SCH (08:27)
[2018-05-27] MEDS: Acetaminophen 325 MG TAB PO PRN (08:28)
[2018-05-27] MEDS: Enoxaparin Sodium 40 MG/0.4 ML SYRINGE SC SCH (08:30)
[2018-05-27] MEDS: Polyethylene Glycol 3350 17 GM Packet PO SCH ×3 (08:30→19:05)
[2018-05-27] MEDS: Insulin Glargine 12 UNITS in Pre-Filled Syringe SC SCH ×2 (08:31→20:32)
[2018-05-27] MEDS: Zinc Sulfate 220 MG CAP PO SCH (08:32)
[2018-05-27] MEDS: Nystatin Powder 15 GM BOT TOP SCH ×2 (08:40→20:33)
[2018-05-27] MEDS: Triple Antibiotic Oint 1 GM Packet TOP SCH (08:40)
--- NOTE | 2018-05-27 10:28 | PDOC.PN ---
- Subjective Encounter Start Date: 05/27/18 Encounter Start Time: 09:30 Patient seen and examined. No new complaints. No overnight events - Objective Resuscitation Status - Order Detail: 05/24/18 18:11 Resuscitation Status Routine Resuscitation Status: FULL: Full Resuscitation MAR Reviewed: Yes Vital Signs & Weight: Vital Signs (12 hours) Temp Pulse Resp BP Pulse Ox 05/27/18 07:39 98.2 F 62 18 125/57 L 93 L 05/27/18 07:04 64 16 94 L Weight Admit Weight 141 lb 6 oz Weight 141 lb 6 oz I&O: 05/26/18 05/27/18 05/28/18 06:59 06:59 06:59 Intake Total 120 1500 Output Total 2350 Balance 120 -850 Result Diagrams: 05/26/18 05:07 05/26/18 05:07 Additional Labs: Accuchecks 05/27/18 05/26/18 05/26/18 05:13 20:14 16:37 POC Glucose 181 H 238 H 210 H 05/26/18 11:53 POC Glucose 185 H Phys Exam - Physical Examination Constitutional: NAD HEENT: PERRLA, moist MMs, sclera anicteric Neck: no JVD, supple Respiratory: no wheezing, no rales, no rhonchi Cardiovascular: RRR, no significant murmur, no rub Gastrointestinal: soft, non-tender, no distention, positive bowel sounds Musculoskeletal: no edema, pulses present Neurological: non-focal, normal sensation Lymphatic: no nodes Psychiatric: normal affect Skin: no rash, normal turgor Dx/Plan (1) Osteomyelitis of toe of right foot Code(s): M86.9 - OSTEOMYELITIS, UNSPECIFIED Status: Acute (2) CAD (coronary artery disease) Code(s): I25.10 - ATHSCL HEART DISEASE OF [place] CORONARY ARTERY W/O ANG PCTRS Status: Chronic Qualifiers: Comment: (3) COPD (chronic obstructive pulmonary disease) Status: Chronic Qualifiers: Comment: (4) DM2 (diabetes mellitus, type 2) Status: Chronic Qualifiers: Comment: (5) Decubitus ulcer Code(s): L89.90 - PRESSURE ULCER OF UNSPECIFIED SITE, UNSPECIFIED STAGE Status : Chronic Qualifiers: Comment: present on admission (6) H/O: CVA (cerebrovascular accident) Code(s): Z86.73 - PRSNL HX OF TIA (TIA), AND CEREB INFRC W/O RESID DEFICITS Status: Chronic Comment: (7) HTN (hypertension) Code(s): I10 - ESSENTIAL (PRIMARY) HYPERTENSION Status: Chronic Qualifiers: (8) PVD (peripheral vascular disease) Code(s): I73.9 - PERIPHERAL VASCULAR DISEASE, UNSPECIFIED Status: Chronic - Plan cont current plan of care, continue antibiotics * medication reviewed as below * symptomatic treatment * wound care * nutritional support * continue zosyn * follow pathology report. Review of Systems - Review of Systems ENT: negative: Ear Pain, Ear Discharge, Nose Pain, Nose Discharge, Nose Congestion, Mouth Pain, Mouth Swelling, Throat Pain, Throat Swelling, Other Respiratory: negative: Cough, Dry, Shortness of Breath, Hemoptysis, SOB with Excertion, Pleuritic Pain, Sputum, Wheezing Cardiovascular: negative: chest pain, palpitations, orthopnea, paroxysmal nocturnal dyspnea, edema, light headedness, other Gastrointestinal: negative: Nausea, Vomiting, Abdominal Pain, Diarrhea, Constipation, Melena, Hematochezia, Other Genitourinary: negative: Dysuria, Frequency, Incontinence, Hematuria, Retention , Other Musculoskeletal: negative: Neck Pain, Shoulder Pain, Arm Pain, Back Pain, Hand Pain, Leg Pain, Foot Pain, Other - Medications/Allergies Allergies/Adverse Reactions: Allergies Allergy/AdvReac Type Severity Reaction Status Date / Time codeine Allergy "MAKES ME Verified 03/16/18 17:23 JITTERY" egg Allergy Verified 05/27/18 08:23 Medications: Current Medications Acetaminophen (Tylenol) 650 mg PO Q4H PRN PRN Reason: Headache/Fever/Mild Pain (1-3) Last Admin: 05/27/18 08:28 Dose: 650 mg Amlodipine Besylate (Norvasc) 5 mg PO DAILY [facility] Last Admin: 05/27/18 08:27 Dose: 5 mg Arformoterol Tartrate (Brovana) 15 mcg NEB BID-RT [facility] Last Admin: 05/27/18 07:04 Dose: 15 mcg Artificial Tears (Liquitears 15ml Bottle) 1 drop EA EYE TID PRN PRN Reason: Dry Eyes Ascorbic Acid (Vitamin C) 500 mg PO DAILY [facility] Last Admin: 05/27/18 08:26 Dose: 500 mg Bisacodyl (Dulcolax) 10 mg PO DAILYPRN PRN PRN Reason: Constipation Budesonide (Pulmicort Neb Solution) 0.25 mg INH BID-RT [facility] Last Admin: 05/27/18 07:05 Dose: 0.25 mg Calcium Carbonate (Tums) 500 mg PO QID PRN PRN Reason: Heartburn or Indigestion Carvedilol (Coreg) 6.25 mg PO BID-WM [facility] Last Admin: 05/27/18 08:25 Dose: 6.25 mg Clopidogrel Bisulfate (Plavix) 75 mg PO DAILY [facility] Last Admin: 05/27/18 08:26 Dose: 75 mg Dextrose/Water (Dextrose 50%) 25 gm SLOW IVP PRN PRN PRN Reason: Hypoglycemia Donepezil HCl (Aricept) 5 mg PO HS [facility] Last Admin: 05/26/18 20:56 Dose: 5 mg Enoxaparin Sodium (Lovenox) 40 mg SC 0900 [facility] Last Admin: 05/27/18 08:30 Dose: 40 mg Glucagon (Glucagon) 1 mg IM PRN PRN PRN Reason: Hypoglycemia Guaifenesin (Mucinex) 600 mg PO Q12HR PRN PRN Reason: Congestion Guaifenesin/Dextromethorphan (Diabetic Tussin Dm) 10 ml PO Q8HR PRN PRN Reason: Cough Sodium Chloride (Normal Saline 0.9%) 1,000 mls @ 50 mls/hr IV .Q20H [facility] Last Admin: 05/26/18 16:06 Dose: 1,000 mls Insulin Glargine 12 units/ (Miscellaneous Medication) 0.12 mls @ 0 mls/hr SC BID [facility] Last Admin: 05/27/18 08:31 Dose: 0.12 mls Dextrose/Water (D5w) 1,000 mls @ 0 mls/hr IV .Q0M PRN PRN Reason: Hypoglycemia Vancomycin HCl 1.25 gm/ Sodium (Chloride) 250 mls @ 166.667 mls/hr IVPB 1700 [facility] Last Admin: 05/26/18 15:44 Dose: 250 mls Piperacillin Sod/Tazobactam (Sod 3.375 gm/ Sodium Chloride) 100 mls @ 200 mls/ hr IVPB Q6HR [facility] Last Admin: 05/27/18 08:31 Dose: 100 mls Insulin Human Lispro (Humalog) 0 units SC .MILD SLIDING SCALE PRN PRN Reason: Mild Correctional Scale Last Admin: 05/26/18 20:55 Dose: 3 unit Ipratropium [place] (Atrovent Hfa) 1 puff INH QID-RT PRN PRN Reason: Wheezing or Cough Iron/Minerals/Multivitamins (Theragran M) 1 tab PO DAILY [facility] Last Admin: 05/27/18 08:26 Dose: 1 tab Loperamide HCl (Imodium) 2 mg PO ASDIR PRN PRN Reason: Diarrhea/Loose Stools Loratadine (Claritin) 10 mg PO DAILY [facility] Last Admin: 05/27/18 08:25 Dose: 10 mg Miscellaneous Medication (Pharmacy To Dose) 1 each IVPB PRN PRN PRN Reason: . Neomycin/Polymyxin/Bacitracin (Triple Antibiotic) 0 gm TOP DAILY [facility] Last Admin: 05/27/18 08:40 Dose: 1 gm Nystatin (Mycostatin Powder) 0 gm TOP BID [facility] Last Admin: 05/27/18 08:40 Dose: 1 applic Nystatin (Mycostatin Powder) 0 gm TOP BID PRN PRN Reason: Rash/Topical Irritation Pantoprazole Sodium (Protonix) 40 mg PO DAILY [facility] Last Admin: 05/27/18 08:26 Dose: 40 mg Diclofenac Sodium [ (Voltaren] 4 Gm) 0 each TOP Q12H PRN PRN Reason: Pain Polyethylene Glycol (Miralax) 17 gm PO DAILY [facility] Last Admin: 05/27/18 08:30 Dose: 17 gm Saccharomyces Boulardii (Florastor) 250 mg PO DAILY [facility] Last Admin: 05/27/18 08:24 Dose: 250 mg Senna/Docusate Sodium (Senokot S) 2 tab PO BID PRN PRN Reason: Constipation Simvastatin (Zocor) 40 mg PO HS [facility] Last Admin: 05/26/18 20:56 Dose: 40 mg Tamsulosin HCl (Flomax) 0.4 mg PO DAILY [facility] Last Admin: 05/27/18 08:27 Dose: 0.4 mg Zinc Sulfate (Zinc Sulfate) 220 mg PO DAILY [facility] Last Admin: 05/27/18 08:32 Dose: Not Given
[2018-05-27] MEDS ORDERED: traMADol HCl 50 MG TAB PO PRN ×2 (14:44→19:29)
[2018-05-27] MEDS: Vancomycin HCl 1.25 GM in Sodium Chloride 0.9% 250 ML 250 ML IVPB SCH (16:06)
[2018-05-27] MEDS: Donepezil HCl 5 MG TAB PO SCH (20:32)
[2018-05-27] MEDS: Simvastatin 40 MG TAB PO SCH (20:32)
[2018-05-27] MEDS: Sodium Chloride 0.9% 1,000 ML IV SCH (23:14)
[2018-05-28] MEDS: Piperacillin/Tazobactam 3.375 GM in Sodium Chloride 0.9% 100 ML IVPB SCH ×4 (05:15→23:23)
[2018-05-28] MEDS: Arformoterol 15 MCG/2 ML NEB NEB SCH ×2 (06:57→18:50)
[2018-05-28] MEDS: Budesonide 0.25 MG/2 ML NEB INH SCH ×2 (06:58→18:50)
[2018-05-28] MEDS: Clopidogrel Bisulfate 75 MG TAB PO SCH (08:28)
[2018-05-28] MEDS: Ascorbic Acid 500 mg Chewable Tablet PO SCH (08:28)
[2018-05-28] MEDS: Tamsulosin HCl 0.4 MG CAP PO SCH (08:28)
[2018-05-28] MEDS: Saccharomyces boulardii 250 MG CAP PO SCH (08:28)
[2018-05-28] MEDS: Loratadine 10 MG TAB PO SCH (08:28)
[2018-05-28] MEDS: Amlodipine 5 MG TAB PO SCH (08:28)
[2018-05-28] MEDS: Zinc Sulfate 220 MG CAP PO SCH (08:28)
[2018-05-28] MEDS: Triple Antibiotic Oint 1 GM Packet TOP SCH (08:28)
[2018-05-28] MEDS: Multivitamin W/ Minerals 1 TAB PO SCH (08:28)
[2018-05-28] MEDS: Enoxaparin Sodium 40 MG/0.4 ML SYRINGE SC SCH (08:29)
[2018-05-28] MEDS: Carvedilol 6.25 MG TAB PO SCH ×2 (08:29→16:55)
[2018-05-28] MEDS: Nystatin Powder 15 GM BOT TOP SCH ×2 (08:29→20:16)
[2018-05-28] MEDS: Polyethylene Glycol 3350 17 GM Packet PO SCH (08:29)
[2018-05-28] MEDS: Insulin Glargine 12 UNITS in Pre-Filled Syringe SC SCH ×2 (08:30→20:15)
--- NOTE | 2018-05-28 09:07 | PDOC.PN ---
- Subjective Encounter Start Date: 05/28/18 Encounter Start Time: 08:40 Patient seen and examined. No new complaints. No overnight events - Objective Resuscitation Status - Order Detail: 05/24/18 18:11 Resuscitation Status Routine Resuscitation Status: FULL: Full Resuscitation Vital Signs & Weight: Vital Signs (12 hours) Temp Pulse Resp BP BP Pulse Ox 05/28/18 08:29 118/62 05/28/18 08:28 57 L 05/28/18 08:17 98.1 F 57 L 16 130/64 98 05/28/18 06:57 58 L 20 97 Weight Admit Weight 141 lb 6 oz Weight 141 lb 6 oz I&O: 05/27/18 05/28/18 05/29/18 06:59 06:59 06:59 Intake Total 1500 1900 Output Total 2350 3150 Balance -850 -1250 Result Diagrams: 05/26/18 05:07 05/26/18 05:07 Additional Labs: Accuchecks 05/28/18 05/27/18 05/27/18 04:56 19:50 16:18 POC Glucose 99 118 H 113 H 05/27/18 11:51 POC Glucose 133 H Phys Exam - Physical Examination Constitutional: NAD HEENT: PERRLA, moist MMs, sclera anicteric Neck: no JVD, supple Respiratory: no wheezing, no rales, no rhonchi Cardiovascular: RRR, no significant murmur, no rub Gastrointestinal: soft, non-tender, no distention Musculoskeletal: no edema, pulses present Neurological: non-focal, normal sensation Psychiatric: normal affect, A&O x 3 Skin: no rash, normal turgor Dx/Plan (1) Osteomyelitis of toe of right foot Code(s): M86.9 - OSTEOMYELITIS, UNSPECIFIED Status: Acute (2) CAD (coronary artery disease) Code(s): I25.10 - ATHSCL HEART DISEASE OF [place] CORONARY ARTERY W/O ANG PCTRS Status: Chronic Qualifiers: Comment: (3) COPD (chronic obstructive pulmonary disease) Status: Chronic Qualifiers: Comment: (4) DM2 (diabetes mellitus, type 2) Status: Chronic Qualifiers: Comment: (5) Decubitus ulcer Code(s): L89.90 - PRESSURE ULCER OF UNSPECIFIED SITE, UNSPECIFIED STAGE Status : Chronic Qualifiers: Comment: present on admission (6) H/O: CVA (cerebrovascular accident) Code(s): Z86.73 - PRSNL HX OF TIA (TIA), AND CEREB INFRC W/O RESID DEFICITS Status: Chronic Comment: (7) HTN (hypertension) Code(s): I10 - ESSENTIAL (PRIMARY) HYPERTENSION Status: Chronic Qualifiers: (8) PVD (peripheral vascular disease) Code(s): I73.9 - PERIPHERAL VASCULAR DISEASE, UNSPECIFIED Status: Chronic - Plan cont current plan of care * medication reviewed as below * symptomatic treatment * wound care * continue iv antibiotics. Review of Systems - Review of Systems ENT: negative: Ear Pain, Ear Discharge, Nose Pain, Nose Discharge, Nose Congestion, Mouth Pain, Mouth Swelling, Throat Pain, Throat Swelling, Other Respiratory: negative: Cough, Dry, Shortness of Breath, Hemoptysis, SOB with Excertion, Pleuritic Pain, Sputum, Wheezing Cardiovascular: negative: chest pain, palpitations, orthopnea, paroxysmal nocturnal dyspnea, edema, light headedness, other Gastrointestinal: negative: Nausea, Vomiting, Abdominal Pain, Diarrhea, Constipation, Melena, Hematochezia, Other Genitourinary: negative: Dysuria, Frequency, Incontinence, Hematuria, Retention , Other Musculoskeletal: negative: Neck Pain, Shoulder Pain, Arm Pain, Back Pain, Hand Pain, Leg Pain, Foot Pain, Other - Medications/Allergies Allergies/Adverse Reactions: Allergies Allergy/AdvReac Type Severity Reaction Status Date / Time codeine Allergy "MAKES ME Verified 03/16/18 17:23 JITTERY" egg Allergy Verified 05/27/18 08:23 Medications: Current Medications Acetaminophen (Tylenol) 650 mg PO Q4H PRN PRN Reason: Headache/Fever/Mild Pain (1-3) Last Admin: 05/27/18 08:28 Dose: 650 mg Amlodipine Besylate (Norvasc) 5 mg PO DAILY [facility] Last Admin: 05/28/18 08:28 Dose: 5 mg Arformoterol Tartrate (Brovana) 15 mcg NEB BID-RT [facility] Last Admin: 05/28/18 06:57 Dose: 15 mcg Artificial Tears (Liquitears 15ml Bottle) 1 drop EA EYE TID PRN PRN Reason: Dry Eyes Ascorbic Acid (Vitamin C) 500 mg PO DAILY [facility] Last Admin: 05/28/18 08:28 Dose: 500 mg Bisacodyl (Dulcolax) 10 mg PO DAILYPRN PRN PRN Reason: Constipation Budesonide (Pulmicort Neb Solution) 0.25 mg INH BID-RT [facility] Last Admin: 05/28/18 06:58 Dose: 0.25 mg Calcium Carbonate (Tums) 500 mg PO QID PRN PRN Reason: Heartburn or Indigestion Carvedilol (Coreg) 6.25 mg PO BID-WM [facility] Last Admin: 05/28/18 08:29 Dose: Not Given Clopidogrel Bisulfate (Plavix) 75 mg PO DAILY [facility] Last Admin: 05/28/18 08:28 Dose: 75 mg Dextrose/Water (Dextrose 50%) 25 gm SLOW IVP PRN PRN PRN Reason: Hypoglycemia Donepezil HCl (Aricept) 5 mg PO HS [facility] Last Admin: 05/27/18 20:32 Dose: 5 mg Enoxaparin Sodium (Lovenox) 40 mg SC 0900 [facility] Last Admin: 05/28/18 08:29 Dose: 40 mg Glucagon (Glucagon) 1 mg IM PRN PRN PRN Reason: Hypoglycemia Guaifenesin (Mucinex) 600 mg PO Q12HR PRN PRN Reason: Congestion Guaifenesin/Dextromethorphan (Diabetic Tussin Dm) 10 ml PO Q8HR PRN PRN Reason: Cough Sodium Chloride (Normal Saline 0.9%) 1,000 mls @ 50 mls/hr IV .Q20H [facility] Last Admin: 05/27/18 23:14 Dose: Not Given Insulin Glargine 12 units/ (Miscellaneous Medication) 0.12 mls @ 0 mls/hr SC BID [facility] Last Admin: 05/28/18 08:30 Dose: 0.12 mls Dextrose/Water (D5w) 1,000 mls @ 0 mls/hr IV .Q0M PRN PRN Reason: Hypoglycemia Vancomycin HCl 1.25 gm/ Sodium (Chloride) 250 mls @ 166.667 mls/hr IVPB 1700 [facility] Last Admin: 05/27/18 16:06 Dose: 250 mls Piperacillin Sod/Tazobactam (Sod 3.375 gm/ Sodium Chloride) 100 mls @ 200 mls/ hr IVPB Q6HR [facility] Last Admin: 05/28/18 05:15 Dose: 100 mls Insulin Human Lispro (Humalog) 0 units SC .MILD SLIDING SCALE PRN PRN Reason: Mild Correctional Scale Last Admin: 05/26/18 20:55 Dose: 3 unit Ipratropium [place] (Atrovent Hfa) 1 puff INH QID-RT PRN PRN Reason: Wheezing or Cough Iron/Minerals/Multivitamins (Theragran M) 1 tab PO DAILY [facility] Last Admin: 05/28/18 08:28 Dose: 1 tab Loperamide HCl (Imodium) 2 mg PO ASDIR PRN PRN Reason: Diarrhea/Loose Stools Loratadine (Claritin) 10 mg PO DAILY [facility] Last Admin: 05/28/18 08:28 Dose: 10 mg Miscellaneous Medication (Pharmacy To Dose) 1 each IVPB PRN PRN PRN Reason: . Neomycin/Polymyxin/Bacitracin (Triple Antibiotic) 0 gm TOP DAILY [facility] Last Admin: 05/28/18 08:28 Dose: 1 gm Nystatin (Mycostatin Powder) 0 gm TOP BID [facility] Last Admin: 05/28/18 08:29 Dose: Not Given Nystatin (Mycostatin Powder) 0 gm TOP BID PRN PRN Reason: Rash/Topical Irritation Pantoprazole Sodium (Protonix) 40 mg PO DAILY [facility] Last Admin: 05/28/18 08:28 Dose: 40 mg Polyethylene Glycol (Miralax) 17 gm PO DAILY [facility] Last Admin: 05/28/18 08:29 Dose: Not Given Saccharomyces Boulardii (Florastor) 250 mg PO DAILY [facility] Last Admin: 05/28/18 08:28 Dose: 250 mg Senna/Docusate Sodium (Senokot S) 2 tab PO BID PRN PRN Reason: Constipation Simvastatin (Zocor) 40 mg PO HS [facility] Last Admin: 05/27/18 20:32 Dose: 40 mg Tamsulosin HCl (Flomax) 0.4 mg PO DAILY [facility] Last Admin: 05/28/18 08:28 Dose: 0.4 mg Tramadol HCl (Ultram) 25 mg PO Q6H PRN PRN Reason: Moderate Pain (4-6) Tramadol HCl (Ultram) 50 mg PO Q6H PRN PRN Reason: Severe Pain (7-10) Zinc Sulfate (Zinc Sulfate) 220 mg PO DAILY [facility] Last Admin: 05/28/18 08:28 Dose: 220 mg
[2018-05-28 16:21] LABS: Vancomycin, Trough 23.6 ug/mL
[2018-05-28] MEDS: Simvastatin 40 MG TAB PO SCH (20:15)
[2018-05-28] MEDS: Donepezil HCl 5 MG TAB PO SCH (20:15)
[2018-05-28] MEDS: Sodium Chloride 0.9% 1,000 ML IV SCH (20:19)
[2018-05-29] MEDS: Piperacillin/Tazobactam 3.375 GM in Sodium Chloride 0.9% 100 ML IVPB SCH ×3 (05:36→16:43)
[2018-05-29] MEDS: Budesonide 0.25 MG/2 ML NEB INH SCH ×2 (06:28→19:12)
[2018-05-29] MEDS: Arformoterol 15 MCG/2 ML NEB NEB SCH ×2 (06:30→19:09)
[2018-05-29] MEDS: Carvedilol 6.25 MG TAB PO SCH ×3 (08:59→17:08)
[2018-05-29] MEDS: Multivitamin W/ Minerals 1 TAB PO SCH (09:00)
[2018-05-29] MEDS: Amlodipine 5 MG TAB PO SCH (09:01)
[2018-05-29] MEDS: Clopidogrel Bisulfate 75 MG TAB PO SCH (09:02)
[2018-05-29] MEDS: Saccharomyces boulardii 250 MG CAP PO SCH (09:03)
[2018-05-29] MEDS: Ascorbic Acid 500 mg Chewable Tablet PO SCH (09:03)
[2018-05-29] MEDS: Tamsulosin HCl 0.4 MG CAP PO SCH (09:04)
[2018-05-29] MEDS: Loratadine 10 MG TAB PO SCH (09:04)
[2018-05-29] MEDS: Zinc Sulfate 220 MG CAP PO SCH (09:04)
[2018-05-29] MEDS: Enoxaparin Sodium 40 MG/0.4 ML SYRINGE SC SCH (09:07)
[2018-05-29] MEDS: Triple Antibiotic Oint 1 GM Packet TOP SCH (09:09)
[2018-05-29] MEDS: Insulin Glargine 12 UNITS in Pre-Filled Syringe SC SCH ×3 (09:10→22:16)
[2018-05-29] MEDS: Polyethylene Glycol 3350 17 GM Packet PO SCH (09:23)
[2018-05-29] MEDS: Nystatin Powder 15 GM BOT TOP SCH ×2 (09:23→20:36)
--- NOTE | 2018-05-29 12:25 | PDOC.PN ---
- Subjective Encounter Start Date: 05/29/18 Encounter Start Time: 10:15 Patient seen and examined. No new complaints. No overnight events - Objective Resuscitation Status - Order Detail: 05/24/18 18:11 Resuscitation Status Routine Resuscitation Status: FULL: Full Resuscitation MAR Reviewed: Yes Vital Signs & Weight: Vital Signs (12 hours) Temp Pulse Resp BP BP Pulse Ox 05/29/18 09:01 54 L 05/29/18 08:59 114/50 L 05/29/18 08:00 98.2 F 53 L 18 114/50 L 96 05/29/18 06:30 56 L 14 95 05/29/18 06:28 56 L 14 95 Weight Admit Weight 141 lb 6 oz Weight 141 lb 6 oz I&O: 05/28/18 05/29/18 05/30/18 06:59 06:59 06:59 Intake Total 1900 1200 Output Total 3150 2350 Balance -1250 -1150 Result Diagrams: 05/26/18 05:07 05/26/18 05:07 Additional Labs: Accuchecks 05/29/18 05/29/18 05/28/18 12:09 04:52 20:37 POC Glucose 91 122 H 194 H 05/28/18 05/28/18 16:43 12:10 POC Glucose 193 H 106 Phys Exam - Physical Examination Constitutional: NAD HEENT: PERRLA, moist MMs, sclera anicteric Neck: no JVD, supple Respiratory: no wheezing, no rales, no rhonchi Cardiovascular: RRR, no significant murmur, no rub Gastrointestinal: soft, non-tender, no distention, positive bowel sounds Musculoskeletal: no edema, pulses present wound noted+ Neurological: non-focal, normal sensation Lymphatic: no nodes Psychiatric: normal affect Skin: no rash, normal turgor Dx/Plan (1) Osteomyelitis of toe of right foot Code(s): M86.9 - OSTEOMYELITIS, UNSPECIFIED Status: Acute (2) CAD (coronary artery disease) Code(s): I25.10 - ATHSCL HEART DISEASE OF [place] CORONARY ARTERY W/O ANG PCTRS Status: Chronic Qualifiers: Comment: (3) COPD (chronic obstructive pulmonary disease) Status: Chronic Qualifiers: Comment: (4) DM2 (diabetes mellitus, type 2) Status: Chronic Qualifiers: Comment: (5) Decubitus ulcer Code(s): L89.90 - PRESSURE ULCER OF UNSPECIFIED SITE, UNSPECIFIED STAGE Status : Chronic Qualifiers: Comment: present on admission (6) H/O: CVA (cerebrovascular accident) Code(s): Z86.73 - PRSNL HX OF TIA (TIA), AND CEREB INFRC W/O RESID DEFICITS Status: Chronic Comment: (7) HTN (hypertension) Code(s): I10 - ESSENTIAL (PRIMARY) HYPERTENSION Status: Chronic Qualifiers: (8) PVD (peripheral vascular disease) Code(s): I73.9 - PERIPHERAL VASCULAR DISEASE, UNSPECIFIED Status: Chronic - Plan cont current plan of care * medication reviewed as below * symptomatic treatment * wound care * IV antibiotics arrangement. Review of Systems - Review of Systems ENT: negative: Ear Pain, Ear Discharge, Nose Pain, Nose Discharge, Nose Congestion, Mouth Pain, Mouth Swelling, Throat Pain, Throat Swelling, Other Respiratory: negative: Cough, Dry, Shortness of Breath, Hemoptysis, SOB with Excertion, Pleuritic Pain, Sputum, Wheezing Cardiovascular: negative: chest pain, palpitations, orthopnea, paroxysmal nocturnal dyspnea, edema, light headedness, other Gastrointestinal: negative: Nausea, Vomiting, Abdominal Pain, Diarrhea, Constipation, Melena, Hematochezia, Other Genitourinary: negative: Dysuria, Frequency, Incontinence, Hematuria, Retention , Other Musculoskeletal: negative: Neck Pain, Shoulder Pain, Arm Pain, Back Pain, Hand Pain, Leg Pain, Foot Pain, Other - Medications/Allergies Allergies/Adverse Reactions: Allergies Allergy/AdvReac Type Severity Reaction Status Date / Time codeine Allergy "MAKES ME Verified 03/16/18 17:23 JITTERY" egg Allergy Verified 05/27/18 08:23 Medications: Current Medications Acetaminophen (Tylenol) 650 mg PO Q4H PRN PRN Reason: Headache/Fever/Mild Pain (1-3) Last Admin: 05/27/18 08:28 Dose: 650 mg Amlodipine Besylate (Norvasc) 5 mg PO DAILY [facility] Last Admin: 05/29/18 09:01 Dose: Not Given Arformoterol Tartrate (Brovana) 15 mcg NEB BID-RT [facility] Last Admin: 05/29/18 06:30 Dose: 15 mcg Artificial Tears (Liquitears 15ml Bottle) 1 drop EA EYE TID PRN PRN Reason: Dry Eyes Ascorbic Acid (Vitamin C) 500 mg PO DAILY [facility] Last Admin: 05/29/18 09:03 Dose: 500 mg Bisacodyl (Dulcolax) 10 mg PO DAILYPRN PRN PRN Reason: Constipation Budesonide (Pulmicort Neb Solution) 0.25 mg INH BID-RT [facility] Last Admin: 05/29/18 06:28 Dose: 0.25 mg Calcium Carbonate (Tums) 500 mg PO QID PRN PRN Reason: Heartburn or Indigestion Carvedilol (Coreg) 6.25 mg PO BID-WM [facility] Last Admin: 05/29/18 08:59 Dose: 6.25 mg Clopidogrel Bisulfate (Plavix) 75 mg PO DAILY [facility] Last Admin: 05/29/18 09:02 Dose: 75 mg Dextrose/Water (Dextrose 50%) 25 gm SLOW IVP PRN PRN PRN Reason: Hypoglycemia Donepezil HCl (Aricept) 5 mg PO HS [facility] Last Admin: 05/28/18 20:15 Dose: 5 mg Enoxaparin Sodium (Lovenox) 40 mg SC 0900 [facility] Last Admin: 05/29/18 09:07 Dose: 40 mg Glucagon (Glucagon) 1 mg IM PRN PRN PRN Reason: Hypoglycemia Guaifenesin (Mucinex) 600 mg PO Q12HR PRN PRN Reason: Congestion Guaifenesin/Dextromethorphan (Diabetic Tussin Dm) 10 ml PO Q8HR PRN PRN Reason: Cough Sodium Chloride (Normal Saline 0.9%) 1,000 mls @ 50 mls/hr IV .Q20H [facility] Last Admin: 05/28/18 20:19 Dose: 1,000 mls Insulin Glargine 12 units/ (Miscellaneous Medication) 0.12 mls @ 0 mls/hr SC BID [facility] Last Admin: 05/29/18 09:10 Dose: 0.12 mls Dextrose/Water (D5w) 1,000 mls @ 0 mls/hr IV .Q0M PRN PRN Reason: Hypoglycemia Piperacillin Sod/Tazobactam (Sod 3.375 gm/ Sodium Chloride) 100 mls @ 200 mls/ hr IVPB Q6HR [facility] Last Admin: 05/29/18 11:26 Dose: 100 mls Vancomycin HCl 1 gm/ Device 200 mls @ 200 mls/hr IVPB 1700 [facility] Insulin Human Lispro (Humalog) 0 units SC .MILD SLIDING SCALE PRN PRN Reason: Mild Correctional Scale Last Admin: 05/26/18 20:55 Dose: 3 unit Ipratropium [place] (Atrovent Hfa) 1 puff INH QID-RT PRN PRN Reason: Wheezing or Cough Iron/Minerals/Multivitamins (Theragran M) 1 tab PO DAILY [facility] Last Admin: 05/29/18 09:00 Dose: 1 tab Loperamide HCl (Imodium) 2 mg PO ASDIR PRN PRN Reason: Diarrhea/Loose Stools Loratadine (Claritin) 10 mg PO DAILY [facility] Last Admin: 05/29/18 09:04 Dose: 10 mg Miscellaneous Medication (Pharmacy To Dose) 1 each IVPB PRN PRN PRN Reason: . Neomycin/Polymyxin/Bacitracin (Triple Antibiotic) 0 gm TOP DAILY [facility] Last Admin: 05/29/18 09:09 Dose: 1 gm Nystatin (Mycostatin Powder) 0 gm TOP BID [facility] Last Admin: 05/29/18 09:23 Dose: Not Given Nystatin (Mycostatin Powder) 0 gm TOP BID PRN PRN Reason: Rash/Topical Irritation Pantoprazole Sodium (Protonix) 40 mg PO DAILY [facility] Last Admin: 05/29/18 09:02 Dose: 40 mg Polyethylene Glycol (Miralax) 17 gm PO DAILY [facility] Last Admin: 05/29/18 09:23 Dose: Not Given Saccharomyces Boulardii (Florastor) 250 mg PO DAILY [facility] Last Admin: 05/29/18 09:03 Dose: 250 mg Senna/Docusate Sodium (Senokot S) 2 tab PO BID PRN PRN Reason: Constipation Simvastatin (Zocor) 40 mg PO HS [facility] Last Admin: 05/28/18 20:15 Dose: 40 mg Tamsulosin HCl (Flomax) 0.4 mg PO DAILY [facility] Last Admin: 05/29/18 09:04 Dose: 0.4 mg Tramadol HCl (Ultram) 25 mg PO Q6H PRN PRN Reason: Moderate Pain (4-6) Tramadol HCl (Ultram) 50 mg PO Q6H PRN PRN Reason: Severe Pain (7-10) Last Admin: 05/29/18 09:05 Dose: 50 mg Zinc Sulfate (Zinc Sulfate) 220 mg PO DAILY [facility] Last Admin: 05/29/18 09:04 Dose: 220 mg
--- NOTE | 2018-05-29 15:41 | PRG ---
DATE OF SERVICE: 05/28/2018 SUBJECTIVE: Mr. Burdick is awake. Denies any pain. No respiratory symptoms. No diarrhea. OBJECTIVE: VITAL SIGNS: T-max 98.5, blood pressure 120/50, pulse 56, respirations 14, O2 saturation 95%. GENERAL: The last wound revision shows the area of debridement with fresh tissue at the base, some bone exposures. Awake, alert, and oriented. LUNGS: Clear. HEART: S1, S2. Regular rate. ABDOMEN: Soft, not distended. LABORATORY DATA: White cell count 5.5, hemoglobin 9.3, platelets 159, 66% neutrophils, which is improved. Creatinine is at 0.8. Vancomycin trough was elevated. Vancomycin dose was reduced to 1 g daily. Cultures revealed group B strep, MRSA, those have been recurring feature of the cultures from this site previously. He also had Proteus mirabilis, but no anaerobes identified. 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 The patient to be continued on Rocephin and vancomycin until July 05. Weekly labs, and need complex wound management, probably will need a negative pressure dressing. The flap would be ideal, but I do not think he would be a candidate for such intervention. Job ID: [id number]
[2018-05-29] MEDS: Vancomycin HCl 1 GM in Premix Bag 1 BAG IVPB SCH (16:42)
[2018-05-29] MEDS: Sodium Chloride 0.9% 1,000 ML IV SCH (16:48)
[2018-05-29] MEDS: Simvastatin 40 MG TAB PO SCH (20:36)
[2018-05-29] MEDS: Donepezil HCl 5 MG TAB PO SCH (20:36)
[2018-05-29] MEDS ORDERED: Vancomycin HCl 25 MG/ML Oral PO SCH (21:15)
[2018-05-30] MEDS: Piperacillin/Tazobactam 3.375 GM in Sodium Chloride 0.9% 100 ML IVPB SCH ×2 (00:05→05:15)
[2018-05-30] MEDS: Sodium Chloride 0.9% 1,000 ML IV SCH ×2 (05:00→14:05)
[2018-05-30] MEDS: Vancomycin HCl 25 MG/ML Oral PO SCH ×4 (05:16→20:03)
[2018-05-30] MEDS: Budesonide 0.25 MG/2 ML NEB INH SCH ×2 (06:26→19:09)
[2018-05-30] MEDS: Arformoterol 15 MCG/2 ML NEB NEB SCH ×2 (06:28→19:06)
[2018-05-30] MEDS: Clopidogrel Bisulfate 75 MG TAB PO SCH (08:31)
[2018-05-30] MEDS: Amlodipine 5 MG TAB PO SCH (08:31)
[2018-05-30] MEDS: Loratadine 10 MG TAB PO SCH (08:31)
[2018-05-30] MEDS: Tamsulosin HCl 0.4 MG CAP PO SCH (08:31)
[2018-05-30] MEDS: Saccharomyces boulardii 250 MG CAP PO SCH (08:31)
[2018-05-30] MEDS: Ascorbic Acid 500 mg Chewable Tablet PO SCH (08:32)
[2018-05-30] MEDS: Multivitamin W/ Minerals 1 TAB PO SCH (08:32)
[2018-05-30] MEDS: Zinc Sulfate 220 MG CAP PO SCH (08:32)
[2018-05-30] MEDS: Carvedilol 6.25 MG TAB PO SCH ×2 (08:32→16:51)
[2018-05-30] MEDS: Insulin Glargine 12 UNITS in Pre-Filled Syringe SC SCH ×2 (08:33→20:02)
[2018-05-30] MEDS: Polyethylene Glycol 3350 17 GM Packet PO SCH (08:33)
[2018-05-30] MEDS: Triple Antibiotic Oint 1 GM Packet TOP SCH (08:33)
[2018-05-30] MEDS: Enoxaparin Sodium 40 MG/0.4 ML SYRINGE SC SCH (08:33)
[2018-05-30] MEDS: cefTRIAXone\\ROCEPHIN 2 GM in Sodium Chloride 0.9% 100 ML IVPB SCH (08:37)
[2018-05-30] MEDS: Nystatin Powder 15 GM BOT TOP SCH ×2 (08:42→20:04)
[2018-05-30 09:20] LABS: ALT (SGPT) 22 U/L (8-55); AST (SGOT) 38 U/L (5-34); Albumin 2.8 g/dL (3.4-4.8); Alkaline Phosphatase 96 U/L (40-150); Anion Gap 9 mmol/L (10-20); BUN (Urea Nitrogen) 11 mg/dL (8.4-25.7); Bilirubin, Total 0.2 mg/dL (0.2-1.2); Calc. Creatinine Clearance 79 mL/min (70-130); Calcium 8.8 mg/dL (7.8-10.44); Carbon Dioxide 27 mmol/L (23-31); Chloride 106 mmol/L (98-107); Estimated GFR-MDRD Greater than 90; Globulin 3.5 g/dL (2.4-3.5); Glucose 78 mg/dL (83-110); Potassium 3.8 mmol/L (3.5-5.1); Protein, Total 6.3 g/dL (5.8-8.1); Sodium 138 mmol/L (136-145)
--- NOTE | 2018-05-30 10:24 | PDOC.PN ---
- Subjective Encounter Start Date: 05/30/18 Encounter Start Time: 08:50 Patient seen and examined. No new complaints. No overnight events - Objective Resuscitation Status - Order Detail: 05/24/18 18:11 Resuscitation Status Routine Resuscitation Status: FULL: Full Resuscitation MAR Reviewed: Yes Vital Signs & Weight: Vital Signs (12 hours) Temp Pulse Resp BP BP Pulse Ox 05/30/18 08:32 114/50 L 05/30/18 08:31 59 L 05/30/18 08:00 95 05/30/18 07:56 97.4 F L 59 L 18 137/71 95 05/30/18 06:28 56 L 14 97 05/30/18 06:26 56 L 14 97 Weight Admit Weight 141 lb 6 oz Weight 141 lb 6 oz I&O: 05/29/18 05/30/18 05/31/18 06:59 06:59 06:59 Intake Total 1200 1000 Output Total 2350 2200 Balance -1150 -1200 Result Diagrams: 05/26/18 05:07 05/30/18 08:49 Additional Labs: Accuchecks 05/30/18 05/30/18 05/29/18 06:08 05:07 20:15 POC Glucose 83 51 L* 89 05/29/18 05/29/18 17:03 12:09 POC Glucose 84 91 Phys Exam - Physical Examination Constitutional: NAD HEENT: PERRLA, moist MMs, sclera anicteric Neck: no JVD, supple Respiratory: no wheezing, no rales, no rhonchi Cardiovascular: RRR, no significant murmur, no rub Gastrointestinal: soft, non-tender, no distention, positive bowel sounds Musculoskeletal: no edema, pulses present Neurological: non-focal, normal sensation Lymphatic: no nodes Psychiatric: normal affect Skin: no rash, normal turgor Dx/Plan (1) Osteomyelitis of toe of right foot Code(s): M86.9 - OSTEOMYELITIS, UNSPECIFIED Status: Acute (2) CAD (coronary artery disease) Code(s): I25.10 - ATHSCL HEART DISEASE OF [place] CORONARY ARTERY W/O ANG PCTRS Status: Chronic Qualifiers: Comment: (3) COPD (chronic obstructive pulmonary disease) Status: Chronic Qualifiers: Comment: (4) DM2 (diabetes mellitus, type 2) Status: Chronic Qualifiers: Comment: (5) Decubitus ulcer Code(s): L89.90 - PRESSURE ULCER OF UNSPECIFIED SITE, UNSPECIFIED STAGE Status : Chronic Qualifiers: Comment: present on admission (6) H/O: CVA (cerebrovascular accident) Code(s): Z86.73 - PRSNL HX OF TIA (TIA), AND CEREB INFRC W/O RESID DEFICITS Status: Chronic Comment: (7) HTN (hypertension) Code(s): I10 - ESSENTIAL (PRIMARY) HYPERTENSION Status: Chronic Qualifiers: (8) PVD (peripheral vascular disease) Code(s): I73.9 - PERIPHERAL VASCULAR DISEASE, UNSPECIFIED Status: Chronic - Plan cont current plan of care, 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 Review of Systems - Review of Systems ENT: negative: Ear Pain, Ear Discharge, Nose Pain, Nose Discharge, Nose Congestion, Mouth Pain, Mouth Swelling, Throat Pain, Throat Swelling, Other Respiratory: negative: Cough, Dry, Shortness of Breath, Hemoptysis, SOB with Excertion, Pleuritic Pain, Sputum, Wheezing Cardiovascular: negative: chest pain, palpitations, orthopnea, paroxysmal nocturnal dyspnea, edema, light headedness, other Gastrointestinal: negative: Nausea, Vomiting, Abdominal Pain, Diarrhea, Constipation, Melena, Hematochezia, Other Genitourinary: negative: Dysuria, Frequency, Incontinence, Hematuria, Retention , Other Musculoskeletal: negative: Neck Pain, Shoulder Pain, Arm Pain, Back Pain, Hand Pain, Leg Pain, Foot Pain, Other - Medications/Allergies Allergies/Adverse Reactions: Allergies Allergy/AdvReac Type Severity Reaction Status Date / Time codeine Allergy "MAKES ME Verified 03/16/18 17:23 JITTERY" egg Allergy Verified 05/27/18 08:23 Medications: Current Medications Acetaminophen (Tylenol) 650 mg PO Q4H PRN PRN Reason: Headache/Fever/Mild Pain (1-3) Last Admin: 05/27/18 08:28 Dose: 650 mg Amlodipine Besylate (Norvasc) 5 mg PO DAILY [facility] Last Admin: 05/30/18 08:31 Dose: 5 mg Arformoterol Tartrate (Brovana) 15 mcg NEB BID-RT [facility] Last Admin: 05/30/18 06:28 Dose: 15 mcg Artificial Tears (Liquitears 15ml Bottle) 1 drop EA EYE TID PRN PRN Reason: Dry Eyes Ascorbic Acid (Vitamin C) 500 mg PO DAILY [facility] Last Admin: 05/30/18 08:32 Dose: 500 mg Bisacodyl (Dulcolax) 10 mg PO DAILYPRN PRN PRN Reason: Constipation Budesonide (Pulmicort Neb Solution) 0.25 mg INH BID-RT [facility] Last Admin: 05/30/18 06:26 Dose: 0.25 mg Calcium Carbonate (Tums) 500 mg PO QID PRN PRN Reason: Heartburn or Indigestion Carvedilol (Coreg) 6.25 mg PO BID-WM [facility] Last Admin: 05/30/18 08:32 Dose: 6.25 mg Clopidogrel Bisulfate (Plavix) 75 mg PO DAILY [facility] Last Admin: 05/30/18 08:31 Dose: 75 mg Dextrose/Water (Dextrose 50%) 25 gm SLOW IVP PRN PRN PRN Reason: Hypoglycemia Donepezil HCl (Aricept) 5 mg PO HS [facility] Last Admin: 05/29/18 20:36 Dose: 5 mg Enoxaparin Sodium (Lovenox) 40 mg SC 0900 [facility] Last Admin: 05/30/18 08:33 Dose: 40 mg Glucagon (Glucagon) 1 mg IM PRN PRN PRN Reason: Hypoglycemia Guaifenesin (Mucinex) 600 mg PO Q12HR PRN PRN Reason: Congestion Guaifenesin/Dextromethorphan (Diabetic Tussin Dm) 10 ml PO Q8HR PRN PRN Reason: Cough Sodium Chloride (Normal Saline 0.9%) 1,000 mls @ 50 mls/hr IV .Q20H [facility] Last Admin: 05/30/18 05:00 Dose: 1,000 mls Insulin Glargine 12 units/ (Miscellaneous Medication) 0.12 mls @ 0 mls/hr SC BID [facility] Last Admin: 05/30/18 08:33 Dose: 0.12 mls Dextrose/Water (D5w) 1,000 mls @ 0 mls/hr IV .Q0M PRN PRN Reason: Hypoglycemia Vancomycin HCl 1 gm/ Device 200 mls @ 200 mls/hr IVPB 1700 [facility] Last Admin: 05/29/18 16:42 Dose: 200 mls Ceftriaxone Sodium 2 gm/ (Sodium Chloride) 100 mls @ 200 mls/hr IVPB Q24HR [facility] Last Admin: 05/30/18 08:37 Dose: 100 mls Insulin Human Lispro (Humalog) 0 units SC .MILD SLIDING SCALE PRN PRN Reason: Mild Correctional Scale Last Admin: 05/26/18 20:55 Dose: 3 unit Ipratropium Bearden (Atrovent Hfa) 1 puff INH QID-RT PRN PRN Reason: Wheezing or Cough Iron/Minerals/Multivitamins (Theragran M) 1 tab PO DAILY [facility] Last Admin: 05/30/18 08:32 Dose: 1 tab Loperamide HCl (Imodium) 2 mg PO ASDIR PRN PRN Reason: Diarrhea/Loose Stools Loratadine (Claritin) 10 mg PO DAILY [facility] Last Admin: 05/30/18 08:31 Dose: 10 mg Miscellaneous Medication (Pharmacy To Dose) 1 each IVPB PRN PRN PRN Reason: . Neomycin/Polymyxin/Bacitracin (Triple Antibiotic) 0 gm TOP DAILY [facility] Last Admin: 05/30/18 08:33 Dose: 1 gm Nystatin (Mycostatin Powder) 0 gm TOP BID [facility] Last Admin: 05/30/18 08:42 Dose: 1 applic Nystatin (Mycostatin Powder) 0 gm TOP BID PRN PRN Reason: Rash/Topical Irritation Pantoprazole Sodium (Protonix) 40 mg PO DAILY [facility] Last Admin: 05/30/18 08:32 Dose: 40 mg Polyethylene Glycol (Miralax) 17 gm PO DAILY [facility] Last Admin: 05/30/18 08:33 Dose: 17 gm Saccharomyces Boulardii (Florastor) 250 mg PO DAILY [facility] Last Admin: 05/30/18 08:31 Dose: 250 mg Senna/Docusate Sodium (Senokot S) 2 tab PO BID PRN PRN Reason: Constipation Simvastatin (Zocor) 40 mg PO HS [facility] Last Admin: 05/29/18 20:36 Dose: 40 mg Sodium Chloride (Flush - Normal Saline) 10 ml IVF Q12HR [facility] Last Admin: 05/30/18 08:42 Dose: Not Given Sodium Chloride (Flush - Normal Saline) 10 ml IVF PRN PRN PRN Reason: Saline Flush Tamsulosin HCl (Flomax) 0.4 mg PO DAILY [facility] Last Admin: 05/30/18 08:31 Dose: 0.4 mg Tramadol HCl (Ultram) 25 mg PO Q6H PRN PRN Reason: Moderate Pain (4-6) Tramadol HCl (Ultram) 50 mg PO Q6H PRN PRN Reason: Severe Pain (7-10) Last Admin: 05/29/18 09:05 Dose: 50 mg Vancomycin HCl (First Vancomycin) 125 mg PO Q6HR [facility] Last Admin: 05/30/18 05:16 Dose: 125 mg Zinc Sulfate (Zinc Sulfate) 220 mg PO DAILY [facility] Last Admin: 05/30/18 08:32 Dose: 220 mg
[2018-05-30] MEDS: Acetaminophen 325 MG TAB PO PRN (10:53)
[2018-05-30] MEDS ORDERED: Heparin 1,000 UNITS/ML VIAL ONE (11:11)
[2018-05-30 12:35] LABS: #Eosinphils 0.3 thou/uL (0.0-0.7); #Lymphocytes 1.1 thou/uL (1.20-3.40); #Monocytes 0.5 thou/uL (0.11-0.59); #Neutrophils 3.4 thou/uL (1.40-6.50); %Basophils 0.9 % (0.0-1.0); %Eosinophils 6.4 % (0.0-10.0); %Lymphocytes 20.4 % (21.0-51.0); %Monocytes 8.6 % (0.0-10.0); %Neutrophils 63.7 % (42.0-75.0); Mean Corpuscular HGB CONC 31.2 g/dL (32.0-36.0); Mean Corpuscular Hemoglobin 27.7 pg (27.0-31.0); Mean Corpuscular Volume 88.6 fL (78.0-98.0); Mean Platelet Volume 7.9 fL (7.4-10.4); Platelet Count 205 thou/uL (130-400); RBC Distribution Width 14.2 % (11.5-14.5); White Blood Cell (WBC) Count 5.3 thou/uL (4.8-10.8)
--- NOTE | 2018-05-30 15:41 | SPC ---
Sonographic guided right upper extremity PICC placement HISTORY: Decubitus ulcer. Infection. FINDINGS: After explaining the procedure and obtaining informed consent, the right upper extremity wa s prepped and draped in usual sterile fashion. Sterile technique, buffered local seizure, sonographic guidance, and a 22-gauge needle used to carefully access the right brachial vein. Standar d technique was then used to place the tip of a 5 [place] single lumen PICC so that the tip lies at the level of the superior vena cava. The catheter was flushed and secured externally. Patient tolerat ed the procedure well and was returned in unchanged condition. Fluoroscopy time 0 seconds. IMPRESSION: Right upper extremity PICC is ready for use.
[2018-05-30] MEDS: Vancomycin HCl 1 GM in Premix Bag 1 BAG IVPB SCH (16:50)
[2018-05-30] MEDS: Simvastatin 40 MG TAB PO SCH (20:02)
[2018-05-30] MEDS: Donepezil HCl 5 MG TAB PO SCH (20:02)
[2018-05-30] MEDS ORDERED: Vancomycin HCl 25 MG/ML Oral PO SCH (23:59)
[2018-05-31] MEDS: Sodium Chloride 0.9% 1,000 ML IV SCH (05:19)
[2018-05-31] MEDS: Vancomycin HCl 25 MG/ML Oral PO SCH ×2 (05:19→11:50)
[2018-05-31] MEDS: Arformoterol 15 MCG/2 ML NEB NEB SCH (07:19)
[2018-05-31] MEDS: Budesonide 0.25 MG/2 ML NEB INH SCH (07:20)
[2018-05-31 07:58] VITALS: TEMP 97.7
[2018-05-31] MEDS: cefTRIAXone\\ROCEPHIN 2 GM in Sodium Chloride 0.9% 100 ML IVPB SCH (08:44)
[2018-05-31] MEDS: Loratadine 10 MG TAB PO SCH (08:46)
[2018-05-31] MEDS: Ascorbic Acid 500 mg Chewable Tablet PO SCH (08:46)
[2018-05-31] MEDS: Carvedilol 6.25 MG TAB PO SCH (08:46)
[2018-05-31] MEDS: Zinc Sulfate 220 MG CAP PO SCH (08:46)
[2018-05-31] MEDS: Multivitamin W/ Minerals 1 TAB PO SCH (08:46)
[2018-05-31] MEDS: Tamsulosin HCl 0.4 MG CAP PO SCH (08:46)
[2018-05-31] MEDS: Saccharomyces boulardii 250 MG CAP PO SCH (08:46)
[2018-05-31] MEDS: Amlodipine 5 MG TAB PO SCH (08:46)
[2018-05-31] MEDS: Clopidogrel Bisulfate 75 MG TAB PO SCH (08:46)
[2018-05-31] MEDS: Insulin Glargine 12 UNITS in Pre-Filled Syringe SC SCH (08:47)
[2018-05-31 08:49] VITALS: BP 150/72
[2018-05-31] MEDS: Enoxaparin Sodium 40 MG/0.4 ML SYRINGE SC SCH (08:50)
[2018-05-31] MEDS: Polyethylene Glycol 3350 17 GM Packet PO SCH (08:50)
[2018-05-31] MEDS: Triple Antibiotic Oint 1 GM Packet TOP SCH (08:50)
[2018-05-31] MEDS: Nystatin Powder 15 GM BOT TOP SCH (08:51)
--- NOTE | 2018-05-31 11:33 | DIS ---
DATE OF ADMISSION: 05/24/2018 DATE OF DISCHARGE: 05/31/2018 PRIMARY CARE PHYSICIAN: Ja Mendoza MD DISCHARGE DISPOSITION: Alireza Son. PRIMARY DISCHARGE DIAGNOSES: 1. Infected decubitus ulcer. 2. Osteomyelitis of toe of the right foot. SECONDARY DISCHARGE DIAGNOSES: 1. Peripheral vascular disease. 2. Hypertension. 3. History of cerebrovascular accident. 4. Physical deconditioning. 5. Diabetes type 2. 6. Chronic decubitus ulcer. 7. Chronic obstructive pulmonary disease. 8. Coronary artery disease. PRIMARY PROCEDURE/OPERATION: PICC line placement, bedside debridement by Dr. Singh. RADIOLOGICAL INVESTIGATION: Chest x-ray, foot x-ray. SIGNIFICANT LABORATORY DATA: Hemoglobin 10.0, creatinine 0.76. Urinalysis normal. Stool for C diff antigen positive, toxin negative. Wound culture grew Streptococcus and MRSA. DISCHARGE MEDICATIONS: The following are scheduled medications: 1. Amlodipine 5 mg p.o. daily. 2. Brovana nebulization b.i.d. 3. Vitamin C 500 mg p.o. daily. 4. Pulmicort nebulization b.i.d. 5. Coreg 6.25 mg b.i.d. 6. Plavix 75 mg p.o. daily. 7. Aricept 5 mg p.o. at bedtime. 8. Levemir 12 units subcu b.i.d. 9. Humalog insulin as per sliding scale. 10. Omeprazole 20 mg p.o. daily. 11. MiraLAX 17 g p.o. daily. 12. Zocor 40 mg p.o. at bedtime. 13. Flomax 0.4 mg p.o. at bedtime. 14. Zinc sulfate 220 mg p.o. daily. 15. Vancomycin 125 mg p.o. q.6 hourly for 10 days. 16. Rocephin 2 g IV daily for 1 month. 17. Vancomycin 1 g IV daily for 1 month. 18. Florastor 250 mg p.o. daily. CONTRAINDICATION: None. CODE STATUS: Full code. 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 Howe was consulted while in hospital, who recommended IV antibiotic therapy. Dr. Singh was consulted for bedside debridement. DISCHARGE PLAN: Posthospital, the [facility] is discharged to [facility] where he will get wound care as well as IV antibiotic therapy and PICC line care. HOSPITAL COURSE: A 72-year-old male with above-mentioned medical problem, who was admitted by Dr. Muhammad. Please see his H and P for further details. The patient was admitted from there for worsening wound infection. He has decubitus ulcer and it was infected. The patient was also having osteomyelitis of the toe. He was admitted to the hospital. We did wound care. We gave him broad-spectrum antibiotic therapy. Based on culture and sensitivity result, Dr. Howe changed to Rocephin and vancomycin on discharge. He will need long-term IV antibiotic therapy. He had a PICC line placed. As per Dr. Howe' recommendation, the patient will have Rocephin and vancomycin until July 05. The patient will have weekly CBC, CRP, CMP, and vancomycin trough level x2 per week. The patient will need wound care as well as air mattress, nutritional support. This patient long-term prognosis is very poor. The patient is seen and examined at bedside today. All review of systems reviewed with him and negative. PHYSICAL EXAMINATION: VITAL SIGNS: Currently, temperature 97.7, pulse 60, respiratory rate 16, saturation 97%, and blood pressure 139/65. Weight 141 pounds. GENERAL: The patient is currently alert, awake, in no obvious acute distress. HEENT: Head is normocephalic, atraumatic. Eyes; pupils are round and reactive to light. Extraocular muscle intact. ENT; oropharynx within normal limits. Moist mucous membranes. No oral lesion. No pharyngeal erythema. No exudate. NECK: Supple. No JVD. No thyromegaly. No carotid bruit. LUNGS: Clear without any rhonchi or rales. CARDIAC: S1 and S2. Regular without any murmur. ABDOMEN: Soft and benign. EXTREMITIES: No edema. Wound is covered with wound dressing. NEUROLOGIC: Nonfocal examination. The patient is at high risk for recurrent admission. Otherwise, stable for discharge today. Job ID: [id number]
--- NOTE | 2018-05-31 11:54 | PDOC.PN ---
- Subjective Encounter Start Date: 05/31/18 Encounter Start Time: 09:50 Patient seen and examined. No new complaints. No overnight events - Objective Resuscitation Status - Order Detail: 05/24/18 18:11 Resuscitation Status Routine Resuscitation Status: FULL: Full Resuscitation MAR Reviewed: Yes Vital Signs & Weight: Vital Signs (12 hours) Temp Pulse Resp BP BP Pulse Ox 05/31/18 08:46 60 150/72 H 05/31/18 08:00 97 05/31/18 07:57 97.7 F 60 16 139/65 97 05/31/18 07:20 64 16 96 05/31/18 07:19 64 16 96 Weight Admit Weight 141 lb 6 oz Weight 141 lb 6 oz I&O: 05/30/18 05/31/18 06/01/18 06:59 06:59 06:59 Intake Total 1000 720 Output Total 2200 1700 Balance -1200 -980 Result Diagrams: 05/30/18 08:49 05/30/18 08:49 Additional Labs: Accuchecks 05/31/18 05/30/18 05/30/18 05:07 19:47 16:04 POC Glucose 143 H 217 H 134 H 05/30/18 11:43 POC Glucose 62 L Phys Exam - Physical Examination Constitutional: NAD HEENT: PERRLA, moist MMs, sclera anicteric Neck: no JVD, supple Respiratory: no wheezing, no rales, no rhonchi Cardiovascular: RRR, no significant murmur, no rub Gastrointestinal: soft, non-tender, no distention Musculoskeletal: no edema, pulses present Neurological: non-focal Psychiatric: normal affect Skin: no rash, normal turgor Dx/Plan (1) Osteomyelitis of toe of right foot Code(s): M86.9 - OSTEOMYELITIS, UNSPECIFIED Status: Acute (2) CAD (coronary artery disease) Code(s): I25.10 - ATHSCL HEART DISEASE OF [place] CORONARY ARTERY W/O ANG PCTRS Status: Chronic Qualifiers: Comment: (3) COPD (chronic obstructive pulmonary disease) Status: Chronic Qualifiers: Comment: (4) DM2 (diabetes mellitus, type 2) Status: Chronic Qualifiers: Comment: (5) Decubitus ulcer Code(s): L89.90 - PRESSURE ULCER OF UNSPECIFIED SITE, UNSPECIFIED STAGE Status : Chronic Qualifiers: Comment: present on admission (6) H/O: CVA (cerebrovascular accident) Code(s): Z86.73 - PRSNL HX OF TIA (TIA), AND CEREB INFRC W/O RESID DEFICITS Status: Chronic Comment: (7) HTN (hypertension) Code(s): I10 - ESSENTIAL (PRIMARY) HYPERTENSION Status: Chronic Qualifiers: (8) PVD (peripheral vascular disease) Code(s): I73.9 - PERIPHERAL VASCULAR DISEASE, UNSPECIFIED Status: Chronic - Plan cont current plan of care, 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 Review of Systems - Review of Systems ENT: negative: Ear Pain, Ear Discharge, Nose Pain, Nose Discharge, Nose Congestion, Mouth Pain, Mouth Swelling, Throat Pain, Throat Swelling, Other Respiratory: negative: Cough, Dry, Shortness of Breath, Hemoptysis, SOB with Excertion, Pleuritic Pain, Sputum, Wheezing Cardiovascular: negative: chest pain, palpitations, orthopnea, paroxysmal nocturnal dyspnea, edema, light headedness, other Gastrointestinal: negative: Nausea, Vomiting, Abdominal Pain, Diarrhea, Constipation, Melena, Hematochezia, Other Genitourinary: negative: Dysuria, Frequency, Incontinence, Hematuria, Retention , Other - Medications/Allergies Allergies/Adverse Reactions: Allergies Allergy/AdvReac Type Severity Reaction Status Date / Time codeine Allergy "MAKES ME Verified 03/16/18 17:23 JITTERY" egg Allergy Verified 05/27/18 08:23 Medications: Current Medications Acetaminophen (Tylenol) 650 mg PO Q4H PRN PRN Reason: Headache/Fever/Mild Pain (1-3) Last Admin: 05/30/18 10:53 Dose: 650 mg Amlodipine Besylate (Norvasc) 5 mg PO DAILY [facility] Last Admin: 05/31/18 08:46 Dose: 5 mg Arformoterol Tartrate (Brovana) 15 mcg NEB BID-RT [facility] Last Admin: 05/31/18 07:19 Dose: 15 mcg Artificial Tears (Liquitears 15ml Bottle) 1 drop EA EYE TID PRN PRN Reason: Dry Eyes Ascorbic Acid (Vitamin C) 500 mg PO DAILY [facility] Last Admin: 05/31/18 08:46 Dose: 500 mg Bisacodyl (Dulcolax) 10 mg PO DAILYPRN PRN PRN Reason: Constipation Budesonide (Pulmicort Neb Solution) 0.25 mg INH BID-RT [facility] Last Admin: 05/31/18 07:20 Dose: 0.25 mg Calcium Carbonate (Tums) 500 mg PO QID PRN PRN Reason: Heartburn or Indigestion Carvedilol (Coreg) 6.25 mg PO BID-WM [facility] Last Admin: 05/31/18 08:46 Dose: 6.25 mg Clopidogrel Bisulfate (Plavix) 75 mg PO DAILY [facility] Last Admin: 05/31/18 08:46 Dose: 75 mg Dextrose/Water (Dextrose 50%) 25 gm SLOW IVP PRN PRN PRN Reason: Hypoglycemia Donepezil HCl (Aricept) 5 mg PO HS [facility] Last Admin: 05/30/18 20:02 Dose: 5 mg Enoxaparin Sodium (Lovenox) 40 mg SC 0900 [facility] Last Admin: 05/31/18 08:50 Dose: 40 mg Glucagon (Glucagon) 1 mg IM PRN PRN PRN Reason: Hypoglycemia Guaifenesin (Mucinex) 600 mg PO Q12HR PRN PRN Reason: Congestion Guaifenesin/Dextromethorphan (Diabetic Tussin Dm) 10 ml PO Q8HR PRN PRN Reason: Cough Sodium Chloride (Normal Saline 0.9%) 1,000 mls @ 50 mls/hr IV .Q20H [facility] Last Admin: 05/31/18 05:19 Dose: 1,000 mls Insulin Glargine 12 units/ (Miscellaneous Medication) 0.12 mls @ 0 mls/hr SC BID [facility] Last Admin: 05/31/18 08:47 Dose: 0.12 mls Dextrose/Water (D5w) 1,000 mls @ 0 mls/hr IV .Q0M PRN PRN Reason: Hypoglycemia Vancomycin HCl 1 gm/ Device 200 mls @ 200 mls/hr IVPB 1700 [facility] Last Admin: 05/30/18 16:50 Dose: 200 mls Ceftriaxone Sodium 2 gm/ (Sodium Chloride) 100 mls @ 200 mls/hr IVPB Q24HR [facility] Last Admin: 05/31/18 08:44 Dose: 100 mls Insulin Human Lispro (Humalog) 0 units SC .MILD SLIDING SCALE PRN PRN Reason: Mild Correctional Scale Last Admin: 05/26/18 20:55 Dose: 3 unit Ipratropium [place] (Atrovent Hfa) 1 puff INH QID-RT PRN PRN Reason: Wheezing or Cough Iron/Minerals/Multivitamins (Theragran M) 1 tab PO DAILY [facility] Last Admin: 05/31/18 08:46 Dose: 1 tab Loperamide HCl (Imodium) 2 mg PO ASDIR PRN PRN Reason: Diarrhea/Loose Stools Loratadine (Claritin) 10 mg PO DAILY [facility] Last Admin: 05/31/18 08:46 Dose: 10 mg Miscellaneous Medication (Pharmacy To Dose) 1 each IVPB PRN PRN PRN Reason: . Neomycin/Polymyxin/Bacitracin (Triple Antibiotic) 0 gm TOP DAILY [facility] Last Admin: 05/31/18 08:50 Dose: 1 gm Nystatin (Mycostatin Powder) 0 gm TOP BID [facility] Last Admin: 05/31/18 08:51 Dose: 1 applic Nystatin (Mycostatin Powder) 0 gm TOP BID PRN PRN Reason: Rash/Topical Irritation Pantoprazole Sodium (Protonix) 40 mg PO DAILY [facility] Last Admin: 05/31/18 08:46 Dose: 40 mg Polyethylene Glycol (Miralax) 17 gm PO DAILY [facility] Last Admin: 05/31/18 08:50 Dose: 17 gm Saccharomyces Boulardii (Florastor) 250 mg PO DAILY [facility] Last Admin: 05/31/18 08:46 Dose: 250 mg Senna/Docusate Sodium (Senokot S) 2 tab PO BID PRN PRN Reason: Constipation Simvastatin (Zocor) 40 mg PO HS [facility] Last Admin: 05/30/18 20:02 Dose: 40 mg Sodium Chloride (Flush - Normal Saline) 10 ml IVF Q12HR [facility] Last Admin: 05/31/18 08:49 Dose: Not Given Sodium Chloride (Flush - Normal Saline) 10 ml IVF PRN PRN PRN Reason: Saline Flush Tamsulosin HCl (Flomax) 0.4 mg PO DAILY [facility] Last Admin: 05/31/18 08:46 Dose: 0.4 mg Tramadol HCl (Ultram) 25 mg PO Q6H PRN PRN Reason: Moderate Pain (4-6) Tramadol HCl (Ultram) 50 mg PO Q6H PRN PRN Reason: Severe Pain (7-10) Last Admin: 05/29/18 09:05 Dose: 50 mg Vancomycin HCl (First Vancomycin) 125 mg PO Q6HR [facility] Last Admin: 05/31/18 11:50 Dose: 125 mg Zinc Sulfate (Zinc Sulfate) 220 mg PO DAILY [facility] Last Admin: 05/31/18 08:46 Dose: 220 mg
== END 2018-05-31 15:14 | DRG 571 ==
LOC: ERS 15:31 → ERHOLD 17:46 → T4-A 22:19
PROVIDERS: ADMIT Internal Medicine; ATTEND Internal Medicine
PROC: 0QB10ZZ Excision of Sacrum, Open Approach (ICD-10-PCS; principal; 2018-05-25)
PROC: 0JB90ZZ Excision of Buttock Subcutaneous Tissue and Fascia, Open Approach (ICD-10-PCS; 2018-05-25)
PROC: 0VB50ZZ Excision of Scrotum, Open Approach (ICD-10-PCS; 2018-05-25)
PROC: 02HV33Z Insertion of Infusion Device into Superior Vena Cava, Percutaneous Approach (ICD-10-PCS; 2018-05-30)
PROC: B548ZZA Ultrasonography of Superior Vena Cava, Guidance (ICD-10-PCS; 2018-05-30)
DX: L89.154 Pressure ulcer of sacral region, stage 4 (principal); M86.671 Other chronic osteomyelitis, right ankle and foot; E87.1 Hypo-osmolality and hyponatremia; M46.28 Osteomyelitis of vertebra, sacral and sacrococcygeal region; E11.69 Type 2 diabetes mellitus with other specified complication; E11.51 Type 2 diabetes mellitus with diabetic peripheral angiopathy without gangrene; I25.10 Atherosclerotic heart disease of native coronary artery without angina pectoris; J44.9 Chronic obstructive pulmonary disease, unspecified; I10 Essential (primary) hypertension; L89.322 Pressure ulcer of left buttock, stage 2; F03.90 Unspecified dementia, unspecified severity, without behavioral disturbance, psychotic disturbance, mood disturbance, and anxiety; L72.9 Follicular cyst of the skin and subcutaneous tissue, unspecified; K21.9 Gastro-esophageal reflux disease without esophagitis; Z95.1 Presence of aortocoronary bypass graft; Z98.1 Arthrodesis status; Z79.4 Long term (current) use of insulin; Z79.899 Other long term (current) drug therapy; Z79.51 Long term (current) use of inhaled steroids; Z87.01 Personal history of pneumonia (recurrent); Z86.73 Personal history of transient ischemic attack (TIA), and cerebral infarction without residual deficits; Z88.5 Allergy status to narcotic agent; Z91.012 Allergy to eggs; Z90.49 Acquired absence of other specified parts of digestive tract; Z89.421 Acquired absence of other right toe(s); M24.569 Contracture, unspecified knee; Z79.2 Long term (current) use of antibiotics; I25.2 Old myocardial infarction; G47.30 Sleep apnea, unspecified; Z79.02 Long term (current) use of antithrombotics/antiplatelets; E78.00 Pure hypercholesterolemia, unspecified
CPT/HCPCS: 36415; 36416; 36569; 51702; 71045; 72100; 80048; 80053; 80202; 81003; 82330; 82803; 83605; 85025; 86140; 87040; 87070; 87077; 87086; 87149; 87186; 87205; 87324; 87449; 87493; 87804; 93005; 94640; 96365; 96366; 96367; 97602; A4218; C1751; J0696; J1644; J1650; J1825; J2001; J2543; J2704; J3010; J3370; J3490; J7050; J7626

== ENCOUNTER 2018-06-26 14:56 | Outpatient (CLI) | payer MEDICARE, OTHER ==
--- NOTE | 2018-06-26 17:53 | PRG ---
DATE OF SERVICE: 06/26/2018 SUBJECTIVE: Mr. Tab Burdick is a very pleasant 72-year-old gentleman, accompanied by his daughter, who presents to [facility] for evaluation of a coccygeal wound. Since the patient's last visit, Mr. Burdick was admitted to [facility], where he underwent intraoperative debridement of the pressure ulceration, negative pressure therapy was initiated intraoperatively, and the patient has continued to receive dressing changes of the wound VAC at [facility]. Also during the patient's hospital stay, Mr. Burdick was seen in consultation by Dr. Armani Howe of Infectious Diseases and is receiving IV antibiotics as per Dr. Armani Howe. The patient's daughter states that the wound has improved in its appearance over the past 1 to 2 weeks. OBJECTIVE: VITAL SIGNS: Temperature 97.8, pulse 74, blood pressure 130/60. BACK: A coccygeal wound is present, which measures approximately 4.2 x 3.0 cm. Granulation tissue is present within the wound margins. No purulent drainage is associated with the wound. No erythema of the skin surrounding the wound is present. No maceration of the skin of the periwound is noted. ASSESSMENT AND PLAN: Wound over the coccyx and sacrum subsequent to intraoperative debridement, negative pressure therapy will be continued with dressing changes of the wound VAC 3 times per week after cleansing and irrigation at [facility]. As stated above, the patient is receiving IV antibiotics as per Infectious Diseases. I have explained to the patient's daughter that Mr. Burdick may not be an ideal candidate for hyperbaric oxygen therapy due to his dementia. The patient's daughter states she will consider the risks and benefits of hyperbaric oxygen therapy before deciding to proceed with a trial of HBOT. I will see Mr. Burdick again in 2 weeks. Job ID: [id number]
[2018-06-26] MEDS ORDERED: Sodium Chloride 0.9% 15 ML NEB ONE (18:00)
[2018-06-26] MEDS ORDERED: Lidocaine 2% 11 ML SYR ONE (18:00)
== END 2018-06-26 14:57 | disposition home or self-care (01) ==
LOC: WCC 14:56
PROVIDERS: ATTEND Family Medicine
DX: S31.000D Unspecified open wound of lower back and pelvis without penetration into retroperitoneum, subsequent encounter (principal)
CPT/HCPCS: A4218

== ENCOUNTER 2018-07-12 16:29 | Outpatient (CLI) | payer MEDICARE, OTHER ==
--- NOTE | 2018-07-12 15:15 | PRG ---
DATE OF SERVICE: 07/12/2018 HISTORY: Mr. Tab Burdick is a very pleasant 72-year-old gentleman, accompanied by his daughter, who presents to the Wound Center for evaluation of a coccygeal wound. The patient was recently admitted to [facility], where he underwent intraoperative debridement of the pressure ulceration. Negative pressure therapy was initiated intraoperatively, and the patient has continued to receive dressing changes of the wound VAC at [facility]. Also during the patient's hospital stay, Mr. Burdick was seen in consultation by Dr. Armani Howe of Infectious Diseases and has completed a course of IV antibiotics as per Dr. Howe. The patient's daughter states that the patient is now taking p.o. antibiotics as per Infectious Diseases. Again, the patient's daughter states that the wound has improved in its appearance since the patient's last visit. PHYSICAL EXAMINATION: VITAL SIGNS: Temperature 97.2, pulse 75, respirations 16, blood pressure 137/74. Accu-Chek 193. BACK: A coccygeal wound is present, which measures approximately 5.0 x 3.0 cm. Granulation tissue is present within the wound margins. No purulent drainage is associated with the wound. No erythema of the skin surrounding the wound is present. No maceration of the skin of the periwound is noted. ASSESSMENT AND PLAN: Wound over the coccyx and sacrum subsequent to intraoperative debridement. Negative pressure therapy will be continued with dressing changes of the wound VAC three times per week after cleansing and irrigation at [facility]. As stated above, the patient has completed a course of IV antibiotics as per Infectious Diseases and is now taking p.o. antibiotics as per Dr. Howe. Again, I have reiterated to the patient's daughter that Mr. Burdick may not be an ideal candidate for hyperbaric oxygen therapy due to his dementia. The patient's daughter states she will continue treatment with the wound VAC for her father's wound for now. I will see Mr. Burdick again in 4 weeks. Job ID: [id number]
[2018-07-12] MEDS ORDERED: Lidocaine 2% PF 100 mg/5 ml Syringe ONE (18:00)
[2018-07-12] MEDS ORDERED: Sodium Chloride 0.9% 15 ML NEB ONE (18:00)
== END 2018-07-12 16:30 | disposition home or self-care (01) ==
LOC: WCC 16:29
PROVIDERS: ATTEND Family Medicine
DX: T81.89XD Other complications of procedures, not elsewhere classified, subsequent encounter (principal)
CPT/HCPCS: 85025; 97602; A4218; J2001

== ENCOUNTER 2018-08-09 14:40 | Outpatient (CLI) | payer MEDICARE, OTHER ==
[~2018-08-09 14:40] MED LIST changes: -Iopamidol-370 76% 500 ML 1 ML ONE; +Sodium Chloride 0.9% 15 ML NEB ONE
--- NOTE | 2018-08-09 16:13 | PRG ---
DATE OF SERVICE: 08/09/2018 HISTORY: Mr. Tab Burdick is a 72-year-old gentleman, accompanied by his daughter, who presents to the Wound Center for evaluation of a sacral wound. The patient was recently admitted to [facility], where he underwent intraoperative debridement of the pressure ulceration. Negative pressure therapy was initiated intraoperatively, and the patient has continued to receive dressing changes of the wound VAC at [facility]. Also, during the patient's hospital stay, Mr. Burdick was seen in consultation by Dr. Armani Howe of Infectious Diseases and has completed a course of IV antibiotics as per Dr. Howe. The patient's daughter states that the patient has completed the course of p.o. antibiotics prescribed by Infectious Diseases after the IV antibiotics were completed. Today, the patient's daughter states the wound has worsened in its appearance since the patient's last visit. She states that Mr. Burdick has had decreased p.o. intake with the administration of antibiotics and has been placed on Megace by Dr. Mendoza. PHYSICAL EXAMINATION: VITAL SIGNS: Temperature 99.2, pulse 79, respirations 18, blood pressure 145/74. Accu-Chek 175. BACK: A sacral wound is present, which measures approximately 4.7 x 5.0 cm. The dimensions of the wound at the time of the patient's last visit were approximately 5.0 x 3.0 cm. Granulation tissue is present within the wound margins. No purulent drainage is associated with the wound. No erythema of the skin surrounding the wound is present. No maceration of the skin of the periwound is noted. Bone is palpable within the margins of the wound on exam today. ASSESSMENT AND PLAN: Wound over the coccyx and sacrum subsequent to intraoperative debridement. Negative pressure therapy will be continued with dressing changes of the wound VAC 3 times per week after cleansing and irrigation at [facility]. Promogran will be applied to the wound bed at the time of dressing changes. The patient has a followup appointment with Dr. Howe in August. I will see Mr. Burdick again in 4 weeks. Job ID: [id number]
== END 2018-08-09 14:41 | disposition home or self-care (01) ==
LOC: WCC 14:40
PROVIDERS: ATTEND Family Medicine
DX: T81.89XD Other complications of procedures, not elsewhere classified, subsequent encounter (principal)
CPT/HCPCS: 36416; 97602; A4218

== ENCOUNTER 2018-08-21 15:50 | Inpatient (IN) | payer MEDICARE, OTHER ==
[2018-08-21 17:22] LABS: #Eosinphils 0.2 thou/uL (0.0-0.7); #Lymphocytes 1.2 thou/uL (1.20-3.40); #Monocytes 0.5 thou/uL (0.11-0.59); #Neutrophils 3.9 thou/uL (1.40-6.50); %Basophils 0.4 % (0.0-1.0); %Eosinophils 2.9 % (0.0-10.0); %Monocytes 8.5 % (0.0-10.0); %Neutrophils 67.2 % (42.0-75.0); Hemoglobin 10.2 g/dL (14.0-18.0); Mean Corpuscular HGB CONC 31.2 g/dL (32.0-36.0); Mean Corpuscular Hemoglobin 26.3 pg (27.0-31.0); Mean Corpuscular Volume 84.2 fL (78.0-98.0); Platelet Count 211 thou/uL (130-400); RBC Distribution Width 14.9 % (11.5-14.5); Red Blood Cell (RBC) Count 3.88 mill/uL (4.70-6.10); White Blood Cell (WBC) Count 5.8 thou/uL (4.8-10.8)
[2018-08-21 17:43] LABS: ALT (SGPT) 11 U/L (8-55); AST (SGOT) 12 U/L (5-34); Albumin 3.1 g/dL (3.4-4.8); Alkaline Phosphatase 92 U/L (40-150); Anion Gap 9 mmol/L (10-20); BUN (Urea Nitrogen) 24 mg/dL (8.4-25.7); Bilirubin, Total 0.4 mg/dL (0.2-1.2); Calc. Creatinine Clearance 0 mL/min (70-130); Calcium 8.8 mg/dL (7.8-10.44); Carbon Dioxide 26 mmol/L (23-31); Chloride 108 mmol/L (98-107); Estimated GFR-MDRD Greater than 90; Globulin 3.9 g/dL (2.4-3.5); Glucose 202 mg/dL (83-110); Sodium 139 mmol/L (136-145)
--- NOTE | 2018-08-21 18:34 | RAD ---
THREE VIEWS RIGHT FOOT: Comparison: 05-24-18 History: Necrosis in the right foot. FINDINGS: Three views of the right foot shows amputation of the second toe through the proximal phalanx. There is erosion of the distal phalanx of the great toe. Osteopenia is seen in the distal aspect of the 3rd , 4th, and 5th toes. Vascular calcifications are seen. When compared to the prior exam, the distal ph alanges of the 1st and 3rd toes appear to have increased erosion compared to the prior exam. POS: Sabina
[2018-08-21 19:24] LABS: Bilirubin Negative (Negative); Blood, Urine Moderate (Negative); Glucose, Urine (Dipstick) Negative (Negative); Leukocyte Moderate (Negative); Nitrite Positive (Negative); Protein, Urine (Dipstick) 30 mg/dL (Neg-Trace); Urobilinogen 0.2 mg/dL (Less than 2)
[2018-08-21 19:26] LABS: Clarity Hazy (Clear)
[2018-08-21 19:29] LABS: Bacteria/HPF 1+ HPF (None Seen); RBC/HPF 21-50 HPF (0-3); Squamous Epithelial 0-3 HPF (0-3); WBC/HPF Greater than 50 HPF (0-3)
[2018-08-21] MEDS ORDERED: cefTRIAXone\\ROCEPHIN 1 GM VIAL ONE (19:39)
[2018-08-22] MEDS ORDERED: Dextrose 5% in Water 1,000 ML IV PRN (09:22)
[2018-08-22] MEDS ORDERED: Dextrose 50% Abboject 50 ML SYRINGE SLOW IVP PRN (09:22)
[2018-08-22] MEDS ORDERED: HumaLOG 300 UNITS/3 ML VIAL SC PRN (09:22)
[2018-08-22] MEDS: Famotidine/PF 20 mg/2ml Vial SLOW IVP SCH ×2 (11:09→21:08)
[2018-08-22] MEDS ORDERED: Famotidine/PF 20 mg/2ml Vial ONE (11:12)
[2018-08-22] MEDS: cefTRIAXone\\ROCEPHIN 1 GM in Sodium Chloride 0.9% 100 ML IVPB SCH (11:16)
--- NOTE | 2018-08-22 12:05 | HP ---
CHIEF COMPLAINT: Not eating. HISTORY OF PRESENT ILLNESS: This patient is a 72-year-old male, who I have previously admitted and have history from his medical record. He does not have any family at the bedside and he is still holding in the emergency department as the patient has a history of significant stroke, which left him with some dementia and debility. He is essentially bedbound and had been admitted back in May with infected decubitus ulcer and what appeared to be some osteomyelitis in the left foot. He had the sacral wound debrided. Had a long course of antibiotics through July 05 under the guidance of Dr. Howe. He did not have surgery on the foot at that time. The patient is back now because he apparently had stopped eating. According to the patient's grandson, he is at a longterm. We will try to get more information from there. The patient currently is nonverbal and cannot contribute to the history. REVIEW OF SYSTEMS: Unobtainable given the patient's dementia and current encephalopathy. PAST MEDICAL HISTORY: Severe peripheral vascular disease, diabetes mellitus type 2, coronary artery disease, COPD, obstructive sleep apnea, hypertension, dyslipidemia, gastroesophageal reflux, and tobacco abuse. PAST SURGICAL HISTORY: Coronary artery bypass in 2001 and 2013, history of femur fracture with ORIF and lumbar spinal fusion and a prior PICC line placement. FAMILY HISTORY: No coronary artery disease, stroke, or cancer, hypertension, diabetes, or prevalent among several family members. SOCIAL HISTORY: Lives at [facility]. He is a nonsmoker, nondrinker, and nondrug user. Presently, daughter was previously unsure of his code status at the last visit, but she was the power of trade mark attorney and surrogate decision maker. ALLERGIES: CODEINE. CURRENT MEDICATIONS: Per the ER record; 1. Aricept 5 mg at bedtime. 2. Levemir 12 units subcu q.a.m., 7 units subcu q.p.m. 3. Flomax 0.4 one p.o. daily. 4. Coreg 6.25 one p.o. b.i.d. 5. Budesonide 0.25 inhaled b.i.d. 6. Ipratropium inhaled b.i.d. 7. Lasix 75 mg daily. 8. Simvastatin one p.o. daily. 9. Bactrim DS one p.o. b.i.d. 10. NovoLog sliding scale. 11. Omeprazole 20 mg daily. 12. Multivitamin one p.o. daily. 13. Brovana 15 mcg, regimen not known. PHYSICAL EXAMINATION: VITAL SIGNS: Latest vitals; blood pressure 139/70, pulse 67, respirations 18, and O2 sats 100%. GENERAL APPEARANCE: Age-appropriate male. He is in no distress, but he is nonverbal. He is awake and does make eye contact. HEENT: PERRL. He has no OP lesions. NECK: Supple and symmetric. HEART: Regular rate and rhythm without murmurs, gallops, or rubs. LUNGS: Clear to auscultation bilaterally with good chest wall expansion and air exchange. ABDOMEN: Soft, nontender, and nondistended. Positive bowel sounds. EXTREMITIES: The patient has some necrosis what looks almost like dried blood over the toes of the right foot. There is a partial amputation of the right second toe. There are severely diminished pulses. MUSCULOSKELETAL: Reveals sacral wound with a wound VAC. NEUROLOGICAL: The patient does not move much spontaneously. Does not follow commands. Difficult to assess. He is nonverbal and demented. LABORATORY DATA: White count is 5.8, hemoglobin 10.2, and platelets 211. Sodium 139, potassium 4.0, chloride 108, CO2 is 26, BUN is 24, creatinine 0.78, and glucose 202. CRP is 3.5. Urinalysis shows protein, blood, nitrite, moderate leukocyte esterase, 21 to 50 red blood cells, and greater than 50 white blood cells. IMAGING DATA: X-ray of the right foot shows progression of erosions in the first and third toes. IMPRESSION AND PLAN: 1. Metabolic encephalopathy, unclear etiology, possibly due to infection. The patient's manifestation primarily is that he has stopped eating. Apparently, he has evidence of osteomyelitis in the right foot and potentially a urinary tract infection as well. He received Rocephin in the emergency department and that was what he was on previously. We will go ahead and continue with the Rocephin for now. 2. Urinary tract infection. Follow up cultures and continue Rocephin. 3. Osteomyelitis of the right foot. The patient did not have a surgical intervention previously. Given the peripheral vascular disease, the patient would likely require a fairly high amputation and it is not clear that he is amenable to that both from a medical perspective and from the family's wishes, we will need to get some clarification on that. Clearly, it did not respond to long-term course of the IV antibiotics. We will get Dr. Howe involved again as well. 4. History of cerebrovascular accident with chronic debility. 5. Sacral decubitus, which has been present now for at least 2-1/2 months and likely much longer. Has a wound VAC on it. We will get Wound Care to continue to follow on that. 6. Diabetes mellitus. We will continue Accu-Cheks and sliding scale. 7. We will have speech therapy evaluate the patient before letting him advance the diet significantly. 8. History of chronic obstructive pulmonary disease. We will have DuoNeb available. 9. Peripheral vascular disease and coronary artery disease. We will continue the Coreg, holding the Plavix for the moment just to determine if he is going to need any type of surgical intervention. 10. Gastroesophageal reflux disease. We will give IV Pepcid. 11. Apparent history of benign prostatic hyperplasia with obstruction. I will continue the Flomax. Job ID: [id number]
[2018-08-22] MEDS: Sodium Chloride 0.9% 1,000 ML IV SCH ×2 (18:29→21:11)
[2018-08-22] MEDS: Heparin 5,000 UNITS/ML VIAL SC SCH ×2 (18:29→21:09)
[2018-08-22] MEDS: Carvedilol 6.25 MG TAB PO SCH (18:30)
[2018-08-22] MEDS: Tamsulosin HCl 0.4 MG CAP PO SCH (18:30)
[2018-08-23 06:53] LABS: #Basophils 0.1 thou/uL (0.0-0.2); #Eosinphils 0.3 thou/uL (0.0-0.7); #Lymphocytes 1.3 thou/uL (1.20-3.40); #Monocytes 0.5 thou/uL (0.11-0.59); #Neutrophils 3.2 thou/uL (1.40-6.50); %Basophils 2.1 % (0.0-1.0); %Lymphocytes 23.6 % (21.0-51.0); %Monocytes 9.2 % (0.0-10.0); %Neutrophils 59.1 % (42.0-75.0); Mean Corpuscular Hemoglobin 26.3 pg (27.0-31.0); Mean Corpuscular Volume 84.8 fL (78.0-98.0); Mean Platelet Volume 8.2 fL (7.4-10.4); Platelet Count 193 thou/uL (130-400); RBC Distribution Width 14.8 % (11.5-14.5); White Blood Cell (WBC) Count 5.4 thou/uL (4.8-10.8)
[2018-08-23 07:03] LABS: Calcium 9.1 mg/dL (7.8-10.44); Chloride 108 mmol/L (98-107); Potassium 4.3 mmol/L (3.5-5.1); Sodium 134 mmol/L (136-145)
[2018-08-23 07:14] LABS: Anion Gap 17 mmol/L (10-20); BUN (Urea Nitrogen) 16 mg/dL (8.4-25.7); Calc. Creatinine Clearance 60 mL/min (70-130); Carbon Dioxide 13 mmol/L (23-31); Estimated GFR-MDRD Greater than 90; Glucose 117 mg/dL (83-110)
[2018-08-23] MEDS: Carvedilol 6.25 MG TAB PO SCH ×2 (07:38→17:10)
[2018-08-23] MEDS: Tamsulosin HCl 0.4 MG CAP PO SCH (07:39)
[2018-08-23] MEDS: Famotidine/PF 20 mg/2ml Vial SLOW IVP SCH ×2 (07:40→19:56)
[2018-08-23] MEDS: Heparin 5,000 UNITS/ML VIAL SC SCH ×3 (07:40→19:56)
[2018-08-23] MEDS: cefTRIAXone\\ROCEPHIN 1 GM in Sodium Chloride 0.9% 100 ML IVPB SCH (10:39)
[2018-08-23 12:11] VITALS: BMI 14.1
--- NOTE | 2018-08-23 15:14 | PDOC.PN ---
- Subjective Encounter Start Date: 08/23/18 Encounter Start Time: 13:30 Patient awake. When asked how he was doing he whispered "Pretty good" and denied any pain. - Objective Resuscitation Status - Order Detail: 08/22/18 08:50 Resuscitation Status Routine Resuscitation Status: FULL: Full Resuscitation Vital Signs & Weight: Vital Signs (12 hours) Temp Pulse Resp BP Pulse Ox 08/23/18 10:46 98.2 F 63 18 126/57 L 100 08/23/18 08:00 97 08/23/18 07:40 98.2 F 79 18 150/68 H 97 08/23/18 04:00 98.7 F 81 18 133/61 100 Weight Admit Weight 98 lb 10.51 oz Weight 98 lb 10.51 oz I&O: 08/22/18 08/23/18 08/24/18 06:59 06:59 06:59 Intake Total 450 Balance 450 Result Diagrams: 08/23/18 06:24 08/23/18 06:24 Additional Labs: Accuchecks 08/23/18 08/23/18 08/22/18 10:44 06:27 19:13 POC Glucose 120 H 117 H 134 H Phys Exam - Physical Examination Constitutional: NAD Respiratory: no wheezing, no rales, no rhonchi Cardiovascular: RRR, no significant murmur Gastrointestinal: soft, non-tender, no distention, positive bowel sounds Musculoskeletal: no edema Neurological: non-focal Generally encephalopathic, but better than yesterday. Skin: normal turgor Dx/Plan (1) Encephalopathy Code(s): G93.40 - ENCEPHALOPATHY, UNSPECIFIED Status: Acute (2) UTI (urinary tract infection) Status: Acute (3) Osteomyelitis of toe of right foot Code(s): M86.9 - OSTEOMYELITIS, UNSPECIFIED Status: Acute (4) CAD (coronary artery disease) Code(s): I25.10 - ATHSCL HEART DISEASE OF [place] CORONARY ARTERY W/O ANG PCTRS Status: Chronic Qualifiers: Comment: (5) COPD (chronic obstructive pulmonary disease) Status: Chronic Qualifiers: Comment: (6) DM2 (diabetes mellitus, type 2) Status: Chronic Comment: (7) Decubitus ulcer Code(s): L89.90 - PRESSURE ULCER OF UNSPECIFIED SITE, UNSPECIFIED STAGE Status : Chronic Qualifiers: Comment: present on admission (8) H/O: CVA (cerebrovascular accident) Code(s): Z86.73 - PRSNL HX OF TIA (TIA), AND CEREB INFRC W/O RESID DEFICITS Status: Chronic Comment: (9) HTN (hypertension) Code(s): I10 - ESSENTIAL (PRIMARY) HYPERTENSION Status: Chronic Qualifiers: (10) PVD (peripheral vascular disease) Code(s): I73.9 - PERIPHERAL VASCULAR DISEASE, UNSPECIFIED Status: Chronic - Plan * Chronic dementia due to prior CVA with acute metabolic encephalopathy. * Likely due to infection. * Could be UTI or osteo of the toes. * UTI is in question, but given the encephalopathy, have opted to treat for now. * Dr. Howe has been consulted. * Discussed with [facility]. They will work with him again now. Families concern regarding oral care was noted and conveyed to [facility]. * Continue wound care for sacral decub.
[2018-08-23] MEDS: Sodium Chloride 0.9% 1,000 ML IV SCH (17:15)
--- NOTE | 2018-08-24 00:34 | CON ---
DATE OF CONSULTATION: 08/23/2018 REASON FOR CONSULTATION: Concern with progress of the sacral wound and altered mental status reportedly. 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 Has repeated antimicrobial therapy and has had 1 episode of group B strep bacteremia, which was felt to be secondary to the ulcer. I saw him in the office a few weeks ago and the wound appeared with 100% granulation. Recently, Dr. Wood evaluated the patient in the office as well and felt that the wound was progressing well. [facility], he developed changes that were concerning in the wound site and there were some concerns with mental state. Also, there was a decrease in oral intake. We were unable to obtain a full review of systems, in discussing with the nursing staff at the penitentiary, there is no evidence of diarrhea. No aspiration. No seizure activity. PAST MEDICAL HISTORY: Includes type 2 diabetes, hypertension, COPD, coronary artery disease, dementia, presacral decubitus ulcer, osteomyelitis, hemorrhagic CVA, thalamus, severe neurological impairment, osteomyelitis of the coccygeal area which had surgical debridement, and protracted antimicrobial therapy. PAST SURGICAL HISTORY: Cholecystectomy and bypass graft surgery as well. SOCIAL HISTORY: Former smoker. Resident in a penitentiary. ALLERGIES: CODEINE. CURRENT MEDICATIONS: 1. DuoNeb. 2. Coreg. 3. Ceftriaxone. 4. Dextrose. 5. Pepcid. 6. Glucagon. 7. Heparin. 8. Insulin. 9. Tamsulosin. PHYSICAL EXAMINATION: VITAL SIGNS: T-max 99, BP 160/88, pulse 86, respirations 18, O2 saturation 98. SKIN: With a shallow ulceration in the lateral malleolus, left side, and right side 1st toe with epidermolysis around the hallux. The second toe has been partially amputated and thus some epidermolysis at the tip of the toe. The sacral decubitus with a round shaped ulcer with a little bit of undermining around 12 o'clock to 4 o'clock, some yellow tissue small amounts at the base, but most of it is covered by red tissue. There is one area, kind of a dried dark brown scab at the lower end of the wound. HEENT: The patient has alopecia. Ocular movements are conjugate, would not open his mouth. Apparently, he has had some exudate in his mouth. I looked at the pictures taken and the exudate is more likely to represent debris from food particles and bacterial colonies, but not [place] due to the appearance of the debris and the color. It was yellow and sort of sheaths of this thin material under the tongue in different locations. He has still few teeth in place with quite a bit of decay. There is staining of the teeth. NECK: Supple. No jugular vein distention. Has quadriparesis. LUNGS: Symmetric air entry. HEART: S1 and S2. Regular rate. ABDOMEN: Soft. Not distended. : He has a Alanis catheter in place. NEUROLOGIC: He is awake, but is not able to communicate, establishes eye contact intermittently. LABORATORY DATA: White cell count 5.4, hemoglobin 11, platelets 193. Sodium 134, creatinine 0.69. Liver profile is normal. Albumin 3.1. Urinalysis with greater than 50 wbc's. Microbiology with gram-negative minerva in urine culture. IMAGING STUDIES: Foot x-ray with amputation of 2nd toe, erosion of distal phalanx of the great toe, osteopenia, the erosions appear little bit more prominent than before. ASSESSMENT: 1. Previous hemorrhagic cerebrovascular accident in brainstem with severe neurological impairment, Long-Term resident status. 2. Chronic refractory sacral decubitus which has been treated with surgical debridement. The patient has been treated with antimicrobial therapy in the past. 3. Concerns with the state of the wound. DISCUSSION: The wound right now appears to be stable and I would not recommend any surgical intervention and just continuation of wound care. It looks like they have not implemented the recent recommendations by Dr. Wood in terms of the wound management, and I would pursue that. He does have quite significant peripheral vascular disease and he is at risk for further amputations of the right lower extremity and may end up with a BKA. I would not recommend any surgical treatments right now. He has a right first and second toes and tip of the third toe have dry gangrene type of appearance. Job ID: [id number] [facility]
[2018-08-24] MEDS ORDERED: Loperamide HCl 2 MG CAP PO PRN (08:08)
[2018-08-24] MEDS ORDERED: Sodium Chloride 0.65% Nasal 44 ML BOT EA NARE PRN (08:08)
[2018-08-24] MEDS ORDERED: Loratadine 10 MG TAB PO PRN (08:08)
[2018-08-24] MEDS ORDERED: Ondansetron PF 4 MG/2 ML Vial IVP PRN (08:08)
[2018-08-24] MEDS ORDERED: Bisacodyl 10 MG SUPP PR PRN (08:08)
[2018-08-24] MEDS ORDERED: hydrALAZINE 20 MG/ML VIAL SLOW IVP PRN (08:08)
[2018-08-24] MEDS ORDERED: Artificial Tears 18 DROP/0.9 ML EA EYE PRN (08:08)
[2018-08-24] MEDS ORDERED: Cepastat Lozenges 1 LOZ PO PRN (08:08)
[2018-08-24] MEDS ORDERED: Senokot S 8.6-50 MG TAB PO PRN (08:08)
[2018-08-24] MEDS ORDERED: Zolpidem Tartrate 5 MG TAB PO PRN (08:08)
[2018-08-24] MEDS ORDERED: Ondansetron ODT 4 MG TAB SL PRN (08:08)
[2018-08-24] MEDS ORDERED: Diabetic Tussin 200 MG/10 ML UDCUP PO PRN (08:08)
[2018-08-24] MEDS ORDERED: guaiFENesin ER 600 MG TAB PO PRN (08:09)
[2018-08-24] MEDS ORDERED: Acetaminophen 500 MG TAB PO PRN (08:09)
[2018-08-24] MEDS ORDERED: Albuterol Sulfate 2.5 mg/3 ml Neb NEB PRN (08:09)
[2018-08-24] MEDS ORDERED: Calcium Carbonate 500 MG ChewTAB PO PRN (08:11)
[2018-08-24] MEDS: cefTRIAXone\\ROCEPHIN 1 GM in Sodium Chloride 0.9% 100 ML IVPB SCH (08:11)
[2018-08-24] MEDS: Famotidine/PF 20 mg/2ml Vial SLOW IVP SCH ×2 (08:11→21:25)
[2018-08-24] MEDS: Heparin 5,000 UNITS/ML VIAL SC SCH (08:11)
[2018-08-24] MEDS: Carvedilol 6.25 MG TAB PO SCH (08:12)
[2018-08-24] MEDS: Tamsulosin HCl 0.4 MG CAP PO SCH (08:12)
[2018-08-24] MEDS ORDERED: Amlodipine 5 MG TAB PO SCH ×2 (09:00→11:00)
[2018-08-24] MEDS ORDERED: INSULIN DETEMIR 12 UNIT SQ SCH ×2 (09:00→21:00)
--- NOTE | 2018-08-24 10:38 | PDOC.PN ---
- Subjective Encounter Start Date: 08/24/18 Encounter Start Time: 09:20 -: old records requested/rev Patient seen and examined. No new complaints. No overnight events - Objective Resuscitation Status - Order Detail: 08/22/18 08:50 Resuscitation Status Routine Resuscitation Status: FULL: Full Resuscitation MAR Reviewed: Yes Vital Signs & Weight: Vital Signs (12 hours) Temp Pulse Resp BP BP Pulse Ox 08/24/18 08:12 143/73 H 08/24/18 07:22 98.6 F 65 14 143/73 H 96 08/23/18 23:38 98.4 F 65 16 137/77 98 Weight Admit Weight 98 lb 10.51 oz Weight 98 lb 10.51 oz I&O: 08/23/18 08/24/18 08/25/18 06:59 06:59 06:59 Intake Total 450 840 Output Total 1450 Balance 450 -610 Result Diagrams: 08/23/18 06:24 08/23/18 06:24 Additional Labs: Accuchecks 08/24/18 08/23/18 08/23/18 04:30 20:54 16:08 POC Glucose 161 H 224 H 204 H 08/23/18 10:44 POC Glucose 120 H Phys Exam - Physical Examination Constitutional: NAD HEENT: PERRLA, moist MMs, sclera anicteric Neck: no JVD, supple Respiratory: no wheezing, no rales, no rhonchi Cardiovascular: RRR, no significant murmur, no rub Gastrointestinal: soft, non-tender, no distention, positive bowel sounds gangrene toe Psychiatric: normal affect Deviation from normal: please see wound care team note for decubitus ulcer Dx/Plan (1) Encephalopathy Code(s): G93.40 - ENCEPHALOPATHY, UNSPECIFIED Status: Acute (2) UTI (urinary tract infection) Status: Acute (3) BPH (benign prostatic hyperplasia) Code(s): N40.0 - BENIGN PROSTATIC HYPERPLASIA WITHOUT LOWER URINRY TRACT SYMP Status: Chronic (4) CAD (coronary artery disease) Code(s): I25.10 - ATHSCL HEART DISEASE OF [place] CORONARY ARTERY W/O ANG PCTRS Status: Chronic Qualifiers: Comment: (5) COPD (chronic obstructive pulmonary disease) Status: Chronic Qualifiers: Comment: (6) DM2 (diabetes mellitus, type 2) Status: Chronic Comment: (7) Decubitus ulcer Code(s): L89.90 - PRESSURE ULCER OF UNSPECIFIED SITE, UNSPECIFIED STAGE Status : Chronic Qualifiers: Comment: present on admission (8) Dry gangrene Code(s): I96 - GANGRENE, NOT ELSEWHERE CLASSIFIED Status: Chronic Comment: toe of right foot (9) H/O: CVA (cerebrovascular accident) Code(s): Z86.73 - PRSNL HX OF TIA (TIA), AND CEREB INFRC W/O RESID DEFICITS Status: Chronic Comment: (10) HTN (hypertension) Code(s): I10 - ESSENTIAL (PRIMARY) HYPERTENSION Status: Chronic Qualifiers: (11) PVD (peripheral vascular disease) Code(s): I73.9 - PERIPHERAL VASCULAR DISEASE, UNSPECIFIED Status: Chronic (12) Protein-calorie malnutrition, severe Code(s): E43 - UNSPECIFIED SEVERE PROTEIN-CALORIE MALNUTRITION Status: Chronic - Plan cont current plan of care * wound care * ID recommendation noted * palliative care * medication reviewed as below * symptomatic treatment. Review of Systems - Review of Systems Other: unable to review due to his cognitive status - Medications/Allergies Allergies/Adverse Reactions: Allergies Allergy/AdvReac Type Severity Reaction Status Date / Time codeine Allergy "MAKES ME Verified 08/23/18 04:56 JITTERY" egg Allergy Verified 08/23/18 04:57 Medications: Current Medications Acetaminophen (Tylenol) 500 mg PO Q4H PRN PRN Reason: Pain Albuterol Sulfate (Ventolin) 2.5 mg NEB Q6H PRN PRN Reason: Wheezing Albuterol/Ipratropium (Duoneb) 3 ml NEB [id number] PRN PRN Reason: SOB &/or Wheezing Amlodipine Besylate (Norvasc) 5 mg PO DAILY [facility] Amlodipine Besylate (Norvasc) 5 mg PO 1100 [facility] Stop: 08/24/18 13:00 Arformoterol Tartrate (Brovana) 15 mcg NEB BID-RT [facility] Arformoterol Tartrate (Brovana) 15 mcg NEB 1100 [facility] Stop: 08/24/18 13:00 Artificial Tears (Tears Naturale) 2 drop EA EYE PRN PRN PRN Reason: Dry Eyes Ascorbic Acid (Vitamin C) 500 mg PO DAILY [facility] Ascorbic Acid (Vitamin C) 500 mg PO 1100 [facility] Stop: 08/24/18 13:00 Atorvastatin Calcium (Lipitor) 20 mg PO HS [facility] Bisacodyl (Dulcolax) 10 mg HI DAILYPRN PRN PRN Reason: Constipation Budesonide (Pulmicort Neb Solution) 0.25 mg NEB BID-RT [facility] Calcium Carbonate (Tums) 500 mg PO Q6H PRN PRN Reason: Heartburn or Indigestion Clopidogrel Bisulfate (Plavix) 75 mg PO DAILY [facility] Clopidogrel Bisulfate (Plavix) 75 mg PO 1100 [facility] Stop: 08/24/18 13:00 Dextrose/Water (Dextrose 50%) 25 gm SLOW IVP PRN PRN PRN Reason: Hypoglycemia Donepezil HCl (Aricept) 5 mg PO HS [facility] Famotidine (Pepcid) 20 mg SLOW IVP Q12HR [facility] Last Admin: 08/24/18 08:11 Dose: 20 mg Ferrous Sulfate (Feosol) 325 mg PO BID [facility] Ferrous Sulfate (Feosol) 325 mg PO 1100 [facility] Stop: 08/24/18 13:00 Glucagon (Glucagon) 1 mg IM PRN PRN PRN Reason: Hypoglycemia Guaifenesin (Mucinex) 600 mg PO Q12H PRN PRN Reason: Congestion Guaifenesin (Robitussin Sf) 200 mg PO Q4H PRN PRN Reason: Cough Hydralazine HCl (Apresoline) 10 mg SLOW IVP Q4H PRN PRN Reason: SBP > 180 and HR < 70 Sodium Chloride (Normal Saline 0.9%) 1,000 mls @ 50 mls/hr IV .Q20H [facility] Last Admin: 08/23/18 17:15 Dose: 1,000 mls Dextrose/Water (D5w) 1,000 mls @ 0 mls/hr IV .Q0M PRN PRN Reason: Hypoglycemia Ceftriaxone Sodium 1 gm/ (Sodium Chloride) 100 mls @ 200 mls/hr IVPB Q24HR [facility] Last Admin: 08/24/18 08:11 Dose: 100 mls Insulin Human Lispro (Humalog) 0 units SC .MILD SLIDING SCALE PRN PRN Reason: Mild Correctional Scale Iron/Minerals/Multivitamins (Theragran M) 1 tab PO DAILY [facility] Loperamide HCl (Imodium) 2 mg PO PRN PRN PRN Reason: Diarrhea/Loose Stools Loratadine (Claritin) 10 mg PO DAILYPRN PRN PRN Reason: Sinus Symptoms Megestrol Acetate (Megace) 400 mg PO DAILY [facility] Megestrol Acetate (Megace) 400 mg PO 1100 [facility] Stop: 08/24/18 13:00 Non-Formulary Medication (Insulin Detemir [Levemir]) 12 units SQ QAM [facility] Nystatin (Mycostatin Powder) 0 gm TOP BID [facility] Nystatin (Nystatin 100,000 Units/Ml) 4 ml SSW QID [facility] Ondansetron HCl (Zofran Odt) 4 mg SL Q6H PRN PRN Reason: Nausea/Vomiting Ondansetron HCl (Zofran) 4 mg IVP Q6H PRN PRN Reason: Nausea/Vomiting Polyethylene Glycol (Miralax) 17 gm PO DAILY [facility] Polyethylene Glycol (Miralax) 17 gm PO 1100 [facility] Stop: 08/24/18 13:00 Potassium Chloride (Klor-Con 10) 10 meq PO DAILY [facility] Potassium Chloride (Klor-Con 10) 10 meq PO 1200 [facility] Stop: 08/24/18 14:00 Senna/Docusate Sodium (Senokot S) 2 tab PO BID PRN PRN Reason: Constipation Sodium Chloride ([place] Nasal [place] 0.65%) 0 ml EA NARE QIDPRN PRN PRN Reason: Nasal Congestion Tamsulosin HCl (Flomax) 0.4 mg PO DAILY [facility] Last Admin: 08/24/18 08:12 Dose: 0.4 mg Throat Lozenges (Cepastat Lozenges) 1 lindsay PO Q2H PRN PRN Reason: Sore Throat Zinc Sulfate (Zinc Sulfate) 220 mg PO DAILY [facility] Zolpidem Tartrate (Ambien) 5 mg PO HSPRN PRN PRN Reason: Insomnia
[2018-08-24] MEDS ORDERED: Clopidogrel Bisulfate 75 MG TAB PO SCH (11:00)
[2018-08-24] MEDS ORDERED: Arformoterol 15 MCG/2 ML NEB NEB SCH (11:00)
[2018-08-24] MEDS ORDERED: Polyethylene Glycol 3350 17 GM Packet PO SCH (11:00)
[2018-08-24] MEDS ORDERED: Ascorbic Acid 500 mg Chewable Tablet PO SCH (11:00)
[2018-08-24] MEDS ORDERED: Megestrol Acetate 800 MG/20 ML UDCUP PO SCH (11:00)
[2018-08-24] MEDS ORDERED: Ferrous Sulfate 325 MG TAB PO SCH (11:00)
[2018-08-24] MEDS: Insulin Glargine 12 UNITS in Pre-Filled Syringe 1 EACH SC SCH ×2 (11:44→21:27)
[2018-08-24] MEDS: Nystatin Powder 15 GM BOT TOP SCH ×2 (11:45→21:28)
[2018-08-24] MEDS: Zinc Sulfate 220 MG CAP PO SCH (11:47)
[2018-08-24] MEDS ORDERED: Potassium Chloride 10 MEQ TAB PO SCH (12:00)
[2018-08-24] MEDS: Nystatin 100,000 Units/mL UDCUP SSW SCH ×3 (14:55→23:16)
[2018-08-24] MEDS: Arformoterol 15 MCG/2 ML NEB NEB SCH (18:49)
[2018-08-24] MEDS: Budesonide 0.25 MG/2 ML NEB NEB SCH (18:49)
[2018-08-24] MEDS: Donepezil HCl 5 MG TAB PO SCH (21:27)
[2018-08-24] MEDS: Ferrous Sulfate 325 MG TAB PO SCH (21:27)
[2018-08-24] MEDS: Atorvastatin Calcium 20 MG TAB PO SCH (21:27)
[2018-08-24] MEDS: Sodium Chloride 0.9% 1,000 ML IV SCH (21:37)
[2018-08-24] MEDS: Nystatin 500,000 UNITS/5 ML UDCUP SSW SCH (21:41)
[2018-08-25] MEDS: Arformoterol 15 MCG/2 ML NEB NEB SCH ×2 (06:47→19:41)
[2018-08-25] MEDS: Budesonide 0.25 MG/2 ML NEB NEB SCH ×2 (06:47→20:45)
[2018-08-25] MEDS: Megestrol Acetate 800 MG/20 ML UDCUP PO SCH ×2 (07:52→09:00)
[2018-08-25] MEDS: Zinc Sulfate 220 MG CAP PO SCH ×2 (07:53→09:00)
[2018-08-25] MEDS: Ferrous Sulfate 325 MG TAB PO SCH ×3 (07:53→21:03)
[2018-08-25] MEDS: Nystatin 500,000 UNITS/5 ML UDCUP SSW SCH ×4 (07:53→21:04)
[2018-08-25] MEDS: Amlodipine 5 MG TAB PO SCH ×2 (07:54→09:00)
[2018-08-25] MEDS: Tamsulosin HCl 0.4 MG CAP PO SCH ×2 (07:54→09:00)
[2018-08-25] MEDS: Ascorbic Acid 500 mg Chewable Tablet PO SCH ×2 (07:54→09:00)
[2018-08-25] MEDS: Multivitamin W/ Minerals 1 TAB PO SCH ×2 (07:54→09:00)
[2018-08-25] MEDS: Famotidine/PF 20 mg/2ml Vial SLOW IVP SCH ×2 (07:55→21:03)
[2018-08-25] MEDS: Clopidogrel Bisulfate 75 MG TAB PO SCH ×2 (07:55→09:00)
[2018-08-25] MEDS: Polyethylene Glycol 3350 17 GM Packet PO SCH ×2 (07:55→09:00)
[2018-08-25] MEDS: Nystatin Powder 15 GM BOT TOP SCH ×2 (07:55→21:05)
[2018-08-25] MEDS: Potassium Chloride 10 MEQ TAB PO SCH ×2 (07:55→09:00)
[2018-08-25] MEDS: cefTRIAXone\\ROCEPHIN 1 GM in Sodium Chloride 0.9% 100 ML IVPB SCH (09:31)
[2018-08-25] MEDS: Insulin Glargine 12 UNITS in Pre-Filled Syringe 1 EACH SC SCH ×2 (09:31→21:03)
--- NOTE | 2018-08-25 10:48 | PDOC.PN ---
- Subjective Encounter Start Date: 08/25/18 Encounter Start Time: 09:20 Patient seen and examined. No new complaints. No overnight events - Objective Resuscitation Status - Order Detail: 08/22/18 08:50 Resuscitation Status Routine Resuscitation Status: FULL: Full Resuscitation MAR Reviewed: Yes Vital Signs & Weight: Vital Signs (12 hours) Temp Pulse Resp BP BP Pulse Ox 08/25/18 07:54 60 111/53 L 08/25/18 07:22 98.4 F 60 18 111/53 L 100 08/25/18 06:47 60 12 08/25/18 05:13 98.2 F 58 L 16 113/59 L 100 Weight Admit Weight 98 lb 10.51 oz Weight 98 lb 10.51 oz I&O: 08/24/18 08/25/18 08/26/18 06:59 06:59 06:59 Intake Total 840 390 Output Total 1450 Balance -610 390 Result Diagrams: 08/23/18 06:24 08/23/18 06:24 Additional Labs: Accuchecks 08/25/18 08/24/18 08/24/18 05:11 19:27 17:05 POC Glucose 164 H 158 H 227 H 08/24/18 11:37 POC Glucose 202 H Phys Exam - Physical Examination Constitutional: NAD HEENT: PERRLA, moist MMs, sclera anicteric Neck: no JVD, supple Respiratory: no wheezing, no rales, no rhonchi Cardiovascular: RRR, no significant murmur, no rub Gastrointestinal: soft, non-tender, no distention, positive bowel sounds mason+ Musculoskeletal: no edema, pulses present Lymphatic: no nodes Psychiatric: normal affect Deviation from normal: wound vac over decubitus ulcer Dx/Plan (1) Encephalopathy Code(s): G93.40 - ENCEPHALOPATHY, UNSPECIFIED Status: Resolved Comment: now baseline dementia (2) UTI (urinary tract infection) Status: Ruled-out Comment: due to colinization, no true infection (3) BPH (benign prostatic hyperplasia) Code(s): N40.0 - BENIGN PROSTATIC HYPERPLASIA WITHOUT LOWER URINRY TRACT SYMP Status: Chronic (4) CAD (coronary artery disease) Code(s): I25.10 - ATHSCL HEART DISEASE OF [place] CORONARY ARTERY W/O ANG PCTRS Status: Chronic Qualifiers: Comment: (5) COPD (chronic obstructive pulmonary disease) Status: Chronic Qualifiers: Comment: (6) DM2 (diabetes mellitus, type 2) Status: Chronic Comment: (7) Decubitus ulcer Code(s): L89.90 - PRESSURE ULCER OF UNSPECIFIED SITE, UNSPECIFIED STAGE Status : Chronic Qualifiers: Comment: present on admission (8) Dry gangrene Code(s): I96 - GANGRENE, NOT ELSEWHERE CLASSIFIED Status: Chronic Comment: toe of right foot (9) H/O: CVA (cerebrovascular accident) Code(s): Z86.73 - PRSNL HX OF TIA (TIA), AND CEREB INFRC W/O RESID DEFICITS Status: Chronic Comment: (10) HTN (hypertension) Code(s): I10 - ESSENTIAL (PRIMARY) HYPERTENSION Status: Chronic Qualifiers: (11) PVD (peripheral vascular disease) Code(s): I73.9 - PERIPHERAL VASCULAR DISEASE, UNSPECIFIED Status: Chronic (12) Protein-calorie malnutrition, severe Code(s): E43 - UNSPECIFIED SEVERE PROTEIN-CALORIE MALNUTRITION Status: Chronic - 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 Review of Systems - Review of Systems Other: not reliable due to dementia - Medications/Allergies Allergies/Adverse Reactions: Allergies Allergy/AdvReac Type Severity Reaction Status Date / Time codeine Allergy "MAKES ME Verified 08/23/18 04:56 JITTERY" egg Allergy Verified 08/23/18 04:57 Medications: Current Medications Acetaminophen (Tylenol) 500 mg PO Q4H PRN PRN Reason: Pain Albuterol Sulfate (Ventolin) 2.5 mg NEB Q6H PRN PRN Reason: Wheezing Albuterol/Ipratropium (Duoneb) 3 ml NEB [id number] PRN PRN Reason: SOB &/or Wheezing Amlodipine Besylate (Norvasc) 5 mg PO DAILY [facility] Last Admin: 08/25/18 07:54 Dose: Not Given Arformoterol Tartrate (Brovana) 15 mcg NEB BID-RT [facility] Last Admin: 08/25/18 06:47 Dose: 15 mcg Artificial Tears (Tears Naturale) 2 drop EA EYE PRN PRN PRN Reason: Dry Eyes Ascorbic Acid (Vitamin C) 500 mg PO DAILY [facility] Last Admin: 08/25/18 07:54 Dose: 500 mg Atorvastatin Calcium (Lipitor) 20 mg PO [facility] Last Admin: 08/24/18 21:27 Dose: 20 mg Bisacodyl (Dulcolax) 10 mg ND DAILYPRN PRN PRN Reason: Constipation Budesonide (Pulmicort Neb Solution) 0.25 mg NEB BID-RT [facility] Last Admin: 08/25/18 06:47 Dose: 0.25 mg Calcium Carbonate (Tums) 500 mg PO Q6H PRN PRN Reason: Heartburn or Indigestion Clopidogrel Bisulfate (Plavix) 75 mg PO DAILY [facility] Last Admin: 08/25/18 07:55 Dose: 75 mg Dextrose/Water (Dextrose 50%) 25 gm SLOW IVP PRN PRN PRN Reason: Hypoglycemia Donepezil HCl (Aricept) 5 mg PO [facility] Last Admin: 08/24/18 21:27 Dose: 5 mg Famotidine (Pepcid) 20 mg SLOW IVP Q12HR [facility] Last Admin: 08/25/18 07:55 Dose: 20 mg Ferrous Sulfate (Feosol) 325 mg PO BID [facility] Last Admin: 08/25/18 07:53 Dose: 325 mg Glucagon (Glucagon) 1 mg IM PRN PRN PRN Reason: Hypoglycemia Guaifenesin (Mucinex) 600 mg PO Q12H PRN PRN Reason: Congestion Guaifenesin (Robitussin Sf) 200 mg PO Q4H PRN PRN Reason: Cough Hydralazine HCl (Apresoline) 10 mg SLOW IVP Q4H PRN PRN Reason: SBP > 180 and HR < 70 Sodium Chloride (Normal Saline 0.9%) 1,000 mls @ 50 mls/hr IV .Q20H [facility] Last Admin: 08/24/18 21:37 Dose: Not Given Dextrose/Water (D5w) 1,000 mls @ 0 mls/hr IV .Q0M PRN PRN Reason: Hypoglycemia Ceftriaxone Sodium 1 gm/ (Sodium Chloride) 100 mls @ 200 mls/hr IVPB Q24HR [facility] Last Admin: 08/25/18 09:31 Dose: 100 mls Insulin Glargine 12 units/ (Miscellaneous Medication) 0.12 mls @ 0 mls/hr SC [facility] Last Admin: 08/24/18 21:27 Dose: 0.12 mls Insulin Glargine 12 units/ (Miscellaneous Medication) 0.12 mls @ 0 mls/hr SC QAM [facility] Last Admin: 08/25/18 09:31 Dose: 0.12 mls Insulin Human Lispro (Humalog) 0 units SC .MILD SLIDING SCALE PRN PRN Reason: Mild Correctional Scale Last Admin: 08/24/18 17:59 Dose: 3 unit Iron/Minerals/Multivitamins (Theragran M) 1 tab PO DAILY [facility] Last Admin: 08/25/18 07:54 Dose: 1 tab Loperamide HCl (Imodium) 2 mg PO PRN PRN PRN Reason: Diarrhea/Loose Stools Loratadine (Claritin) 10 mg PO DAILYPRN PRN PRN Reason: Sinus Symptoms Megestrol Acetate (Megace) 400 mg PO DAILY [facility] Last Admin: 08/25/18 07:52 Dose: 400 mg Nystatin (Mycostatin Powder) 0 gm TOP BID [facility] Last Admin: 08/25/18 07:55 Dose: 1 applic Nystatin (Mycostatin) 400,000 units SSW QID [facility] Last Admin: 08/25/18 07:53 Dose: 400,000 units Ondansetron HCl (Zofran Odt) 4 mg SL Q6H PRN PRN Reason: Nausea/Vomiting Ondansetron HCl (Zofran) 4 mg IVP Q6H PRN PRN Reason: Nausea/Vomiting Polyethylene Glycol (Miralax) 17 gm PO DAILY [facility] Last Admin: 08/25/18 07:55 Dose: 17 gm Potassium Chloride (Klor-Con 10) 10 meq PO DAILY [facility] Last Admin: 08/25/18 07:55 Dose: 10 meq Senna/Docusate Sodium (Senokot S) 2 tab PO BID PRN PRN Reason: Constipation Sodium Chloride ([place] Nasal [place] 0.65%) 0 ml EA NARE QIDPRN PRN PRN Reason: Nasal Congestion Tamsulosin HCl (Flomax) 0.4 mg PO DAILY [facility] Last Admin: 08/25/18 07:54 Dose: 0.4 mg Throat Lozenges (Cepastat Lozenges) 1 lindsay PO Q2H PRN PRN Reason: Sore Throat Zinc Sulfate (Zinc Sulfate) 220 mg PO DAILY [facility] Last Admin: 08/25/18 07:53 Dose: 220 mg Zolpidem Tartrate (Ambien) 5 mg PO HSPRN PRN PRN Reason: Insomnia
[2018-08-25] MEDS: Sodium Chloride 0.9% 1,000 ML IV SCH (11:04)
--- NOTE | 2018-08-25 14:28 | PRG ---
DATE OF SERVICE: 08/25/2018 SUBJECTIVE: Mr. Burdick is awake. He is able to understand my questions and he cannot verbalize, but he properly recognizes and he answers. He does not seem to be in distress. OBJECTIVE: VITAL SIGNS: His temperature has been normal, blood pressure 111/53, O2 saturation 100%. GENERAL: He appears in no distress. LUNGS: Clear. CARDIAC: S1 and S2. Regular rate. ABDOMEN: Soft. His Alanis catheter in place. Negative pressure dressing over the wound. LABORATORY DATA: White cell count 5.4 and hemoglobin 11. Chemistry is not remarkable. Microbiology, Pseudomonas in the urine, likely colonization. ASSESSMENT AND DISCUSSION: Hemorrhagic cerebrovascular accident with severe neurological impairment, group home resident status, chronic refractory sacral decubitus, treated with debridement and antimicrobial therapy in the past with no evidence of bone exposure, the base of the wound actually looks pretty good, and we will continue with the measures prescribed by Wound Care. No need for antimicrobial therapy at this point in time. He does have those areas in the foot due to peripheral vascular disease and is at risk for amputation in the future. Job ID: [id number]
--- NOTE | 2018-08-25 14:42 | PDOC.PALCO ---
Palliative Care Consult - Consult Details Requesting Physician: Dr Muhammad Reason for Consult: goals of care, advance directives assistance - Pertinent HPI Resident of [facility] [place] who was admitted for ams and physical deconditioning. - Pertinent PMH PVD, DM II, CAD, COPD, Sleep Apnea, HTN, GERD, CVA with resulting dementia and devility. Has become bedbound - Social History Smoking Status: Never smoker Smoking: no tobacco exposure Alcohol Use: none Drug Use History: none Living Situation: assisted resident - Medications MAR Reviewed: Yes - Allergies Allergies/Adverse Reactions: Allergies Allergy/AdvReac Type Severity Reaction Status Date / Time codeine Allergy "MAKES ME Verified 08/23/18 04:56 JITTERY" egg Allergy Verified 08/23/18 04:57 - Subjective Resting but arousable. Aphagic but makes eye contact and furrows brow. - Objective Vital Signs: Vital Signs - Most Recent Temp Pulse Resp BP Pulse Ox 98.4 F 60 18 111/53 L 100 08/25/18 07:22 08/25/18 07:54 08/25/18 07:22 08/25/18 07:54 08/25/18 08:00 - Physical Exam Constitutional: confusion HEENT: moist MMs Respiratory: no wheezing Cardiovascular: RRR Gastrointestinal: soft, non-tender Deviation from normal: mild confusion, difficult to establish Deviation from normal: Brusing, chronic sacral wound - Problem List (1) Palliative care encounter Code(s): Z51.5 - ENCOUNTER FOR PALLIATIVE CARE Current Visit: Yes Status: Acute - Plan/Recommendations Plan: Extensive conversations with the patients daughter in relation to chronic disease processes and expected disease trajectory. We have established a relationship and will continue to support patient and family to establish realistic goals related to disease processes. [40] minutes spent on this encounter with >50% of the time in counseling and coordination of care. Thank you for this very appropriate consult.
[2018-08-25] MEDS: Donepezil HCl 5 MG TAB PO SCH (21:03)
[2018-08-25] MEDS: Atorvastatin Calcium 20 MG TAB PO SCH (21:03)
[2018-08-26] MEDS: Sodium Chloride 0.9% 1,000 ML IV SCH (06:06)
[2018-08-26] MEDS: Arformoterol 15 MCG/2 ML NEB NEB SCH ×2 (07:19→18:01)
[2018-08-26] MEDS: Budesonide 0.25 MG/2 ML NEB NEB SCH ×2 (07:19→17:59)
[2018-08-26] MEDS: Megestrol Acetate 800 MG/20 ML UDCUP PO SCH ×2 (08:24→13:24)
[2018-08-26] MEDS: Nystatin 500,000 UNITS/5 ML UDCUP SSW SCH ×4 (08:25→20:56)
[2018-08-26] MEDS: Zinc Sulfate 220 MG CAP PO SCH (08:26)
[2018-08-26] MEDS: Clopidogrel Bisulfate 75 MG TAB PO SCH ×2 (08:26→13:24)
[2018-08-26] MEDS: Tamsulosin HCl 0.4 MG CAP PO SCH (08:26)
[2018-08-26] MEDS: Potassium Chloride 10 MEQ TAB PO SCH (08:27)
[2018-08-26] MEDS: Ascorbic Acid 500 mg Chewable Tablet PO SCH ×2 (08:27→13:24)
[2018-08-26] MEDS: Amlodipine 5 MG TAB PO SCH (08:27)
[2018-08-26] MEDS: Multivitamin W/ Minerals 1 TAB PO SCH ×2 (08:28→13:24)
[2018-08-26] MEDS: Ferrous Sulfate 325 MG TAB PO SCH ×3 (08:28→20:55)
[2018-08-26] MEDS: Famotidine/PF 20 mg/2ml Vial SLOW IVP SCH ×2 (08:28→20:41)
[2018-08-26] MEDS: Polyethylene Glycol 3350 17 GM Packet PO SCH (08:33)
[2018-08-26] MEDS: Nystatin Powder 15 GM BOT TOP SCH ×2 (08:33→20:41)
[2018-08-26] MEDS: cefTRIAXone\\ROCEPHIN 1 GM in Sodium Chloride 0.9% 100 ML IVPB SCH (08:34)
[2018-08-26] MEDS: Insulin Glargine 12 UNITS in Pre-Filled Syringe 1 EACH SC SCH ×2 (11:29→20:55)
--- NOTE | 2018-08-26 12:22 | PDOC.PN ---
- Subjective Encounter Start Date: 08/26/18 Encounter Start Time: 09:00 Patient seen and examined. No new complaints. No overnight events - Objective Resuscitation Status - Order Detail: 08/22/18 08:50 Resuscitation Status Routine Resuscitation Status: FULL: Full Resuscitation MAR Reviewed: Yes Vital Signs & Weight: Vital Signs (12 hours) Temp Pulse Resp BP BP Pulse Ox 08/26/18 11:14 98.7 F 80 20 168/80 H 100 08/26/18 08:27 71 08/26/18 08:00 98 08/26/18 07:20 98.8 F 71 16 156/82 H 100 08/26/18 07:19 78 12 08/26/18 04:00 98.4 F 71 20 146/76 H 100 Weight Admit Weight 98 lb 10.51 oz Weight 98 lb 10.51 oz I&O: 08/25/18 08/26/18 08/27/18 06:59 06:59 06:59 Intake Total 390 360 Output Total 1750 Balance 390 -1390 Result Diagrams: 08/23/18 06:24 08/23/18 06:24 Additional Labs: Accuchecks 08/26/18 08/26/18 08/26/18 11:20 06:11 05:19 POC Glucose 104 78 65 L 08/25/18 08/25/18 20:30 16:54 POC Glucose 121 H 87 Phys Exam - Physical Examination Constitutional: NAD HEENT: moist MMs, sclera anicteric Neck: no JVD, supple Respiratory: no wheezing, no rales, no rhonchi Cardiovascular: no significant murmur, no rub Gastrointestinal: soft, non-tender, no distention, positive bowel sounds Musculoskeletal: no edema, pulses present Psychiatric: normal affect Deviation from normal: wound vac in place Dx/Plan (1) Encephalopathy Code(s): G93.40 - ENCEPHALOPATHY, UNSPECIFIED Status: Resolved Comment: now baseline dementia (2) UTI (urinary tract infection) Status: Ruled-out Comment: due to colinization, no true infection (3) BPH (benign prostatic hyperplasia) Code(s): N40.0 - BENIGN PROSTATIC HYPERPLASIA WITHOUT LOWER URINRY TRACT SYMP Status: Chronic (4) CAD (coronary artery disease) Code(s): I25.10 - ATHSCL HEART DISEASE OF [place] CORONARY ARTERY W/O ANG PCTRS Status: Chronic Qualifiers: Comment: (5) COPD (chronic obstructive pulmonary disease) Status: Chronic Qualifiers: Comment: (6) DM2 (diabetes mellitus, type 2) Status: Chronic Comment: (7) Decubitus ulcer Code(s): L89.90 - PRESSURE ULCER OF UNSPECIFIED SITE, UNSPECIFIED STAGE Status : Chronic Qualifiers: Comment: present on admission (8) Dry gangrene Code(s): I96 - GANGRENE, NOT ELSEWHERE CLASSIFIED Status: Chronic Comment: toe of right foot (9) H/O: CVA (cerebrovascular accident) Code(s): Z86.73 - PRSNL HX OF TIA (TIA), AND CEREB INFRC W/O RESID DEFICITS Status: Chronic Comment: (10) HTN (hypertension) Code(s): I10 - ESSENTIAL (PRIMARY) HYPERTENSION Status: Chronic Qualifiers: (11) PVD (peripheral vascular disease) Code(s): I73.9 - PERIPHERAL VASCULAR DISEASE, UNSPECIFIED Status: Chronic (12) Protein-calorie malnutrition, severe Code(s): E43 - UNSPECIFIED SEVERE PROTEIN-CALORIE MALNUTRITION Status: Chronic - 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 Review of Systems - Review of Systems Other: not reliable due to his level of cognitive status - Medications/Allergies Allergies/Adverse Reactions: Allergies Allergy/AdvReac Type Severity Reaction Status Date / Time codeine Allergy "MAKES ME Verified 08/23/18 04:56 JITTERY" egg Allergy Verified 08/23/18 04:57 Medications: Current Medications Acetaminophen (Tylenol) 500 mg PO Q4H PRN PRN Reason: Pain Last Admin: 08/26/18 08:28 Dose: 500 mg Albuterol Sulfate (Ventolin) 2.5 mg NEB Q6H PRN PRN Reason: Wheezing Albuterol/Ipratropium (Duoneb) 3 ml NEB [id number] PRN PRN Reason: SOB &/or Wheezing Amlodipine Besylate (Norvasc) 5 mg PO DAILY [facility] Last Admin: 08/26/18 08:27 Dose: 5 mg Arformoterol Tartrate (Brovana) 15 mcg NEB BID-RT [facility] Last Admin: 08/26/18 07:19 Dose: 15 mcg Artificial Tears (Tears Naturale) 2 drop EA EYE PRN PRN PRN Reason: Dry Eyes Ascorbic Acid (Vitamin C) [address] [facility] Last Admin: 08/26/18 08:27 Dose: 500 mg Atorvastatin Calcium (Lipitor) [address] [facility] Last Admin: 08/25/18 21:03 Dose: 20 mg Bisacodyl (Dulcolax) 10 mg AK DAILYPRN PRN PRN Reason: Constipation Budesonide (Pulmicort Neb Solution) 0.25 mg NEB BID-RT [facility] Last Admin: 08/26/18 07:19 Dose: 0.25 mg Calcium Carbonate (Tums) 500 mg PO Q6H PRN PRN Reason: Heartburn or Indigestion Clopidogrel Bisulfate (Plavix) [address] [facility] Last Admin: 08/26/18 08:26 Dose: 75 mg Dextrose/Water (Dextrose 50%) 25 gm SLOW IVP PRN PRN PRN Reason: Hypoglycemia Donepezil HCl (Aricept) [address] [facility] Last Admin: 08/25/18 21:03 Dose: 5 mg Famotidine (Pepcid) 20 [address] SLOW IVP Q12HR [facility] Last Admin: 08/26/18 08:28 Dose: 20 mg Ferrous Sulfate (Feosol) [address] [facility] Last Admin: 08/26/18 08:28 Dose: 325 mg Glucagon (Glucagon) 1 mg IM PRN PRN PRN Reason: Hypoglycemia Guaifenesin (Mucinex) 600 mg PO Q12H PRN PRN Reason: Congestion Guaifenesin (Robitussin Sf) 200 mg PO Q4H PRN PRN Reason: Cough Hydralazine HCl (Apresoline) 10 mg SLOW IVP Q4H PRN PRN Reason: SBP > 180 and HR < 70 Sodium Chloride (Normal Saline 0.9%) 1,000 mls @ 50 mls/hr IV .Q20H [facility] Last Admin: 08/26/18 06:06 Dose: 1,000 mls Dextrose/Water (D5w) 1,000 mls @ 0 mls/hr IV .Q0M PRN PRN Reason: Hypoglycemia Ceftriaxone Sodium 1 gm/ (Sodium Chloride) 100 mls @ 200 mls/hr IVPB Q24HR [facility] Last Admin: 08/26/18 08:34 Dose: 100 mls Insulin Glargine 12 units/ (Miscellaneous Medication) 0.12 mls @ 0 mls/hr SC HS [facility] Last Admin: 08/25/18 21:03 Dose: 0.12 mls Insulin Glargine 12 units/ (Miscellaneous Medication) 0.12 mls @ 0 mls/hr SC QAM [facility] Last Admin: 08/26/18 11:29 Dose: 0.12 mls Insulin Human Lispro (Humalog) 0 units SC .MILD SLIDING SCALE PRN PRN Reason: Mild Correctional Scale Last Admin: 08/24/18 17:59 Dose: 3 unit Iron/Minerals/Multivitamins (Theragran M) [address] [facility] Last Admin: 08/26/18 08:28 Dose: 1 tab Loperamide HCl (Imodium) 2 mg PO PRN PRN PRN Reason: Diarrhea/Loose Stools Loratadine (Claritin) 10 mg PO DAILYPRN PRN PRN Reason: Sinus Symptoms Megestrol Acetate (Megace) [address] [facility] Last Admin: 08/26/18 08:24 Dose: 400 mg Nystatin (Mycostatin Powder) [address] [facility] Last Admin: 08/26/18 08:33 Dose: 1 applic Nystatin (Mycostatin) 400,[address] [facility] Last Admin: 08/26/18 08:25 Dose: 400,000 units Ondansetron HCl (Zofran Odt) 4 mg SL Q6H PRN PRN Reason: Nausea/Vomiting Ondansetron HCl (Zofran) 4 mg IVP Q6H PRN PRN Reason: Nausea/Vomiting Polyethylene Glycol (Miralax) [address] [facility] Last Admin: 08/26/18 08:33 Dose: Not Given Potassium Chloride (Klor-Con 10) [address] [facility] Last Admin: 08/26/18 08:27 Dose: 10 meq Senna/Docusate Sodium (Senokot S) 2 tab PO BID PRN PRN Reason: Constipation Sodium Chloride (Swift Nasal [place] 0.65%) 0 ml EA NARE QIDPRN PRN PRN Reason: Nasal Congestion Tamsulosin HCl (Flomax) 0.[address] [facility] Last Admin: 08/26/18 08:26 Dose: 0.4 mg Throat Lozenges (Cepastat Lozenges) 1 lindsay PO Q2H PRN PRN Reason: Sore Throat Zinc Sulfate (Zinc Sulfate) 220 mg PO DAILY [facility] Last Admin: 08/26/18 08:26 Dose: 220 mg Zolpidem Tartrate (Ambien) 5 mg PO HSPRN PRN PRN Reason: Insomnia
[2018-08-26] MEDS: Donepezil HCl 5 MG TAB PO SCH (20:55)
[2018-08-26] MEDS: Atorvastatin Calcium 20 MG TAB PO SCH (20:55)
[2018-08-27] MEDS: Sodium Chloride 0.9% 1,000 ML IV SCH (02:19)
[2018-08-27] MEDS: Arformoterol 15 MCG/2 ML NEB NEB SCH (07:07)
[2018-08-27] MEDS: Budesonide 0.25 MG/2 ML NEB NEB SCH (07:07)
[2018-08-27] MEDS: Famotidine/PF 20 mg/2ml Vial SLOW IVP SCH (08:39)
[2018-08-27 08:47] VITALS: BP 147/79; TEMP 99.2
[2018-08-27] MEDS: Amlodipine 5 MG TAB PO SCH (08:47)
[2018-08-27] MEDS: Clopidogrel Bisulfate 75 MG TAB PO SCH (08:48)
[2018-08-27] MEDS: Ascorbic Acid 500 mg Chewable Tablet PO SCH (08:48)
[2018-08-27] MEDS: Ferrous Sulfate 325 MG TAB PO SCH (08:48)
[2018-08-27] MEDS: Megestrol Acetate 800 MG/20 ML UDCUP PO SCH (08:49)
[2018-08-27] MEDS: Insulin Glargine 12 UNITS in Pre-Filled Syringe 1 EACH SC SCH (08:49)
[2018-08-27] MEDS: Multivitamin W/ Minerals 1 TAB PO SCH (08:49)
[2018-08-27] MEDS: Nystatin Powder 15 GM BOT TOP SCH (08:49)
[2018-08-27] MEDS: Nystatin 500,000 UNITS/5 ML UDCUP SSW SCH ×2 (08:49→13:40)
[2018-08-27] MEDS: Potassium Chloride 10 MEQ TAB PO SCH (08:50)
[2018-08-27] MEDS: Polyethylene Glycol 3350 17 GM Packet PO SCH (08:50)
[2018-08-27] MEDS: Zinc Sulfate 220 MG CAP PO SCH (08:50)
[2018-08-27] MEDS: Tamsulosin HCl 0.4 MG CAP PO SCH (08:50)
--- NOTE | 2018-08-27 10:31 | DIS ---
DATE OF ADMISSION: 08/23/2018 DATE OF DISCHARGE: 08/27/2018 PRIMARY CARE PHYSICIAN: Ja Mendoza MD. DISCHARGE DISPOSITION: care home home. PRIMARY DISCHARGE DIAGNOSES: 1. The patient has chronic decubitus ulcer, which is colonized with bacteria, does not require any IV antibiotic therapy. 2. The patient has urinary tract infection, which is also not real that is colonized. SECONDARY DISCHARGE DIAGNOSES: Benign enlargement of prostate, coronary artery disease, chronic obstructive pulmonary disease, diabetes type 2, chronic decubitus ulcers, dry gangrene of the foot, history of cerebrovascular accident, hypertension, severe protein-calorie malnutrition, peripheral vascular disease. PRIMARY PROCEDURE/OPERATION: None. RADIOLOGICAL INVESTIGATION: Foot x-ray. LABORATORY DATA: Significant labs; hemoglobin 11.0, creatinine 0.69. Urine culture grew Pseudomonas. Blood culture negative. DISCHARGE MEDICATIONS: Following are scheduled medication; 1. Amlodipine 5 mg p.o. daily. 2. Brovana 15 mcg nebulization b.i.d. 3. Vitamin C 500 mg p.o. daily. 4. Pulmicort nebulization b.i.d. 5. Coreg 6.25 mg b.i.d. 6. Plavix 75 mg daily. 7. Aricept 5 mg p.o. daily at bedtime. 8. Ferrous sulfate 325 mg p.o. b.i.d. 9. Atarax 25 mg t.i.d. p.r.n. 10. Insulin 12 units subcu b.i.d. 11. Humalog insulin as per sliding scale. 12. Megace 400 mg p.o. daily. 13. Nystatin topical application b.i.d. 14. Omeprazole 20 mg daily. 15. MiraLAX 17 g p.o. daily. 16. Potassium chloride 10 mEq p.o. daily. 17. Zocor 40 mg p.o. daily at bedtime. 18. Flomax 0.4 mg p.o. at bedtime. 19. Zinc sulfate 220 mg p.o. daily. Following are p.r.n. medication; 1. Tylenol. 2. Tums. 3. Diabetic Tussin. 4. Voltaren topical application. 5. Mucinex. 6. Albuterol inhaler. 7. Artificial tear drops. 8. Imodium. 9. Milk of magnesia. CODE STATUS: Full code. 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 He has recommended against antibiotic therapy. Palliative Care Team was following. DISCHARGE PLAN: Posthospital, the patient will follow up with the primary care physician at half-way. HOSPITAL COURSE: A 72-year-old male with the above-mentioned medical problem, who was admitted by Dr. Muhammad. The patient was admitted from half-way because they thought that this patient has underlying infection. This patient has underlying decubitus ulcer infection. During this admission, we consulted Dr. Howe and he recommended that this patient's wound appears healthy and he does not need any IV antibiotic therapy. His wound is colonized with bacteria. His urine is also colonized from chronic indwelling Alanis catheter and does not have any real infection. While in the hospital, he did not have any fever. He remained hemodynamically stable. This patient's prognosis is poor, only he needs is better wound, care better nursing care to prevent an unnecessary complication. I have seen and examined the patient at bedside today. While in hospital, he received Rocephin by Dr. Muhammad, but Dr. Howe does not recommend an antibiotic therapy. On discharge, we discontinued all antibiotic therapy. Paperwork for discharge done and discharge medication reconciliation done. The patient is medically stable for discharge to go back to half-way. Job ID: [id number]
[2018-08-27] MEDS: cefTRIAXone\\ROCEPHIN 1 GM in Sodium Chloride 0.9% 100 ML IVPB SCH (11:59)
== END 2018-08-27 15:14 | DRG 592 ==
LOC: ERS 15:50 → ERHOLD 21:00 → T4-A 08-22 18:04 → EEVIPCON 08-23 16:21 → OBSVTOIN 08-23 16:21
PROVIDERS: ADMIT Internal Medicine; ATTEND Internal Medicine
DX: L89.154 Pressure ulcer of sacral region, stage 4 (principal); G93.41 Metabolic encephalopathy; E43 Unspecified severe protein-calorie malnutrition; N39.0 Urinary tract infection, site not specified; M86.8X7 Other osteomyelitis, ankle and foot; Z68.1 Body mass index [BMI] 19.9 or less, adult; E11.52 Type 2 diabetes mellitus with diabetic peripheral angiopathy with gangrene; I96 Gangrene, not elsewhere classified; Z51.5 Encounter for palliative care; E11.69 Type 2 diabetes mellitus with other specified complication; F03.90 Unspecified dementia, unspecified severity, without behavioral disturbance, psychotic disturbance, mood disturbance, and anxiety; K21.9 Gastro-esophageal reflux disease without esophagitis; N40.1 Benign prostatic hyperplasia with lower urinary tract symptoms; J44.9 Chronic obstructive pulmonary disease, unspecified; I25.10 Atherosclerotic heart disease of native coronary artery without angina pectoris; G47.33 Obstructive sleep apnea (adult) (pediatric); E78.5 Hyperlipidemia, unspecified; Z79.4 Long term (current) use of insulin; Z86.73 Personal history of transient ischemic attack (TIA), and cerebral infarction without residual deficits; Z87.891 Personal history of nicotine dependence; Z87.81 Personal history of (healed) traumatic fracture; Z98.1 Arthrodesis status; Z95.1 Presence of aortocoronary bypass graft; Z88.8 Allergy status to other drugs, medicaments and biological substances; Z74.01 Bed confinement status
CPT/HCPCS: 36415; 36416; 80048; 80053; 81003; 81015; 83605; 85025; 86140; 87040; 87077; 87086; 87186; 94640; 96365; J0696; J1644; J1815; J3490; J7626; S0028

== ENCOUNTER 2018-09-07 14:40 | Outpatient (CLI) | payer MEDICARE, OTHER ==
--- NOTE | 2018-09-07 15:58 | PRG ---
DATE OF SERVICE: 09/07/2018 HISTORY: Mr. Tab Burdick is a 72-year-old gentleman, accompanied by his daughter, who [facility] for evaluation of a sacral wound. The patient's daughter states that Mr. Burdick has been seen by Dr. Howe earlier this month as planned. A followup appointment with Dr. Howe was scheduled after the patient completed courses of IV and p.o. antibiotics as per Infectious Diseases. The patient's daughter states that arrangements have been made for Mr. Burdick to undergo intraoperative debridement of his sacral pressure ulceration by Dr. Singh early next week. Apparently, these arrangements were facilitated by Dr. Howe. Presently, the patient is sitting up only for meals. The patient's daughter reports the development of new superficial wounds over the extremities. Apparently, according to the staff at [facility], the patient is more interactive and has increased p.o. intake when sitting up for his meals. PHYSICAL EXAMINATION: VITAL SIGNS: Temperature 97.6, pulse 75, respirations 16, blood pressure 119/40, Accu-Chek 288. BACK: A sacral wound is present, which measures approximately 4.6 x 4.0 cm. The dimensions of the wound at the time of the patient's last visit were approximately 4.7 x 5.0 cm. Granulation tissue is present within the wound margins. No purulent drainage is associated with the wound. No erythema of the skin surrounding the wound is present. No maceration of the skin of the periwound is noted. Bone is exposed within the margins of the wound on today's exam. ASSESSMENT AND PLAN: Wound over the coccyx and sacrum subsequent to intraoperative debridement, negative pressure therapy will be continued with dressing changes of the wound VAC 3 times per week after cleansing and irrigation at [facility]. Orders will be transmitted to [facility] for black foam only to the wound bed after the application of Promogran. As stated above, the patient may undergo intraoperative debridement of his sacral pressure ulceration by Dr. Singh early next week. I will see Mr. Burdick after his discharge from [facility]. Job ID: [id number]
== END 2018-09-07 14:41 | disposition home or self-care (01) ==
LOC: WCC 14:40
PROVIDERS: ATTEND Family Medicine
DX: S31.000D Unspecified open wound of lower back and pelvis without penetration into retroperitoneum, subsequent encounter (principal)
CPT/HCPCS: 36416; 97605

== ENCOUNTER 2018-09-12 12:55 | Day surgery (SDC) | payer MEDICARE, OTHER ==
[2018-09-11 11:01] VITALS: BMI 18.5
[2018-09-12] MEDS ORDERED: Levofloxacin 500 mg/D5W 100 ml Premix Bag ONE (13:56)
[2018-09-12] MEDS ORDERED: metroNIDAZOLE 500 MG/100 ML BAG ONE (13:57)
[2018-09-12 14:21] LABS: #Eosinphils 0.2 thou/uL (0.0-0.7); #Lymphocytes 1.4 thou/uL (1.20-3.40); #Monocytes 0.5 thou/uL (0.11-0.59); #Neutrophils 4.1 thou/uL (1.40-6.50); %Eosinophils 3.3 % (0.0-10.0); %Lymphocytes 22.7 % (21.0-51.0); %Monocytes 8.2 % (0.0-10.0); %Neutrophils 65.9 % (42.0-75.0); Hemoglobin 10.3 g/dL (14.0-18.0); Mean Corpuscular HGB CONC 32.3 g/dL (32.0-36.0); Mean Corpuscular Hemoglobin 26.8 pg (27.0-31.0); Mean Corpuscular Volume 83.2 fL (78.0-98.0); Mean Platelet Volume 7.8 fL (7.4-10.4); Platelet Count 217 thou/uL (130-400); RBC Distribution Width 15.9 % (11.5-14.5); Red Blood Cell (RBC) Count 3.85 mill/uL (4.70-6.10); White Blood Cell (WBC) Count 6.2 thou/uL (4.8-10.8)
[2018-09-12 14:42] LABS: Anion Gap 7 mmol/L (10-20); BUN (Urea Nitrogen) 22 mg/dL (8.4-25.7); Calc. Creatinine Clearance 85 mL/min (70-130); Calcium 9.4 mg/dL (7.8-10.44); Carbon Dioxide 28 mmol/L (23-31); Chloride 104 mmol/L (98-107); Estimated GFR-MDRD Greater than 90; Glucose 115 mg/dL (83-110); Sodium 135 mmol/L (136-145)
[2018-09-12] MEDS ORDERED: Dexamethasone 20 MG/5 ML VIAL ONE (15:37)
[2018-09-12] MEDS ORDERED: Ondansetron PF 4 MG/2 ML Vial ONE (15:37)
[2018-09-12] MEDS ORDERED: PROPOFOL 200 MG/20 ML VIAL ONE (15:37)
[2018-09-12] MEDS ORDERED: Lidocaine 1% PF 5 ML VIAL ONE (15:37)
[2018-09-12] MEDS ORDERED: PHENYLEPHRINE-NS 100 MCG/ML 10 ML SYRINGE ONE (15:37)
[2018-09-12] MEDS ORDERED: Fentanyl 100 MCG/2 ML VIAL ONE (17:03)
--- NOTE | 2018-09-13 08:13 | OP ---
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 PROCEDURE PERFORMED: Sharp debridement of excisional resectional skin, subcutaneous tissue, fat, fascia, and sacrum. Wound left open for healing by secondary intention. Wet-to-dry dressing applied. ANESTHESIA: General. Note, Dr. Howe called the office and asked me to see if this patient had previously debrided his decubitus in the past. He had osteomyelitis and it was felt that debridement of this would facilitate wound healing. The patient is in the correction and participate with therapy more. Plan is to debride this in the operating room. DESCRIPTION OF PROCEDURE: The patient was taken to the operating room, where under general anesthesia in the prone position, his presacral area was prepared with Betadine and draped in routine fashion. Necrotic skin, subcutaneous tissue, connective tissue, tendon and bone resected sharply with rongeurs. Bone culture submitted. Hemostasis was gained with cautery. All the wound looked good. Final result in wound was about 6 x 6 cm and extended down below the sacrum and the sacrum was resected. The patient tolerated the procedure well. Job ID: [id number]
--- NOTE | 2018-09-13 13:22 | EKG ---
Test Reason : PREOP Blood Pressure : / mmHG Vent. Rate : 074 BPM Atrial Rate : 074 BPM P-R Int : 184 ms QRS Dur : 112 ms QT Int : 404 ms P-R-T Axes : 002 -11 042 degrees QTc Int : 448 ms Sinus rhythm with marked sinus arrhythmia Right bundle branch block Nonspecific T wave abnormality Abnormal ECG When compared with ECG of 24-MAY-2018 16:21, ST no longer depressed in Inferior leads Confirmed by GISELE LARSEN (2) on 09/13/2018 1:21:46 PM Referred By: JASON Confirmed By:GISELE LARSEN
== END 2018-09-12 19:48 | disposition home or self-care (01) ==
LOC: EEVIPCON 12:55 → SDC 12:55
PROVIDERS: ATTEND Specialist
PROC: 0QB10ZZ Excision of Sacrum, Open Approach (ICD-10-PCS; principal; 2018-09-12)
DX: E11.52 Type 2 diabetes mellitus with diabetic peripheral angiopathy with gangrene (principal); I96 Gangrene, not elsewhere classified; E11.622 Type 2 diabetes mellitus with other skin ulcer; L89.159 Pressure ulcer of sacral region, unspecified stage; E11.69 Type 2 diabetes mellitus with other specified complication; M46.28 Osteomyelitis of vertebra, sacral and sacrococcygeal region; L02.212 Cutaneous abscess of back [any part, except buttock and flank]; Z79.4 Long term (current) use of insulin; Z88.5 Allergy status to narcotic agent; Z91.012 Allergy to eggs; Z88.1 Allergy status to other antibiotic agents; Z79.899 Other long term (current) drug therapy
CPT/HCPCS: 36415; 80048; 85025; 87070; 87077; 87186; 87205; 88304; 93005; 93010; J1956; J3010